=== PATIENT | female | born 1945 | race Caucasian/White ===

== ENCOUNTER → 2023-10-11 12:46 | Outpatient (REF) | payer OTHER, SELFPAY | LOC: RCS 12:46 | PROVIDERS: ATTENDING PHYSICIAN Internal Medicine Cardiovascular Disease; FAMILY PHYSICIAN Nurse Practitioner Adult Health | DX: I25.5 Ischemic cardiomyopathy (principal) | CPT/HCPCS: 93306 ==

== ENCOUNTER 2023-12-18 15:08 | Inpatient (IN) | payer OTHER, SELFPAY ==
[2023-12-18] VITALS (17 sets, daily range): BP systolic 113–156; BP diastolic 79–117; BMI 37.7; BMI 35.0
--- NOTE | 2023-12-18 07:36 | ED.GENMED ---
History of Present Illness
General
Chief Complaint: Breathing Problem
Source: patient
Exam Limitations: none
Time Seen by Provider: 12/18/23 07:13
Nursing documentation reviewed up to this point in time: agreed with
History of Present Illness
History of Present Illness:
77-year-old female with a past medical history of hypertension, CHF, CAD status post stent, AICD who presents to the emergency room for evaluation of shortness of breath and palpitations. Patient reports symptoms have been ongoing for the past week
and she feels generally worsening which prompted ER visit today. She says that she has shortness of breath at rest much worse with exertion. She says that she is going to have progressive orthopnea and is having to sleep sitting up in bed and she
says is having very restless sleep as a result. She says that she has noticed that she is having palpitations and racing heart. She says that she is having some intermittent lightheadedness particularly with positional changes. She has not had
any chest pain. She denies any cough or fevers. She has not noticed any swelling in the legs. She denies any other complaints including GI symptoms, UTI symptoms. She reports that her doctor called her and told her that she was in atrial
fibrillation�patient is unclear whether this is a longstanding history; not documented in notes from 2022 but patient is being maintained on Eliquis. She has been following with Dr. Figueroa through [facility] for cardiology although she also
has seen Dr. Ziegler here through [facility] cardiology.
Past History
Past History
ED Past Medical History: CAD, HTN and Other (Diverticulitis)
ED Past Surgical History: Other (Hysterectomy,)
Social History
Tobacco: Non-smoker
Alcohol: Occasional
Personal:
Employment: Employed
Review of Systems
Review of Systems
All Other Systems: ROS reviewed and negative except as documented in HPI and ROS
Constitutional: Denies fever or chills
Respiratory: Reports trouble breathing; Denies cough
Cardiac: Reports palpitations; Denies chest pain, diaphoresis or syncope
ABD/GI: Denies abdominal pain, nausea or vomiting
: Denies dysuria, frequency or flank pain
Musculoskeletal: Denies edema, neck pain or back pain
Neurological: Reports dizzy; Denies headache, weakness or numbness
Phy Exam
Physical Exam
Physical Exam:
General: Awake, alert, oriented x3; no acute distress
Head: Normocephalic, atraumatic
Eyes: Conjunctiva normal, sclera anicteric
Throat: Airway intact, handling secretions
Neck: Trachea midline, no JVD noted
Lungs: Clear to auscultation bilaterally, no wheezing, rales, rhonchi
Heart: Tachycardia with irregularly irregular rhythm, no murmurs, gallops, or rubs
Abd: Soft, non distended, nontender
Neuro: No gross deficits
Skin: no rash
Extremities: No edema in extremities, equal pulses in all extremities
Scores
Heart Failure Risk
Heart Failure Risk Score: Not Applicable
Heart Score for Chest Pain Patients
STEMI patient?: Not applicable
Withdrawal Assessment of Alcohol
Withdrawal Assessment Completed?: Not applicable
Course
Orders/Labs/Results
Orders:
Orders
12/18/23 06:56
Electrocardiogram (*1) Urgent
Reason for Study: Shortness of Breath
EKG- Treatment ONCE
12/18/23 07:13
CR Chest - 2 Views Urgent
Comment:
Reason For Exam: sob
12/18/23 07:14
Electrocardiogram (*1) Urgent
Reason for Study: Shortness of Breath
EKG- Treatment ONCE
12/18/23 07:35
Complete Blood Count/With Diff Urgent
Comprehensive Metabolic Panel Urgent
Magnesium Urgent
Comment: ADD
NT-proBNP Urgent
TSH Reflex To Free T4 Urgent
Comment: ADD
12/18/23 07:37
Interrogate Pacemaker- Treatment ONCE
Comment: Medtronic
12/18/23 07:39
Diltiazem HCl [Cardizem] 10 mg IV NOW STA
12/18/23 07:49
CARDIOLOGY CONSULT Urgent
Consulting Provider: Gerardo Cohen
Was physician already notified: Yes
12/18/23 07:51
Vital Signs- Treatment ONCE
Frequency: Once
Comment: temperature
12/18/23 08:48
Furosemide [Lasix] 40 mg IV NOW STA
12/18/23 09:37
Add On- LAB Routine
Tests Added?: TSH w/ reflex T4, magnesium
12/18/23 10:30
Apixaban [Eliquis] 5 mg PO BID
12/18/23 11:00
Metoprolol Xl [Toprol Xl] 50 mg PO DAILY
Abnormal Lab Results
12/18/23
07:35
MPV 10.5 H fL
(7.4-10.4)
Absolute Lymphs (auto) 0.9 L 10^3/uL
(1.2-3.4)
Absolute Monos (auto) 0.7 H 10^3/uL
(0.1-0.6)
Neutrophils % 75.8 H %
(42.2-75.2)
Lymphocytes % 11.5 L %
(20.5-51.1)
Carbon Dioxide 20 L mmol/L
(22-30)
BUN 25 H mg/dl
(7-17)
Glucose 107 H mg/dl
(70-99)
Total Protein 6.1 L g/dl
(6.3-8.2)
12/18/23 07:35
12/18/23 07:35
Vital Signs
Initial and Last Documented VS:
Initial Vital Signs
Pulse Resp BP Pulse Ox
125 16 148/94 96
12/18/23 06:52 12/18/23 06:52 12/18/23 06:52 12/18/23 06:52
Last Documented Vital Signs
Temp Pulse Resp BP Pulse Ox
36.8 C 100 21 141/117 94
12/18/23 08:00 12/18/23 10:00 12/18/23 10:00 12/18/23 10:00 12/18/23 10:00
MDM/Problems Addressed
Differential Diagnosis Includes:
Symptomatic atrial fibrillation, CHF, anemia
MDM/Problems Addressed:
77-year-old female presents for evaluation of worsening shortness of breath, orthopnea, palpitations over the past week. Tachycardic on arrival, rest of vitals acceptable including respiratory of 16, pulse ox 96% on room air. Blood pressure high
normal. Physical exam as above. EKG on arrival shows A-fib with RVR�she is on Eliquis unclear exactly how long she has been on it. Will plan to place an IV check labs including CBC and a CMP, proBNP. Check a chest x-ray. Will provide some IV
diltiazem for heart rate control. Will monitor closely on telemetry. Reassess after the above.
Labs reviewed: CBC unremarkable, CMP shows no clinically significant abnormalities. proBNP is elevated to greater than 10,000. Chest x-ray reviewed by me no gross edema, some pulmonary vascular congestion. Heart rate has improved with IV
diltiazem�heart rate now in the 70s to 80s remains in A-fib. Will repeat EKG. Case discussed with cardiology for evaluation with concerns for some mild CHF likely caused by rapid A-fib�patient now rate controlled; no gross edema on exam or x-ray,
equivocal for admission; awaiting cardiology recommendations. Will give a dose of IV Lasix.
Cardiology evaluated�recommended admission, agree with Lasix, tentative plan for cardioversion Wednesday. Case discussed with hospitalist for admission.
Chronic conditions affecting care:
CHF, atrial fibrillation
Acute Exacerbation and/or Progression of Chronic Illness:
Acute exacerbation of rapid atrial fibrillation�treated with IV diltiazem
Acute Exacerbation and/or Progression of Chronic Illness: Arrhythmia
*Radiology
Radiology exam reviewed: preliminary read by ED provider and radiology read reviewed
*Pulse Oximetry
Patient hypoxic: no
*EKG
Interpreted by ED Provider?: Yes
Heart Rate: 114
Rate: tachycardiac
Rhythm: a-fib and PVC's
[place]: left axis deviation
QRS Pattern: wide non-specific
Ischemia: no ischemia
*Critical Care Note
Total Time (30-74mins, 75-104mins- exclusive of procedures): 31
comment:
Critical care statement: A total of 31 minutes of critical care time was provided for this patient. This includes management of unstable vital signs, evaluation of the patient at bedside, frequent reassessment, discussion with
consultants/hospitalist, and review of pertinent medical records. This time was separate from time utilized to perform any aforementioned documented procedures
Data Reviewed
Review of Other/Old Records Reveals: Labs and Records
Source: patient, records and family
Patient Management
Discussion with other providers: Hospitalist (Discussed with hospitalist) and Computer Graphic Artist (Discussed with cardiology)
Escalation/DeEscalation of care consider admission/obs:
Admission indicated
ED Attending Note
-
Portions of this chart may have been created with voice recognition software.� Occasional wrong word or��sound alike� substitutions may have occurred due to the inherent limitations of voice recognition software.
Discharge Plan
Departure
Patient Disposition: Admit
Date of Disposition: 12/18/23
Time of Disposition: 10:42
Admit to doctor: Hank
Presentation/result/management discussed w/ accepting MD/DO: Hospitalist
Discharge Problem:
Atrial fibrillation with RVR, CHF exacerbation
Prescriptions:
No Action
melatonin 5 MG tablet
10 mg PO HS
nitroglycerin 0.4 MG tablet, sublingual
0.4 mg sublingual [id number] PRN (Reason: chest pain) Qty: 25 2RF
acetaminophen 325 MG tablet
650 mg PO DAILYPRN PRN (Reason: MILD PAIN)
furosemide [Lasix] 20 mg tablet
20 mg PO DAILY Qty: 30 0RF
Entresto 49-51 mg Tablet
1 tab PO BID
carvedilol 6.25 mg Tablet
6.25 mg PO BID
escitalopram oxalate 10 mg Tablet
10 mg PO DAILY
Eliquis 5 mg Tablet
5 mg PO BID
amoxicillin-pot clavulanate 875-125 mg tablet
1 tab PO BID Qty: 14 0RF
hydrocodone-acetaminophen 5-300 mg tablet
1 tab PO Q6H PRN (Reason: Pain) Qty: 14 0RF
Referrals:
Suyapa Duval CRNP [Family Provider] -
Interventions
Interventions:
*Risk Screen - Suicide Last Done: 12/18/23 06:52
*General Assessment Last Done: 12/18/23 06:52
*Neglect/Abuse Screening Last Done: 12/18/23 06:52
ED- Fall Risk Assessment Last Done: 12/18/23 07:22
*ED COVID-19 Vaccine History Last Done: 12/18/23 07:22
ED- Cardiac Assessment Last Done: 12/18/23 07:22
ED- Pulmonary Assessment Last Done: 12/18/23 07:22
Discharge Date and Time
Print Language: BOLIVIAN
[2023-12-18 07:46] LABS: % Basophils 0.5 % (0-2); % Eosinophils 3.1 % (0-6); % Immature Granulocytes 0.1 % (0-0.5); % Lymphocytes 11.5 % (20.5-51.1); % Neutrophils 75.8 % (42.2-75.2); Absolute Eosinophils 0.2 10^3/uL (0-0.7); Absolute Lymphocytes 0.9 10^3/uL (1.2-3.4); Absolute Monocytes 0.7 10^3/uL (0.1-0.6); Absolute Neutrophils 5.8 10^3/uL (1.4-6.5); Hematocrit 38.4 % (37.0-47.0); Hemoglobin 12.9 g/dL (12.0-16.0); Mean Corp Hgb Conc. 33.6 g/dL (33.0-37.0); Mean Corpuscular Hgb 30.4 pg (27.0-31.0); Mean Corpuscular Volume 90.6 fL (81.0-99.0); Mean Platelet Volume 10.5 fL (7.4-10.4); Nucleated Red Blood Cells % 0 %; Platelet Count 255 10^3/uL (130-400); Red Blood Cell Count 4.24 10^6/uL (4.20-5.40); Red Cell Dist. Width 13.2 % (11.5-14.5); White Blood Cell Count 7.6 10^3/uL (4.8-10.8)
[2023-12-18] MEDS: CARDIZEM 10 MG IV (07:56)
[2023-12-18 07:57] LABS: ALT (SGPT) 18 U/L (0-35); AST (SGOT) 24 U/L (14-36); Albumin 3.8 g/dl (3.5-5.0); Alkaline Phosphatase 95 U/L (38-126); Blood Urea Nitrogen 25 mg/dl (7-17); Calcium 9.6 mg/dl (8.4-10.2); Carbon Dioxide 20 mmol/L (22-30); Chloride 107 mmol/L (98-107); Estimated Creatinine Clearance 52 ml/min; Glucose 107 mg/dl (70-99); Potassium 4.4 mmol/L (3.5-5.1); Sodium 139 mmol/L (135-145); Total Bilirubin 0.9 mg/dl (0.2-1.3); Total Protein 6.1 g/dl (6.3-8.2); eGFR 58.02
[2023-12-18 08:06] LABS: NT-proBNP 10300 pg/ml
[2023-12-18] MEDS: LASIX 40 MG IV (08:53)
--- NOTE | 2023-12-18 09:15 | CON.CAR ---
Addendum entered and electronically signed by Gerardo Cohen DO 12/18/23 13:58:
I saw and examined the patient.
The Brake Repair Supervisor's note was reviewed and I agree with the note.
Comment:
Plan:
She has been in recurrent, atrial fibrillation for the last week. She remains on Eliquis.
-ICD interrogated in emergency department shows patient has been in atrial fibrillation since December 12, 2023.
-OptiVol heart failure fluid index trending up since being in atrial fibrillation]
She also stopped Lasix several months ago and has not been taking it.
IV Lasix diuresis for heart failure.
Recent echo reviewed; EF remains stable by recent echo October 2023.
Continue Entresto.
Patient reports intolerance to carvedilol with significant night terrors. She is only been taking it in the morning. Will stop carvedilol and start Toprol 50 mg daily
Given recurrent atrial fibrillation, would consider cardioversion on December 19. She has been taking Eliquis.
Discussed with emergency room.
Outpatient follow-up with Dr. Figueroa/Dr. Ziegler
Original Note:
Consultation
Consultation Request
Date/Time Consultation Requested: 12/18/2023
Date/Time Consultation Performed: 12/18/2023
Requesting Provider: Dr. Chepe Mullins
Performing Provider: Grisel Neri PA-C for Dr. Gerardo Cohen
Reason for Consultation: Atrial fibrillation, shortness of breath
Medical History
-
History of Present Illness:
Patient is a 77-year-old female with past medical history significant for coronary artery disease status post OM RAULITO, ischemic cardiomyopathy, chronic heart failure with reduced ejection fraction, NSVT status post BiV ICD, left bundle branch block,
paroxysmal atrial fibrillation on chronic anticoagulation with Eliquis hypertension, hyperlipidemia who presents to emergency department 12/18/2023 with progressively worsening shortness of breath and palpitations. Patient reports symptoms started
approximately 1 week ago and have progressively gotten worse. She also notes orthopnea/PND and difficulty sleeping. Patient noted to be in atrial fibrillation with rapid ventricular response. proBNP elevated 10,300. Chest x-ray possible mild
heart failure. Patient was provided 40 mg IV Lasix and IV diltiazem bolus.
Per patient she ran out of Lasix several months ago and has not been taking it. She also experiences night terrors and has only been taking Coreg in the morning and not in the evening.
PMH:
Chronic HFrEF 30-35%
LBBB
NSVT
s/p BiV ICD 11/18/22 Medtronic
Paroxysmal atrial fibrillation on chronic anticoagulation with Eliquis
HTN
HLD
CAD
s/p RAULITO OM 07/2020
Diverticulitis
TKR
Past Medical History
Past Medical History: Other
Past Surgical History: Cardiac (OM RAULITO July 2020), Gynecological (Hysterectomy) and Orthopedic (Left total knee replacement)
Social History
Tobacco: Non-Smoker
Alcohol: None
Drug: None
Personal:
Living: With Family (grandson)
Family History
Family History: Other (Father had heart failure, mother CAD/ND, lung cancer)
Allergies / Home Medications
Allergy/AdvReac Type Severity Reaction Status Date / Time
No Known Allergies Allergy Verified 12/18/23 06:51
�Medication �Instructions �Recorded �Confirmed �Type
melatonin 5 mg tablet 10 mg PO HS Sleep 07/29/20 03/10/23 History
nitroglycerin 0.4 mg sublingual 0.4 mg sublingual [id number] PRN 07/29/20 03/10/23 Rx
tablet chest pain #25 tabs
acetaminophen 325 mg tablet 650 mg PO DAILYPRN PRN MILD PAIN 08/01/20 03/10/23 History
furosemide 20 mg tablet (Lasix) 20 mg PO DAILY #30 tabs 06/22/22 03/10/23 Rx
carvedilol 6.25 mg tablet 6.25 mg PO BID Heart Failure 11/18/22 03/10/23 History
escitalopram oxalate 10 mg tablet 10 mg PO DAILY Depression 11/18/22 03/10/23 History
sacubitril 49 mg-valsartan 51 mg 1 tab PO BID Heart Failure 11/18/22 03/10/23 History
tablet (Entresto)
amoxicillin 875 mg-potassium 1 tab PO BID #14 tabs 03/10/23 Rx
clavulanate 125 mg tablet
apixaban 5 mg tablet (Eliquis) 5 mg PO BID 03/10/23 03/10/23 History
hydrocodone 5 mg-acetaminophen 300 1 tab PO Q6H PRN Pain #14 tabs 03/10/23 Rx
mg tablet
Review of Systems
-
History Source: Patient
All other systems: Negative unless noted
Physical Exam
Vital Signs
Temp Pulse Resp BP Pulse Ox
98.2 F 86 17 132/82 95
12/18/23 08:00 12/18/23 08:53 12/18/23 08:00 12/18/23 08:53 12/18/23 07:51
GEN: No distress, awake, Ox3, sitting in bed
HEENT: supple, anicteric, mmm
LUNGS: CTA, no wheezes/rales
CV: Reg, S1/S2, 1/6 systolic murmur
ABD: soft, BS+, NT/ND
EXT: Trace edema, no clubbing or cyanosis
NEURO: Gross non-focal
SKIN: No rash, warm, dry, pink
Lab Results
12/18/23 07:35
12/18/23 07:35
Rej-G-Khhjijwjown Pept [id number] pg/ml 12/18/23 07:35
Impression / Plan
-
PCP: BYRON Man
Manager Meat: Dr. Figueroa
Director Index: Dr. Robert Ziegler
Impression:
Presented 12/18/2023 with shortness of breath, palpitations, orthopnea and PND
Acute heart failure with reduced ejection fraction, proBNP 10,300
Atrial fibrillation with rapid ventricular response
Chronic HFrEF 30-35%
LBBB
NSVT
s/p BiV ICD 11/18/22 Medtronic
Paroxysmal atrial fibrillation on chronic anticoagulation with Eliquis
HTN
HLD
CAD
s/p RAULITO OM 07/2020
Diverticulitis
TKR
Cath/PCI 07/29/2020: 90 OM2=>PCI/RAULITO. Also negative FFR of a 60 LAD, a 60 Ramus, and a 60 OM1.
Lexiscan nuclear stress test 07/19/2020: Moderate reversible defect in the mid inferolateral, mid inferior, and apical inferior segments. Inferior hypokinesis. LVEF 40%. LV normal size.�������
Echo 10/11/2023: EF 34%. Moderately reduced LV systolic function. Stage II DD. Mild MR, mild TR. PAP 37 mmHg
Echo 03/20/2021: EF 35 to 40%, stage II DD. Mild left atrial enlargement. Mild MR.
Echo 07/12/2020: LVEF 45-50%. Mild global hypo. Inferior basal akinesis. Moderate LAE. Aortic valve sclerosis.
Plan:
-Presented 12/18/2023 with shortness of breath, palpitations, orthopnea and PND. Elevated proBNP and chest x-ray concerning for acute heart failure
-Acute on chronic heart failure with reduced ejection fraction, proBNP 10,300. Suspect secondary to atrial fibrillation with rapid ventricular response.
-Patient provided 40 mg IV Lasix in emergency department. Continue to monitor and assess response. Patient has not been taking outpatient dosing of Lasix in several months.
-Patient reports intolerance to carvedilol with significant night terrors. She is only been taking it in the morning. Will stop carvedilol and start Toprol 50 mg daily instead
-Continue Entresto. Consider adding Aldactone or SGLT2 inhibitor during admission if BP allows
-Most recent echocardiogram from October 2023 with chronically reduced ejection fraction. No need to repeat this admission.
-Atrial fibrillation with rapid ventricular response. Patient provided IV diltiazem bolus in emergency department with improvement of heart rate
-ICD interrogated in emergency department which shows patient has been in atrial fibrillation since December 12, 2023. OptiVol heart failure fluid index trending up since being in atrial fibrillation]
-Patient reports she has been compliant taking Eliquis without missing or skipping any doses. Continue Eliquis 5 mg twice a day. Hemoglobin stable 12.9
-Will tentatively arrange for cardioversion on 12/20/2023
-Add on TSH
HPI 12/18/2023:
Patient is a 77-year-old female with past medical history significant for coronary artery disease status post OM RAULITO, ischemic cardiomyopathy, chronic heart failure with reduced ejection fraction, NSVT status post BiV ICD, left bundle branch block,
paroxysmal atrial fibrillation on chronic anticoagulation with Eliquis hypertension, hyperlipidemia who presents to emergency department 12/18/2023 with progressively worsening shortness of breath and palpitations. Patient reports symptoms started
approximately 1 week ago and have progressively gotten worse. She also notes orthopnea/PND and difficulty sleeping. Patient noted to be in atrial fibrillation with rapid ventricular response. proBNP elevated 10,300. Chest x-ray possible mild
heart failure. Patient was provided 40 mg IV Lasix and IV diltiazem bolus.
Per patient she ran out of Lasix several months ago and has not been taking it. She also experiences night terrors and has only been taking Coreg in the morning and not in the evening.
Data Reviewed
-
EKG: Report Reviewed by me, Discussed with Physician, Discussed with Patient and Discussed with Family
Radiology: Report Reviewed by me, Discussed with Physician, Discussed with Patient and Discussed with Family
Labs: Labs Reviewed by me, Discussed with Physician, Discussed with Patient and Discussed with Family
Old Records: Reviewed
[2023-12-18 10:57] LABS: TSH Reflex To Free T4 1.22 uIU/ml (0.47-4.68)
[2023-12-18] MEDS: ELIQUIS 5 MG PO ×2 (12:52→21:16)
[2023-12-18] MEDS: TOPROL XL 50 MG PO (12:56)
--- NOTE | 2023-12-18 14:56 | HPS.HSE ---
Family Physician
-
Family Physician: Suyapa Duval
Chief Complaint
-
Shortness of breath
History of Present Illness
77-year-old female with past medical history of coronary artery disease status post stent, ischemic cardiomyopathy, chronic heart failure with reduced EF, VT status post BiV ICD, paroxysmal atrial fibrillation, hyperlipidemia came to the hospital
with progressive shortness of breath and palpitations. Per patient her symptoms started about a week ago and has been getting worse. Denies any chest pain. She does also noted orthopnea. In the ER patient was noted to be in A-fib with RVR. Per
patient she ran out of Lasix few months ago and has not been taking it. Currently she denies any nausea, vomiting, diarrhea, constipation.
Medical History
Past Medical History
Past Medical History: Reports CAD, CHF, HTN and Hypercholesterolemia
Past Surgical History: Reports Cardiac, Gynocological and Orthopedic
Social History
Tobacco: Non-smoker
Alcohol: None
Family History
Family History: Not pertinent
Allergies / Home Medications
Allergies reflects when Allergies were last updated in [employer].
Home Medications with original date entered in [employer]
Allergy/Medication List:
Allergies
Allergy/AdvReac Type Severity Reaction Status Date / Time
No Known Allergies Allergy Verified 12/18/23 06:51
Home Medications
melatonin 5 mg tablet 10 mg PO HS Sleep 07/29/20
sacubitril 49 mg-valsartan 51 mg tablet (Entresto) 1 tab PO BID Heart Failure 11/18/22
apixaban 5 mg tablet (Eliquis) 5 mg PO BID 03/10/23
escitalopram oxalate 20 mg tablet (Lexapro) 20 mg PO DAILY 12/18/23
Review of Systems
-
History Source: Patient
A 12 point ROS was completed and negative except as noted: Yes
Respiratory: Reports Trouble Breathing
Physical Exam
Vital Signs
Vital Signs
Temp Pulse Resp BP Pulse Ox
98.2 F 83 20 131/84 92
12/18/23 08:00 12/18/23 14:30 12/18/23 14:30 12/18/23 14:01 12/18/23 14:30
Physical Exam
General: Well Nourished and No Apparent Distress
HEENT: NormoCephalic, Anicteric and Moist mucous membranes
Respiratory: Clear and Non Labored Respirations; No Wheezes
Cardiac: S1/S2, Irregular Rhythm and Tachycardia
GI: Soft, Non Tender and Non Distended
Rectal: Deferred by Provider
Genito-urinary: No Bueno
Musculoskeletal: No Edema
Neuro: Awake, Alert, Oriented and AO x 3
Psych: Calm and Intact Judgment/Insight
Laboratory Results
-
12/18/23 07:35
12/18/23 07:35
Laboratory Results
Total Bilirubin 0.9 mg/dl (0.2-1.3) 12/18/23 07:35
AST 24 U/L (14-36) 12/18/23 07:35
ALT 18 U/L (0-35) 12/18/23 07:35
Alkaline Phosphatase 95 U/L (38-126) 12/18/23 07:35
Impression/Plan
-
Shortness of breath secondary to acute on chronic CHF with reduced ejection fraction
Chronic CHF with EF 30 to 35%
Start IV Lasix
BNP elevated
Cardiology following
Chest x-ray noted
Continue Entresto
Echo 10/11/2023: EF 34%. Moderately reduced LV systolic function. Stage II DD. Mild MR, mild TR. PAP 37 mmHg
Atrial fibrillation with RVR
History of paroxysmal atrial fibrillation
Continue with Eliquis
Start metoprolol
Possible cardioversion on Wednesday if remains in A-fib
NSVT status post BiV ICD
Monitor
Essential hypertension
Hyperlipidemia
CAD status post stent
Monitor
History of depression
Continue lexapro
DVT prophylaxis
Eliquis
Full code
I spent a total of 76 minutes with the patient or on the floor. More than 50% of this time involved counseling and coordination of care.
[2023-12-18] MEDS: ENTRESTO 49 MG/51 MG 1 TAB PO (20:14)
[2023-12-18] MEDS: MELATONIN 10 MG PO (21:15)
[2023-12-19] VITALS (7 sets, daily range): BP systolic 93–132; BP diastolic 64–93; BMI 35.0
[2023-12-19 03:58] LABS: % Basophils 1.1 % (0-2); % Immature Granulocytes 0.2 % (0-0.5); % Lymphocytes 24.5 % (20.5-51.1); % Monocytes 9.2 % (1.7-9.3); Absolute Basophils 0.1 10^3/uL (0-0.2); Absolute Eosinophils 0.3 10^3/uL (0-0.7); Absolute Lymphocytes 1.1 10^3/uL (1.2-3.4); Absolute Monocytes 0.4 10^3/uL (0.1-0.6); Absolute Neutrophils 2.7 10^3/uL (1.4-6.5); Hematocrit 36.9 % (37.0-47.0); Hemoglobin 12.6 g/dL (12.0-16.0); Mean Corp Hgb Conc. 34.1 g/dL (33.0-37.0); Mean Corpuscular Hgb 30.6 pg (27.0-31.0); Mean Corpuscular Volume 89.6 fL (81.0-99.0); Mean Platelet Volume 10.7 fL (7.4-10.4); Nucleated Red Blood Cells % 0 %; Platelet Count 240 10^3/uL (130-400); Red Blood Cell Count 4.12 10^6/uL (4.20-5.40); Red Cell Dist. Width 13.2 % (11.5-14.5); White Blood Cell Count 4.6 10^3/uL (4.8-10.8)
[2023-12-19 04:17] LABS: Blood Urea Nitrogen 22 mg/dl (7-17); Calcium 9.5 mg/dl (8.4-10.2); Carbon Dioxide 24 mmol/L (22-30); Chloride 105 mmol/L (98-107); Estimated Creatinine Clearance 50 ml/min; Glucose 90 mg/dl (70-99); Sodium 141 mmol/L (135-145); eGFR 58.02
--- NOTE | 2023-12-19 04:41 | PTCARENOTE ---
Pt. AAOx3, VSS, A-fib with V & some AV -pacing rate 80's- low 100's on the monitor. Denies any pain, discomfort, or SOB. Voiding large amounts clear yellow urine without difficulty. Ambulates independently with steady gait. Slept most of the
night.
[2023-12-19] MEDS: TOPROL XL 50 MG PO (07:42)
[2023-12-19] MEDS: LEXAPRO 20 MG PO (07:42)
[2023-12-19] MEDS: ELIQUIS 5 MG PO ×2 (07:42→20:20)
[2023-12-19] MEDS: ENTRESTO 49 MG/51 MG 1 TAB PO ×2 (07:42→20:20)
[2023-12-19] MEDS: LASIX 40 MG IV (07:43)
[2023-12-19] MEDS: FLUSH (NSS) 1 FLUSH IV (07:43)
--- NOTE | 2023-12-19 08:52 | W.PN.CARDCBS ---
Today's Communication / Plan
-
Cardioversion in a.m.
Continue IV diuresis
Impression / Plan
-
.
PCP: BYRON Man
Felt Tipping Machine Tender: Dr. Figueroa
Studio Owner: Dr. Robert Ziegler
Impression:
Presented 12/18/2023 with shortness of breath, palpitations, orthopnea and PND
Acute heart failure with reduced ejection fraction, proBNP 10,300
Recurrent paroysmal Atrial fibrillation with rapid ventricular response on chronic Eliquis
Chronic HFrEF 30-35%
LBBB
NSVT
s/p BiV ICD 11/18/22 [employer]
Paroxysmal atrial fibrillation on chronic anticoagulation with Eliquis
HTN
HLD
CAD
s/p RAULITO OM 07/2020
Diverticulitis
TKR
Cath/PCI 07/29/2020: 90 OM2=>PCI/RAULITO. Also negative FFR of a 60 LAD, a 60 Ramus, and a 60 OM1.
Lexiscan nuclear stress test 07/19/2020: Moderate reversible defect in the mid inferolateral, mid inferior, and apical inferior segments. Inferior hypokinesis. LVEF 40%. LV normal size.�������
Echo 10/11/2023: EF 34%. Moderately reduced LV systolic function. Stage II DD. Mild MR, mild TR. PAP 37 mmHg
Echo 03/20/2021: EF 35 to 40%, stage II DD. Mild left atrial enlargement. Mild MR.
Echo 07/12/2020: LVEF 45-50%. Mild global hypo. Inferior basal akinesis. Moderate LAE. Aortic valve sclerosis.
Plan:
-Presented 12/18/2023 with shortness of breath, palpitations, orthopnea and PND. Elevated proBNP and chest x-ray concerning for acute heart failure
Cont IV diuresis, wt coming down slowly.
Cont Lasix 40 mg IV daily
Recent October 2023 echo reviewed with EF 34% and has been 35-40%
-OptiVol heart failure fluid index trending up since being in atrial fibrillation
Remains in atrial fibrillation.
For cardioversion December 19
Continue Eliquis. She denies missing any doses.
Continue Toprol for rate control.
-ICD interrogated in emergency department shows patient has been in atrial fibrillation since December 12, 2023.
-Normal TSH
Continue Entresto for cardiomyopathy consider Aldactone/SGLT2 inhibitor for CM
She reported night terrors with carvedilol and this was switched to Toprol XL 50 mg daily.
Outpatient cardiac follow-up after cardioversion.
HPI 12/18/2023:
Patient is a 77-year-old female with past medical history significant for coronary artery disease status post OM RAULITO, ischemic cardiomyopathy, chronic heart failure with reduced ejection fraction, NSVT status post BiV ICD, left bundle branch block,
paroxysmal atrial fibrillation on chronic anticoagulation with Eliquis hypertension, hyperlipidemia who presents to emergency department 12/18/2023 with progressively worsening shortness of breath and palpitations. Patient reports symptoms started
approximately 1 week ago and have progressively gotten worse. She also notes orthopnea/PND and difficulty sleeping. Patient noted to be in atrial fibrillation with rapid ventricular response. proBNP elevated 10,300. Chest x-ray possible mild
heart failure. Patient was provided 40 mg IV Lasix and IV diltiazem bolus.
Per patient she ran out of Lasix several months ago and has not been taking it. She also experiences night terrors and has only been taking Coreg in the morning and not in the evening.
Progress Note - Felt Tipping Machine Tender
Subjective
Date of Service: December 19, 2023
Pt seen and examined. No complaints. No chest pain or shortness of breath.
Objective
Labs:
12/19/23 03:37
12/19/23 03:37
Labs
Hgb 12.6 g/dL (12.0-16.0) 12/19/23 03:37
Hct 36.9 % (37.0-47.0) L 12/19/23 03:37
Plt Count 240 10^3/uL (130-400) 12/19/23 03:37
Sodium 141 mmol/L (135-145) 12/19/23 03:37
Potassium 4.0 mmol/L (3.5-5.1) 12/19/23 03:37
BUN 22 mg/dl (7-17) H 12/19/23 03:37
Creatinine 1.0 mg/dL (0.6-1.0) 12/19/23 03:37
Glucose 90 mg/dl (70-99) 12/19/23 03:37
Vital Signs and I&O:
Vital Signs
Temp Pulse Resp BP Pulse Ox
98.3 F 97 20 120/73 98
12/19/23 06:52 12/19/23 07:00 12/19/23 06:52 12/19/23 07:42 12/19/23 06:52
Vital Signs
Temp Pulse Resp BP Pulse Ox
98.3 F 97 20 120/73 98
12/19/23 06:52 12/19/23 07:00 12/19/23 06:52 12/19/23 07:42 12/19/23 06:52
Intake & Output
12/17/23 12/18/23 12/19/23 12/20/23
06:59 06:59 06:59 06:59
Intake Total 240 / 240
Balance 240 / 240
Physical Exam
Physical Exam
General: No acute distress, AAOX3
Neck: Negative JVD
Heart: Irregular irregular, Negative S3 positive S1/S2, Negative S4, No murmur
Lungs: CTA b/l, negative wheezes/rales/rhonchi
Abd: Positive BS, NT/ND, neg rebound/rigidity/guarding
Ext: Negative cyanosis/clubbing/edema
Neuro: nonfocal
--- NOTE | 2023-12-19 09:27 | PTCARENOTE ---
Received patient at change of shift. Patient was resting in bed-- awake, alert, and oriented. BP 120/73, A-Fib V-paced 90s, 98% on room air. Discussed plan of care and patient verbalized understanding. Call gasca left within reach.
--- NOTE | 2023-12-19 10:33 | PTCARENOTE ---
Patient had a 14 run of [employer] @ 1017. Patient sleeping and asymptomatic. Dr. Noel enriquez.
--- NOTE | 2023-12-19 12:26 | W.PN.HOSP.TC ---
Today's Communication/Plan
-
Monitor vital signs
see plan
Continue with IV diuresis
Continue with metoprolol
Cardioversion in a.m.
N.p.o. past midnight
Continue Eliquis
Assessment / Plan
Assessment / Plan
General: Well Nourished and No Apparent Distress
HEENT: NormoCephalic, Anicteric and Moist mucous membranes
Respiratory: Clear and Non Labored Respirations; No Wheezes
Cardiac: S1/S2, Irregular Rhythm
GI: Soft, Non Tender and Non Distended
Genito-urinary: No Bueno
Musculoskeletal: No Edema
Neuro: Awake, Alert, Oriented and AO x 3
Psych: Calm and Intact Judgment/Insight
Shortness of breath secondary to acute on chronic CHF with reduced ejection fraction
Chronic CHF with EF 30 to 35%
Continue with IV Lasix
BNP elevated
Cardiology following
Chest x-ray noted
Continue Entresto
Echo 10/11/2023: EF 34%. Moderately reduced LV systolic function. Stage II DD. Mild MR, mild TR. PAP 37 mmHg
Plan for cardioversion 12/19. N.p.o. past midnight
Atrial fibrillation with RVR
History of paroxysmal atrial fibrillation
Continue with Eliquis
Started metoprolol
Possible cardioversion on Wednesday if remains in A-fib
NSVT status post BiV ICD
Monitor
Essential hypertension
Hyperlipidemia
CAD status post stent
Monitor
History of depression
Continue lexapro
DVT prophylaxis
Eliquis
Full code
Anticipated Discharge: 24 - 48 hours
Subjective/Interval History
-
Date of Service: December 19, 2023
Denies pain
Objective Data
-
Labs:
Laboratory Results
12/19/23
03:37
WBC 4.6 L
Hgb 12.6
Hct 36.9 L
Plt Count 240
Sodium 141
Potassium 4.0
Chloride 105
Carbon Dioxide 24
BUN 22 H
Creatinine 1.0
Glucose 90
Calcium 9.5
Vital Signs:
Vital Signs
Temp Pulse Resp BP Pulse Ox
98.2 F 90 20 93/64 98
12/19/23 11:33 12/19/23 12:00 12/19/23 11:33 12/19/23 11:36 12/19/23 12:09
I&O
12/18/23 12/19/23 12/20/23
06:59 06:59 06:59
Intake Total 240 / 240 240 / 240
Output Total 800 / 800
Balance 240 / 240 -560 / -560
[2023-12-19] MEDS: MELATONIN 10 MG PO (21:27)
--- NOTE | 2023-12-19 22:49 | PTCARENOTE ---
Received pt at handoff. AOx3. Tele- Afib w/ occ. V-pacing. HR 80-100s. Pt aware of NPO status for CV fang. Currently in bed; call elo w/in reach.
[2023-12-20 03:30] VITALS: BP 119/80
[2023-12-20 03:50] LABS: Hemoglobin 13.3 g/dL (12.0-16.0); Mean Corpuscular Hgb 30.6 pg (27.0-31.0); Mean Corpuscular Volume 87.6 fL (81.0-99.0); Mean Platelet Volume 10.2 fL (7.4-10.4); Platelet Count 244 10^3/uL (130-400); Red Blood Cell Count 4.34 10^6/uL (4.20-5.40); Red Cell Dist. Width 13.1 % (11.5-14.5); White Blood Cell Count 4.2 10^3/uL (4.8-10.8)
[2023-12-20 04:15] VITALS: BMI 34.4
[2023-12-20 04:15] LABS: Blood Urea Nitrogen 22 mg/dl (7-17); Calcium 9.4 mg/dl (8.4-10.2); Carbon Dioxide 26 mmol/L (22-30); Chloride 104 mmol/L (98-107); Estimated Creatinine Clearance 54 ml/min; Glucose 89 mg/dl (70-99); Potassium 3.8 mmol/L (3.5-5.1); Sodium 139 mmol/L (135-145); eGFR > 60.00
[2023-12-20] MEDS: ELIQUIS 5 MG PO (07:40)
[2023-12-20] MEDS: ENTRESTO 49 MG/51 MG 1 TAB PO (07:40)
[2023-12-20 07:43] VITALS: BP 129/88
[2023-12-20] MEDS: TOPROL XL 50 MG PO (07:45)
[2023-12-20] MEDS: LEXAPRO 20 MG PO (07:45)
--- NOTE | 2023-12-20 08:16 | W.PN.CARDCBS ---
Addendum entered and electronically signed by Jovanny Patterson MD 12/20/23 10:50:
I saw and examined the patient.
The DEOILING MACHINE OPERATOR or PA's note was reviewed and I agree with the note.
Comment: General: Well developed, well nourished in NAD.
Neck: Supple, no JVD, HJR, carotids +2 B/L, no bruits bilaterally.
Heart: Non displaced PMI, RRR, no murmurs, No S3, S4, no rubs.
Lungs: Scattered rhonchi
Extremities: No clubbing, cyanosis or edema bilaterally.
Neuro: Grossly nonfocal, awake, alert and oriented x3.
Stable cardiology status for discharge. Will change to oral Lasix. Cardioverted to AV paced rhythm without complications. Will replete potassium. Discharged home on Toprol in place of Coreg and Lasix 20 mg daily. Outpatient follow-up with
[facility] [place]. Discussed with patient and primary service
Original Note:
Today's Communication / Plan
-
Cardioversion today
Transition to oral Lasix today
Replete potassium
DC home on Toprol in place of carvedilol and on Lasix 20 mg daily
Will arrange for outpatient cardiac follow-up
Impression / Plan
-
.
PCP: BYRON Man
Automation Specialist: Dr. Figueroa
Nail Professional: Dr. Robert Ziegler
Impression:
Presented 12/18/2023 with shortness of breath, palpitations, orthopnea and PND
Acute heart failure with reduced ejection fraction, proBNP 10,300
Recurrent paroysmal Atrial fibrillation with rapid ventricular response on chronic Eliquis
Chronic HFrEF 30-35%
LBBB
NSVT
s/p BiV ICD 11/18/22 [employer]
Paroxysmal atrial fibrillation on chronic anticoagulation with Eliquis
HTN
HLD
CAD
s/p RAULITO OM 07/2020
Diverticulitis
TKR
Cath/PCI 07/29/2020: 90 OM2=>PCI/RAULITO. Also negative FFR of a 60 LAD, a 60 Ramus, and a 60 OM1.
Lexiscan nuclear stress test 07/19/2020: Moderate reversible defect in the mid inferolateral, mid inferior, and apical inferior segments. Inferior hypokinesis. LVEF 40%. LV normal size.�������
Echo 10/11/2023: EF 34%. Moderately reduced LV systolic function. Stage II DD. Mild MR, mild TR. PAP 37 mmHg
Echo 03/20/2021: EF 35 to 40%, stage II DD. Mild left atrial enlargement. Mild MR.
Echo 07/12/2020: LVEF 45-50%. Mild global hypo. Inferior basal akinesis. Moderate LAE. Aortic valve sclerosis.
Plan:
-Presented 12/18/2023 with shortness of breath, palpitations, orthopnea and PND. Elevated proBNP and chest x-ray concerning for acute heart failure
Symptomatically patient significantly improved. Was able to sleep comfortably flat last night. Patient appears to be euvolemic
Weight down 3 pounds overnight.
Transition to oral Lasix 20 mg daily. Should be discharged home on this dose
Potassium 3.8, will replete
Recent October 2023 echo reviewed with EF 34% and has been 35-40%
-OptiVol heart failure fluid index trending up since being in atrial fibrillation
Remains in atrial fibrillation.
Cardioversion (today) December 19
Continue Eliquis. She denies missing any doses.
Continue Toprol for rate control.
-ICD interrogated in emergency department shows patient has been in atrial fibrillation since December 12, 2023.
-Normal TSH
Continue Entresto for cardiomyopathy consider Aldactone/SGLT2 inhibitor for CM
She reported night terrors with carvedilol and this was switched to Toprol XL 50 mg daily.
Will arrange outpatient cardiac follow-up. Can be discharge after cardioversion.
HPI 12/18/2023:
Patient is a 77-year-old female with past medical history significant for coronary artery disease status post OM RAULITO, ischemic cardiomyopathy, chronic heart failure with reduced ejection fraction, NSVT status post BiV ICD, left bundle branch block,
paroxysmal atrial fibrillation on chronic anticoagulation with Eliquis hypertension, hyperlipidemia who presents to emergency department 12/18/2023 with progressively worsening shortness of breath and palpitations. Patient reports symptoms started
approximately 1 week ago and have progressively gotten worse. She also notes orthopnea/PND and difficulty sleeping. Patient noted to be in atrial fibrillation with rapid ventricular response. proBNP elevated 10,300. Chest x-ray possible mild
heart failure. Patient was provided 40 mg IV Lasix and IV diltiazem bolus.
Per patient she ran out of Lasix several months ago and has not been taking it. She also experiences night terrors and has only been taking Coreg in the morning and not in the evening.
Progress Note - Automation Specialist
Subjective
Date of Service: December 20, 2023
Patient seen and examined. Patient feeling considerably better. Denies shortness of breath, orthopnea or PND. Was able to sleep comfortably last night flat. Seems to be tolerating Toprol as she had night terrors with carvedilol
Objective
Labs:
12/20/23 03:38
12/20/23 03:38
Labs
Hgb 13.3 g/dL (12.0-16.0) 12/20/23 03:38
Hct 38.0 % (37.0-47.0) 12/20/23 03:38
Plt Count 244 10^3/uL (130-400) 12/20/23 03:38
Sodium 139 mmol/L (135-145) 12/20/23 03:38
Potassium 3.8 mmol/L (3.5-5.1) 12/20/23 03:38
BUN 22 mg/dl (7-17) H 12/20/23 03:38
Creatinine 0.9 mg/dL (0.6-1.0) 12/20/23 03:38
Glucose 89 mg/dl (70-99) 12/20/23 03:38
Vital Signs and I&O:
Vital Signs
Temp Pulse Resp BP Pulse Ox
97.9 F 92 18 129/88 95
12/20/23 07:47 12/20/23 07:40 12/20/23 07:47 12/20/23 07:40 12/20/23 07:47
Vital Signs
Temp Pulse Resp BP Pulse Ox
97.9 F 92 18 129/88 95
12/20/23 07:47 12/20/23 07:40 12/20/23 07:47 12/20/23 07:40 12/20/23 07:47
Intake & Output
12/18/23 12/19/23 12/20/23 12/21/23
06:59 06:59 06:59 06:59
Intake Total 240 / 240 240 / 240
Output Total 2150 / 2150 275 / 275
Balance 240 / 240 -1910 / -1910 -275 / -275
Physical Exam
Physical Exam
GEN: No distress, awake, Ox3
HEENT: supple, anicteric, mmm
LUNGS: CTA, no wheezes/rales
CV: irreg irreg, S1/S2, 1/6 syst murmur
ABD: soft, BS+, NT/ND
EXT: No edema, clubbing or cyanosis
NEURO: Gross non-focal
SKIN: No rash, warm, dry, pink
[2023-12-20 08:42] LABS: % Basophils 1.2 % (0-2); % Eosinophils 9.7 % (0-6); % Immature Granulocytes 0.2 % (0-0.5); % Lymphocytes 30.9 % (20.5-51.1); % Monocytes 10.8 % (1.7-9.3); % Neutrophils 47.2 % (42.2-75.2); Absolute Basophils 0.1 10^3/uL (0-0.2); Absolute Eosinophils 0.4 10^3/uL (0-0.7); Absolute Lymphocytes 1.3 10^3/uL (1.2-3.4); Absolute Monocytes 0.5 10^3/uL (0.1-0.6); Nucleated Red Blood Cells % 0 %
--- NOTE | 2023-12-20 09:10 | W.PN.HOSP.TC ---
Today's Communication/Plan
-
for CV
Assessment / Plan
Assessment / Plan
78yo F with PMHx of Afib, CHF, NSVT s/p AICD, CAD s/p PCI, MDD, HLD came with worsening SOB with orthopnea and palpitations, found in Afib with RVR and CHF. She stopped Lasix by herself 3 mo ago since she felt that she was too dry. DIuresed and
polanned for CV on 12/20/23. Counseled on compliance with medical regimen and daily weights.
A/P:
#Afib, paroxysmal with RVR
#Acute on chronic HFrEF
#NSVT s/p AICD
#CAD s/p PCI @2020
Cardio consult:
completed diuresis
pending CV
cont Elqiuis
Lasix 20mg PO at home
Daily weight
#MDD
#HLD
cont home meds, patient without SI
DVT ppx Eliquis
Full code
I have spent at least 36min reviewing chart, test resukts, communication with consultants and direct patient care
Anticipated Discharge: Within 24 hours
Subjective/Interval History
-
Date of Service: December 20, 2023
Objective Data
-
Labs:
Laboratory Results
12/20/23
03:38
WBC 4.2 L
Hgb 13.3
Hct 38.0
Plt Count 244
Sodium 139
Potassium 3.8
Chloride 104
Carbon Dioxide 26
BUN 22 H
Creatinine 0.9
Glucose 89
Calcium 9.4
Vital Signs:
Vital Signs
Temp Pulse Resp BP Pulse Ox
97.9 F 90 18 129/88 95
12/20/23 07:47 12/20/23 08:00 12/20/23 07:47 12/20/23 07:43 12/20/23 07:47
I&O
12/19/23 12/20/23 12/21/23
06:59 06:59 06:59
Intake Total 240 / 240 240 / 240
Output Total 2150 / 2150 275 / 275
Balance 240 / 240 -1910 / -1910 -275 / -275
Review of Systems
-
History Source: Patient
All other systems: Reviewed and negative
Constitutional: Reports No Symptoms
Physical Exam
-
General: No Apparent Distress
HEENT: Normocephalic and Atraumatic
Cardiac: Irregular Rhythm
GI: Soft, Nontender and Nondistended
Genito-urinary: No Costovertebral Tender
Musculoskeletal: No Clubbing, No Cyanosis and No Edema
Skin: Warm
Neuro: Awake, Alert, Oriented and AO x 3
Psych: Calm
[2023-12-20] MEDS: LASIX IV (09:22)
[2023-12-20] MEDS: LASIX 20 MG PO (09:29)
[2023-12-20] MEDS: KCL 40 MEQ PO (09:29)
--- NOTE | 2023-12-20 09:58 | PTCARENOTE ---
Received pt at shift change. Pt is Afib/ v paced on the monitor. NPO since midnight. VSS. Discussed plan of care, pt verbalizes understanding. Gave report and sent pt to cardioversion.
--- NOTE | 2023-12-20 10:48 | ITS.CL.CARDI ---
Rn Assessment - Cardioversion
Cardioversion
Procedure Report:
Cardioversion Report:
Date of Procedure: 12/20/2023
Procedure: Cardioversion
Indication: Symptomatic atrial fibrillation
Performing Physician: Jovanny Patterson MD
Technique: The patient was brought to the holding area. Signed informed consent was obtained. A time out was called and performed. The patient was anesthetized by the anesthesia service. Anticoagulation status was reviewed and appropriate. R2 pads
were placed anteriorly and posteriorly. A 200 J synchronized biphasic shock restored AV paced rhythm without significant bradycardia. There were no complications.
Conclusion: Uncomplicated cardioversion from atrial fibrillation to AV paced rhythm.
Recommendation: Routine post cardioversion care. Continue moth exterminator anticoagulation.
[2023-12-20 11:01] VITALS: BP 110/74
--- NOTE | 2023-12-20 11:15 | PTCARENOTE ---
Received patient post successful cardioversion. AV paced on the monitor. Pt had an 11 beat run of Vtach when getting back into bed. AUTUMN Neri aware. VSS. Call gasca within reach.
--- NOTE | 2023-12-20 11:22 | CM ---
Reviewed chart. Met with Mrs. Carbajal to review discharge plans. She states prior to admission she resides with her grandson in a one story home with eight steps to enter. She states prior to admission she was independent with ambulation and adls.
She states she does not have any DME in the home. She states she has a prescription plan and uses [facility]. Medical work-up in progress. The discharge plan is to return home with her grandson when medically stable.
[2023-12-20 11:30] VITALS: BP 120/73
--- NOTE | 2023-12-20 12:39 | W.DCSUMMARY ---
Discharge Summary
Discharge Data
Date of Admission: 12/18/23
Date of Discharge: 12/20/23
-
Pending Results: No
Hospital Course
78yo F with PMHx of Afib, CHF, NSVT s/p AICD, CAD s/p PCI, MDD, HLD came with worsening SOB with orthopnea and palpitations, found in Afib with RVR and CHF. She stopped Lasix by herself 3 mo ago since she felt that she was too dry. Diuresed and had
successful CV on 12/20/23. Counseled on compliance with medical regimen and daily weights. As per agreement with cardiology - medically stable for d/c
I have spent at least 38min discharging the patient
Patient was managed for:
#Afib, paroxysmal with RVR
#Acute on chronic HFrEF
#NSVT s/p AICD
#CAD s/p PCI @2020
#MDD
#HLD
Discharge Plan
-
Patient Disposition: Home (Routine Discharge)
Discharge Diagnosis/Procedures: Afib with RVR
Diet: Low Cholesterol
Driving Restrictions: As prior to admission
Instructions: *PCP/Other Silviculturist Heart Failure Instructions
Referrals:
Suyapa Duval CRNP [Family Provider] -
Jeanette Figueroa MD [Non-Admitting Privileges] - 12/31/23 11:00 am (You have follow up with Cardiology, Dr. Figueroa's office on December 30 at 11:00 am. If you are unable to make this appointment please call [phone] to reschedule)
Prescriptions:
New
metoprolol succinate 50 mg Tablet Extended Release 24 Hr
50 mg PO DAILY Qty: 30 0RF
furosemide 20 mg Tablet
20 mg PO DAILY Qty: 30 0RF
Continued
melatonin 5 MG tablet
10 mg PO HS
Entresto 49-51 mg Tablet
1 tab PO BID
Eliquis 5 mg Tablet
5 mg PO BID
escitalopram oxalate [Lexapro] 20 mg Tablet
20 mg PO DAILY
Discharge Orders:
Discharge Patient (As Directed); Ordered 12/20/23
Ordered By: Nando Howell
Care Plan Goals
Care Plan Goals:
Problem: Readiness for enhanced knowledge related to diagnosis and treatment plan
Goal: Understand your diagnosis and treatment plan needs, including medications if applicable.
Instructions: Know your diagnosis, underlying causes and treatment plan options, including medications if applicable. Consult with your health care team to learn about your diagnosis and treatment plan, including medications if applicable.
Discharge Date and Time
Print Language: ROMANIAN
[2023-12-20 15:32] VITALS: BP 113/93
--- NOTE | 2023-12-20 16:04 | PTCARENOTE ---
Pt had a 9 and an 11 beat asymptomatic run of Vtach. COTTAGE PARENT Grisel Neri aware and okayed pt for discharge. Discharge instructions, medication directions, and heart failure information gone over with pt, pt verbalizes understanding. IV and tele monitor
removed. Pt discharged home with grandson.
--- NOTE | 2023-12-21 11:25 | W.HF.CON ---
Heart Failure
- LV Function
Left ventricular function study result: LV Ejection fraction </= 35% (ECHO 10/11/23)
Ejection Fraction Percentage: 34
- ARNI
Patient already on ARNI: Yes
- ACEI/ARB
Patient already on ACEI/ARB: No
Heart Failure ACEI/ARB Not Indicated: Patient ordered/on ARNI
- Beta Bruce
Patient already on Evidence Based Beta Bruce: Yes
- Mineralocorticord Receptor Antagonist
Patient already on MRA: No
Heart Failure MRA Contraindication: Hypotension
- SGLT-2 Inhibitor
Patient already on SGLT-2 Inhibitor: No
Heart Failure SGLT-2 Inhibitor Contraindication: Patient Refusal
- Afib Anticoagulation
Patient already on Anticoagulation for Afib: Yes
- NYHA CHF Classification
NYHA CHF Classification Level: Class III - Symptoms w/ min exertion, interferes w/ nml daily activity
- ACC/AHA Stage
ACC/AHA Stage: Stage C: Symptomatic Heart Failure
== END 2023-12-20 16:17 | disposition home or self-care (01) | DRG 291 ==
LOC: IVU 15:08
PROVIDERS: Internal Medicine Cardiovascular Disease; ADMITTING PHYSICIAN Internal Medicine; ATTENDING PHYSICIAN Internal Medicine; CONSULT PHYSICIAN Nuclear Medicine Nuclear Cardiology; EMERGENCY PHYSICIAN Emergency Medicine; FAMILY PHYSICIAN Nurse Practitioner Adult Health
PROC: 5A2204Z Restoration of Cardiac Rhythm, Single (ICD-10-PCS; 2023-12-20)
DX: I11.0 Hypertensive heart disease with heart failure (principal); I50.23 Acute on chronic systolic (congestive) heart failure; I25.10 Atherosclerotic heart disease of native coronary artery without angina pectoris; I25.5 Ischemic cardiomyopathy; I35.8 Other nonrheumatic aortic valve disorders; E78.00 Pure hypercholesterolemia, unspecified; F51.4 Sleep terrors [night terrors]; I48.0 Paroxysmal atrial fibrillation; F32.9 Major depressive disorder, single episode, unspecified; I44.7 Left bundle-branch block, unspecified; Z95.5 Presence of coronary angioplasty implant and graft; Z95.810 Presence of automatic (implantable) cardiac defibrillator; Z79.01 Long term (current) use of anticoagulants; Z82.49 Family history of ischemic heart disease and other diseases of the circulatory system; Z80.1 Family history of malignant neoplasm of trachea, bronchus and lung
CPT/HCPCS: 71046; 80048; 80053; 83735; 83880; 84443; 85025; 92960; 93005; 96374; 96375; 99291

== ENCOUNTER 2023-12-23 19:50 | Emergency (ER) | payer OTHER, SELFPAY ==
[2023-12-23 19:54] VITALS: BP 126/83
[2023-12-23 20:39] VITALS: BP 104/79; BMI 36.2
[2023-12-23 20:42] LABS: ALT (SGPT) 16 U/L (0-35); AST (SGOT) 20 U/L (14-36); Alkaline Phosphatase 77 U/L (38-126); Blood Urea Nitrogen 23 mg/dl (7-17); Calcium 9.6 mg/dl (8.4-10.2); Carbon Dioxide 23 mmol/L (22-30); Chloride 104 mmol/L (98-107); Estimated Creatinine Clearance 46 ml/min; Glucose 109 mg/dl (70-99); Potassium 4.4 mmol/L (3.5-5.1); Sodium 141 mmol/L (135-145); Total Bilirubin 0.7 mg/dl (0.2-1.3); Total Protein 6.5 g/dl (6.3-8.2); eGFR 51.43
[2023-12-23 20:57] LABS: Troponin I < 0.012 ng/ml
[2023-12-23 21:00] VITALS: BP 113/92
--- NOTE | 2023-12-23 21:22 | ED.GENMED ---
History of Present Illness
General
Chief Complaint: Chest Pain
Time Seen by Provider: 12/23/23 20:52
History of Present Illness
History of Present Illness:
Patient presents to the emergency department with chest pain and shortness of breath. Recent admission for CHF and A-fib. She was diuresed and cardioverted and discharged 4 days ago. She notes since then she has had worsening dyspnea on exertion
as well as sharp left-sided chest pain. She is on Eliquis, denies starting furosemide though this was prescribed. chest pain is non radiating. Worse with palptation to L side of chest
Past History
Past History
ED Past Medical History: CAD, HTN and Other (Diverticulitis)
ED Past Surgical History: Other (Hysterectomy,)
Social History
Tobacco: Non-smoker
Alcohol: Occasional
Personal:
Employment: Employed
Phy Exam
Physical Exam
Physical Exam:
GENERAL APPEARANCE: NAD, well developed/ well nourished
EYES lids/conjunctiva normal
EARS/NOSE/THROAT Mucous membranes moist,
HEAD/NECK normocephalic atraumatic, neck is supple.
RESPIRATORY respiratory effort normal, speaks in full sentences, no accessory muscle use. Lungs clear to auscultation without rhonchi, wheezes, rales
CARDIAC Regular rate and rhythm, no edema.
ABDOMINAL Soft, ND/NT.
MUSCLES/EXTREMITIES No abnormal range of motion, no swelling.
SKIN Warm, pink and dry. No rashes
NEUROLOGICAL Speech is clear and appropriate. Normal level of consciousness. 5/5 strength in all extremities.
PSYCH Normal mood and affect. Judgement/competence is appropriate
Scores
Heart Score for Chest Pain Patients
STEMI patient?: Not applicable
Course
Orders/Labs/Results
Orders:
Orders
12/23/23 19:51
Electrocardiogram (*1) Urgent
Reason for Study: Chest Pain
Electrocardiogram (*1) Urgent
Reason for Study: Atrial Fibrillation
EKG- Treatment ONCE
EKG- Treatment ONCE
Pulse Ox/spot Check [RESP] Urgent
Quantity: 1
Special Instructions: ON ROOM AIR
12/23/23 20:15
Comprehensive Metabolic Panel Urgent
Troponin I Urgent
12/23/23 20:59
CR Chest - 2 Views Urgent
Comment:
Reason For Exam: cp
12/23/23 22:40
Complete Blood Count/With Diff Urgent
Troponin I Urgent
Abnormal Lab Results
12/23/23 12/23/23
20:15 22:40
Eosinophils % 6.5 H %
(0-6)
BUN 23 H mg/dl
(7-17)
Creatinine 1.1 H mg/dL
(0.6-1.0)
Glucose 109 H mg/dl
(70-99)
12/23/23 22:40
12/23/23 20:15
Vital Signs
Initial and Last Documented VS:
Initial Vital Signs
Temp Pulse Resp BP Pulse Ox
98.1 F 85 15 126/83 98
12/23/23 19:54 12/23/23 19:54 12/23/23 19:54 12/23/23 19:54 12/23/23 19:54
Last Documented Vital Signs
Temp Pulse Resp BP Pulse Ox
98.1 F 81 20 135/91 93
12/23/23 19:54 12/23/23 23:00 12/23/23 23:00 12/23/23 23:00 12/23/23 23:00
*Critical Care Note
Total Time (30-74mins, 75-104mins- exclusive of procedures): Not Applicable
ED Attending Note
ED Attending Note
ED Attending Note:
patient with dyspnea and mild cp
cp is reproducible, no acute ishcmic changes, trop x2 negative -- doubt cardiac related
doubt PE given patient is anticoagulated
not suggestive of aortic pathology
possibly related to cardioversion and skin/soft tissue irritation -- n signs of infection
dyspnea has been present since patient was discharged she states
cxr is clear
saturating well on room air
confirmed that patient should be taking lasix
no evidence of volume overload at this time
will discharge with close cardiology follow up
-
Portions of this chart may have been created with voice recognition software.� Occasional wrong word or��sound alike� substitutions may have occurred due to the inherent limitations of voice recognition software.
Discharge Plan
Departure
Patient Disposition: Home (Routine Discharge)
Date of Disposition: 12/23/23
Time of Disposition: 23:17
Patient with high blood pressure during this ER visit?: No
Discharge Problem:
Acute dyspnea
Instructions: Shortness of Breath, Adult ED
Prescriptions:
No Action
melatonin 5 MG tablet
10 mg PO HS
Entresto 49-51 mg Tablet
1 tab PO BID
Eliquis 5 mg Tablet
5 mg PO BID
escitalopram oxalate [Lexapro] 20 mg Tablet
20 mg PO DAILY
metoprolol succinate 50 mg Tablet Extended Release 24 Hr
50 mg PO DAILY Qty: 30 0RF
furosemide 20 mg Tablet
20 mg PO DAILY Qty: 30 0RF
Referrals:
Suyapa Duval CRNP [Family Provider] -
Activity Restrictions/Additional Instructions:
please call your chemical engineer in the morning for follow up in the next few days
return to ER with new or worsening symptoms
make sure you are taking furosemide 20mg daily. call the pharmacy to verify this. Call your chemical engineer in the morning if the pharmacy does not have your medication.
Interventions
Interventions:
*Risk Screen - Suicide Last Done: 12/23/23 19:54
*General Assessment Last Done: 12/23/23 19:54
*Neglect/Abuse Screening Last Done: 12/23/23 19:54
*ED COVID-19 Vaccine History Last Done: 12/23/23 19:54
ED- Cardiac Assessment Last Done: 12/23/23 20:39
Discharge Date and Time
Print Language: AMERICAN
[2023-12-23 22:00] VITALS: BP 132/82
[2023-12-23 22:47] LABS: % Basophils 0.6 % (0-2); % Eosinophils 6.5 % (0-6); % Immature Granulocytes 0.3 % (0-0.5); % Lymphocytes 23.6 % (20.5-51.1); % Monocytes 8.3 % (1.7-9.3); % Neutrophils 60.7 % (42.2-75.2); Absolute Eosinophils 0.4 10^3/uL (0-0.7); Absolute Lymphocytes 1.6 10^3/uL (1.2-3.4); Absolute Monocytes 0.6 10^3/uL (0.1-0.6); Hematocrit 37.7 % (37.0-47.0); Hemoglobin 12.9 g/dL (12.0-16.0); Mean Corp Hgb Conc. 34.2 g/dL (33.0-37.0); Mean Corpuscular Hgb 29.5 pg (27.0-31.0); Mean Corpuscular Volume 86.3 fL (81.0-99.0); Mean Platelet Volume 10.3 fL (7.4-10.4); Nucleated Red Blood Cells % 0 %; Platelet Count 289 10^3/uL (130-400); Red Blood Cell Count 4.37 10^6/uL (4.20-5.40); Red Cell Dist. Width 13.5 % (11.5-14.5); White Blood Cell Count 6.6 10^3/uL (4.8-10.8)
[2023-12-23 23:00] VITALS: BP 135/91
[2023-12-23 23:11] LABS: Troponin I < 0.012 ng/ml
== END 2023-12-23 23:33 | disposition home or self-care (01) ==
LOC: EMR 19:50
PROVIDERS: Student in an Organized Health Care Education/Training Program; EMERGENCY PHYSICIAN Emergency Medicine; FAMILY PHYSICIAN Nurse Practitioner Adult Health
DX: R06.09 Other forms of dyspnea (principal); I48.91 Unspecified atrial fibrillation; Z79.01 Long term (current) use of anticoagulants
CPT/HCPCS: 99285; 71046; 80053; 84484; 85025; 93005

== ENCOUNTER 2024-01-03 14:05 | Inpatient (IN) | payer OTHER, SELFPAY ==
[2024-01-03] VITALS (12 sets, daily range): BP systolic 120–162; BP diastolic 88–117; PULSE 99–105; BMI 35.5
--- NOTE | 2024-01-03 10:02 | ED.GENMED ---
History of Present Illness
General
Chief Complaint: Abdominal Pain
Source: patient
Exam Limitations: none
Time Seen by Provider: 01/03/24 09:19
Nursing documentation reviewed up to this point in time: agreed with
History of Present Illness
History of Present Illness:
The patient is a 78-year-old female who reports about 1 month of intermittent lower abdominal pain and diarrhea. Patient reports that over the last week, symptoms have been more intense and constant. Patient states that she is having at least 5
episodes of nonbloody watery bright yellow diarrhea every day and has not had a solid bowel movement in weeks. She denies vomiting. She is occasional nausea. She reports that lately when she gets up to walk short distances, she feels extremely
lightheaded, extremely tired, and very short of breath. Patient denies chest pain and cough. Patient reports she has had abdominal issues and diarrhea in the past and attributed it to stress from work but she reports she is now retired and his
symptoms of only gotten worse.
Past History
Past History
ED Past Medical History: CAD, HTN and Other (Diverticulitis)
ED Past Surgical History: Other (Hysterectomy,)
Social History
Tobacco: Non-smoker
Alcohol: Occasional
Personal:
Living: other
Employment: Retired
Family History
Family History: Other
Review of Systems
Review of Systems
Allergies reviewed?: Yes
All Other Systems: ROS reviewed and negative except as documented in HPI and ROS
Constitutional: Reports fatigue
EENT: Reports no symptoms
Respiratory: Reports trouble breathing
Cardiac: Reports no symptoms
ABD/GI: Reports abdominal pain, nausea, diarrhea and anorexia
: Reports no symptoms
Musculoskeletal: Reports no symptoms
Skin: Reports no symptoms
Neurological: Reports no symptoms
Endocrine: Reports no symptoms
Hematologic/Lymphatic: Reports no symptoms
Psychiatric: Reports no symptoms
Phy Exam
Physical Exam
Physical Exam:
Physical Exam
General: Patient appears nontoxic but pale
Neck: supple. no meningeal signs. normal psoterior pharynx
Heart: s1/s2 regular rate and rhythm,
Lungs: no acute respiratory distress. clear bilaterally
Abdomen: normal bowel sounds. Mild lower abdominal tenderness. No rebound or guarding. No pulsatile mass
Neuro: alert and oriented. no focal neurological deficits
Skin: no rash
Psychiatric: well kept. interactive and cooperative
Extremities: no edema. no calf tenderness. negative homans. good distal pulses
Course
Orders/Labs/Results
Orders:
Orders
01/03/24 09:56
Electrocardiogram (*1) Urgent
Reason for Study: Abdominal Pain
EKG- Treatment ONCE
01/03/24 10:08
Complete Blood Count/With Diff Urgent
Comprehensive Metabolic Panel Urgent
Lipase Urgent
NT-proBNP Urgent
Troponin I Urgent
01/03/24 10:29
CT Abd/pelvis W Iv Cont Urgent
Comment:
Reason For Exam: lower ab pain, diarrhea
01/03/24 10:47
STOOL [C difficile Antigen & Toxins] Urgent
MURPHY Source: Feces/Stool
Specimen Description:
Stool Culture Urgent
MURPHY Source: Feces/Stool
Specimen Description:
01/03/24 11:36
US Abdomen Complete/Upper Urgent
Comment:
Reason For Exam: abdominal pain, elevated bilirubin
Abnormal Lab Results
01/03/24
10:08
MPV 10.9 H fL
(7.4-10.4)
Absolute Lymphs (auto) 0.7 L 10^3/uL
(1.2-3.4)
Lymphocytes % 13.2 L %
(20.5-51.1)
Monocytes % 9.5 H %
(1.7-9.3)
BUN 25 H mg/dl
(7-17)
Creatinine 1.2 H mg/dL
(0.6-1.0)
Total Bilirubin 2.7 H mg/dl
(0.2-1.3)
01/03/24 10:08
01/03/24 10:08
Vital Signs
Initial and Last Documented VS:
Initial Vital Signs
Temp Pulse Resp BP Pulse Ox
98.0 F 94 16 152/100 98
01/03/24 09:11 01/03/24 09:11 01/03/24 09:11 01/03/24 09:11 01/03/24 09:11
Last Documented Vital Signs
Temp Pulse Resp BP Pulse Ox
98.0 F 95 22 132/92 98
01/03/24 09:11 01/03/24 11:00 01/03/24 11:00 01/03/24 11:00 01/03/24 09:11
MDM/Problems Addressed
Differential Diagnosis Includes:
Inflammatory bowel disease, irritable bowel disease, acute colitis, acute anemia, CHF exacerbation
MDM/Problems Addressed:
Patient presents with acute on chronic abdominal pain diarrhea
Chronic conditions affecting care:
CHF
Acute Exacerbation and/or Progression of Chronic Illness:
Patient may have acute exacerbation of CHF
Acute Exacerbation and/or Progression of Chronic Illness: Cardiomyopathy
*Radiology
Radiology exam reviewed: radiology read reviewed
*Pulse Oximetry
Patient hypoxic: no
*EKG
Interpreted by ED Provider?: Yes
Interpretation: abnormal
Comparison EKG: changes noted
Rate: normal
Rhythm: other
Rufus: left axis deviation
Interval: long QT
QRS Pattern: wide non-specific
Ischemia: non-specific ST changes
*Software Project Engineer Interpretation
Rate: normal
Interpretation: abnormal
Rhythm: other
*Critical Care Note
Total Time (30-74mins, 75-104mins- exclusive of procedures): Not Applicable
Data Reviewed
Review of Other/Old Records Reveals: Discharge Summary (Discharge summary reviewed from 12/2023 from patient was admitted for shortness of breath and A-fib)
Source: patient
Patient Management
Social determinants of health affecting care: Living situation and Strong social support
Discussion with other providers: Hospitalist
ED Attending Note
-
Portions of this chart may have been created with voice recognition software.� Occasional wrong word or��sound alike� substitutions may have occurred due to the inherent limitations of voice recognition software.
Discharge Plan
Departure
Patient Disposition: Admit
Date of Disposition: 01/03/24
Time of Disposition: 12:25
Admit to: Med/Surg
Presentation/result/management discussed w/ accepting MD/DO: Hospitalist
Patient with high blood pressure during this ER visit?: Yes
Condition: Fair
Covid-19: Not Applicable
Discharge Problem:
acute on chronic chf, Abdominal pain, lower, Acute diarrhea, Acute respiratory distress, Thickening of wall of gallbladder
Prescriptions:
No Action
melatonin 5 MG tablet
10 mg PO HS
Entresto 49-51 mg Tablet
1 tab PO BID
Eliquis 5 mg Tablet
5 mg PO BID
escitalopram oxalate [Lexapro] 20 mg Tablet
20 mg PO DAILY
metoprolol succinate 50 mg Tablet Extended Release 24 Hr
50 mg PO DAILY Qty: 30 0RF
furosemide 20 mg Tablet
20 mg PO DAILY Qty: 30 0RF
Referrals:
Suyapa Duval CRNP [Family Provider] -
Interventions
Interventions:
*Risk Screen - Suicide Last Done: 01/03/24 09:11
*Neglect/Abuse Screening Last Done: 01/03/24 09:11
ED- Fall Risk Assessment Last Done: 01/03/24 10:33
*ED COVID-19 Vaccine History Last Done: 01/03/24 10:33
KI-Yjfeyt-Wdqeiquwgz Assessment Last Done: 01/03/24 10:33
Discharge Date and Time
Print Language: SLOVAK
[2024-01-03 10:33] LABS: % Basophils 0.7 % (0-2); % Immature Granulocytes 0.4 % (0-0.5); % Lymphocytes 13.2 % (20.5-51.1); % Monocytes 9.5 % (1.7-9.3); % Neutrophils 73.2 % (42.2-75.2); Absolute Eosinophils 0.2 10^3/uL (0-0.7); Absolute Lymphocytes 0.7 10^3/uL (1.2-3.4); Absolute Monocytes 0.5 10^3/uL (0.1-0.6); Absolute Neutrophils 3.9 10^3/uL (1.4-6.5); Hematocrit 39.2 % (37.0-47.0); Hemoglobin 13.2 g/dL (12.0-16.0); Mean Corp Hgb Conc. 33.7 g/dL (33.0-37.0); Mean Corpuscular Hgb 29.7 pg (27.0-31.0); Mean Corpuscular Volume 88.1 fL (81.0-99.0); Mean Platelet Volume 10.9 fL (7.4-10.4); Nucleated Red Blood Cells % 0.4 %; Platelet Count 277 10^3/uL (130-400); Red Blood Cell Count 4.45 10^6/uL (4.20-5.40); Red Cell Dist. Width 14.4 % (11.5-14.5); White Blood Cell Count 5.4 10^3/uL (4.8-10.8)
[2024-01-03 10:34] LABS: ALT (SGPT) 20 U/L (0-35); AST (SGOT) 19 U/L (14-36); Albumin 3.9 g/dl (3.5-5.0); Alkaline Phosphatase 96 U/L (38-126); Blood Urea Nitrogen 25 mg/dl (7-17); Calcium 9.6 mg/dl (8.4-10.2); Carbon Dioxide 22 mmol/L (22-30); Chloride 103 mmol/L (98-107); Glucose 95 mg/dl (70-99); Lipase 47 U/L (23-300); Potassium 4.1 mmol/L (3.5-5.1); Sodium 138 mmol/L (135-145); Total Bilirubin 2.7 mg/dl (0.2-1.3); Total Protein 6.3 g/dl (6.3-8.2); eGFR 46.33
[2024-01-03 10:45] LABS: NT-proBNP 9600 pg/ml; Troponin I < 0.012 ng/ml
--- NOTE | 2024-01-03 13:15 | HPS.HSE ---
Addendum entered and electronically signed by Rafael Murphy MD 01/03/24 17:28:
CXR
The heart is mildly enlarged.
Pulmonary vascularity is slightly increased.
Left-sided cardiac device is seen with intact wires, unchanged.
There is no focal parenchymal consolidation, pneumothorax, pleural effusion or mediastinal shift.
Degenerative changes are seen within the thoracic spine.
HIDA
1. No evidence of acute cholecystitis. Gallbladder fills normally.
2. Delayed emptying of radiotracer into the small bowel, suggestive of partial biliary ductal obstruction or slow transit.
Original Note:
Family Physician
-
Family Physician: Suyapa Duval
Chief Complaint
-
Abdominal Pain, Diarrhea and Shortness of Breath
History of Present Illness
Patient is a 78 y/o female past medical history of A-fib, NSVT, CAD, ICM and CHF who presents with multiple complaints. Patient reports she presented to the emergency department today due to acute worsening of lower abdominal pain. She reports
pain mostly in the pelvic region and sometimes radiating around to the back. She admits to chronic nausea, and notes diarrhea that has been going on for several weeks to months. She reports diarrhea has gotten worse and she reports about 5 episode
of watery yellow diarrhea a day, mostly after eating, but also sometimes waking her up at night. She denies associated fevers, sweats or chills. She is also complaining about increasing shortness of breath. She reports orthopnea and dyspnea on
exertion. She reports since her discharge two weeks ago her weight has been stable, and she has not noted any increased lower extremity edema. She reports some occasional right sided chest discomfort when she lies flat, and notes it improves with
sitting up. She denies any pleuritic or left sided chest pain.
Medical History
Past Medical History
Past Medical History: Reports Other
Additional Past Medical History:
Coronary Artery Disease s/p Stent
Ischemic Cardiomyopathy
Chronic HFrEF
NSVT s/p BiV ICD
Paroxysmal Atrial Fibrillation
Essentail Hypertension
Hyperlipidemia
Irritable Bowel Syndrome
Depression
Past Surgical History: Reports Other
Additional Past Surgical History:
Cardiac Stent
BiV ICD
Knee Replacement
Hysterectomy
Social History
Tobacco: Non-smoker
Family History
Family History: Not pertinent
Allergies / Home Medications
Allergies reflects when Allergies were last updated in [facility].
Home Medications with original date entered in [facility]
Allergy/Medication List:
Allergies
Allergy/AdvReac Type Severity Reaction Status Date / Time
No Known Allergies Allergy Verified 01/03/24 09:13
Home Medications
melatonin 5 mg tablet 10 mg PO HS Sleep 07/29/20
sacubitril 49 mg-valsartan 51 mg tablet (Entresto) 1 tab PO BID Heart Failure 11/18/22
apixaban 5 mg tablet (Eliquis) 5 mg PO BID Blood Clot Prevention/Tx 03/10/23
escitalopram oxalate 20 mg tablet (Lexapro) 20 mg PO DAILY Depression 12/18/23
metoprolol succinate 50 mg tablet,extended release 24 hr 50 mg PO DAILY #30 tabs 12/20/23
amiodarone 200 mg tablet 200 mg PO DAILY 01/03/24
Review of Systems
-
A 12 point ROS was completed and negative except as noted: Yes
Constitutional: Denies Fever or Chills
Respiratory: Reports Trouble Breathing
Cardiac: Reports Chest Pain; Denies Palpitations
Abdomen/GI: Reports Abdominal Pain, Nausea and Diarrhea; Denies Vomiting or Bloody Stools
: Denies Dysuria or Frequency
Physical Exam
Vital Signs
Vital Signs
Temp Pulse Resp BP Pulse Ox
98.0 F 96 20 132/92 98
01/03/24 09:11 01/03/24 12:45 01/03/24 12:45 01/03/24 11:00 01/03/24 09:11
Physical Exam
General: Comfortable and Conversant
HEENT: NormoCephalic, Anicteric, Atraumatic and Other (Mucous membranes appear slightly dry)
Cardiac: S1/S2 and Regular Rhythm; No Murmur
GI: Soft and Other (Minimal tenderness in suprapubic region; No rebound or guarding)
Rectal: Deferred by Provider
Musculoskeletal: No Clubbing, No Cyanosis and No Edema
Skin: Warm and Dry
Neuro: Awake, Alert, Oriented and Nonfocal/grossly intact
Psych: Calm
Laboratory Results
-
01/03/24 10:08
01/03/24 10:08
Laboratory Results
Total Bilirubin 2.7 mg/dl (0.2-1.3) H 01/03/24 10:08
AST 19 U/L (14-36) 01/03/24 10:08
ALT 20 U/L (0-35) 01/03/24 10:08
Alkaline Phosphatase 96 U/L (38-126) 01/03/24 10:08
Troponin I < 0.012 ng/ml 01/03/24 10:08
Lipase 47 U/L (23-300) 01/03/24 10:08
Abd/Pelvis CT Scan:
1. Diffuse gallbladder wall thickening and mild adjacent fat stranding. No radiopaque gallstones are seen, and the gallbladder is not significantly distended. Please correlate with clinical symptoms, and if indicated with abdominal ultrasound.
2. Colonic diverticulosis without evidence of diverticulitis.
3. Small bilateral pleural effusions.
Abdomen Ultrasound:
1. Gallbladder wall thickening and gallbladder wall edema, also seen on concurrent CT. No gallstones are appreciated, and a negative sonographic Ordaz sign was elicited. Gallbladder is not significantly distended.
2. Common bile duct is mildly dilated, measuring 6 mm in thickness.
3. Overall, findings are equivocal for acute cholecystitis. If clinical concern remains high, consider HIDA scan.
Data Reviewed
-
CT Scan: Report Reviewed by me
Ultrasound: Report Reviewed by me
Lab Data: Labs Reviewed by me
Impression/Plan
-
Abdominal Pain, unclear etiology possibly gallbladder related
-Check HIDA Scan
Diarrhea, unclear etiology, ongoing for weeks/months
-Consult GI
-Check stool studies
Subjective Shortness of Breath
-Patient does not appear to be in acute heart failure
-Check CXR
NSVT noted on ED Telemetry
-Consult Cardiology
-Check Magnesium
-Continue amiodarone
-Patient has BiV ICD
Elevated creatinine, suspect volume depleted in setting of diarrhea and poor oral intake
-Hold Entresto
-Give 500cc of NSS overnight and repeat creatinine in AM
Chronic HFrEF
-Patient reports not taking Lasix at home
-Monitor Is&Os and Daily Weights
Paroxysmal Atrial Fibrillation
-Continue amiodarone and metoprolol
-Continue Eliquis
Coronary Artery Disease s/p RAULITO in July 2020
-Patient is not currently on antiplatelets
Depression
-Continue Lexapro
DVT proph: Eliquis
Code Status: Full Code
--- NOTE | 2024-01-03 13:35 | W.PN.UPDATE ---
Addendum entered and electronically signed by Rafael Murphy MD 01/03/24 17:29:
CXR
The heart is mildly enlarged.
Pulmonary vascularity is slightly increased.
Left-sided cardiac device is seen with intact wires, unchanged.
There is no focal parenchymal consolidation, pneumothorax, pleural effusion or mediastinal shift.
Degenerative changes are seen within the thoracic spine.
HIDA
1. No evidence of acute cholecystitis. Gallbladder fills normally.
2. Delayed emptying of radiotracer into the small bowel, suggestive of partial biliary ductal obstruction or slow transit.
Original Note:
Update Note
Progress Note Update
This note serves as an addendum to the H&P by dictaphone operator FLAKO Barbara SORIANO,
HPI
78M Non smoker PMHX AF, CHF, NSVT s/p AICD, CAD s/p PCI, MDD, HLD, recent admission (12/18/23 - 12/20/23) pw
- intermittent lower abdominal pain and diarrhea for weeks to months - more frequent and constant over last week: she report s currently pain free to me
- reports at least 5 episodes of nonbloody watery bright yellow diarrhea daily. No solid bowel movement in weeks.
- denies vomiting plus occasional nausea.
- POS lightheaded
- Associated short of breath.
ROS:
- chest pain and cough.
- abdominal issues and diarrhea in the past and attributed it to stress from work but she reports she is now retired and his symptoms of only gotten worse.
PHX: see above
Reviewed VS: unremarkable
Wt; 89.8 kg today. Was 92.6 kg on 12/23/23
PE
General: Well Nourished and No Apparent Distress
HEENT: Normo Cephalic, Anicteric and dry mucous membranes
Respiratory: Clear and Non Labored Respirations; No Wheezes
Cardiac: S1/S2, Irregular Rhythm and Tachycardia
GI: Soft, Non Tender and Non Distended
Rectal: Deferred by Provider
Genito-urinary: No Bueno
Musculoskeletal: No Edema
Skin: Dry
Neuro: Awake, Alert, Oriented and AO x 3
Psych: Calm and Intact Judgment/Insight
Data
WCC 5.4
K 4.1
Cr 1.2 - 1.1 on 12/23/23
TB 2.7
Nl AST.
Nl ALT
NEG TPNI
pro BNP 9600 - 86942 on 12/18/23 , 6960 on 06/22/22
Pending UA
Pending CXR
Pending HIDA
01/03/24 US Abdomen Complete/Upper
1. Gallbladder wall thickening and gallbladder wall edema, also seen on concurrent CT.
No gallstones are appreciated, and a negative sonographic Ordaz sign was elicited.
Gallbladder is not significantly distended.
2. Common bile duct is mildly dilated, measuring 6 mm in thickness.
3. Overall, findings are equivocal for acute cholecystitis. If clinical concern remains high, consider HIDA scan.
01/03/24 CT Abd/pelvis W Iv Cont
1. Diffuse gallbladder wall thickening and mild adjacent fat stranding.
No radiopaque gallstones are seen, and the gallbladder is not significantly distended.
Please correlate with clinical symptoms, and if indicated with abdominal ultrasound.
2. Colonic diverticulosis without evidence of diverticulitis.
3. Small bilateral pleural effusions.
10/11/23 TTE
LVEF 34% with Stage II diastolic dysfunction
Normal right ventricular size and function. ICD and pacing wires seen in right ventricle.
12/20/23 Cardioversion for Symptomatic AF ==> Uncomplicated from atrial fibrillation to AV paced rhythm.
Last hospitalist admission: Date of Admission: 12/18/23 - Date of Discharge: 12/20/23
DC Dxs:
Prx Afib with RVR
Acute on chronic HFrEF
Mild mitral regurgitation.
Mild tricuspid regurgitation
Estimated pulmonary artery pressure of 37 mmHg
ASSESSMENT & PLAN
Subjective SoB
She loss 2.8 kg wt since 12/20/23
Unclear clinical significance of currently elevated pro BNP: Clinically not in acute HF; HX chronic HFrEF
Clinically hypovolemic due to subacute non bloody dirrhea
Associated mild ALANNA suspect pre renal: Cr 1.2
- Pending admission CXR
- Gentle IVF w NS 40/H for total 500 cc only
- Held Entresto
- Per patient, she is no longer on Frusemide upon DC on 12/20/23 but it was listed as Frusemide Rx was sent
- f/u daily Wt
- f/u daily daily BMP
- DCA card consult
Abdominal pain: benign abdominal
Non bloody watery dirrhea: subacute
CT suggest GBW thickening suspect congestion
- Nl ADT, ALT
- Low clincal suspecion for aclculus gayatri
- Pending HIDA
- GI consult
NSVT
BiV ICD implant
- check Mg, Phos
- daily K, Mg and Phos due to persistent diarrhea
HX AF with RVR
History of paroxysmal atrial fibrillation
- cont. Eliquis
- cont. metoprolol
Essential hypertension:
Hyperlipidemia
CAD status post stent
HX depression: Continue lexapro
DVT prophylaxis: Eliquis
Full code
IP TLM
--- NOTE | 2024-01-03 14:35 | CON.GI ---
Addendum entered and electronically signed by Angela Hernandez MD 01/03/24 18:40:
I saw and examined the patient.
The HIGH LIFT OPERATOR's note was reviewed and I agree with the note.
Comment: This is a 78 year old female with significant cardiac history as described below including A-fib on Eliquis, CHF with EF of 35%, nonsustained VT status post AICD, CAD status post stenting, ischemic cardiomyopathy, diverticulitis who has
been having ongoing symptoms of chronic diarrhea on and off for the past 1 year but worsening over the past 1 month she has about 4-5 episodes and she says that it also wakes her up at night. No fevers or chills no recent antibiotic use or travel
she did have a recent admission to the hospital from 12/17-12/19 for rapid A-fib and CHF and was diuresed and also had cardioversion on 12/19 but had recurrent A-fib. She denies any rectal bleeding or melena no fevers chills or weight loss. She has
not had a colonoscopy or endoscopy in the past. She is also been having right-sided abdominal pain for the past 1 to 2 weeks and on admission imaging studies have showed gallbladder wall thickening she then had a HIDA scan which was negative for
acute cholecystitis but showed delayed transit to the small bowel her LFTs are pretty unremarkable other than a mildly elevated indirect bilirubin
Assessment and plan 1. Chronic intermittent diarrhea worsening over the past 1 month may be related to IBS versus microscopic colitis versus bile salt diarrhea or EPI less likely IBD. Will get stool studies including ruling out infection, fecal
calprotectin and fecal fat, pancreatic elastase. Will also get celiac serologies and TSH. Will give her a trial of Questran. Once medically optimized from cardiac standpoint will schedule her for colonoscopy likely as outpatient. For now
continue low residue diet/low FODMAP diet.
2 she also has right-sided abdominal pain and imaging studies including ultrasound and CT showed possible gallbladder wall thickening with mildly dilated CBD she then had an HIDA scan which was negative for acute cholecystitis and showed delayed
emptying of radiotracer into the small bowel most likely from slow transit doubt CBD obstruction. Her bilirubin is mildly elevated(indirect) which may be related to CHF and passive congestion versus [place] syndrome but her other LFTs are normal
and her lipase is also normal. She does have diverticulosis no diverticulitis noted on CT.
Addendum entered and electronically signed by Kirsty Gomes NP 01/03/24 16:47:
Discussed with Dr. Hernandez. Plan to add Questran. Obtain stool studies as ordered.
Original Note:
Consultation
-
Date/Time Consultation Requested: 01/03/24
Date/Time Consultation Performed: 01/03/24 @ 14:45
Requesting Provider: Violet Chan PA-C
Performing Provider: BYRON Barba; Dr. Angela Hernandez
Reason for Consultation: abdominal pain, diarrhea
Medical History
Chief Complaint / HPI
Chief Complaint: abdominal pain, diarrhea
History of Present Illness:
The patient is a 78-year-old female with a past medical history significant for atrial fibrillation on Eliquis, heart failure with reduced ejection fraction of 35%, nonsustained VT status post AICD placement, CAD with prior stenting, hyperlipidemia,
ischemic cardiomyopathy, chronic diarrhea, who presented to the emergency room with complaints of abdominal pain and diarrhea, which we are being asked to evaluate for. The patient reports that for many years she has suffered with intermittent
abdominal pain and diarrhea. She reports that over the past few months this has gotten progressively worse. She notes that about an hour or so after eating she develops a significant pain in her lower abdomen primarily to the right side. This
pain comes and goes in intensity but has been more severe as of recently, now radiating to the back. She notes that she always has liquid stool, usually bright yellow after eating food that have an oily appearance to. She denies any mucus in the
stool. She has tried to adjust her diet to see if this changed her bowel habits but she has had no luck with this. She lives with her grandson who does cook for her with low-fat food options. She denies any weight loss or loss of appetite, but
her weight can fluctuate at times as she is on diuretics for heart failure. She does watch her weight and swelling closely. She denies any recent antibiotics. She does note that she has had nausea intermittently without vomiting. She denies any
constipation, melena, hematochezia, or hematemesis. She denies any heartburn or reflux symptoms. She denies any fevers or chills. She denies any sick contacts, recent travel, or recent change in medications aside from addition of amiodarone. She
is on Eliquis with no signs of bleeding. She denies NSAID use. She has had workup in the past with her primary care physician, but this did not include much more than stool studies and antibiotics. She has never had a colonoscopy in the past.
She denies any prior EGD. Upon review of prior records, the patient was hospitalized previously this month with shortness of breath, orthopnea, and palpitations found to be in A-fib with RVR and acute exacerbation of CHF. She had reportedly stopped
her Lasix prior to admission likely inducing the exacerbation of her heart failure. She was evaluated by cardiology and did undergo a cardioversion on 12/20/2023. She denies any family history of colon cancer.
Upon evaluation in the emergency room, CT of the abdomen and pelvis with IV contrast showed diffuse gallbladder wall thickening and mild adjacent fat stranding with no gallstone seen within the abdomen along with colonic diverticulosis without
evidence of diverticulitis. An ultrasound of the abdomen was also obtained showing similar findings with gallbladder wall thickening and gallbladder wall edema with a very mildly dilated CBD at 6 mm in thickness, concerning for possible acute
cholecystitis. A HIDA scan was performed which is pending official report. Pertinent lab findings include WBC 5.4, hemoglobin 13.2, platelets 277,000, sodium 138, potassium 4.1, BUN 25, creatinine 1.2, total bilirubin 2.7, direct bilirubin 0.4,
AST 19, ALT 20, alk phos 96, lipase 47, troponin negative x 1, proBNP 9600. Urinalysis is pending. A chest x-ray was ordered and is also pending. Stool studies were ordered and are pending. She is being admitted for further evaluation by GI and
cardiology.
Past Medical History
Past Medical History: Arrhythmias (A-fib on Eliquis), CAD (With prior stent), CHF (Ischemic cardiomyopathy with ejection fraction of 35% with AICD placement), HTN, Hypercholesterolemia, Psychiatric (Anxiety/depression) and Other (IBS)
Past Surgical History: Cardiac (cardiac stent, AICD), Gynecological (hysterectomy) and Orthopedic (knee replacement)
Social History
Tobacco: Non-Smoker
Alcohol: Occasional
Drug: None
Living: With Family
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
Family History
Family History: Reviewed & Not Pertinent
Allergies / Home Medications
Allergy/AdvReac Type Severity Reaction Status Date / Time
No Known Allergies Allergy Verified 01/03/24 09:13
�Medication �Instructions �Recorded
melatonin 5 mg tablet 10 mg PO HS Sleep 07/29/20
sacubitril 49 mg-valsartan 51 mg 1 tab PO BID Heart Failure 11/18/22
tablet (Entresto)
apixaban 5 mg tablet (Eliquis) 5 mg PO BID Blood Clot 03/10/23
Prevention/Tx
escitalopram oxalate 20 mg tablet 20 mg PO DAILY Depression 12/18/23
(Lexapro)
metoprolol succinate 50 mg 50 mg PO DAILY #30 tabs 12/20/23
tablet,extended release 24 hr
amiodarone 200 mg tablet 200 mg PO DAILY 01/03/24
Review of Systems
-
History Source: Patient
Constitutional: Reports No Symptoms
EENT: Reports No Symptoms
Respiratory: Reports Trouble Breathing (Intermittent shortness of breath)
Cardiac: Reports No Symptoms
Abdomen/GI: Reports Abdominal Pain and Nausea
: Reports No Symptoms
Musculoskeletal: Reports No Symptoms
Skin: Reports No Symptoms
Neurological: Reports No Symptoms
Vital Signs
Temp Pulse Resp BP Pulse Ox
98.0 F 118 29 141/104 99
01/03/24 09:11 01/03/24 13:45 01/03/24 13:45 01/03/24 13:00 01/03/24 10:00
Physical Exam
Exam
General: Well Developed, Well Nourished, No Apparent Distress and Comfortable
HEENT: Normocephalic, Anicteric and Atraumatic
Respiratory: Clear (Overall diminished but clear without any obvious wheezing or rhonchi)
Cardiac: S1/S2 and Irregular Rhythm (A-fib in the rates of the 100-110's)
Breast: Deferred by me
GI: Soft, Non Distended, Normal Bowel Sounds, Tender (Right lower quadrant right upper quadrant with deep palpation) and Other (Obese abdomen)
Rectal: Deferred by Provider
Musculoskeletal: No Edema
Skin: Warm and Dry
Neuro: Awake, Alert and Oriented
Psych: Calm
Results
WBC 5.4 10^3/uL (4.8-10.8) 01/03/24 10:08
Hgb 13.2 g/dL (12.0-16.0) 01/03/24 10:08
Hct 39.2 % (37.0-47.0) 01/03/24 10:08
MCV 88.1 fL (81.0-99.0) 01/03/24 10:08
Plt Count 277 10^3/uL (130-400) 01/03/24 10:08
Absolute Neuts (auto) 3.9 10^3/uL (1.4-6.5) 01/03/24 10:08
Sodium 138 mmol/L (135-145) 01/03/24 10:08
Potassium 4.1 mmol/L (3.5-5.1) 01/03/24 10:08
Chloride 103 mmol/L (98-107) 01/03/24 10:08
Carbon Dioxide 22 mmol/L (22-30) 01/03/24 10:08
BUN 25 mg/dl (7-17) H 01/03/24 10:08
Creatinine 1.2 mg/dL (0.6-1.0) H 01/03/24 10:08
Calcium 9.6 mg/dl (8.4-10.2) 01/03/24 10:08
Total Bilirubin 2.7 mg/dl (0.2-1.3) H 01/03/24 10:08
AST 19 U/L (14-36) 01/03/24 10:08
ALT 20 U/L (0-35) 01/03/24 10:08
Alkaline Phosphatase 96 U/L (38-126) 01/03/24 10:08
Lipase 47 U/L (23-300) 01/03/24 10:08
Diagnostic Image Results:
01/03/24 US abdomen: IMPRESSION:
1. Gallbladder wall thickening and gallbladder wall edema, also seen on concurrent CT. No gallstones are appreciated, and a negative sonographic Ordaz sign was elicited. Gallbladder is not significantly distended.
2. Common bile duct is mildly dilated, measuring 6 mm in thickness.
3. Overall, findings are equivocal for acute cholecystitis. If clinical concern remains high, consider HIDA scan.
01/03/24 CT scan A/P: IMPRESSION:
1. Diffuse gallbladder wall thickening and mild adjacent fat stranding. No radiopaque gallstones are seen, and the gallbladder is not significantly distended. Please correlate with clinical symptoms, and if indicated with abdominal ultrasound.
2. Colonic diverticulosis without evidence of diverticulitis.
3. Small bilateral pleural effusions.
Prior GI Procedures:
EGD: None
Colonoscopy: None
Assessment / Plan
-
The patient is a 78-year-old female with a past medical history significant for atrial fibrillation on Eliquis, heart failure with reduced ejection fraction of 35%, nonsustained VT status post AICD placement, CAD with prior stenting, hyperlipidemia,
ischemic cardiomyopathy, chronic diarrhea, who presented to the emergency room with complaints of abdominal pain and diarrhea, with findings concerning for possible acute cholecystitis with gallbladder wall thickening and gallbladder wall edema on
CT and ultrasound, with HIDA scan pending. LFTs essentially normal with an elevated total bilirubin but normal direct bilirubin. She also has been having diarrhea as well for many years with intermittent abdominal pain, which has been worsening as
of recently with oily, yellow liquid stools after meals and right lower/right upper quadrant pain radiating to the back. She has never had a formal GI workup for this. No prior colonoscopy in the past. Also found to be in recurrent A-fib with
slightly uncontrolled rates in the 100-110's, on amiodarone and metoprolol. She does have complaints of shortness of breath especially on exertion.
Problem list:
-Right lower quadrant/right upper quadrant abdominal pain, CT/US with gallbladder wall thickening and edema
-Acute on chronic diarrhea
-Hyperbilirubinemia, primarily indirect
-Shortness of breath
-Recurrent A-fib
-Acute on chronic CHF, proBNP 9600
-NSVT
-ALANNA
Other pertinent medical history:
-A-fib on Eliquis with recent cardioversion 12/20/2023
-CHF with reduced ejection fraction of 35%
-Nonsustained VT status post AICD placement
-CAD with stenting
-Hyperlipidemia
-Depression
Recommendations:
-Etiology of symptoms possibly biliary in nature, with right lower/right upper quadrant pain. Diarrhea appears to be chronic, but somewhat worsened recently with no prior formal GI workup.
-Awaiting HIDA scan results at this time. Consider general surgery evaluation
-Will send stool studies to rule out infectious etiology, will also send fecal fats, pancreatic elastase, and fecal calprotectin to rule out other underlying causes for her diarrhea
-Will send celiac panel and check TSH
-She will eventually need a colonoscopy, although she would be deemed as very high risk given her low ejection fraction, uncontrolled A-fib, and nonsustained VT episodes. This would likely be done outpatient (on the hospital side) once she is
stable from a cardiac perspective given that her diarrhea is a chronic problem.
-Would advise low-fat/low lactose diet once she is cleared for a diet
-Avoid artificial sweeteners, caffeine, alcohol that can contribute to worsening diarrhea
-Cardiology is following for possible CHF exacerbation and recurrent A-fib
-Further management pending above
-
-
Thank you for consultation and allowing me to participate in the patient's care. Please call the personal injury attorney GI physician during the after hours with any questions or concerns.
[2024-01-03 14:45] LABS: Magnesium 2.2 mg/dl (1.6-2.3); Phosphorus 3.9 mg/dl (2.5-4.5)
[2024-01-03 15:03] LABS: Direct Bilirubin 0.4 mg/dl (0.0-0.4)
--- NOTE | 2024-01-03 15:33 | CON.CAR ---
Addendum entered and electronically signed by Gerardo Cohen DO 01/03/24 20:13:
I saw and examined the patient.
The Guide Excursion's note was reviewed and I agree with the note.
Comment:
Plan:
HF in setting of recurrent AFib.
Recently started on amiodarone as outpt by outpt laundry agent following recent cardioversion.
Increase Amiodarone to 200 mg TID and consider repeat cardioversion inpt vs outpt.
Cont Eliquis
Device check, 100% AFib burden since Dec 21.
Last echo October 2023 and now with recurrent HF.
Check echo to reeval EF
Cont IV lasix diuresis
Entresto held with RI
HPI: Patient came to [facility] today with SOB, orthopnea and diarrhea and is being admitted with a work-up for possible gallbladder disease and cardiology has been consulted for recurrence of Afib and possible acute HF. Patient was just admitted to
12/18/23 until 12/20/23 with rapid Afib and CHF. Patient was diuresed with Lasix IV and was cardioverted to SR on the day of discharge. Patient then saw her primary laundry agent at [facility] and was started on amiodarone 200 mg daily. Patient reports
increased diarrhea that is chronic, but is now so bad that she says life is unbearable. Patient denies palpitations, but felt like she was back in Afib shortly after CV last admission. Device check by me in the ER shows recurrence of Afib 12/22/23.
Optivol also trending up although patient feels she has lost weight. Patient also feels increased METZGER and orthopnea.
Original Note:
Consultation
Consultation Request
Date/Time Consultation Requested: 01/03/24
Date/Time Consultation Performed: 01/03/24
Requesting Provider: Dr. Murphy
Performing Provider: Dr. Cohen
Reason for Consultation: SOB, orthopnea, abnormal telemetry
Medical History
-
History of Present Illness:
Patient came to [facility] today with SOB, orthopnea and diarrhea and is being admitted with a work-up for possible gallbladder disease and cardiology has been consulted for recurrence of Afib and possible acute HF. Patient was just admitted to 12/18/23
until 12/20/23 with rapid Afib and CHF. Patient was diuresed with Lasix IV and was cardioverted to SR on the day of discharge. Patient then saw her primary laundry agent at [facility] and was started on amiodarone 200 mg daily. Patient reports increased
diarrhea that is chronic, but is now so bad that she says life is unbearable. Patient denies palpitations, but felt like she was back in Afib shortly after CV last admission. Device check by me in the ER shows recurrence of Afib 12/22/23. Optivol
also trending up although patient feels she has lost weight. Patient also feels increased METZGER and orthopnea.
PMH:
CM EF 34% by echo 10/11/23
Paroxysmal Afib
s/p CV 12/20/23
Recurrent Afib since 12/22/23
Chronic Eliquis
LBBB
s/p Medtronic BiV ICD 11/18/22
HTN
HLD
CAD
s/p RAULITO OM 07/2020
h/o Diverticulitis
TKR
Past Medical History
Past Medical History: Other
Past Surgical History: Cardiac (OM RAULITO July 2020), Gynecological (Hysterectomy) and Orthopedic (Left total knee replacement)
Social History
Tobacco: Non-Smoker
Alcohol: None
Drug: None
Personal:
Living: With Family (grandson)
Family History
Family History: Other (Father had heart failure, mother CAD/CO, lung cancer)
Allergies / Home Medications
Allergy/AdvReac Type Severity Reaction Status Date / Time
No Known Allergies Allergy Verified 01/03/24 09:13
�Medication �Instructions �Recorded �Confirmed �Type
melatonin 5 mg tablet 10 mg PO HS Sleep 07/29/20 01/03/24 History
sacubitril 49 mg-valsartan 51 mg 1 tab PO BID Heart Failure 11/18/22 01/03/24 History
tablet (Entresto)
apixaban 5 mg tablet (Eliquis) 5 mg PO BID Blood Clot 03/10/23 01/03/24 History
Prevention/Tx
escitalopram oxalate 20 mg tablet 20 mg PO DAILY Depression 12/18/23 01/03/24 History
(Lexapro)
metoprolol succinate 50 mg 50 mg PO DAILY #30 tabs 12/20/23 01/03/24 Rx
tablet,extended release 24 hr
amiodarone 200 mg tablet 200 mg PO DAILY 01/03/24 01/03/24 History
Review of Systems
-
History Source: Patient
All other systems: Negative unless noted
Physical Exam
Vital Signs
Temp Pulse Resp BP Pulse Ox
98.0 F 100 22 141/104 99
01/03/24 09:11 01/03/24 15:00 01/03/24 15:00 01/03/24 13:00 01/03/24 10:00
GEN: NAD. AAOx3
HEENT: EOMI, MMM
LUNGS: CTA B/L, no wheezes or rales
CV: Irreg irreg, S1/S2, 1/6 syst murmur
ABD: soft, BS+, NT, ND
EXT: No edema, lesions, clubbing or cyanosis B/L
NEURO: Gross non-focal
SKIN: No rash, warm, dry, pink
Lab Results
01/03/24 10:08
01/03/24 10:08
Troponin I < 0.012 ng/ml 01/03/24 10:08
Gdy-[id number] Pept 9600 pg/ml 01/03/24 10:08
Impression / Plan
-
PCP: BYRON Man
Automatic Glove Former: Dr. Figueroa
Truss Driver Helper: Dr. Robert Ziegler
Impression:
Abdominal pain
Diarrhea, acute on chronic
Acute HFrEF
CM EF 34% by echo 10/11/23
Paroxysmal Afib
s/p CV 12/20/23
Recurrent Afib since 12/22/23
Chronic Eliquis
LBBB
s/p Medtronic BiV ICD 11/18/22
HTN
HLD
CAD
s/p RAULITO OM 07/2020
h/o Diverticulitis
TKR
Lexiscan nuclear stress test 07/19/2020: Moderate reversible defect in the mid inferolateral, mid inferior, and apical inferior segments. Inferior hypokinesis. LVEF 40%. LV normal size.�������
Echo 07/12/2020: LVEF 45-50%. Mild global hypo. Inferior basal akinesis. Moderate LAE. Aortic valve sclerosis.
Echo 03/20/2021: EF 35 to 40%, stage II DD. Mild left atrial enlargement. Mild MR.
Echo 10/11/2023: EF 34%. Moderately reduced LV systolic function. Stage II DD. Mild MR, mild TR. PAP 37 mmHg
Plan:
-Patient came to [facility] today with SOB, orthopnea and diarrhea and is being admitted with a work-up for possible gallbladder disease and cardiology has been consulted for recurrence of Afib and possible acute HF. Patient was just admitted to
12/18/23 until 12/20/23 with rapid Afib and CHF. Patient was diuresed with Lasix IV and was cardioverted to SR on the day of discharge. Patient then saw her primary laundry agent at [facility] and was started on amiodarone 200 mg daily. Patient reports
increased diarrhea that is chronic, but is now so bad that she says life is unbearable. Patient denies palpitations, but felt like she was back in Afib shortly after CV last admission. Device check by me in the ER shows recurrence of Afib 12/22/23.
Optivol also trending up although patient feels she has lost weight. Patient also feels increased METZGER and orthopnea.
-Suspect acute HF with increased pulmonary vascularity on CXR, pro-BNP of 9600 and increased Optivol on device check.
-Cre up to 1.2. Would not give additional IVFs. Would give Lasix 40 mg IV daily. Follow labs
-Suspect acute HF in the setting of Lasix noncompliance and recurrent Afib
-Afib recurred within a couple of days of d/c. Patient is now on amiodarone 200 mg daily, presumably started by her primary laundry agent after recent d/c. Will call Dr. Figueroa's office for records and consider increasing amiodarone to 200 mg TID
loading while inpatient.
-Patient reports compliance with Eliquis 5 mg BID (age 78, Cre 1.2, wt 89.8 kg)
-EF was 34% by echo 10/11/23, consider repeat echo given this is her 2nd CHF admission since that echo.
-Outpatient dose of Toprol XL 50 mg daily should be continued
-Outpatient dose of Entresto is on hold due to ALANNA, but should be restarted following improvement in Cre
-Device check by me and ECg reviewed by me with Afib burden at 100% since 12/22/23
[2024-01-03] MEDS: NSS 500 IV (15:40)
[2024-01-03 16:01] LABS: Urine Albumin Trace (Neg - Trace); Urine Bilirubin 1+ (Negative); Urine Character Clear (Clear); Urine Color Yellow; Urine Glucose Negative (Negative); Urine Ketone 1+ (Negative); Urine Leukocyte Negative (Negative); Urine Nitrite Negative (Negative); Urine Occult Blood Negative (Negative); Urine Specific Gravity 1.015 (<1.030); Urine Urobilinogen 1+ (Neg - 1+)
--- NOTE | 2024-01-03 16:07 | W.CARD.DEVCH ---
Cardiac Device Check
-
Device: Implanted Cardioverter-Defibrillator
Subcontract Manager: [employer]
The patient's device was interrogated with assistance of the device advertising representative followed by a complete physician review. The device had normal function. No abnormalities seen.
[employer] FIELD ADVISOR-D checked by me, Afib burden increased since 12/22/23. CV was 12/20/23. Optivol trending up.
[2024-01-03] MEDS: QUESTRAN 4 GRAM PO (17:39)
[2024-01-03 18:07] LABS: TSH 3.36 uIU/ml (0.47-4.68)
[2024-01-03 19:34] LABS: IgA 92 mg/dl (70-400)
[2024-01-03] MEDS: ELIQUIS 5 MG PO (20:49)
[2024-01-03] MEDS: PACERONE 200 MG PO (20:49)
[2024-01-03] MEDS: MELATONIN 10 MG PO (22:15)
[2024-01-04] VITALS (8 sets, daily range): BP systolic 115–146; BP diastolic 56–97; PULSE 89–125; BMI 35.6
[2024-01-04] MEDS: COMPAZINE 5 MG IV (05:18)
[2024-01-04 06:42] LABS: Hematocrit 35.1 % (37.0-47.0); Hemoglobin 11.7 g/dL (12.0-16.0); Mean Corp Hgb Conc. 33.3 g/dL (33.0-37.0); Mean Corpuscular Hgb 29.5 pg (27.0-31.0); Mean Corpuscular Volume 88.4 fL (81.0-99.0); Mean Platelet Volume 10.6 fL (7.4-10.4); Platelet Count 232 10^3/uL (130-400); Red Blood Cell Count 3.97 10^6/uL (4.20-5.40); Red Cell Dist. Width 14.6 % (11.5-14.5); White Blood Cell Count 4.7 10^3/uL (4.8-10.8)
[2024-01-04 07:00] LABS: ALT (SGPT) 18 U/L (0-35); AST (SGOT) 18 U/L (14-36); Albumin 3.4 g/dl (3.5-5.0); Alkaline Phosphatase 82 U/L (38-126); Blood Urea Nitrogen 19 mg/dl (7-17); Calcium 8.9 mg/dl (8.4-10.2); Carbon Dioxide 20 mmol/L (22-30); Chloride 105 mmol/L (98-107); Estimated Creatinine Clearance 45 ml/min; Glucose 86 mg/dl (70-99); Magnesium 2.1 mg/dl (1.6-2.3); Potassium 3.9 mmol/L (3.5-5.1); Sodium 138 mmol/L (135-145); Total Bilirubin 2.6 mg/dl (0.2-1.3); Total Protein 5.8 g/dl (6.3-8.2); eGFR 51.43
[2024-01-04 07:48] LABS: Hepatitis C Antibody Negative (Negative)
--- NOTE | 2024-01-04 09:06 | W.PN.GI.CBS2 ---
Today's Communication / Plan
-
Low residue diet
Trial of Questran PRN for diarrhea
Assessment / Plan
-
The patient is a 78-year-old female with a past medical history significant for atrial fibrillation on Eliquis, heart failure with reduced ejection fraction of 35%, nonsustained VT status post AICD placement, CAD with prior stenting, hyperlipidemia,
ischemic cardiomyopathy, chronic diarrhea, who presented to the emergency room with complaints of abdominal pain and diarrhea, with findings concerning for possible acute cholecystitis with gallbladder wall thickening and gallbladder wall edema on
CT and ultrasound, with HIDA scan pending. LFTs essentially normal with an elevated total bilirubin but normal direct bilirubin. She also has been having diarrhea as well for many years with intermittent abdominal pain, which has been worsening as
of recently with oily, yellow liquid stools after meals and right lower/right upper quadrant pain radiating to the back. She has never had a formal GI workup for this. No prior colonoscopy in the past. Also found to be in recurrent A-fib with
slightly uncontrolled rates in the 100-110's, on amiodarone and metoprolol. She does have complaints of shortness of breath especially on exertion.
Problem list:
-Right lower quadrant/right upper quadrant abdominal pain, CT/US with gallbladder wall thickening and edema
-Acute on chronic diarrhea
-Hyperbilirubinemia, primarily indirect
-Shortness of breath
-Recurrent A-fib
-Acute on chronic CHF, proBNP 9600
-NSVT
-ALANNA
Other pertinent medical history:
-A-fib on Eliquis with recent cardioversion 12/20/2023
-CHF with reduced ejection fraction of 35%
-Nonsustained VT status post AICD placement
-CAD with stenting
-Hyperlipidemia
-Depression
Recommendations:
1. Chronic intermittent diarrhea worsening over the past 1 month may be related to IBS versus microscopic colitis versus bile salt diarrhea or EPI less likely IBD. Will get stool studies including ruling out infection, fecal calprotectin and fecal
fat, pancreatic elastase(unable to get she hasn't had a BM since admission). Will also get celiac serologies- P and TSH- 3.36 (nl). Will give her a trial of Questran. Once medically optimized from cardiac standpoint will schedule her for
colonoscopy likely as outpatient. For now continue low residue diet/low FODMAP diet.
2 she also has right-sided abdominal pain and imaging studies including ultrasound and CT showed possible gallbladder wall thickening with mildly dilated CBD she then had an HIDA scan which was negative for acute cholecystitis and showed delayed
emptying of radiotracer into the small bowel most likely from slow transit doubt CBD obstruction. Her bilirubin is mildly elevated(indirect) which may be related to CHF and passive congestion versus Arthur syndrome but her other LFTs are normal
and her lipase is also normal. She does have diverticulosis no diverticulitis noted on CT. unclear if her pain could be radicular or referred pain from back, no obvious vesicles noted so doubt shingles. Pain is improved today so if she tolerates
diet okay to DC home from GI perspective once cleared by cardiology.
Will sign off and will be available as needed follow-up with us as outpatient for further workup of her chronic symptoms
Subjective
Subjective
Date of Service: January 04, 2024
Right-sided abdominal pain is improved. She really has not had any symptoms of diarrhea overnight so unable to collect stool sample
Objective
Data Reviewed
Laboratory Data:
Laboratory Results
01/04/24 05:55
01/04/24 05:55
Laboratory Results
Phosphorus 3.9 mg/dl (2.5-4.5) 01/03/24 10:08
Magnesium 2.1 mg/dl (1.6-2.3) 01/04/24 05:55
Total Bilirubin 2.6 mg/dl (0.2-1.3) H 01/04/24 05:55
AST 18 U/L (14-36) 01/04/24 05:55
ALT 18 U/L (0-35) 01/04/24 05:55
Alkaline Phosphatase 82 U/L (38-126) 01/04/24 05:55
Lipase 47 U/L (23-300) 01/03/24 10:08
Vital Signs and I&O:
Vital Signs
Temp Pulse Resp BP Pulse Ox
98.3 F 97 19 140/92 98
01/04/24 07:50 01/04/24 07:50 01/04/24 07:50 01/04/24 07:50 01/04/24 07:50
I&O
01/03/24 01/04/24 01/05/24
06:59 06:59 06:59
Intake Total 240 / 240
Balance 240 / 240
Physical Exam
Physical Exam
Cardiology: Irregular Rate/Rhythm
Pulmonary: Clear
GI: Soft, Non Distended, Non Tender and Normal Bowel Sounds
--- NOTE | 2024-01-04 09:55 | W.PN.HOSP.TC ---
Today's Communication/Plan
-
diuresis
stool studies
Questran
Trial of diet
Assessment / Plan
Assessment / Plan
78-year-old female with abdominal pain, shortness of breath, diarrhea
01/03/2024-gallbladder wall thickening and gallbladder wall edema. No gallstones. CBD mildly dilated, 6 mm.
01/03/2024-CT abdomen pelvis-diffuse gallbladder wall thickening and mild adjacent fat stranding. No gallstones. Gallbladder not significantly distended. Colonic diverticulosis without diverticulitis. Small bilateral pleural effusions
01/03/20242932-[id number]-cf acute cholecystitis. Gallbladder fills normally. Delayed emptying of radiotracer to the small bowel suggestive of partial biliary ductal obstruction or slow transit.
CVS: S1-S2 normal
Chest: few rales
Abdomen: Soft, NT / Bowel sounds present
Extremities: No edema, normal pulses
ELECTRIC SIGN ASSEMBLER: Non focal exam
# Abdominal pain- Better. Unclear causes. Doesn't look like gall bladder.
# Diarrhea-check stool studies
This has been going on for months
GI IBS versus microscopic colitis versus bile salt diarrhea
Check stool studies fecal calprotectin, fecal fat and pancreatic elastase, celiac serologies
Questran started
Colonoscopy as outpatient she has never had a colonoscopy- Once cardiac issues stable
Patient has not been able to give a stool specimen yet
# Elevated creatinine
Likely secondary to diarrhea and prerenal reasons
Hold Entresto
Got 500 mL of normal saline follow creatinine
# Acute on chronic HFrEF
With ejection fraction 34% per echo 10/11/2023
Patient has a BiV ICD placed 11/18/2022
proBNP 9600
Patient reports not taking Lasix at home per recent recommendation from her dry pan operator
Daily weights and intake output charting
Optivol was elevated on ICD interrogation yesterday
Continue Lasix per cardiology
This might be related to rate A-fib and s also
# Paroxysmal atrial fibrillation-continue amiodarone, metoprolol and Eliquis
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
Device check shows recurrent A-fib since 12/22/23 -100%
Amiodarone increased to 200 mg 3 times daily
Patient may need cardioversion again
# Coronary artery disease with drug-eluting stent to obtuse marginal in July 2020-not on antiplatelets
# Depression-continue Lexapro
# Chronic left bundle branch block
# Diverticulosis
# DVT prophylaxis-Eliquis
# Full code
D/W Cardiology
Spoke to daughter and updated the plan
Time spent over 50 min
Anticipated Discharge: 24 - 48 hours
Subjective/Interval History
-
Date of Service: January 04, 2024
Objective Data
-
Labs:
Laboratory Results
01/04/24
05:55
WBC 4.7 L
Hgb 11.7 L
Hct 35.1 L
Plt Count 232
Sodium 138
Potassium 3.9
Chloride 105
Carbon Dioxide 20 L
BUN 19 H
Creatinine 1.1 H
Glucose 86
Calcium 8.9
Total Bilirubin 2.6 H
AST 18
ALT 18
Alkaline Phosphatase 82
Vital Signs:
Vital Signs
Temp Pulse Resp BP Pulse Ox
98.3 F 97 19 140/92 98
01/04/24 07:50 01/04/24 07:50 01/04/24 07:50 01/04/24 07:50 01/04/24 07:50
I&O
01/03/24 01/04/24 01/05/24
06:59 06:59 06:59
Intake Total 240 / 240
Balance 240 / 240
[2024-01-04] MEDS: TOPROL XL 50 MG PO (09:59)
[2024-01-04] MEDS: LEXAPRO 20 MG PO (09:59)
[2024-01-04] MEDS: ELIQUIS 5 MG PO ×2 (09:59→19:52)
[2024-01-04] MEDS: PACERONE 200 MG PO ×3 (10:00→19:52)
[2024-01-04] MEDS: LASIX 40 MG IV (10:00)
--- NOTE | 2024-01-04 10:02 | CM ---
case managers reviewed patient's chart and met with patient and patient states that she lives with her grandson in a one story home with 5 steps to enter, patient is independent with adl's and ambulation, no dme, patient no longer drives.
Pharmacy: [facility]
PCP: Suyapa Duval
Plan; Home when stable no needs, AD information provided to patient, including advanced directive forms , patient to review with physician and complete.
--- NOTE | 2024-01-04 12:24 | W.PN.CARDCBS ---
Addendum entered and electronically signed by Gerardo Cohen DO 01/04/24 15:11:
I saw and examined the patient.
The Seaman's note was reviewed and I agree with the note.
Comment:
Plan:
HF in setting of recurrent AFib. Recently started on amiodarone as outpt by outpt assurance manager insurance following recent cardioversion.
Cont amiodarone load with 200 mg TID and consider repeat cardioversion inpt vs outpt.
Cont Eliquis
Device check, 100% AFib burden since Dec 21.
Last echo October 2023 and now with recurrent HF.
Echo pending to reeval EF
Cont IV lasix diuresis. Cr improving
Entresto held with RI; resume once cr improved.
HPI: Patient came to [facility] today with SOB, orthopnea and diarrhea and is being admitted with a work-up for possible gallbladder disease and cardiology has been consulted for recurrence of Afib and possible acute HF. Patient was just admitted to
12/18/23 until 12/20/23 with rapid Afib and CHF. Patient was diuresed with Lasix IV and was cardioverted to SR on the day of discharge. Patient then saw her primary assurance manager insurance at [facility] and was started on amiodarone 200 mg daily. Patient reports
increased diarrhea that is chronic, but is now so bad that she says life is unbearable. Patient denies palpitations, but felt like she was back in Afib shortly after CV last admission. Device check by me in the ER shows recurrence of Afib 12/22/23.
Optivol also trending up although patient feels she has lost weight. Patient also feels increased METZGER and orthopnea.
Original Note:
Today's Communication / Plan
-
Check ECG and follow QTc during amiodarone loading
Impression / Plan
-
PCP: BYRON Man
Installer Apprentice: Dr. Figueroa
Home Hospice Rn: Dr. Robert Ziegler
Impression:
Abdominal pain
Diarrhea, acute on chronic
Acute HFrEF
CM EF 34% by echo 10/11/23
Paroxysmal Afib
s/p CV 12/20/23
Recurrent Afib since 12/22/23
Chronic Eliquis
LBBB
s/p Med[employer]onic BiV ICD 11/18/22
HTN
HLD
CAD
s/p RAULITO OM 07/2020
h/o Diverticulitis
TKR
Lexiscan nuclear stress test 07/19/2020: Moderate reversible defect in the mid inferolateral, mid inferior, and apical inferior segments. Inferior hypokinesis. LVEF 40%. LV normal size.�������
Echo 07/12/2020: LVEF 45-50%. Mild global hypo. Inferior basal akinesis. Moderate LAE. Aortic valve sclerosis.
Echo 03/20/2021: EF 35 to 40%, stage II DD. Mild left atrial enlargement. Mild MR.
Echo 10/11/2023: EF 34%. Moderately reduced LV systolic function. Stage II DD. Mild MR, mild TR. PAP 37 mmHg
Plan:
-Dry weight at last d/c on 12/20/23 was 194 lbs. Weight 01/04/24 is 201 lbs. Optivol was trending up on device check 01/03/24.
-Cre 1.2 on 01/03/24 and a bit better at 1.1 on 01/04/24. Lasix 40 mg IV x1 given 01/04/24. Follow labs 01/05/24
-Suspect acute HF in the setting of Lasix noncompliance and recurrent Afib
-Afib recurred within a couple of days of last CV 12/20/23. Patient was started on amiodarone 200 mg daily by her primary assurance manager insurance. Amiodarone increased to 200 mg TID on 01/03/24.
-Check ECG 01/04/24 and follow QTc
-Patient reports compliance with Eliquis 5 mg BID (age 78, Cre 1.2, wt 89.8 kg)
-EF was 34% by echo 10/11/23, repeat echo given this is her 2nd CHF admission since that echo.
-Outpatient dose of Toprol XL 50 mg daily should be continued
-Outpatient dose of Entresto is on hold due to ALANNA, but should be restarted following improvement in Cre
HPI: Patient came to [facility] today with SOB, orthopnea and diarrhea and is being admitted with a work-up for possible gallbladder disease and cardiology has been consulted for recurrence of Afib and possible acute HF. Patient was just admitted to
12/18/23 until 12/20/23 with rapid Afib and CHF. Patient was diuresed with Lasix IV and was cardioverted to SR on the day of discharge. Patient then saw her primary assurance manager insurance at [facility] and was started on amiodarone 200 mg daily. Patient reports
increased diarrhea that is chronic, but is now so bad that she says life is unbearable. Patient denies palpitations, but felt like she was back in Afib shortly after CV last admission. Device check by me in the ER shows recurrence of Afib 12/22/23.
Optivol also trending up although patient feels she has lost weight. Patient also feels increased METZGER and orthopnea.
Progress Note - Installer Apprentice
Subjective
Date of Service: January 04, 2024
Diarrhea is better
Objective
Labs:
01/04/24 05:55
01/04/24 05:55
Labs
Hgb 11.7 g/dL (12.0-16.0) L 01/04/24 05:55
Hct 35.1 % (37.0-47.0) L 01/04/24 05:55
Plt Count 232 10^3/uL (130-400) 01/04/24 05:55
Sodium 138 mmol/L (135-145) 01/04/24 05:55
Potassium 3.9 mmol/L (3.5-5.1) 01/04/24 05:55
BUN 19 mg/dl (7-17) H 01/04/24 05:55
Creatinine 1.1 mg/dL (0.6-1.0) H 01/04/24 05:55
Glucose 86 mg/dl (70-99) 01/04/24 05:55
Troponins
01/03/24
10:08
Troponin I < 0.012
Vital Signs and I&O:
Vital Signs
Temp Pulse Resp BP Pulse Ox
97.5 F 96 18 145/97 94
01/04/24 11:18 01/04/24 11:18 01/04/24 11:18 01/04/24 11:18 01/04/24 11:18
Vital Signs
Temp Pulse Resp BP Pulse Ox
97.5 F 96 18 145/97 94
01/04/24 11:18 01/04/24 11:18 01/04/24 11:18 01/04/24 11:18 01/04/24 11:18
Intake & Output
01/02/24 01/03/24 01/04/24 01/05/24
06:59 06:59 06:59 06:59
Intake Total 240 / 240
Balance 240 / 240
Physical Exam
Physical Exam
GEN: AAOx3
HEENT: MMM
LUNGS: No audible wheeze
CV: Afib on tele
ABD: ND
EXT: No edema B/L
NEURO: Gross non-focal
SKIN: No rash
[2024-01-04] MEDS: QUESTRAN 4 GRAM PO (17:33)
--- NOTE | 2024-01-04 19:46 | PTCARENOTE ---
Pt w/sustained Vtach via telemetry. Upon entry to room, pt sallow, breathless, and diaphoretic. DATA BASE DESIGN ANALYST covering house contacted, electronic orders received for labs and EKG. O2 applied. VSS. Will give scheduled PO amiodarone now. DATA BASE DESIGN ANALYST covering
house at bedside.
[2024-01-04 19:52] LABS: Hematocrit 35.8 % (37.0-47.0); Hemoglobin 12.2 g/dL (12.0-16.0); Mean Corp Hgb Conc. 34.1 g/dL (33.0-37.0); Mean Corpuscular Hgb 29.8 pg (27.0-31.0); Mean Corpuscular Volume 87.5 fL (81.0-99.0); Mean Platelet Volume 10.3 fL (7.4-10.4); Platelet Count 261 10^3/uL (130-400); Red Blood Cell Count 4.09 10^6/uL (4.20-5.40); Red Cell Dist. Width 14.7 % (11.5-14.5); White Blood Cell Count 5.3 10^3/uL (4.8-10.8)
[2024-01-04 20:03] LABS: Blood Urea Nitrogen 18 mg/dl (7-17); Carbon Dioxide 17 mmol/L (22-30); Chloride 105 mmol/L (98-107); Estimated Creatinine Clearance 41 ml/min; Glucose 126 mg/dl (70-99); Potassium 3.8 mmol/L (3.5-5.1); Sodium 140 mmol/L (135-145); eGFR 46.33
[2024-01-04 21:41] LABS: Glucose - Point of Care 117 mg/dl (70-99)
[2024-01-04 22:25] LABS: Troponin I 0.012 ng/ml
[2024-01-04] MEDS: MELATONIN 10 MG PO (23:17)
[2024-01-05] VITALS (8 sets, daily range): BP systolic 115–140; BP diastolic 75–99; PULSE 81–91; BMI 35.1
--- NOTE | 2024-01-05 01:43 | W.PN.UPDATE ---
Update Note
Progress Note Update
RN notified SUPERINTENDENT MAINTENANCE, patient c/o feeling breathlessness, and diaphoretic and had busts of V-tach. Patient seen and evaluated, 120/82, HR 95, Oxygen 96% RA, 22, stated she had just gone to the toilet as she was having diarrhea and came back to bed and
felt out of breath worse than before. Lungs with mild rales, had received IV Lasix 40mg. Labs and EKG ordered,Advised RN to give the evening Amiodarone dose, Placed on 1L NC for comfort, stated feeling better than before. Stable VS at present.
Denies any chest pain
Labs wnl. EKG showed V paced rhythm. Patient denies any discomfort at present.
[2024-01-05] MEDS: ELIQUIS 5 MG PO ×2 (09:17→21:17)
[2024-01-05 09:18] LABS: Blood Urea Nitrogen 20 mg/dl (7-17); Calcium 9.3 mg/dl (8.4-10.2); Carbon Dioxide 21 mmol/L (22-30); Chloride 103 mmol/L (98-107); Estimated Creatinine Clearance 38 ml/min; Glucose 102 mg/dl (70-99); Potassium 3.9 mmol/L (3.5-5.1); Sodium 138 mmol/L (135-145); eGFR 42.09
[2024-01-05] MEDS: LASIX 40 MG IV (09:18)
[2024-01-05] MEDS: PACERONE 200 MG PO ×3 (09:18→21:17)
[2024-01-05] MEDS: LEXAPRO 20 MG PO (09:18)
[2024-01-05] MEDS: TOPROL XL 50 MG PO (09:19)
[2024-01-05] MEDS: QUESTRAN 4 GRAM PO (09:19)
[2024-01-05 10:47] LABS: tTG IgA Antibody 3.8 EU/ml (0-19); tTG IgG Antibody 6.9 EU/ml (0-19)
--- NOTE | 2024-01-05 11:18 | CM ---
Chart reviewed and patient may benefit from visiting nurses, options reviewed and patient has selected [facility], [facility] liaison contacted.
Plan; Patient to return to home when stable, with [facility].
--- NOTE | 2024-01-05 11:43 | W.PN.HOSP.TC ---
Today's Communication/Plan
-
Continue with IV Lasix, trend BMP. May be able to transition to oral diuretic tomorrow
Increase cholestyramine and monitor bowel status
Assessment / Plan
Assessment / Plan
#Diarrhea
#Abdominal Pain
-Chronic, states it has been going on for months; differentials include microscopic colitis versus IBS versus bile salt diarrhea
-Was started on cholestyramine empirically which has helped some, 3 BM per day now compared to 6/day previously
-She states that initially her diarrhea was very watery, has since began to develop some form
-States she has never had a colonoscopy, is past due for colorectal cancer screening
-Stool studies negative for C. difficile or parasites, stool cultures negative, stool leukocytes negative
-GI following
Plan
-Increase cholestyramine to twice daily dosing
-Plan for outpatient colonoscopy, possible stool osmolar gap
-Monitor stool output frequency/consistency
#Acute on chronic HFrEF
-Likely related to ischemic cardiomyopathy, has history of CAD s/p stents
-TTE on October 11, 2023 showed LVEF 34%; Patient has a BiV ICD placed 11/18/2022
-GDMT includes beta-benjy and Entresto; unclear what is limiting GDMT though may be renal function
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
-Upon arrival was hypervolemic, elevated proBNP; started on IV Lasix regimen
-Renal function has been stable on current diuretic dose
-Cardiology following
Plan
-Continue IV Lasix for now, trend BMP and I's and O's
-Continue to hold Entresto for now
-Continue with metoprolol
#Elevated creatinine
-Mild ALANNA versus stable CKD; if acute likely secondary to diarrhea and prerenal etiologies
-Creatinine baseline 0.7, has been stable near 1.1 since arrival here
-Entresto was held on admission, status post 500 mL saline
-Will continue to monitor BMP off of Entresto as above
#Persistent atrial fibrillation
-S/p recent cardioversion on 12/19, started on amiodarone subsequently
-Current home regimen includes metoprolol, amiodarone, Eliquis
-Recent AICD check shows A-fib burden 100% since 12/21
-Amiodarone was increased to 200 mg 3 times daily
-May need repeat cardioversion versus planning for ablation
#Coronary artery disease S/P drug-eluting stent to obtuse marginal
-Performed in July 2020; suspect that this is associated with her chronic LBBB
-Home regimen includes beta-benjy; not currently on statin antiplatelet agents
-Currently on Eliquis for A-fib, suspect previous bleeding
-No signs of active coronary ischemia at this time
#Chronic LBBB
-Suspect this is secondary to previous IA
# Depression
-continue Lexapro
#NSVT
#Cardiac ectopy
-Had a run of NSVT overnight, frequent PVCs otherwise
-Will monitor electrolytes, replete Mg for goal >2, K >4
-Continue to monitor on telemetry here
DVT prophylaxis: Eliquis
Diet: Low residue
CODE STATUS: Full code
Anticipated Discharge: Within 24 hours
Subjective/Interval History
-
Date of Service: January 05, 2024
Seen and examined at bedside. Overnight had an episode of shortness of breath and diaphoresis following having a bowel movement. NSVT and frequent PVCs on telemetry overnight.
As of this morning she feels better, states she did not have to strain to have her bowel movement. States she is still having diarrhea though it is now more formed and less frequent
She denies chest pain, shortness of breath, fevers or chills, nausea or vomiting, urinary issues, abnormal bleeding or bruising, paresthesias or weakness.
Objective Data
-
Labs:
Laboratory Results
01/05/24
07:56
Sodium 138
Potassium 3.9
Chloride 103
Carbon Dioxide 21 L
BUN 20 H
Creatinine 1.3 H
Glucose 102 H
Calcium 9.3
Vital Signs:
Vital Signs
Temp Pulse Resp BP Pulse Ox
97.7 F 90 20 140/99 93
01/05/24 07:00 01/05/24 09:18 01/05/24 07:00 01/05/24 09:18 01/05/24 07:00
I&O
01/04/24 01/05/24 01/06/24
06:59 06:59 06:59
Intake Total 240 / 240 840 / 840
Balance 240 / 240 840 / 840
Review of Systems
-
History Source: Patient
All other systems: Reviewed and negative
Physical Exam
-
General: No Apparent Distress, Comfortable and Obese
HEENT: Normocephalic, Atraumatic, Moist Mucous Membranes and Anicteric
Respiratory: Clear to Auscultation and Non Labored Respirations; Negative Wheezes, Rales or Rhonchi
Cardiac: S1/S2 and Irregular Rhythm; Negative Murmur, Rub, JVD or Gallop
GI: Soft, Nontender, Nondistended and Normal Bowel Sounds
Musculoskeletal: No Clubbing, No Cyanosis and No Edema
Skin: Warm, Dry and Normal Turgor; Negative Rash
Neuro: AO x 3, Nonfocal/Grossly Intact and Central Nerve's Intact
Data Reviewed
-
Labs: Labs Reviewed by me and Discussed with Patient
--- NOTE | 2024-01-05 11:54 | VNURNOTE ---
Home Health Liaison met with patient at bedside to discuss [facility] nurse/therapy, visits, schedule and homebound status. Patient is agreeable and understands that visits at home will be 2-3 x per week to assess and teach medical management. [facility]
brochure provided with contact information. Patient is aware that [facility] will contact them for start of care in 1-2 days after discharge from . patient confirms she has a scale at home. HF packet at bedside. [facility] referral completed in [facility].
[2024-01-05] MEDS: COMPAZINE 5 MG IV (14:12)
--- NOTE | 2024-01-05 16:32 | W.PN.CARDCBS ---
Addendum entered and electronically signed by Leticia Contreras DO 01/05/24 22:09:
I saw and examined the patient.
The Ems Instructor's note was reviewed and I agree with the note.
Comment: Seen and examined. Still with frequent non bloody diarrhea, 5-6 x daily and abd pain. No n/v or fevers.
General: No acute distress, lying supine on RA. AAOX3.
Heart: irregularly irregular, S1/S2, no murmur
Lungs: CTA after IV lasix. decreased at bases.
Abd: distended, NT. +BS
Ext: Negative cyanosis/clubbing/edema
Plan
Acute on chronic HFrEF
-Increased SOB this am s/p Lasix 40 mg IV x1 given early 01/05/24.
-Weight is down 3 lbs overnight. Cre has trended up to 1.3. Will change from Lasix IV to PO in AM
-Dry weight at last d/c on 12/20/23 was 194 lbs. Weight 01/05/24 is 198 lbs.
-Repeat echocardiogram with Dilated, Severely reduced left ventricular systolic function. LV ejection fraction is 20% by Angulo's method. Low normal right ventricular systolic function. Moderate to severe mitral regurgitation. Severe tricuspid
regurgitation. Estimated pulmonary artery pressure of 65-70 mmHg. Assuming a right atrial pressure of 15 mmHg. Compared to prior study dated 10/11/2023: Left ventricular systolic function has declined, previously moderately reduced with an LVEF of
34%. Mitral and tricuspid regurgitation has worsened, previously mild.
-Medtronic BiV ICD placed 11/18/2022
-Optimize GDMT: Toprol XL50mg daily. OP Entresto held due to SKINNY but would resume when able. Add SGLT2 inh- consult to CM for cost.
PAF in AF with v-pacing
-Afib recurred within a couple of days of last CV 12/20/23.
-Patient was started on amiodarone 200 mg daily by her primary molding sander. Amiodarone increased to 200 mg TID on 01/03/24.
-QTc 551 ms paced rhythm ECG 01/05/24
-Patient reports compliance with Eliquis 5 mg BID (age 78, Cre 1.2, wt 89.8 kg)
-Consider repeat CV attempt of amiodarone Wednesday01/07/24
-Arrange follow up with Dr. Ziegler to discuss options/ablation
SKINNY, Cr 1.3
-Monitor with Lasix
-Entresto currently held
CAD s/p RAULITO OM 07/2020- no active symptoms.
-CTNI < 0.012 several times
-? why not on statin
-Defer management to Dr. Figueroa
Ongoing Diarrhea/ Abdominal Pain
-GI consulted
-Stool culture and c. diff negative
Original Note:
Today's Communication / Plan
-
Change to Lasix 40 mg PO in AM
Impression / Plan
-
PCP: BYRON Man
Supervisor [employer] Vehicle: Dr. Figueroa
Bankruptcy Judge: Dr. Robert Ziegler
Impression:
Abdominal pain
Diarrhea, acute on chronic
Acute HFrEF
CM EF 34% by echo 10/11/23
Paroxysmal Afib
s/p CV 12/20/23
Recurrent Afib since 12/22/23
Chronic Eliquis
LBBB
s/p Medtronic BiV ICD 11/18/22
HTN
HLD
CAD
s/p RAULITO OM 07/2020
h/o Diverticulitis
TKR
Lexiscan nuclear stress test 07/19/2020: Moderate reversible defect in the mid inferolateral, mid inferior, and apical inferior segments. Inferior hypokinesis. LVEF 40%. LV normal size.�������
Echo 07/12/2020: LVEF 45-50%. Mild global hypo. Inferior basal akinesis. Moderate LAE. Aortic valve sclerosis.
Echo 03/20/2021: EF 35 to 40%, stage II DD. Mild left atrial enlargement. Mild MR.
Echo 10/11/2023: EF 34%. Moderately reduced LV systolic function. Stage II DD. Mild MR, mild TR. PAP 37 mmHg
Plan:
-Overnight events noted. Patient with SOB while having diarrhea. Rales heard and additional dose of Lasix 40 mg IV x1 given early 01/05/24. Tele reviewed by me paced rhythm seen.
-Weight is down 3 lbs overnight. Cre has trended up to 1.3. Will change from Lasix IV to PO in AM
-Dry weight at last d/c on 12/20/23 was 194 lbs. Weight 01/05/24 is 198 lbs.
-Patient says she was told to stop Lasix by her primary molding sander. She then had recurrence of Afib. Suspect patient should be taking Lasix at least 20 mg MWF at time of discharge to avoid volume overload which might help with rhythm control
efforts.
-Afib recurred within a couple of days of last CV 12/20/23. Patient was started on amiodarone 200 mg daily by her primary molding sander. Amiodarone increased to 200 mg TID on 01/03/24.
-QTc 551 ms paced rhythm ECG 01/05/24 reviewed by me
-Patient reports compliance with Eliquis 5 mg BID (age 78, Cre 1.2, wt 89.8 kg)
-EF was 34% by echo 10/11/23, repeat echo given this is her 2nd CHF admission since that echo.
-Outpatient dose of Toprol XL 50 mg daily should be continued
-Outpatient dose of Entresto is on hold due to ALANNA, but should be restarted following improvement in Cre
HPI: Patient came to [facility] today with SOB, orthopnea and diarrhea and is being admitted with a work-up for possible gallbladder disease and cardiology has been consulted for recurrence of Afib and possible acute HF. Patient was just admitted to
12/18/23 until 12/20/23 with rapid Afib and CHF. Patient was diuresed with Lasix IV and was cardioverted to SR on the day of discharge. Patient then saw her primary molding sander at [facility] and was started on amiodarone 200 mg daily. Patient reports
increased diarrhea that is chronic, but is now so bad that she says life is unbearable. Patient denies palpitations, but felt like she was back in Afib shortly after CV last admission. Device check by me in the ER shows recurrence of Afib 12/22/23.
Optivol also trending up although patient feels she has lost weight. Patient also feels increased METZGER and orthopnea.
Progress Note - Supervisor [employer]
Subjective
Date of Service: January 05, 2024
Feeling better now compared to this morning
Objective
Labs:
01/04/24 19:43
01/05/24 07:56
Labs
Hgb 12.2 g/dL (12.0-16.0) 01/04/24 19:43
Hct 35.8 % (37.0-47.0) L 01/04/24 19:43
Plt Count 261 10^3/uL (130-400) 01/04/24 19:43
Sodium 138 mmol/L (135-145) 01/05/24 07:56
Potassium 3.9 mmol/L (3.5-5.1) 01/05/24 07:56
BUN 20 mg/dl (7-17) H 01/05/24 07:56
Creatinine 1.3 mg/dL (0.6-1.0) H 01/05/24 07:56
Glucose 102 mg/dl (70-99) H 01/05/24 07:56
Troponins
01/03/24 01/04/24
10:08 19:44
Troponin I < 0.012 0.012
Vital Signs and I&O:
Vital Signs
Temp Pulse Resp BP Pulse Ox
97.7 F 73 16 120/75 92
01/05/24 15:31 01/05/24 15:31 01/05/24 15:31 01/05/24 15:31 01/05/24 15:31
Vital Signs
Temp Pulse Resp BP Pulse Ox
97.7 F 73 16 120/75 92
01/05/24 15:31 01/05/24 15:31 01/05/24 15:31 01/05/24 15:31 01/05/24 15:31
Intake & Output
01/03/24 01/04/24 01/05/24 01/06/24
06:59 06:59 06:59 06:59
Intake Total 240 / 240 840 / 840
Balance 240 / 240 840 / 840
Physical Exam
Physical Exam
GEN: AAOx3
HEENT: MMM
LUNGS: No audible wheeze
CV: Paced on tele
ABD: ND
EXT: No edema B/L
NEURO: Gross non-focal
SKIN: No rash
[2024-01-05] MEDS: MELATONIN 10 MG PO (21:17)
[2024-01-05] MEDS: QUESTRAN PO (21:22)
[2024-01-06 04:18] VITALS: BP 122/83
[2024-01-06 06:00] VITALS: BMI 35.1
[2024-01-06 07:30] VITALS: BP 148/91
[2024-01-06] MEDS: TOPROL XL 50 MG PO (09:11)
[2024-01-06] MEDS: ELIQUIS 5 MG PO (09:12)
[2024-01-06] MEDS: LASIX 40 MG PO (09:12)
[2024-01-06] MEDS: LEXAPRO 20 MG PO (09:12)
[2024-01-06] MEDS: PACERONE 200 MG PO (09:12)
[2024-01-06] MEDS: QUESTRAN 4 GRAM PO (09:14)
--- NOTE | 2024-01-06 09:25 | CM ---
Chart reviewed and plan is to home when stable, patient has agreed to VN. manager of drilling reached out to patient's prescription plan [facility] [phone] [place] [id number], and cost of Jardiance 10mg QD has a copay of $11, and Farxiga 10mg QD has a
copay of $11. Physician made aware.
Plan; [facility]
[2024-01-06 09:50] VITALS: BP 134/94; PULSE 93; O2SAT 97
[2024-01-06 09:59] LABS: % Basophils 0.5 % (0-2); % Eosinophils 2.6 % (0-6); % Immature Granulocytes 0.5 % (0-0.5); % Monocytes 11.3 % (1.7-9.3); % Neutrophils 72.1 % (42.2-75.2); Absolute Eosinophils 0.2 10^3/uL (0-0.7); Absolute Lymphocytes 0.8 10^3/uL (1.2-3.4); Absolute Monocytes 0.7 10^3/uL (0.1-0.6); Absolute Neutrophils 4.5 10^3/uL (1.4-6.5); Hematocrit 37.3 % (37.0-47.0); Hemoglobin 12.6 g/dL (12.0-16.0); Mean Corp Hgb Conc. 33.8 g/dL (33.0-37.0); Mean Corpuscular Volume 88.8 fL (81.0-99.0); Mean Platelet Volume 10.3 fL (7.4-10.4); Nucleated Red Blood Cells % 0.3 %; Platelet Count 251 10^3/uL (130-400); Red Cell Dist. Width 15.5 % (11.5-14.5); White Blood Cell Count 6.2 10^3/uL (4.8-10.8)
--- NOTE | 2024-01-06 10:06 | W.PN.HOSP.TC ---
Addendum entered and electronically signed by Jovanny Clark DO 01/06/24 13:35:
CDI clarification: ALANNA present, secondary to IV diuretics and treatment with ARNI. Entresto currently held, was transition to oral diuretics. Anticipate that renal function will improve, patient seems euvolemic as of now. Will provide BMP for 5
days after discharge. Should continue to hold Entresto until seen by cardiology
Original Note:
Today's Communication/Plan
-
Follow-up a.m. BMP
Continue with cholestyramine twice daily
Hold Entresto at discharge
Follow-up with cardiology and GI as outpatient
Assessment / Plan
Assessment / Plan
#Diarrhea
#Abdominal Pain
-Chronic, states it has been going on for months; differentials include microscopic colitis versus IBS versus bile salt diarrhea
-Was started on cholestyramine empirically which has helped some, 3 BM per day now compared to 6/day previously
-She states that initially her diarrhea was very watery, has since began to develop some form
-States she has never had a colonoscopy, is past due for colorectal cancer screening
-Stool studies negative for C. difficile or parasites, stool cultures negative, stool leukocytes negative
-GI following; states symptoms have improved following cholestyramine
Plan
-Plan to continue cholestyramine twice daily at discharge
-Plan for outpatient colonoscopy, possible stool osmolar gap
-Follow-up stool elastase, fecal calprotectin, stool fat as outpatient
-Monitor stool output frequency/consistency
#Acute on chronic HFrEF
-Likely related to ischemic cardiomyopathy, has history of CAD s/p stents
-TTE on October 11, 2023 showed LVEF 34%; Patient has a BiV ICD placed 11/18/2022
-GDMT includes beta-benjy and Entresto; unclear what is limiting GDMT though may be renal function
-States that she was not on a standing dose of loop diuretic at home for her personal companion
-Upon arrival was hypervolemic, elevated proBNP; started on IV Lasix regimen
-Renal function has been stable on current diuretic dose
-Cardiology following, has transition to oral diuretics, and appears euvolemic
Plan
-Continue oral Lasix regimen at discharge
-Hold Entresto until office visit with cardiology due to elevated creatinine here
-Continue with metoprolol as previously dosed
#Elevated creatinine
-Mild ALANNA versus stable CKD; if acute likely secondary to diarrhea and prerenal etiologies
-Creatinine baseline 0.7, has been stable near 1.1 since arrival here
-Entresto was held on admission, status post 500 mL saline
-Will follow-up on morning BMP, if stable discharge off Entresto and outpatient follow-up with cardiology
#Persistent atrial fibrillation
-S/p recent cardioversion on 12/19, started on amiodarone subsequently
-Current home regimen includes metoprolol, amiodarone, Eliquis
-Recent AICD check shows A-fib burden 100% since 12/21
-Amiodarone was increased to 200 mg 3 times daily
-May need repeat cardioversion versus planning for ablation
#Coronary artery disease S/P drug-eluting stent to obtuse marginal
-Performed in July 2020; suspect that this is associated with her chronic LBBB
-Home regimen includes beta-benjy; not currently on statin antiplatelet agents
-Currently on Eliquis for A-fib, suspect previous bleeding
-No signs of active coronary ischemia at this time
#Chronic LBBB
-Suspect this is secondary to previous FL
# Depression
-continue Lexapro
#NSVT
#Cardiac ectopy
-Had a run of NSVT overnight, frequent PVCs otherwise
-Will monitor electrolytes, replete Mg for goal >2, K >4
-Continue to monitor on telemetry here
DVT prophylaxis: Eliquis
Diet: Low residue
CODE STATUS: Full code
Anticipated Discharge: Today
Subjective/Interval History
-
Date of Service: January 06, 2024
Seen and examined at the bedside. No acute events overnight. AFVSS this morning.
She states her diarrhea is improving, states it is even further reduced following increased frequency of cholestyramine. Says she feels generally well and is ready to go home
She denies chest pain, shortness of breath, fevers or chills, nausea or vomiting, abdomen pain, abnormal bleeding or bruising, urinary issues, paresthesias or weakness
Objective Data
-
Labs:
Laboratory Results
01/06/24
09:37
WBC 6.2
Hgb 12.6
Hct 37.3
Plt Count 251
Sodium Pending
Potassium Pending
Chloride Pending
Carbon Dioxide Pending
BUN Pending
Creatinine Pending
Glucose Pending
Calcium Pending
Vital Signs:
Vital Signs
Temp Pulse Resp BP Pulse Ox
97.4 F 97 18 148/91 95
01/06/24 07:30 01/06/24 09:11 01/06/24 07:30 01/06/24 09:11 01/06/24 07:30
I&O
01/05/24 01/06/24 01/07/24
06:59 06:59 06:59
Intake Total 840 / 840 1080 / 1080
Balance 840 / 840 1080 / 1080
Review of Systems
-
History Source: Patient
All other systems: Reviewed and negative
Physical Exam
-
General: No Apparent Distress, Comfortable and Obese
HEENT: Normocephalic, Atraumatic and Moist Mucous Membranes
Respiratory: Clear to Auscultation and Non Labored Respirations; Negative Wheezes, Rales or Rhonchi
Cardiac: S1/S2 and Irregular Rhythm; Negative Murmur, Rub, JVD, Gallop or Tachycardic
GI: Soft, Nontender, Nondistended and Normal Bowel Sounds
Musculoskeletal: No Clubbing, No Cyanosis, No Edema and Normal Gait & Station
Neuro: AO x 3, Nonfocal/Grossly Intact and Central Nerve's Intact
Psych: Calm
Data Reviewed
-
Labs: Labs Reviewed by me and Discussed with Patient
[2024-01-06 11:10] LABS: Blood Urea Nitrogen 22 mg/dl (7-17); Calcium 9.2 mg/dl (8.4-10.2); Carbon Dioxide 21 mmol/L (22-30); Chloride 101 mmol/L (98-107); Estimated Creatinine Clearance 35 ml/min; Glucose 101 mg/dl (70-99); Sodium 137 mmol/L (135-145); eGFR 38.51
--- NOTE | 2024-01-06 11:51 | W.DCSUMMARY ---
Discharge Summary
Discharge Data
Date of Admission: 01/03/24
Date of Discharge: 01/06/24
-
Pending Results: Yes
Additional Pending Results:
Stool elastase level, stool calprotectin level, stool fat levels
Hospital Course
78-year-old female with HFrEF 2/2 ischemic cardiomyopathy (EF 35%), s/p AICD, paroxysmal AF (on Eliquis), HTN, HLD that presented with chronic diarrhea that worsened previously to admission. Stool cultures unremarkable, celiac panel negative.
Differentials for diarrhea included bile acid diarrhea versus IBS versus microscopic colitis. NSAIDs discontinued, was started on cholestyramine with improvement.. Stool test pending, fecal calprotectin, fecal elastase, fecal fat content.
She also had decompensation in her heart failure, was not previously on standing loop diuretic. Had borderline soft blood pressure, Entresto was held and she was transition to IV diuretics. Became euvolemic and transition to oral Lasix 40 mg
daily. Entresto to be held until she sees punchboard inserter.
She had elevation in creatinine while here due to previous NSAID use, IV diuretic use, residual ARNI. Patient felt well on day of discharge and appeared euvolemic, anticipate renal function will improve on oral Lasix without Entresto. Provided BMP
for 5 days after discharge in order to reassess renal function
Discharge Plan
-
Patient Disposition: Home (Routine Discharge)
Discharge Diagnosis/Procedures: Chronic diarrhea
Acute kidney injury
Decompensated HFrEF
Condition: Good
Diet: Low Residue
Activity: As tolerated
Driving Restrictions: No driving for 24 hours
Bathing Restrictions: None
Blood Work: BMP in 5 days to recheck kidney function
Others Tests: Colonoscopy with gastroenterology
Activity Restrictions/Additional Instructions:
After discharge from the hospital schedule follow-up appointment with your family doctor and budget controller referral. You should call the budget controller office to schedule an appointment.
Several pending studies can be reviewed by the gastroenterology referral (stool calprotectin, stool elastase, stool fat content) to help narrow the cause of your diarrhea.
Have labs taken 5 days after discharge, have the results sent to your family doctor
Instructions: Diarrhea in teens and adults
Referrals:
Suyapa Duval CRNP [Family Provider] -
Angela Hernandez MD [Active] - in less than 1 week
Additional Discharge Medication Instructions: Stop taking Entresto until you see your punchboard inserter
Start furosemide (Lasix) 40 mg daily
Start cholestyramine powder 1 packet twice daily [if you develop constipation stop taking cholestyramine]
Prescriptions:
New
furosemide 40 mg Tablet
40 mg PO DAILY 30 Days Qty: 30 0RF
cholestyramine (with sugar) 4 gram Powder In Packet
1 ea PO BID 30 Days Qty: 60 0RF
Continued
melatonin 5 MG tablet
10 mg PO HS
Eliquis 5 mg Tablet
5 mg PO BID
escitalopram oxalate [Lexapro] 20 mg Tablet
20 mg PO DAILY
metoprolol succinate 50 mg Tablet Extended Release 24 Hr
50 mg PO DAILY Qty: 30 0RF
amiodarone 200 mg Tablet
200 mg PO DAILY
Held
Entresto 49-51 mg Tablet
1 tab PO BID
Hold Instructions: Until you see your punchboard inserter
Discharge Orders:
Discharge Patient (As Directed); Ordered 01/06/24
Ordered By: Jovanny Clark
Discharge Date and Time
Print Language: CITIZEN OF [place]
[2024-01-06 12:00] VITALS: BP 140/74
--- NOTE | 2024-01-06 13:10 | PN.CDI ---
CDI
- -
CDI:
Physician Documentation Request
Admit Date: 01/03/24 14:05
Dear Doctor Eduardo,
Patient admitted for diarrhea.
DC Summary: 'She had elevation in creatinine while here due to previous NSAID use, IV diuretic use, residual ARNI...Discharge Diagnosis/Procedures: Chronic diarrhea, Acute kidney injury'
The purpose of this query is not to question medical judgement, but to ensure the accuracy of the conditions reported for your patient.
There is either a lack of clinical support for this condition in the current medical record, or there is a lack of recognized standard criteria to support the condition.
Laboratory Tests
01/04/24 01/05/24 01/06/24
05:55 07:56 09:37
Creatinine 1.1 H 1.3 H 1.4 H
Criteria for ALANNA*
1 Increase in serum creatinine by > or = to 0.3 mg/dL (> or = to 26.5 micromol/L) within 48 hours, OR
2 Increase in serum creatinine to > or = to 1.5 times baseline, which is known or presumed to have occurred within 7 days, OR
3 Urine volume < 0.5 nL/kg/hour for six hours
The request is for one of the following:
- Additional documentation to support the condition. Indicate if this is in lieu of what may be considered standard criteria, and/or support why the standard criteria may not be present for this patient.
- A more appropriate diagnosis, reflecting the patient's condition
- Acute kidney injury remains a known or suspected condition for this patient and is further supported by (include additional documentation in the medical record)
- Acute kidney injury has been ruled out and a more appropriate diagnosis for this patient's condition is .
- Other (please specify)
- Unable to determine
Use of terms such as suspected, likely, concern for, or probable (associated with a specific diagnosis that is being evaluated, monitored, or treated as if it exists) are acceptable and can be coded in the inpatient setting, when documented at the
time of discharge.
Thank you,
Katina Martinez RN, BSN
CDI Specialist
Available via [place] text
Please use your independent medical judgment in providing your response.
[2024-01-06] MEDS: FLUAD (65 yr+) 2024-2025 FORMULA 0.5 ML IM (14:20)
[2024-01-06 22:57] LABS: Endomysial IgA Antibody Titer <1:10 (<1:10)
== END 2024-01-06 14:55 | disposition home health service (06) | DRG 291 ==
LOC: 4 WEST ACU 14:05
PROVIDERS: Nurse Practitioner Family; Nurse Practitioner Gerontology; Physician Assistant Medical; ADMITTING PHYSICIAN Internal Medicine; ATTENDING PHYSICIAN Internal Medicine; CONSULT PHYSICIAN Internal Medicine Gastroenterology; CONSULT PHYSICIAN Nuclear Medicine Nuclear Cardiology; EMERGENCY PHYSICIAN Emergency Medicine; FAMILY PHYSICIAN Nurse Practitioner Adult Health
DX: I11.0 Hypertensive heart disease with heart failure (principal); I50.23 Acute on chronic systolic (congestive) heart failure; N17.9 Acute kidney failure, unspecified; I47.20 Ventricular tachycardia, unspecified; E78.00 Pure hypercholesterolemia, unspecified; I48.0 Paroxysmal atrial fibrillation; I25.5 Ischemic cardiomyopathy; I25.10 Atherosclerotic heart disease of native coronary artery without angina pectoris; K58.0 Irritable bowel syndrome with diarrhea; I44.7 Left bundle-branch block, unspecified; Z95.810 Presence of automatic (implantable) cardiac defibrillator; Z79.899 Other long term (current) drug therapy; Z79.01 Long term (current) use of anticoagulants; Z95.5 Presence of coronary angioplasty implant and graft
CPT/HCPCS: 93308; 71046; 74177; 76700; 78226; 80048; 80053; 81003; 82248; 82653; 82705; 82784; 82962; 83516; 83690; 83735; 83880; 83993; 84100; 84443; 84484; 85025; 85027; 86140; 86231; 86803; 87045; 87046; 87324; 87328; 87329; 87427; 87449; 89055; 93005; 93321; 93325; 97116; 97162; 97166; 97530; 97535; 99285; A9537; Q9967

== ENCOUNTER 2024-01-08 13:46 | Emergency (ER) | payer OTHER, SELFPAY ==
[2024-01-08 13:55] VITALS: BP 141/93
[2024-01-08 14:16] LABS: % Basophils 0.5 % (0-2); % Eosinophils 2.4 % (0-6); % Immature Granulocytes 0.3 % (0-0.5); % Lymphocytes 15.7 % (20.5-51.1); % Monocytes 8.6 % (1.7-9.3); % Neutrophils 72.5 % (42.2-75.2); Absolute Eosinophils 0.2 10^3/uL (0-0.7); Absolute Monocytes 0.5 10^3/uL (0.1-0.6); Absolute Neutrophils 4.5 10^3/uL (1.4-6.5); Hematocrit 37.6 % (37.0-47.0); Hemoglobin 12.6 g/dL (12.0-16.0); Mean Corp Hgb Conc. 33.5 g/dL (33.0-37.0); Mean Corpuscular Hgb 29.4 pg (27.0-31.0); Mean Corpuscular Volume 87.6 fL (81.0-99.0); Nucleated Red Blood Cells % 0 %; Platelet Count 262 10^3/uL (130-400); Red Blood Cell Count 4.29 10^6/uL (4.20-5.40); Red Cell Dist. Width 15.5 % (11.5-14.5); White Blood Cell Count 6.2 10^3/uL (4.8-10.8)
[2024-01-08 14:31] LABS: ALT (SGPT) 31 U/L (0-35); AST (SGOT) 32 U/L (14-36); Alkaline Phosphatase 86 U/L (38-126); Blood Urea Nitrogen 25 mg/dl (7-17); Calcium 9.3 mg/dl (8.4-10.2); Carbon Dioxide 21 mmol/L (22-30); Chloride 102 mmol/L (98-107); Glucose 120 mg/dl (70-99); Lipase 63 U/L (23-300); Potassium 3.8 mmol/L (3.5-5.1); Sodium 136 mmol/L (135-145); Total Bilirubin 2.1 mg/dl (0.2-1.3); Total Protein 6.2 g/dl (6.3-8.2); eGFR 38.51
== END 2024-01-08 14:27 ==
LOC: EMR 13:46
PROVIDERS: EMERGENCY PHYSICIAN Emergency Medicine
DX: R11.2 Nausea with vomiting, unspecified (principal); R19.7 Diarrhea, unspecified; Z53.21 Procedure and treatment not carried out due to patient leaving prior to being seen by health care provider
CPT/HCPCS: 80053; 83690; 85025

== ENCOUNTER 2024-01-10 13:29 | Inpatient (IN) | payer OTHER, SELFPAY ==
[2024-01-10] VITALS (8 sets, daily range): BP systolic 128–151; BP diastolic 82–118; BMI 35.6; BMI 35.4
--- NOTE | 2024-01-10 10:29 | ED.GENMED ---
History of Present Illness
General
Chief Complaint: Chest Pain
Source: patient
Exam Limitations: none
Time Seen by Provider: 01/10/24 09:59
Nursing documentation reviewed up to this point in time: agreed with
History of Present Illness
History of Present Illness:
78 y/o F
afib on eliquis, AICD/pacer, chf on lasix EF 25% reduced from previous 25%
has had multiple hospitalizations over the past month for afib/rvr, dehydration, vomiting/diarrhea, fatigue
depsite multiple imaging studies and stool studies, GI has not figured out what is causing chronic diarrhea. pt says that she is so weak and cannot get around at home. she tries to eat/drink and barely has appetite and then has significant epidsoes
of diarrhea. she has exertional sob and chest discomfort with any activity like going to the bathroom
she has been taking lasix for a fwe weeks
does not had pain in her chets at rest
no abdominal pains, fever, bloody diarrhea, black stool
she does not feel like she can care for herself at home with how weak she is
Past History
Past History
ED Past Medical History: CAD, CHF, HTN and Other (Diverticulitis)
ED Past Surgical History: Other (Hysterectomy,)
Social History
Tobacco: Non-smoker
Alcohol: Occasional
Personal:
Living: other
Employment: Retired
Family History
Family History: Other
Review of Systems
Review of Systems
Allergies reviewed?: Yes
All Other Systems: Not applicable
Phy Exam
Physical Exam
Physical Exam:
GENERAL: Alert ,weak; wiped out
EYE: pupils equal and reactive
NECK: Supple
ENT: o/p clr, VERY DRY MM
CARDIAC: IRREGULAR
LUNGS: Clear breath sounds bilaterally, no acute respiratory distress, no wheezes/rales/rhonchi
ABDOMEN: Soft, without focal tenderness, no r/g, no cvat, normal bowel sounds
HEME NEG BROWNSTOOL
NEUROLOGICAL: Alert and oriented, no focal neuro deficits
SKIN: Warm and dry, skin intact.
MUSCULOSKELETAL: No edema, well perfused. neg breanna's sign
PSYCH: Normal and appropriate interaction.
Scores
Heart Score for Chest Pain Patients
STEMI patient?: No
History: Moderately Suspicious
ECG: Nonspecific Repolarization
Age: >/= 65 years
Risk Factors: >/= 3 Risk Factors or History of CAD
Troponin: </= Normal Limit
Heart Score for Chest Pain Patients: 6
Heart Score Risk: 20.3% MACE over next 6 weeks
Course
Orders/Labs/Results
Orders:
Orders
01/10/24 09:45
Electrocardiogram (*1) Urgent
Reason for Study: Chest Pain
EKG- Treatment ONCE
01/10/24 10:20
CMP [Comprehensive Metabolic Panel] Urgent
Complete Blood Count/With Diff Urgent
Lipase Urgent
Magnesium Urgent
Comment: ADD ON
Pro-BNP [NT-proBNP] Urgent
Troponin I Urgent
01/10/24 10:25
0.9% Sodium Chloride 250 ml [Nss] 250 ml IV BOLUS
01/10/24 10:28
Add On- LAB Urgent
Tests Added?: magnesium
01/10/24 11:03
CR Chest - 2 Views Urgent
Comment:
Reason For Exam: METZGER, chest pain
Abnormal Lab Results
01/10/24
10:20
RDW 15.8 H %
(11.5-14.5)
MPV 10.7 H fL
(7.4-10.4)
Absolute Lymphs (auto) 0.9 L 10^3/uL
(1.2-3.4)
Lymphocytes % 16.4 L %
(20.5-51.1)
Monocytes % 10.8 H %
(1.7-9.3)
Carbon Dioxide 17 L mmol/L
(22-30)
BUN 35 H mg/dl
(7-17)
Creatinine 1.3 H mg/dL
(0.6-1.0)
Total Bilirubin 2.5 H mg/dl
(0.2-1.3)
AST 45 H U/L
(14-36)
ALT 43 H U/L
(0-35)
Total Protein 6.2 L g/dl
(6.3-8.2)
Albumin 2.6 L g/dl
(3.5-5.0)
01/10/24 10:20
01/10/24 10:20
Vital Signs
Initial and Last Documented VS:
Initial Vital Signs
Temp Pulse Resp BP Pulse Ox
98.0 F 98 16 151/92 98
01/10/24 09:54 01/10/24 09:54 01/10/24 09:54 01/10/24 09:54 01/10/24 09:54
Last Documented Vital Signs
Temp Pulse Resp BP Pulse Ox
98.0 F 95 13 137/82 98
01/10/24 09:54 01/10/24 11:00 01/10/24 11:00 01/10/24 11:00 01/10/24 11:00
MDM/Problems Addressed
Differential Diagnosis Includes:
DEHYDRATION, ELECTROLYTE DISTURBANCE, CHF, COLITIS, GI BLEED, ANGINA
MDM/Problems Addressed:
78 Y/O F
from home
mutiple admissions the past month - has hadongogin chronic diarrhea/lack of appetite for a year
hasn't reallyhad a diangosis
not infectoius
stool studies neg
also had new onset afib with RVR and worsening CHF
most recent admission pt had GI consult suggesting need for colonoscopy with unclear cause for her diarrhea
family reports she is not eating, very dehydrated, having mroe diarrhea and is very fatigue d and sob an dhaving chest pain with exertion
here she is in afib, rate controlled
her lungs are diminished but she doesn't appear to be in failure
she is very dry
no abdomial tenderness
labs reviewed, chroinc bun elevatio worse than baseline
Ag 17
[place]b
[place] [address] but cxr improved
pt is very symtpoatmci with exertion; will require gentle hydration to observe fluid status, GI consult
unable to go home
*Critical Care Note
Total Time (30-74mins, 75-104mins- exclusive of procedures): Not Applicable
ED Attending Note
-
Portions of this chart may have been created with voice recognition software.� Occasional wrong word or��sound alike� substitutions may have occurred due to the inherent limitations of voice recognition software.
Discharge Plan
Departure
Patient Disposition: Admit
Date of Disposition: 01/10/24
Time of Disposition: 11:50
Admit to: Telemetry
Presentation/result/management discussed w/ accepting MD/DO: Hospitalist
Condition: Fair
Covid-19: Not Applicable
Discharge Problem:
Diarrhea, Metabolic acidosis, METZGER (dyspnea on exertion), Dehydration
Prescriptions:
No Action
melatonin 5 MG tablet
10 mg PO HS
Eliquis 5 mg Tablet
5 mg PO BID
escitalopram oxalate [Lexapro] 20 mg Tablet
20 mg PO DAILY
metoprolol succinate 50 mg Tablet Extended Release 24 Hr
50 mg PO DAILY Qty: 30 0RF
amiodarone 200 mg Tablet
200 mg PO DAILY
furosemide 40 mg Tablet
40 mg PO DAILY 30 Days Qty: 30 0RF
cholestyramine (with sugar) 4 gram Powder In Packet
1 ea PO BID 30 Days Qty: 60 0RF
Dramamine 25 mg Tablet,Chewable
25 mg PO DAILYPRN PRN (Reason: nausea)
bismuth subsalicylate [Pepto-Bismol] 262 mg/15 mL Suspension
524 mg PO DAILYPRN PRN (Reason: gerd)
Referrals:
Suyapa Duval CRNP [Family Provider] -
Interventions
Interventions:
*Risk Screen - Suicide Last Done: 01/10/24 09:54
*General Assessment Last Done: 01/10/24 10:07
*Neglect/Abuse Screening Last Done: 01/10/24 09:54
ED- Fall Risk Assessment Last Done: 01/10/24 10:26
*ED COVID-19 Vaccine History Last Done: 01/10/24 10:00
ED- Cardiac Assessment Last Done: 01/10/24 10:19
Discharge Date and Time
Print Language: BR[place]LAND[place]
[2024-01-10 10:30] LABS: % Basophils 0.8 % (0-2); % Eosinophils 2.3 % (0-6); % Immature Granulocytes 0.4 % (0-0.5); % Lymphocytes 16.4 % (20.5-51.1); % Monocytes 10.8 % (1.7-9.3); % Neutrophils 69.3 % (42.2-75.2); Absolute Eosinophils 0.1 10^3/uL (0-0.7); Absolute Lymphocytes 0.9 10^3/uL (1.2-3.4); Absolute Monocytes 0.6 10^3/uL (0.1-0.6); Absolute Neutrophils 3.7 10^3/uL (1.4-6.5); Hematocrit 37.8 % (37.0-47.0); Hemoglobin 12.6 g/dL (12.0-16.0); Mean Corp Hgb Conc. 33.3 g/dL (33.0-37.0); Mean Corpuscular Hgb 29.4 pg (27.0-31.0); Mean Corpuscular Volume 88.3 fL (81.0-99.0); Mean Platelet Volume 10.7 fL (7.4-10.4); Nucleated Red Blood Cells % 0.4 %; Platelet Count 259 10^3/uL (130-400); Red Blood Cell Count 4.28 10^6/uL (4.20-5.40); Red Cell Dist. Width 15.8 % (11.5-14.5); White Blood Cell Count 5.3 10^3/uL (4.8-10.8)
[2024-01-10] MEDS: NSS 250 IV (10:31)
[2024-01-10 10:41] LABS: ALT (SGPT) 43 U/L (0-35); AST (SGOT) 45 U/L (14-36); Albumin 2.6 g/dl (3.5-5.0); Alkaline Phosphatase 110 U/L (38-126); Blood Urea Nitrogen 35 mg/dl (7-17); Calcium 9.1 mg/dl (8.4-10.2); Carbon Dioxide 17 mmol/L (22-30); Chloride 104 mmol/L (98-107); Estimated Creatinine Clearance 38 ml/min; Glucose 90 mg/dl (70-99); Lipase 57 U/L (23-300); Magnesium 2.2 mg/dl (1.6-2.3); Sodium 138 mmol/L (135-145); Total Bilirubin 2.5 mg/dl (0.2-1.3); Total Protein 6.2 g/dl (6.3-8.2); eGFR 42.09
[2024-01-10 10:59] LABS: NT-proBNP 12100 pg/ml; Troponin I < 0.012 ng/ml
--- NOTE | 2024-01-10 12:39 | HPS.HSE ---
Family Physician
-
Family Physician: Suyapa Duval
Chief Complaint
-
Acute on chronic ongoing diarrhea
History of Present Illness
78-year-old female from home where she lives with her nephew who states when she was discharged on 01/06/2024 she had normal stools that day. She reports the next day her stool started to become soft then went right into diarrhea again. She reports
this started off slow with several episodes a day then became progressive to the point of 1 loose stool every single hour today with some flecks of stool. She denies blood, mucus or abdominal pain. She reports she did not take her cholestyramine
today but was taking it on discharge with last dose yesterday evening 01/09/2024. She also reports when being home she has had on and off palpitations with a chest pressure at that same time that comes and goes. She does report some chest pressure
earlier today nonradiating with no diaphoresis. She did have episode of NSVT while inpatient on her recent admission. She denies headache, sore throat, dizziness, blurred vision, shortness of breath, cough, abdominal pain, nausea, vomiting,
urinary symptoms, fever, chills. She is scheduled for outpatient colonoscopy on 02/03/[address] Almonte
She had a recent admission 01/03/2024 - 01/06/2024 secondary to chronic diarrhea worsening previously to prior admission. She had unremarkable stools and celiac panel negative. Her differentials were bile duct acid diarrhea versus IBS versus
microscopic colitis with pending fecal calprotectin, fecal elastase and fecal fat content. She was started on cholestyramine with improvement and to follow-up with GI for outpatient colonoscopy. She was also treated for heart failure with diuretic
Lasix 40 mg daily with Entresto to be held until she followed up with cardiology. She was to avoid NSAIDs as they increased her creatinine. She has past medical history of chronic diarrhea unclear etiology at this point, chronic heart failure
reduced EF 34%, ischemic cardiomyopathy, CAD status post drug-eluting stents, chronic BBB thought to be secondary to previous OR, CKD stage IIIb, persistent A-fib, episode of NSVT January 2020 for inpatient, depression
Medical History
Past Medical History
Past Medical History: Reports Other
Additional Past Medical History:
Coronary Artery Disease s/p Stent
Ischemic Cardiomyopathy
Chronic HFrEF
NSVT s/p BiV ICD
Paroxysmal Atrial Fibrillation
Essentail Hypertension
Hyperlipidemia
Irritable Bowel Syndrome
Depression
Past Surgical History: Reports Other
Additional Past Surgical History:
Cardiac Stent
BiV ICD
Knee Replacement
Hysterectomy
Social History
Tobacco: Non-smoker
Alcohol: None
Personal: Single
Living: With Family (Nephew)
Employment: Retired
Family History
Family History: Not pertinent
Allergies / Home Medications
Allergies reflects when Allergies were last updated in [facility].
Home Medications with original date entered in [facility]
Allergy/Medication List:
Allergies
Allergy/AdvReac Type Severity Reaction Status Date / Time
No Known Allergies Allergy Verified 01/10/24 09:56
Home Medications
melatonin 5 mg tablet 10 mg PO HS Sleep 07/29/20
apixaban 5 mg tablet (Eliquis) 5 mg PO BID Blood Clot Prevention/Tx 03/10/23
escitalopram oxalate 20 mg tablet (Lexapro) 20 mg PO DAILY Depression 12/18/23
metoprolol succinate 50 mg tablet,extended release 24 hr 50 mg PO DAILY #30 tabs 12/20/23
amiodarone 200 mg tablet 200 mg PO DAILY AFIB 01/03/24
cholestyramine (with sugar) 4 gram powder for susp in a packet 1 ea PO BID Gastrointestinal issue 1 month #60 ea 01/06/24
furosemide 40 mg tablet 40 mg PO DAILY Heart Failure 1 month #30 tabs 01/06/24
bismuth subsalicylate 262 mg/15 mL oral suspension (Pepto-Bismol) 524 mg PO DAILYPRN PRN gerd 01/10/24
dimenhydrinate 25 mg chewable tablet (Dramamine) 25 mg PO DAILYPRN PRN nausea 01/10/24
Review of Systems
-
History Source: Patient
A 12 point ROS was completed and negative except as noted: Yes
Constitutional: Reports Weight Gain (2.8 lbs past 4 days); Denies Fever
EENT: Denies Sore Throat or Mouth Swelling
Respiratory: Denies Cough or Trouble Breathing
Cardiac: Reports Chest Pain (Chest pressure with palpitations) and Palpitations; Denies Diaphoresis or Syncope
Abdomen/GI: Reports Diarrhea (Blood today watery brown denies mucus); Denies Abdominal Pain, Nausea, Vomiting, Constipated, Bloody Stools or Black Stools
: Denies Dysuria, Frequency, Flank Pain, Incontinence, Difficulty Voiding, Urgency or Dark Urine
Musculoskeletal: Denies Joint Pain or Edema
Skin: Denies Itching or Rash
Neurological: Denies Dizzy, Headache or Weakness
Endocrine: Reports No Symptoms
Hematologic/Lymphatic: Reports No Symptoms
Psych: Reports Calm
Physical Exam
Vital Signs
Vital Signs
Temp Pulse Resp BP Pulse Ox
98.0 F 95 13 137/82 98
01/10/24 09:54 01/10/24 11:00 01/10/24 11:00 01/10/24 11:00 01/10/24 11:00
Physical Exam
General: No Apparent Distress, Conversant and Obese; No Pain, Fever or Slurred Speech
HEENT: NormoCephalic, Anicteric, Moist mucous membranes, PERRLA, [place] Conjunctivae, No Ptosis and Neck Nontender
Respiratory: Clear; No Wheezes, Rales or Rhonchi
Cardiac: S1/S2 and Other (Ventricular paced with PVCs); No Murmur, Rub, Gallop or Peripheral Edema
Breast: Deferred by me
GI: Soft, Non Tender, Non Distended, Normal Bowel Sounds and No Hepatosplenomegaly
Rectal: Deferred by Provider
Genito-urinary: Deferred by me
Musculoskeletal: No Clubbing, No Cyanosis and No Edema
Skin: Warm and Dry; No Rash or Jaundice
Neuro: AO x 3, No Motor Deficits and No Sensory Deficits; No Slurred Speech, Facial Droop or Tremors
Psych: Calm
Laboratory Results
-
01/10/24 10:20
01/10/24 10:20
Laboratory Results
Total Bilirubin 2.5 mg/dl (0.2-1.3) H 01/10/24 10:20
AST 45 U/L (14-36) H 01/10/24 10:20
ALT 43 U/L (0-35) H 01/10/24 10:20
Alkaline Phosphatase 110 U/L (38-126) 01/10/24 10:20
Troponin I < 0.012 ng/ml 01/10/24 10:20
Lipase 57 U/L (23-300) 01/10/24 10:20
Data Reviewed
-
Lab Data: Labs Reviewed by me
Impression/Plan
-
impression/plan:
Admit to telemetry
#Acute on chronic diarrhea thought to be related to Ibs vs microscopic colitis versus bile acid diarrhea
Symptoms times several months now for the past 15 days starting 01/03/2024
She had negative stool studies with negative stool culture , NEG celiac panel,fecal calprotectin ,fecal fat, pancreatic elastase 01/03/2024 admission
-She is scheduled for outpatient colonoscopy on 02/03/[address] Almonte
-Consult GI
-Continue cholestyramine powder 1 packet twice daily this reportedly helped on her recent admission last dose was 01/09/2024 evening
-Low residue diet
Chest x-ray: No acute cardiopulmonary abnormality
#Reported palpitations/chest pressure during that time concern for possible NSVT vs PVC's as patient had on recent admit
#NSVT while inpatient December - January 2024
#Cardiac ectopy/-Had a run of NSVT overnight, frequent PVCs
-Monitor on telemetry
- consult DCA card
-follow BMP
-Current mag 2.2, potassium 4
- amiodarone 200mg daily to Amiodarone 200 mg 3 times daily as per cardiology note on 01/03/2024 but was not started per Dr Patterson keep amiodarone 200 mg daily
-Interrogate patient's ICD device
# Follow CMP acute transaminitis
AST 45, ALT 43
-Follow CMP
# Hx Ischemic cardiomyopathy/ Chronic HFrEF
#ICD 11/18/2022
BNP 12,100
I/O, daily weights weight on 01 05 was a 9.9 kg, weight today 91.2KG total wt gain 2.8 LBS in past 4 days
-Continue metoprolol
-Continue furosemide 40 mg daily
-Hold Entresto while on above diuretic
-TTE on October 11, 2023 showed LVEF 34%; Patient has a BiV ICD placed 11/18/2022
#CAD status post stents drug-eluting
Chronic LBBB-Thought to be secondary to previous OR
-Continue beta-benjy, hold Entresto
#ALANNA on CKD likely secondary to diarrheal losses
-Creat 1.3 on 01/08/2024 improved from 1.4(prior baseline in 2023 0.9-1)
-Follow BMP
#Persistent atrial fibrillation
-S/p recent cardioversion on 12/19, started on amiodarone subsequently
-Current home regimen includes metoprolol, amiodarone, Eliquis
-Recent AICD check shows A-fib burden 100% since 12/21
-Amiodarone was increased to 200 mg 3 times daily last admission 01/02 - 01/06/2024
--May need repeat cardioversion versus planning for ablation in future
EKG: Ventricular paced rhythm 100 bpm PVCs, QTc 588 MS unreliable to current rhythm
# Depression
-continue Lexapro
DVT prophylaxis
[employer] Eliquis 5 mg twice daily
DNR per pt
--- NOTE | 2024-01-10 13:46 | W.PN.UPDATE ---
Update Note
Progress Note Update
This is an addendum to the H&P written by Abi Beltrán on 01/10/2024. Patient seen and examined independently with NURSERY WORKER.
78-year-old female past medical history of ischemic cardiomyopathy with EF of 35% with ICD, paroxysmal atrial fibrillation on Eliquis, hypertension, hyperlipidemia presenting with persistent watery diarrhea that is previously been worked up with
negative stool cultures, celiac panel. Patient was recently admitted and had CT abdomen on 01/02 which suggested gallbladder pathology however HIDA scan was unremarkable. Stool fats were unremarkable. Stool calprotectin was unremarkable.
Pancreatic elastase was normal. Etiology is possibly bile acid diarrhea versus IBS versus microscopic colitis. Only mild improvement with cholestyramine.
During admission she was also treated for CHF exacerbation. She also had ALANNA secondary to NSAID use/diuretic use.
Patient is also been complaining of palpitations associated chest pressure and shortness of breath. Telemetry monitoring shows significant PVCs likely the source of symptoms. Patient was recommended to increase amiodarone to 200 mg 3 times daily
by cardiology on discharge however she has been only taking once a day.
Will increase amiodarone back to 3 times daily. Hold Lasix
Cardiology consulted. GI consulted.
--- NOTE | 2024-01-10 16:27 | CON.GI ---
Consultation
-
Date/Time Consultation Requested: 01/10/2024, 1:50 pm
Date/Time Consultation Performed: 01/10/2024, 4:30 pm
Requesting Provider: Abi Beltrán APN
Performing Provider: Dr. Roy
Reason for Consultation: diarrhea
Medical History
Chief Complaint / HPI
Chief Complaint: Diarrhea
History of Present Illness:
78 yo F pmh ischemic CM with HF EF 20%, CAD s/p stent, LBBB s/p BiV ICD, paroxysmal A fib on Eliquis presenting with acute on chronic diarrhea. She was seen in the hospital 01/[address] Tovar at that time she had states she had chronic diarrhea on
and off for a year but worse the last month with 4-5 BM/day +nocturnal BM. Prior to this admission she was hospitalized 12/17-12/19 for rapid A fib and CHF with diuresis and cardioversion on 12/19 but then had recurrent A fib. During this admission
cardiology has seen her for CHF exacerbation. Also had ALANNA (notes say from NSAID pt denies NSAID last few years; possibly due to diuertics). Never had EGD/colon.
During last hospitalization - it was thought diarrhea may be related to IBS versus microscopic colitis versus bile salt diarrhea or EPI less likely IBD. At that time they recommended stool studies including ruling out infection, fecal calprotectin
and fecal fat, pancreatic elastase as well as celiac serologies and TSH. Celiac, TSH, pancreatic elastase, fecal fat, calpro, stool culture, CDI, giardia/crypto, stool WBC all negative. She was given a trial of Questran.
She also having right sided abd pain x1-2 weeks with imaging studies including ultrasound and CT showed possible gallbladder wall thickening with mildly dilated CBD she then had an HIDA scan which was negative for acute cholecystitis and showed
delayed emptying of radiotracer into the small bowel most likely from slow transit doubt CBD obstruction. Her bilirubin is mildly elevated (indirect) which may be related to CHF and passive congestion versus Gilbert's syndrome - mild increase
today in AST/ALT. She does have diverticulosis no diverticulitis noted on CT. Unclear if her pain could be radicular or referred pain from back - pain had improved prior to discharge.
On discussion with patient she has had diarrhea for over a year as above with worsening in the last 2 months or so. She states she had up to 16 bowel movements a day which led her to come back to the ER 50% red night. However, on discharge she was
having formed stools 3-4 times a day. She has some fecal incontinency and urgency, no blood. She was given Questran twice a day during her hospitalization but then was only given once a day upon discharge. She was taking Imodium prior to her last
hospitalization but not since then. It did help but sometimes cause constipation. Her abdominal pain had also resolved upon discharge has now returned. Pain is epigastric, better with bowel movement, not related to food. Does have nausea
associated with the epigastric pain. No vomiting. No dysphagia.
On ROS she also has SOB, chest pressure, dizziness.
Past Medical History
Past Medical History: Arrhythmias (a fib), CAD (stent), CHF (CM), HTN, Hypercholesterolemia, Psychiatric (anxiety, depression) and Other (LBBB with AICD)
Past Surgical History: Cardiac (stent), Gynecological (hysterectomy) and Orthopedic (TKR)
Social History
Tobacco: Non-Smoker
Alcohol: None
Drug: None
Family History
Family History: Reviewed & Not Pertinent
Allergies / Home Medications
Allergy/AdvReac Type Severity Reaction Status Date / Time
No Known Allergies Allergy Verified 01/10/24 09:56
�Medication �Instructions �Recorded
melatonin 5 mg tablet 10 mg PO HS Sleep 07/29/20
apixaban 5 mg tablet (Eliquis) 5 mg PO BID Blood Clot 03/10/23
Prevention/Tx
escitalopram oxalate 20 mg tablet 20 mg PO DAILY Depression 12/18/23
(Lexapro)
metoprolol succinate 50 mg 50 mg PO DAILY #30 tabs 12/20/23
tablet,extended release 24 hr
amiodarone 200 mg tablet 200 mg PO DAILY AFIB 01/03/24
cholestyramine (with sugar) 4 gram 1 ea PO BID Gastrointestinal issue 01/06/24
powder for susp in a packet 1 month #60 ea
furosemide 40 mg tablet 40 mg PO DAILY Heart Failure 1 01/06/24
month #30 tabs
bismuth subsalicylate 262 mg/15 mL 524 mg PO DAILYPRN PRN gerd 01/10/24
oral suspension (Pepto-Bismol)
dimenhydrinate 25 mg chewable 25 mg PO DAILYPRN PRN nausea 01/10/24
tablet (Dramamine)
Review of Systems
-
All other systems: A 12 pt ROS was Negative except as stated above in HPI
Vital Signs
Temp Pulse Resp BP Pulse Ox
98.0 F 97 20 131/118 96
01/10/24 09:54 01/10/24 16:15 01/10/24 16:15 01/10/24 14:00 01/10/24 16:15
Physical Exam
Exam
General: Well Developed
HEENT: Normocephalic
Respiratory: Clear
Cardiac: S1/S2
GI: Non Tender and Non Distended
Musculoskeletal: No Clubbing
Skin: Warm
Neuro: AO x 3
Psych: Calm
Results
WBC 5.3 10^3/uL (4.8-10.8) 01/10/24 10:20
Hgb 12.6 g/dL (12.0-16.0) 01/10/24 10:20
Hct 37.8 % (37.0-47.0) 01/10/24 10:20
MCV 88.3 fL (81.0-99.0) 01/10/24 10:20
Plt Count 259 10^3/uL (130-400) 01/10/24 10:20
Absolute Neuts (auto) 3.7 10^3/uL (1.4-6.5) 01/10/24 10:20
Sodium 138 mmol/L (135-145) 01/10/24 10:20
Potassium 4.0 mmol/L (3.5-5.1) 01/10/24 10:20
Chloride 104 mmol/L (98-107) 01/10/24 10:20
Carbon Dioxide 17 mmol/L (22-30) L 01/10/24 10:20
BUN 35 mg/dl (7-17) H 01/10/24 10:20
Creatinine 1.3 mg/dL (0.6-1.0) H 01/10/24 10:20
Calcium 9.1 mg/dl (8.4-10.2) 01/10/24 10:20
Total Bilirubin 2.5 mg/dl (0.2-1.3) H 01/10/24 10:20
AST 45 U/L (14-36) H 01/10/24 10:20
ALT 43 U/L (0-35) H 01/10/24 10:20
Alkaline Phosphatase 110 U/L (38-126) 01/10/24 10:20
Lipase 57 U/L (23-300) 01/10/24 10:20
Diagnostic Image Results:
Prior GI Procedures:
EGD:
Colonoscopy:
Assessment / Plan
-
This is a 78-year-old female with extensive cardiac history as outlined above presenting with acute on chronic diarrhea. Her stool studies and blood work have been unremarkable. Most likely suspect this is either irritable bowel syndrome
especially with the pain versus microscopic colitis. Epigastric pain could also be an atypical sign of biliary disease as she did have ultrasound and HIDA with questionable changes. She has mild LFT abnormalities today as well.
Patient would like to pursue colonoscopy. She was recommend to have this done outpatient but due to the severity of diarrhea she would prefer to have it done inpatient if possible. We discussed the risks of colonoscopy including bleeding,
infection, missed lesion, incomplete procedure, perforation and cardiopulmonary complications from anesthesia. We discussed the importance of bowel prep. We discussed higher risk of colonoscopy both with her age and medical comorbidities especially
her cardiac issues. With the epigastric pain and nausea, we will also pursue upper endoscopy at time of colonoscopy if it is decided she is optimized at this point.
I discussed with the hospitalist and we will get the casing crew pusher input to ensure she is optimized given her extensive cardiac history and especially recent issues. The colonoscopy is not urgent as she has been having diarrhea for a year. In case
she is optimized, we held her Eliquis tonight and we will put her on clear liquid diet for possible procedures on Wed. If necessary, we can also do the colonoscopy and endoscopy on Eliquis and we will be limited in terms of polyp removal however
the main goal for the colonoscopy is to determine the etiology of the diarrhea.
If she is not optimized for colonoscopy at this time, she likely would benefit from increasing her dose of her Questran as she was doing much improved on Questran twice a day. Questran can be increased to even more than twice a day she can have up
to 24 mg/day. She does have some issues tolerating the powder and we can also do colestipol instead. We can also give her Imodium as needed. For now will hold in case we pursue endoscopic procedures.
We will continue to monitor her mild LFT abnormalities and I added on direct bili (in past was indirect as above most likely passive congestion vs Gilbert's).
-
-
Thank you for consultation and allowing me to participate in the patient's care. Please call the deboning team leader GI physician during the after hours with any questions or concerns.
[2024-01-10 17:17] LABS: Direct Bilirubin 0.5 mg/dl (0.0-0.4)
[2024-01-10] MEDS: MELATONIN 10 MG PO (22:56)
[2024-01-11] VITALS (8 sets, daily range): BP systolic 112–144; BP diastolic 61–97; PULSE 107–120; O2SAT 100; BMI 34.7
[2024-01-11] MEDS: COMPAZINE 5 MG IV (06:04)
--- NOTE | 2024-01-11 07:59 | PTCARENOTE ---
~0553 heart monitor alarmed VTach. Pt denied SOB, difficulty breathing, dizziness, lightheadedness, chest pain, and palpations. Notified director external communications TACTICAL INTELLIGENCE OFFICER. No new orders at this time. AM RN updated. Plan of care ongoing.
--- NOTE | 2024-01-11 08:33 | W.PN.HOSP.TC ---
Today's Communication/Plan
-
Colonoscopy tomorrow
Assessment / Plan
Assessment / Plan
Physical Exam
General: No Apparent Distress, Conversant and Obese; No Pain, Fever or Slurred Speech
HEENT: NormoCephalic, Anicteric, Moist mucous membranes, PERRLA, [place] Conjunctivae, No Ptosis and Neck Nontender
Respiratory: Clear; No Wheezes, Rales or Rhonchi
Cardiac: S1/S2 and Other (Ventricular paced with PVCs); No Murmur, Rub, Gallop or Peripheral Edema
Breast: Deferred by me
GI: Soft, Non Tender, Non Distended, Normal Bowel Sounds and No Hepatosplenomegaly
Rectal: Deferred by Provider
Genito-urinary: Deferred by me
Musculoskeletal: No Clubbing, No Cyanosis and No Edema
Skin: Warm and Dry; No Rash or Jaundice
Neuro: AO x 3, No Motor Deficits and No Sensory Deficits; No Slurred Speech, Facial Droop or Tremors
Psych: Calm

Assessment/Plan
78-year-old female with past medical history of ischemic cardiomyopathy with EF of 35% with ICD, paroxysmal atrial fibrillation on Eliquis, hypertension, hyperlipidemia presented with persistent watery diarrhea that is previously been worked up with
negative stool cultures, celiac panel. Patient was recently admitted and had CT abdomen on 01/02 which suggested gallbladder pathology however HIDA scan was unremarkable. Stool fats were unremarkable. Stool calprotectin was unremarkable.
Pancreatic elastase was normal. Etiology is possibly bile acid diarrhea versus IBS versus microscopic colitis. Only mild improvement with cholestyramine.
During admission she was also treated for CHF exacerbation. She also had ALANNA secondary to NSAID use/diuretic use.
Patient is also been complaining of palpitations associated chest pressure and shortness of breath. Telemetry monitoring shows significant PVCs likely the source of symptoms. Patient was recommended to increase amiodarone to 200 mg 3 times daily
by cardiology on discharge however she has been only taking once a day.
78-year-old female back again for persistent diarrhea unclear etiology. Also with ongoing palpitations seems to be secondary to PVCs. Amiodarone was recommended to be increased to 3 times daily by cardiology but appears she was only discharged on
daily? Increase back to 3 times daily. GI consulted. Cardiology to be consulted after pacemaker interrogation.
#Acute on chronic diarrhea thought to be related to Ibs vs microscopic colitis versus bile acid diarrhea
-Colonoscopy tomorrow, hold Eliquis for colonoscopy
-Consulted GI, appreciate evaluation and recommendations
-Continue cholestyramine powder 1 packet twice daily this reportedly helped on her recent admission last dose was 01/09/2024 evening
-Low residue diet
#Intermittent Chest Pain
-Given patient's cardiac history, consulted cardiology, appreciate their evaluation and recommendations
#Reported palpitations/chest pressure during that time concern for possible NSVT vs PVC's as patient had on recent admit
#NSVT while inpatient December - January 2024
#Cardiac ectopy/-Had a run of NSVT overnight, frequent PVCs
-Monitor on telemetry
-Consulted cardiology, appreciate evaluation and recommendations
-Follow BMP
-Current mag 2.2, potassium 4
-Per cardiology, increase amiodarone again to 200 mg TID and upon discharge recommend amiodarone 200 mg BID for 1 month then once daily thereafter.
-Interrogate patient's ICD device
#Follow CMP acute transaminitis
-AST 45, ALT 43
-Follow CMP
#History of Ischemic cardiomyopathy/ Chronic HFrEF
#ICD 11/18/2022
-BNP 12,100
-Continue Toprol XL 50 mg daily
-Continue furosemide 40 mg daily
-Hold Entresto while on above diuretic - was placed on hold last admission due to ALANNA with the plan to restart as an outpatient if Cr improved
-TTE on October 11, 2023 showed LVEF 34%; Patient has a BiV ICD placed 11/18/2022
#CAD status post stents drug-eluting
Chronic LBBB-Thought to be secondary to previous [place]
-Continue beta-benjy, hold Entresto
#ALANNA on CKD likely secondary to diarrheal losses
-Creat 1.3 on 01/08/2024 improved from 1.4(prior baseline in 2023 0.9-1)
-Follow BMP
#Persistent atrial fibrillation
-S/p recent cardioversion on 12/19, started on amiodarone subsequently
-Current home regimen includes metoprolol, amiodarone, Eliquis
-Recent AICD check shows A-fib burden 100% since 12/21
-Continue Amiodarone
# Depression
-continue Lexapro
DVT prophylaxis
MANAGER PULMONARY Eliquis 5 mg twice daily
DNR
Anticipated Discharge: 24 - 48 hours
Subjective/Interval History
-
Date of Service: January 11, 2024
Patient was seen and examined. She reported nausea earlier in the morning, and later in the day reported on and off chest pain.
Objective Data
-
Labs:
Laboratory Results
01/11/24
08:30
WBC Pending
Hgb Pending
Hct Pending
Plt Count Pending
Sodium Pending
Potassium Pending
Chloride Pending
Carbon Dioxide Pending
BUN Pending
Creatinine Pending
Glucose Pending
Calcium Pending
Total Bilirubin Pending
AST Pending
ALT Pending
Alkaline Phosphatase Pending
Vital Signs:
Vital Signs
Temp Pulse Resp BP Pulse Ox
97.7 F 100 18 144/97 96
01/11/24 07:00 01/11/24 07:00 01/11/24 07:00 01/11/24 07:00 01/11/24 07:00
I&O
01/10/24 01/11/24 01/12/24
06:59 06:59 06:59
Intake Total 240 / 240
Balance 240 / 240
[2024-01-11] MEDS: TOPROL XL 50 MG PO (08:41)
[2024-01-11] MEDS: LEXAPRO 20 MG PO (08:41)
[2024-01-11] MEDS: PACERONE 200 MG PO (08:41)
[2024-01-11 09:08] LABS: % Basophils 0.6 % (0-2); % Eosinophils 2.8 % (0-6); % Immature Granulocytes 0.2 % (0-0.5); % Lymphocytes 15.6 % (20.5-51.1); % Monocytes 9.3 % (1.7-9.3); % Neutrophils 71.5 % (42.2-75.2); Absolute Eosinophils 0.2 10^3/uL (0-0.7); Absolute Lymphocytes 0.8 10^3/uL (1.2-3.4); Absolute Monocytes 0.5 10^3/uL (0.1-0.6); Absolute Neutrophils 3.8 10^3/uL (1.4-6.5); Hematocrit 37.5 % (37.0-47.0); Hemoglobin 12.6 g/dL (12.0-16.0); Mean Corp Hgb Conc. 33.6 g/dL (33.0-37.0); Mean Corpuscular Hgb 30.6 pg (27.0-31.0); Mean Platelet Volume 10.8 fL (7.4-10.4); Nucleated Red Blood Cells % 0 %; Platelet Count 229 10^3/uL (130-400); Red Blood Cell Count 4.12 10^6/uL (4.20-5.40); Red Cell Dist. Width 15.5 % (11.5-14.5); White Blood Cell Count 5.3 10^3/uL (4.8-10.8)
[2024-01-11 10:20] LABS: ALT (SGPT) 44 U/L (0-35); AST (SGOT) 35 U/L (14-36); Albumin 3.8 g/dl (3.5-5.0); Alkaline Phosphatase 104 U/L (38-126); Blood Urea Nitrogen 32 mg/dl (7-17); Calcium 8.9 mg/dl (8.4-10.2); Carbon Dioxide 19 mmol/L (22-30); Chloride 103 mmol/L (98-107); Estimated Creatinine Clearance 35 ml/min; Glucose 81 mg/dl (70-99); Sodium 138 mmol/L (135-145); Total Bilirubin 2.9 mg/dl (0.2-1.3); Total Protein 6.1 g/dl (6.3-8.2); eGFR 38.51
--- NOTE | 2024-01-11 12:41 | CM ---
CM reviewed chart, met with patient, initial assessment completed. Patient resides with her grandson in a single story home, five steps to enter. Patient has a rolling walker at home, does not typically use. Patient is current with [facility], denies SNF.
Patient PCP Suyapa Duval, pharmacy [facility], confirms prescription coverage. Patient denies insecurities at home. CM will continue to follow for all discharge planning needs.
Plan; return home with [facility] when stable.
--- NOTE | 2024-01-11 13:14 | VNURNOTE ---
Chart reviewed. Patient is current with [facility] nursing. Will continue to follow hospital course and DC plans.
[2024-01-11 13:58] LABS: Troponin I 0.017 ng/ml
--- NOTE | 2024-01-11 15:20 | CON.CAR ---
Addendum entered and electronically signed by Junior Saba MD 01/11/24 17:54:
I saw and examined the patient.
The Instrument/Control Technician's note was reviewed and I agree with the note.
Comment:
GEN: No distress, awake, Ox3
HEENT: supple, anicteric, mmm
LUNGS: CTA, no wheezes/rales
CV: Irreg, S1/S2, 1/6 syst LSB, no gallop
ABD: soft, BS+, NT/ND
EXT: No edema
NEURO: Gross non-focal
SKIN: No rash
Plan:
78-year-old female with past medical history of paroxysmal atrial fibrillation status post cardioversion mid December 2023 presents with diarrhea, recurrent chest/epigastric pains, and mild shortness of breath. She had a cardioversion December
2023 and was discharged and went back into atrial fibrillation. She was then started on amiodarone. Her Lasix was then stopped. She then had more symptoms of diarrhea, heart failure, and A-fib. She returns with continued diarrhea.
Recommend rate control strategy for A-fib for now. Okay to proceed with endoscopy and colonoscopy.
Would continue outpatient dose of Lasix 40 mg p.o. daily.
Continue amiodarone load 400 mg p.o. 3 times daily. Continue Toprol.
Okay to hold Eliquis for GI procedures. Creatinine stable at 1.4 per
Original Note:
Consultation
Consultation Request
Date/Time Consultation Requested: 01/11/24
Date/Time Consultation Performed: 01/11/24
Requesting Provider: Dr. Quinonez
Performing Provider: Dr. Saba
Reason for Consultation: Chest pain, persistent Afib, recent admission for acute HF
Medical History
-
History of Present Illness:
Patient came to [facility] yesterday with ongoing diarrhea and was admitted for colonoscopy, cardiology is now consulted for recurrent chest pain, recent CV and recent admission for acute HF. Patient was admitted to [facility] 12/18/23 until 12/20/23 with acute HF
and recurrence of known paroxysmal Afib. Patient had a CV 12/20/23 and was then d/c'd to home the following day. Patient then went to [facility] on 12/23/23 with chest pain and following serially undetectable Troponins she was d/c'd to home. Patient then
saw her primary lawn care professional, Dr. Figueroa, and her Lasix was stopped and she was started on amiodarone presumably for a recurrence of Afib. Patient then came to again for admission 01/03/24 until 01/06/24 for diarrhea, Afib and CHF. During that
admission amiodarone was increased to 200 mg TID, but patient was d/c'd to home on amiodarone 200 mg daily by the hospitalist. Patient now returning with ongoing diarrhea. Patient reports chest pain on a daily basis without provocative or palliative
factors that lasts for about 10 minutes. Patient does not recall if this is similar to pain she had prior to PCI in 2020.
PMH:
ChronicHFrEF
CM EF 34% by echo 10/11/23
Paroxysmal Afib
s/p CV 12/20/23
Recurrent Afib since 12/22/23
Chronic Eliquis
LBBB
s/p Medtronic BiV ICD 11/18/22
HTN
HLD
CAD
s/p RAULITO OM 07/2020
h/o Diverticulitis
TKR
Past Medical History
Past Medical History: Other (in HPI)
Past Surgical History: Cardiac (OM RAULITO July 2020), Gynecological (Hysterectomy) and Orthopedic (Left total knee replacement)
Social History
Tobacco: Non-Smoker
Alcohol: None
Drug: None
Personal:
Living: With Family (grandson)
Family History
Family History: Other (Father had heart failure, mother CAD/MN, lung cancer)
Allergies / Home Medications
Allergy/AdvReac Type Severity Reaction Status Date / Time
No Known Allergies Allergy Verified 01/10/24 09:56
�Medication �Instructions �Recorded �Confirmed �Type
melatonin 5 mg tablet 10 mg PO HS Sleep 07/29/20 01/10/24 History
apixaban 5 mg tablet (Eliquis) 5 mg PO BID Blood Clot 03/10/23 01/10/24 History
Prevention/Tx
escitalopram oxalate 20 mg tablet 20 mg PO DAILY Depression 12/18/23 01/10/24 History
(Lexapro)
metoprolol succinate 50 mg 50 mg PO DAILY #30 tabs 12/20/23 01/10/24 Rx
tablet,extended release 24 hr
amiodarone 200 mg tablet 200 mg PO DAILY AFIB 01/03/24 01/10/24 History
cholestyramine (with sugar) 4 gram 1 ea PO BID Gastrointestinal issue 01/06/24 01/10/24 Rx
powder for susp in a packet 1 month #60 ea
furosemide 40 mg tablet 40 mg PO DAILY Heart Failure 1 01/06/24 01/10/24 Rx
month #30 tabs
bismuth subsalicylate 262 mg/15 mL 524 mg PO DAILYPRN PRN gerd 01/10/24 01/10/24 History
oral suspension (Pepto-Bismol)
dimenhydrinate 25 mg chewable 25 mg PO DAILYPRN PRN nausea 01/10/24 01/10/24 History
tablet (Dramamine)
Tylenol 650 mg PO Q8 PRN PAIN 01/11/24 01/11/24 History
Review of Systems
-
History Source: Patient
All other systems: Negative unless noted
Physical Exam
Vital Signs
Temp Pulse Resp BP Pulse Ox
97.4 F 93 18 137/76 96
01/11/24 11:00 01/11/24 11:00 01/11/24 11:00 01/11/24 11:00 01/11/24 11:00
GEN: AAOx3
HEENT: MMM
LUNGS: No audible wheeze
CV: Paced on tele
ABD: ND
EXT: No edema B/L
NEURO: Gross non-focal
SKIN: No rash
Lab Results
01/11/24 08:30
01/11/24 08:30
Troponin I 0.017 ng/ml 01/11/24 13:19
Opg-I-Odswgweqnwu Pept 80225 pg/ml 01/10/24 10:20
Impression / Plan
-
PCP: BYRON Man
Build And Release Manager: Dr. Figueroa
Court Registry Officer: Dr. Robert Ziegler
Impression:
Abdominal pain
Diarrhea, acute on chronic
Acute HFrEF
CM EF 34% by echo 10/11/23
Paroxysmal Afib
s/p CV 12/20/23
Recurrent Afib since 12/22/23
Chronic Eliquis
LBBB
s/p Medtronic BiV ICD 11/18/22
HTN
HLD
CAD
s/p RAULITO OM 07/2020
h/o Diverticulitis
TKR
Lexiscan nuclear stress test 07/19/2020: Moderate reversible defect in the mid inferolateral, mid inferior, and apical inferior segments. Inferior hypokinesis. LVEF 40%. LV normal size.�������
Echo 07/12/2020: LVEF 45-50%. Mild global hypo. Inferior basal akinesis. Moderate LAE. Aortic valve sclerosis.
Echo 03/20/2021: EF 35 to 40%, stage II DD. Mild left atrial enlargement. Mild MR.
Echo 10/11/2023: EF 34%. Moderately reduced LV systolic function. Stage II DD. Mild MR, mild TR. PAP 37 mmHg
Plan:
-Patient came to [facility] yesterday with ongoing diarrhea and was admitted for colonoscopy, cardiology is now consulted for recurrent chest pain, recent CV and recent admission for acute HF. Patient was admitted to [facility] 12/18/23 until 12/20/23 with acute
HF and recurrence of known paroxysmal Afib. Patient had a CV 12/20/23 and was then d/c'd to home the following day. Patient then went to [facility] on 12/23/23 with chest pain and following serially undetectable Troponins she was d/c'd to home. Patient then
saw her primary lawn care professional, Dr. Figueroa, and her Lasix was stopped and she was started on amiodarone presumably for a recurrence of Afib. Patient then came to again for admission 01/03/24 until 01/06/24 for diarrhea, Afib and CHF. During that
admission amiodarone was increased to 200 mg TID, but patient was d/c'd to home on amiodarone 200 mg daily by the hospitalist. Patient now returning with ongoing diarrhea. Patient reports chest pain on a daily basis without provocative or palliative
factors that lasts for about 10 minutes. Patient does not recall if this is similar to pain she had prior to PCI in 2020.
-Patient's Medtronic CABLE LACER-D interrogated in the ER and she remains in persistent Afib.
-Patient with diarrhea symptoms predating initiation of amiodarone by her primary lawn care professional, Dr. Figueroa.
-Will increase amiodarone again to 200 mg TID and upon d/c recommend amiodarone 200 mg BID for 1 month then once daily thereafter.
-QTc 569 paced rhythm on ECG reviewed by me
-Last CV was 12/20/23 and patient recurred with Afib 12/22/23. Recommend repeat CV once patient is anticoagulated without interruption for 1 month.
-Eliquis 5 mg BID (age 78, Cre 1.4, wt 88.6 kg) has been on hold since admission. No need to bridge, CV was 3 weeks ago. Would restart when able.
-OptiVol continues to trend up despite IV diuresis last admission. Patient weight is down to 195 lbs on 01/11/24 and was 198 lbs on day of d/c 01/06/24. Cre has been 1.1 to 1.3 since ER visit on 12/23/23. pro-BNP trending up. Does not examine in acute
HF.
-Outpatient dose of Lasix 40 mg PO daily is on hold, will restart.
-Patient with h/o CM EF 34% by echo in 10/11/23.
-Outpatient dose of Toprol XL 50 mg daily continued
-Outpatient dose of Entresto 49/51 mg was placed on hold last admission due to ALANNA with the plan to restart as an outpatient if Cre improved
-Chest pain is atypical and Troponin serially undetectable to normal range. No specific intervention at this time.
--- NOTE | 2024-01-11 16:25 | W.PN.GI.CBS2 ---
Today's Communication / Plan
-
egd/colo tmwr
Assessment / Plan
-
This is a 78-year-old female with extensive cardiac history as outlined above presenting with acute on chronic diarrhea. Her stool studies and blood work have been unremarkable. Most likely suspect this is either irritable bowel syndrome
especially with the pain versus microscopic colitis. Epigastric pain could also be an atypical sign of biliary disease as she did have ultrasound and HIDA with questionable changes. She has mild LFT abnormalities today as well.
Patient would like to pursue colonoscopy. She was recommend to have this done outpatient but due to the severity of diarrhea she would prefer to have it done inpatient if possible. We again today discussed the risks of colonoscopy including
bleeding, infection, missed lesion, incomplete procedure, perforation and cardiopulmonary complications from anesthesia. We discussed the importance of bowel prep. We discussed higher risk of colonoscopy both with her age and medical comorbidities
especially her cardiac issues. With the epigastric pain and nausea, we will also pursue upper endoscopy at time of colonoscopy if it is decided she is optimized at this point. I d/w plastic dolls mold filler today Dr. Robledo patient is optimized for
procedure tomorrow and ok to hold Eliquis. Prep ordered for tomorrow.
If egd/colon neg may benefit from TCA can help with both nausea and diarrhea. Will need GI follow up with GI.
We will continue to monitor her mild LFT abnormalities - bilirubin all indirect (Gilbert's vs passive congestion).
Subjective
Subjective
Date of Service: January 11, 2024
ongoing diarrhea
Objective
Data Reviewed
Laboratory Data:
Laboratory Results
01/11/24 08:30
01/11/24 08:30
Laboratory Results
Magnesium Cancelled 01/10/24 10:25
Total Bilirubin 2.9 mg/dl (0.2-1.3) H 01/11/24 08:30
AST 35 U/L (14-36) 01/11/24 08:30
ALT 44 U/L (0-35) H 01/11/24 08:30
Alkaline Phosphatase 104 U/L (38-126) 01/11/24 08:30
Lipase 57 U/L (23-300) 01/10/24 10:20
Vital Signs and I&O:
Vital Signs
Temp Pulse Resp BP Pulse Ox
98.0 F 95 18 130/89 96
01/11/24 15:00 01/11/24 15:00 01/11/24 15:00 01/11/24 15:00 01/11/24 15:00
I&O
01/10/24 01/11/24 01/12/24
06:59 06:59 06:59
Intake Total 240 / 240
Balance 240 / 240
Physical Exam
Physical Exam
GI: Non Distended and Non Tender
[2024-01-11] MEDS: NULYTELY SOLUTION 4 LITERS PO (17:23)
[2024-01-11] MEDS: HEPARIN 5000 UNITS SC (20:33)
[2024-01-11 20:55] LABS: Troponin I 0.019 ng/ml
[2024-01-11] MEDS: PACERONE 400 MG PO (23:32)
[2024-01-11] MEDS: MELATONIN 10 MG PO (23:33)
[2024-01-12] VITALS (10 sets, daily range): BP systolic 14–134; BP diastolic 71–98; BMI 34.9
[2024-01-12 03:37] LABS: Troponin I 0.012 ng/ml
--- NOTE | 2024-01-12 07:54 | PTCARENOTE ---
Addendum entered by Cordelia Mcwilliams RN 01/12/24 08:01:
AM RN updated. Plan of care ongoing.
Original Note:
~03:00 Pt reported nausea. Pt reported 'I can't drink any more of the prep. I will throw it right up.' Pt reports the nausea 'is not new. I have been nauseous in the morning for the past 2 weeks then it passes in the afternoon.' Notified on-call GI
physician. Per on-call GI physician, pt can have ice chips and hold off on the prep d/t nausea. Plan of care ongoing.
[2024-01-12 07:57] LABS: % Basophils 0.8 % (0-2); % Eosinophils 3.1 % (0-6); % Immature Granulocytes 0.2 % (0-0.5); % Lymphocytes 17.3 % (20.5-51.1); % Monocytes 11.9 % (1.7-9.3); % Neutrophils 66.7 % (42.2-75.2); Absolute Eosinophils 0.2 10^3/uL (0-0.7); Absolute Lymphocytes 0.9 10^3/uL (1.2-3.4); Absolute Monocytes 0.6 10^3/uL (0.1-0.6); Absolute Neutrophils 3.5 10^3/uL (1.4-6.5); Hematocrit 37.3 % (37.0-47.0); Hemoglobin 12.4 g/dL (12.0-16.0); Mean Corp Hgb Conc. 33.2 g/dL (33.0-37.0); Mean Corpuscular Hgb 29.2 pg (27.0-31.0); Mean Platelet Volume 10.4 fL (7.4-10.4); Nucleated Red Blood Cells % 0 %; Platelet Count 249 10^3/uL (130-400); Red Blood Cell Count 4.24 10^6/uL (4.20-5.40); Red Cell Dist. Width 15.6 % (11.5-14.5); White Blood Cell Count 5.2 10^3/uL (4.8-10.8)
--- NOTE | 2024-01-12 07:58 | PTCARENOTE ---
~05:45 Pt reported experiencing 'chest pressure around 4am. I just laid here in bed until the feeling went away.' VS: BP 143/96, O2 96 RA, HR 98, Resp rate 20, and Temp 97.6. Notified PACK ROOM OPERATOR So Leopoldo Florentino (Linda). No new orders at this time. AM RN
updated. Plan of care ongoing.
[2024-01-12 08:39] LABS: Troponin I 0.017 ng/ml
[2024-01-12] MEDS: HEPARIN 5000 UNITS SC (08:41)
[2024-01-12] MEDS: TOPROL XL 50 MG PO (08:42)
[2024-01-12] MEDS: PACERONE 400 MG PO ×3 (08:42→23:00)
[2024-01-12] MEDS: LEXAPRO 20 MG PO (08:42)
[2024-01-12] MEDS: LASIX 40 MG PO (08:42)
[2024-01-12 09:47] LABS: ALT (SGPT) 43 U/L (0-35); AST (SGOT) 36 U/L (14-36); Albumin 3.9 g/dl (3.5-5.0); Alkaline Phosphatase 94 U/L (38-126); Blood Urea Nitrogen 27 mg/dl (7-17); Calcium 9.2 mg/dl (8.4-10.2); Carbon Dioxide 20 mmol/L (22-30); Chloride 100 mmol/L (98-107); Estimated Creatinine Clearance 38 ml/min; Glucose 83 mg/dl (70-99); Magnesium 2.1 mg/dl (1.6-2.3); Potassium 4.1 mmol/L (3.5-5.1); Sodium 137 mmol/L (135-145); Total Bilirubin 2.9 mg/dl (0.2-1.3); Total Protein 6.1 g/dl (6.3-8.2); eGFR 42.09
--- NOTE | 2024-01-12 09:51 | PN.CDI ---
CDI
- -
CDI:
Physician Documentation Request
Admit Date: 01/10/24 13:29
Dear Doctor Devi,
Clinical Indicators:
Patient admitted with acute on chronic diarrhea.
01/10 PN, 'ALANNA on CKD likely secondary to diarrheal losses'
Serum bicarbonate trend:
01/10/24 01/11/24
10:20 08:30
Carbon Dioxide 17 L 19 L
Based on the above, could you clarify in the progress notes, the appropriate diagnosis, if significant, that supports the above abnormalities and additional evaluation, monitoring and/or treatment rendered:
Metabolic acidosis
Abnormal lab value, clinically insignificant
Other, please specify
Use of terms such as suspected, likely, concern for, or probable (associated with a specific diagnosis that is being evaluated, monitored, or treated as if it exists) are acceptable and can be coded in the inpatient setting, when documented at the
time of discharge.
Thank you,
Arabella Yen RN BSN
CDI Specialist
available via tiger text
Please use your independent medical judgment in providing your response.
--- NOTE | 2024-01-12 13:39 | W.PN.CARDCBS ---
Addendum entered and electronically signed by BYRON Harley 01/14/24 07:21:
Impression:
Abdominal pain
Diarrhea, acute on chronic
suspected chronic HFrEF
CM EF 34% by echo 10/11/23
Paroxysmal Afib
s/p CV 12/20/23
Recurrent Afib since 12/22/23 Chronic Eliquis
LBBB
s/p Med[employer] BiV ICD 11/18/22
HTN
HLD
CAD
s/p RAULITO OM 07/2020h/o Diverticulitis
TKR
Addendum entered and electronically signed by Junior Saba MD 01/12/24 16:43:
I saw and examined the patient.
The Supervisor Uranium Processing's note was reviewed and I agree with the note.
Comment:
GEN: No distress, awake, Ox3
HEENT: supple, anicteric, mmm
LUNGS: CTA, no wheezes/rales
CV: irreg, S1/S2, 1/6 syst LSB, no gallop
ABD: soft, BS+, NT/ND
EXT: No edema
NEURO: Gross non-focal
SKIN: No rash
Plan:
EGD and colon results reviewed. Overall unremarkable outside of some diverticulosis.
Would continue with amiodarone load. Decrease to 200 mg p.o. twice daily upon discharge.
Will continue Lasix 40 mg p.o. daily. Continue Toprol. Weight overall stable.
Okay for discharge from cardiology standpoint
Original Note:
Today's Communication / Plan
-
-resume Eliquis tonight
-cont Amio load, decrease to 200 mg bid at time of discharge
-cont oral Lasix
-f/u with primary roofing layer, Dr Figueroa, on discharge
Impression / Plan
-
PCP: BYRON Man
Beverage Steward: Dr. Figeuroa
Chalker Soles: Dr. Robert Ziegler
Impression:
Abdominal pain
Diarrhea, acute on chronic
Acute HFrEF
CM EF 34% by echo 10/11/23
Paroxysmal Afib
s/p CV 12/20/23
Recurrent Afib since 12/22/23
Chronic Eliquis
LBBB
s/p Medtronic BiV ICD 11/18/22
HTN
HLD
CAD
s/p RAULITO OM 07/2020
h/o Diverticulitis
TKR
Lexiscan nuclear stress test 07/19/2020: Moderate reversible defect in the mid inferolateral, mid inferior, and apical inferior segments. Inferior hypokinesis. LVEF 40%. LV normal size.�������
Echo 07/12/2020: LVEF 45-50%. Mild global hypo. Inferior basal akinesis. Moderate LAE. Aortic valve sclerosis.
Echo 03/20/2021: EF 35 to 40%, stage II DD. Mild left atrial enlargement. Mild MR.
Echo 10/11/2023: EF 34%. Moderately reduced LV systolic function. Stage II DD. Mild MR, mild TR. PAP 37 mmHg
Plan:
-Patient came to [facility] yesterday with ongoing diarrhea and was admitted for colonoscopy, cardiology consulted for recurrent chest pain, recent CV and recent admission for acute HF. Patient was admitted to [facility] 12/18/23 until 12/20/23 with acute HF and
recurrence of known paroxysmal Afib. Patient had a CV 12/20/23 and was then d/c'd to home the following day. Patient then went to [facility] on 12/23/23 with chest pain and following serially undetectable Troponins she was d/c'd to home. Patient then saw
her primary roofing layer, Dr. Figueroa, and her Lasix was stopped and she was started on amiodarone presumably for a recurrence of Afib. Patient then came to again for admission 01/03/24 until 01/06/24 for diarrhea, Afib and CHF. During that admission
amiodarone was increased to 200 mg TID, but patient was d/c'd to home on amiodarone 200 mg daily by the hospitalist. Patient presented 01/10/24 with ongoing diarrhea. Patient reports chest pain on a daily basis without provocative or palliative
factors that lasts for about 10 minutes. Patient does not recall if this is similar to pain she had prior to PCI in 2020.
-Patient's [employer] HUMAN RESOURCES DEPARTMENT SUPERVISOR-D interrogated in the ER and she remains in persistent Afib.
-Patient with diarrhea symptoms predating initiation of amiodarone by her primary roofing layer, Dr. Figueroa.
-Amiodarone load started 01/11/24 at 400 mg TID and upon d/c recommend amiodarone 200 mg BID for 1 month then once daily thereafter.
-EGD/colonoscopy today 01/12/24: - erythematous stomach mucosa, few papules biopsied, colon is normal, diverticulosis in the sigmoid colon and descending colon, with internal hemorrhoids. Per GI - OK to resume Eliquis tonight
-Last CV was 12/20/23 and patient recurred with Afib 12/22/23. Recommend repeat CV once patient is anticoagulated without interruption for 1 month.
-Eliquis 5 mg BID (age 78, Cre 1.4, wt 88.6 kg) -was been on hold since admission in anticipation of colonoscopy. No need to bridge, CV was 3 weeks ago. per GI okay to restart tonight.
-OptiVol continues to trend up despite IV diuresis last admission. Patient weight is 196 lbs on 01/12/24 and was 198 lbs on day of d/c 01/06/24. Cre has been 1.1 to 1.3 since ER visit on 12/23/23. Creat 1.3 01/12/24. pro-BNP 82289 on 01/10/24 -
trending up compared to previous recent admissions. Does not examine in acute HF.
-continue outpatient dose of Lasix 40 mg PO daily
-Patient with h/o CM EF 34% by echo in 10/11/23.
-Outpatient dose of Toprol XL 50 mg daily continued
-Outpatient dose of Entresto 49/51 mg was placed on hold last admission due to ALANNA with the plan to restart as an outpatient if Cre improved
-Chest pain is atypical and Troponin serially undetectable to normal range (was 0.017 01/12/24). No CP today. No specific intervention at this time.
Progress Note - Beverage Steward
Subjective
Date of Service: January 12, 2024
-colonoscopy/EGD today without significant findings- GI ok'd resuming Eliquis tonight.
-remains in afib, HRs controlled.
-continues Amiodarone load
-wt trending down
-feels good, no CP, SOB, palps, lightheadedness
Objective
Labs:
01/12/24 07:32
01/12/24 07:32
Labs
Hgb 12.4 g/dL (12.0-16.0) 01/12/24 07:32
Hct 37.3 % (37.0-47.0) 01/12/24 07:32
Plt Count 249 10^3/uL (130-400) 01/12/24 07:32
Sodium 137 mmol/L (135-145) 01/12/24 07:32
Potassium 4.1 mmol/L (3.5-5.1) 01/12/24 07:32
BUN 27 mg/dl (7-17) H 01/12/24 07:32
Creatinine 1.3 mg/dL (0.6-1.0) H 01/12/24 07:32
Glucose 83 mg/dl (70-99) 01/12/24 07:32
Troponins
01/10/24 01/11/24 01/11/24
10:20 13:19 19:57
Troponin I < 0.012 0.017 0.019
01/12/24 01/12/24 01/12/24
01:00 02:22 07:00
Troponin I Cancelled 0.012 D Cancelled
01/12/24
07:32
Troponin I 0.017 D
Vital Signs and I&O:
Vital Signs
Temp Pulse Resp BP Pulse Ox
97.0 F 73 14 121/93 98
01/12/24 13:10 01/12/24 13:25 01/12/24 13:25 01/12/24 13:25 01/12/24 13:25
Vital Signs
Temp Pulse Resp BP Pulse Ox
97.0 F 73 14 121/93 98
01/12/24 13:10 01/12/24 13:25 01/12/24 13:25 01/12/24 13:25 01/12/24 13:25
Intake & Output
01/10/24 01/11/24 01/12/24 01/13/24
06:59 06:59 06:59 06:59
Intake Total 240 / 240
Balance 240 / 240
Physical Exam
Physical Exam
GEN: No distress, awake, Ox3
HEENT: supple, anicteric, mmm
LUNGS: CTA, no wheezes/rales
CV: irreg, irreg, S1/S2, 1/6 syst LSB
ABD: soft, BS+, NT/ND
EXT: No edema
NEURO: Gross non-focal
SKIN: No rash
--- NOTE | 2024-01-12 15:15 | CM ---
CM reviewed chart, received consult for discharge planning. Patient seen bedside, reports she is feeling much better today. Per PT notes, recommending home PT, patient is current with [facility]. CM will continue to follow for all discharge planning needs.
Plan; home with [facility] when stable.
[2024-01-12] MEDS: QUESTRAN 4 GRAM PO (18:25)
--- NOTE | 2024-01-12 19:13 | W.PN.HOSP.TC ---
Today's Communication/Plan
-
RESUME ELIQUIS TONIGHT
Colonoscopy and EGD done today, GI recommended monitoring patient for the next 1 day
Assessment / Plan
Assessment / Plan
Physical Exam
General: Not in acute distress
HEENT: Normocephalic
Respiratory: CTAB
Cardiac: S1/S2 and Other (Ventricular paced with PVCs)
GI: Soft, Non Tender, Non Distended, Normal Bowel Sounds
Musculoskeletal: No Cyanosis and No Edema
Skin: Warm and Dry
Neuro: AAO x 3, Nonfocal/grossly intact
Psych: Calm

Assessment/Plan
78-year-old female with past medical history of ischemic cardiomyopathy with EF of 35% with ICD, paroxysmal atrial fibrillation on Eliquis, hypertension, hyperlipidemia presented with persistent watery diarrhea that is previously been worked up with
negative stool cultures, celiac panel. Patient was recently admitted and had CT abdomen on 01/02 which suggested gallbladder pathology however HIDA scan was unremarkable. Stool fats were unremarkable. Stool calprotectin was unremarkable.
Pancreatic elastase was normal. Etiology is possibly bile acid diarrhea versus IBS versus microscopic colitis. Only mild improvement with cholestyramine.
During admission she was also treated for CHF exacerbation. She also had ALANNA secondary to NSAID use/diuretic use.
Patient is also been complaining of palpitations associated chest pressure and shortness of breath. Telemetry monitoring shows significant PVCs likely the source of symptoms. Patient was recommended to increase amiodarone to 200 mg 3 times daily
by cardiology on discharge however she has been only taking once a day.
78-year-old female back again for persistent diarrhea unclear etiology. Also with ongoing palpitations seems to be secondary to PVCs. Amiodarone was recommended to be increased to 3 times daily by cardiology but appears she was only discharged on
daily? Increase back to 3 times daily. GI consulted. Cardiology to be consulted after pacemaker interrogation.
#Acute on chronic diarrhea thought to be related to Ibs vs microscopic colitis versus bile acid diarrhea
#Erythematous mucosa in the stomach on upper endoscopy
#A few mucosal papules (nodules) found in the stomach on upper endoscopy
#Nodular ileal mucosa on colonoscopy
#Diverticulosis in the sigmoid colon and in the descending colon on colonoscopy
#Internal hemorrhoids on colonoscopy
-Colonoscopy and EGD today, resumed Eliquis post-colonoscopy
-Consulted GI, appreciate evaluation and recommendations
-Continue cholestyramine powder 1 packet twice daily this reportedly helped on her recent admission last dose was 01/09/2024 evening
- Low fiber diet
-Start questran tid for diarrhea
- Await pathology results
-If diarrhea and nausea improved by tomorrow okay for discharge from GI standpoint
#Intermittent Chest Pain
-Given patient's cardiac history, consulted cardiology, appreciate their evaluation and recommendations
#Prolonged QTc
#Anion Gap Metabolic Acidosis
-Could be from CKD
-Consulted nephrology, appreciate eval and recommendations
#Reported palpitations/chest pressure during that time concern for possible NSVT vs PVC's as patient had on recent admit
#NSVT while inpatient December - January 2024
#Cardiac ectopy/-Had a run of NSVT overnight, frequent PVCs
-Monitor on telemetry
-Consulted cardiology, appreciate evaluation and recommendations
-Follow BMP
-Current mag 2.2, potassium 4
-Per cardiology, increase amiodarone again to 400 mg TID and upon discharge recommend amiodarone 200 mg BID for 1 month then once daily thereafter.
-Interrogate patient's ICD device
#Follow CMP acute transaminitis
-AST 45, ALT 43
-Follow CMP
#History of Ischemic cardiomyopathy/ Chronic HFrEF
#ICD 11/18/2022
-BNP 12,100
-Continue Toprol XL 50 mg daily
-Continue furosemide 40 mg daily
-Hold Entresto while on above diuretic - was placed on hold last admission due to ALANNA with the plan to restart as an outpatient if Cr improved
-TTE on October 11, 2023 showed LVEF 34%; Patient has a BiV ICD placed 11/18/2022
#CAD status post stents drug-eluting
Chronic LBBB-Thought to be secondary to previous NV
-Continue beta-benjy, hold Entresto
#ALANNA on CKD likely secondary to diarrheal losses
-Creat 1.3 on 01/08/2024 improved from 1.4(prior baseline in 2023 0.9-1)
-Follow BMP
#Persistent atrial fibrillation
-S/p recent cardioversion on 12/19, started on amiodarone subsequently
-Current home regimen includes metoprolol, amiodarone, Eliquis
-Recent AICD check shows A-fib burden 100% since 12/21
-Continue Amiodarone
-RESUME ELIQUIS
# Depression
-continue Lexapro
DVT prophylaxis
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
DNR
Anticipated Discharge: Within 24 hours
Subjective/Interval History
-
Date of Service: January 12, 2024
Patient was seen and examined. She denied any new symptoms or complaints.
Objective Data
-
Labs:
Laboratory Results
01/12/24
07:32
WBC 5.2
Hgb 12.4
Hct 37.3
Plt Count 249
Sodium 137
Potassium 4.1
Chloride 100
Carbon Dioxide 20 L
BUN 27 H
Creatinine 1.3 H
Glucose 83
Calcium 9.2
Total Bilirubin 2.9 H
AST 36
ALT 43 H
Alkaline Phosphatase 94
Vital Signs:
Vital Signs
Temp Pulse Resp BP Pulse Ox
97.4 F 87 17 129/85 98
01/12/24 15:15 01/12/24 17:15 01/12/24 15:15 01/12/24 17:15 01/12/24 15:15
I&O
01/11/24 01/12/24 01/13/24
06:59 06:59 06:59
Intake Total 240 / 240 480 / 480
Balance 240 / 240 480 / 480
--- NOTE | 2024-01-12 22:40 | W.PN.UPDATE ---
Update Note
Progress Note Update
Patient complained of chest discomfort/sternum area like describes as pressure that improving when she is sitting up in bed, non radiating, denied SOB. No wheezing or crackle noted during chest exam.
Patient eat before sleeping. Mostly like GERD symptoms.
One time Protonix was given and discomfort relieved.
[2024-01-12] MEDS: ELIQUIS 5 MG PO (22:59)
[2024-01-12] MEDS: MELATONIN 10 MG PO (23:01)
[2024-01-12] MEDS: NSS (PRESERVATIVE FREE) 10 ML IV (23:02)
[2024-01-12] MEDS: PROTONIX IV 40 MG IV (23:02)
[2024-01-13] MEDS: QUESTRAN 4 GRAM PO ×2 (00:26→09:35)
[2024-01-13 03:38] VITALS: BP 108/79
--- NOTE | 2024-01-13 05:55 | PTCARENOTE ---
~22:20 Pt rang call gasca reporting 'pressure with light pain across the chest this [showing with hands horizontal]. It started about 10 mins ago. It's a little bit better now then when it first started. Sitting up seemed to help it but it didn't go
away completely.' VS:BP 131/77, Temp axiliary 96.4 [pt reports hx of low temp], RR 18 O2 97 on RA, and HR 86. Notified BYRON Li. CLINICAL TRIAL HEAD assessed pt at bedside. New orders placed.
pt reports the 'pressure' has resolved. BYRON Li aware. Plan of care ongoing.
[2024-01-13 06:00] VITALS: BMI 34.9
[2024-01-13 07:35] VITALS: BP 138/98
[2024-01-13 08:03] LABS: % Basophils 0.3 % (0-2); % Eosinophils 0.8 % (0-6); % Immature Granulocytes 0.3 % (0-0.5); % Lymphocytes 13.9 % (20.5-51.1); % Monocytes 10.6 % (1.7-9.3); % Neutrophils 74.1 % (42.2-75.2); Absolute Eosinophils 0.1 10^3/uL (0-0.7); Absolute Lymphocytes 0.9 10^3/uL (1.2-3.4); Absolute Monocytes 0.7 10^3/uL (0.1-0.6); Absolute Neutrophils 4.7 10^3/uL (1.4-6.5); Hematocrit 39.4 % (37.0-47.0); Mean Corpuscular Hgb 30.5 pg (27.0-31.0); Mean Corpuscular Volume 92.5 fL (81.0-99.0); Mean Platelet Volume 10.7 fL (7.4-10.4); Nucleated Red Blood Cells % 0 %; Platelet Count 283 10^3/uL (130-400); Red Blood Cell Count 4.26 10^6/uL (4.20-5.40); Red Cell Dist. Width 15.9 % (11.5-14.5); White Blood Cell Count 6.3 10^3/uL (4.8-10.8)
[2024-01-13 08:21] LABS: ALT (SGPT) 42 U/L (0-35); AST (SGOT) 36 U/L (14-36); Alkaline Phosphatase 105 U/L (38-126); Blood Urea Nitrogen 33 mg/dl (7-17); Calcium 9.1 mg/dl (8.4-10.2); Carbon Dioxide 21 mmol/L (22-30); Chloride 99 mmol/L (98-107); Estimated Creatinine Clearance 35 ml/min; Glucose 117 mg/dl (70-99); Magnesium 2.2 mg/dl (1.6-2.3); Potassium 3.7 mmol/L (3.5-5.1); Sodium 134 mmol/L (135-145); Total Bilirubin 2.7 mg/dl (0.2-1.3); Total Protein 6.3 g/dl (6.3-8.2); eGFR 38.51
[2024-01-13] MEDS: ELIQUIS 5 MG PO (08:22)
[2024-01-13] MEDS: PROTONIX 40 MG PO (08:22)
[2024-01-13] MEDS: LEXAPRO 20 MG PO (08:22)
[2024-01-13] MEDS: PACERONE 400 MG PO ×2 (08:22→16:04)
[2024-01-13] MEDS: LASIX 40 MG PO (08:22)
[2024-01-13] MEDS: TOPROL XL 50 MG PO (08:22)
--- NOTE | 2024-01-13 09:30 | W.PN.HOSP.TC ---
Addendum entered and electronically signed by Mook Quinonez MD 01/13/24 17:20:
CKD 3b only
Original Note:
Today's Communication/Plan
-
Discharge today
Assessment / Plan
Assessment / Plan
Physical Exam
General: Not in acute distress
HEENT: Normocephalic
Respiratory: CTAB
Cardiac: S1/S2 and Other (Ventricular paced with PVCs)
GI: Soft, Non Tender, Non Distended, Normal Bowel Sounds
Musculoskeletal: No Cyanosis and No Edema
Skin: Warm and Dry
Neuro: AAO x 3, Nonfocal/grossly intact
Psych: Calm

Assessment/Plan
78-year-old female with past medical history of ischemic cardiomyopathy with EF of 35% with ICD, paroxysmal atrial fibrillation on Eliquis, hypertension, hyperlipidemia presented with persistent watery diarrhea that is previously been worked up with
negative stool cultures, celiac panel. Patient was recently admitted and had CT abdomen on 01/02 which suggested gallbladder pathology however HIDA scan was unremarkable. Stool fats were unremarkable. Stool calprotectin was unremarkable.
Pancreatic elastase was normal. Etiology is possibly bile acid diarrhea versus IBS versus microscopic colitis. Only mild improvement with cholestyramine.
During admission she was also treated for CHF exacerbation. She also had ALANNA secondary to NSAID use/diuretic use.
Patient is also been complaining of palpitations associated chest pressure and shortness of breath. Telemetry monitoring shows significant PVCs likely the source of symptoms. Patient was recommended to increase amiodarone to 200 mg 3 times daily
by cardiology on discharge however she has been only taking once a day.
78-year-old female back again for persistent diarrhea unclear etiology. Also with ongoing palpitations seems to be secondary to PVCs. Amiodarone was recommended to be increased to 3 times daily by cardiology but appears she was only discharged on
daily? Increase back to 3 times daily. GI consulted. Cardiology to be consulted after pacemaker interrogation.
#Acute on chronic diarrhea thought to be related to IBS versus microscopic colitis versus
#Nausea
#Erythematous mucosa in the stomach on upper endoscopy
#A few mucosal papules (nodules) found in the stomach on upper endoscopy
#Nodular ileal mucosa on colonoscopy
#Diverticulosis in the sigmoid colon and in the descending colon on colonoscopy
#Internal hemorrhoids on colonoscopy
-Colonoscopy and EGD today, resumed Eliquis post-colonoscopy
-Consulted GI, appreciate evaluation and recommendations
-STOP cholestyramine powder 1 packet twice daily and continue colestipol 1g bid this reportedly helped on her recent admission last dose was 01/09/2024 evening
-Low fiber diet
-Asking for colestipol 1g bid instead of questran on discharge
-Await pathology results
-If diarrhea and nausea improved by tomorrow okay for discharge from GI standpoint
-Continue Protonix 40 daily
#Intermittent Chest Pain
-Given patient's cardiac history, consulted cardiology, appreciate their evaluation and recommendations
#Prolonged QTc
#Anion Gap Metabolic Acidosis
-Could be from CKD
-Asked on-call air brush decorator: no need for bicarb at this time, patient just needs outpatient follow-up labs
#Reported palpitations/chest pressure during that time concern for possible NSVT vs PVC's as patient had on recent admit
#NSVT while inpatient December - January 2024
#Cardiac ectopy/-Had a run of NSVT overnight, frequent PVCs
-Monitor on telemetry
-Consulted cardiology, appreciate evaluation and recommendations
-Follow BMP
-Current mag 2.2, potassium 3.7
-Per cardiology, increase amiodarone again to 400 mg TID and upon discharge recommend amiodarone 200 mg BID for 1 month then once daily thereafter -- BUT GI recommending Amiodarone to 200 mg daily on discharge (due to patient's nausea), Dr. Saba
confirmed that it is okay to continue 200 mg daily Amiodarone at the time of discharge
-Interrogate patient's ICD device
#Follow CMP acute transaminitis
-AST 45, ALT 43
-Follow CMP
#History of Ischemic cardiomyopathy/ Chronic HFrEF
#ICD 11/18/2022
-BNP 12,100
-Continue Toprol XL 50 mg daily
-Continue furosemide 40 mg daily
-Hold Entresto while on above diuretic - was placed on hold last admission due to ALANNA with the plan to restart as an outpatient if Cr improved
-TTE on October 11, 2023 showed LVEF 34%; Patient has a BiV ICD placed 11/18/2022
#CAD status post stents drug-eluting
Chronic LBBB-Thought to be secondary to previous ID
-Continue beta-benjy, hold Entresto
#ALANNA on CKD likely secondary to diarrheal losses
-Creat 1.3 on 01/08/2024 improved from 1.4(prior baseline in 2023 0.9-1)
-Follow BMP
#Persistent atrial fibrillation
-S/p recent cardioversion on 12/19, started on amiodarone subsequently
-Current home regimen includes metoprolol, amiodarone, Eliquis
-Recent AICD check shows A-fib burden 100% since 12/21
-Continue Amiodarone
-RESUME ELIQUIS
# Depression
-continue Lexapro
DVT prophylaxis
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
DNR
More than 30 minutes spent in discharge including
Final examination of the patient
Summarizing hospital stay
Instructions for continuing care to all relevant caregivers
Preparation of discharge records, prescriptions, and referral forms
Total time spent (in minutes): 40
Anticipated Discharge: Today
Subjective/Interval History
-
Date of Service: January 13, 2024
Patient was seen and examined. She denied any complaints and stated she wants to go home today.
Objective Data
-
Labs:
Laboratory Results
01/13/24
07:07
WBC 6.3
Hgb 13.0
Hct 39.4
Plt Count 283
Sodium 134 L
Potassium 3.7
Chloride 99
Carbon Dioxide 21 L
BUN 33 H
Creatinine 1.4 H
Glucose 117 H
Calcium 9.1
Total Bilirubin 2.7 H
AST 36
ALT 42 H
Alkaline Phosphatase 105
Vital Signs:
Vital Signs
Temp Pulse Resp BP Pulse Ox
98.4 F 102 19 138/98 98
01/13/24 07:35 01/13/24 08:22 01/13/24 07:35 01/13/24 08:22 01/13/24 07:35
I&O
01/12/24 01/13/24 01/14/24
06:59 06:59 06:59
Intake Total 1200 / 1200
Balance 1200 / 1200
--- NOTE | 2024-01-13 10:59 | W.PN.GI.CBS2 ---
Addendum entered and electronically signed by BYRON Collins 01/13/24 12:24:
I did review with cardiology plan for decresaed amiodarone in discharge as she reports worsening nausea last 2 days. Also recommendation for Colestipol as below. Reviewed recs with Dr. Quinonez for discharge.
Original Note:
Today's Communication / Plan
-
colestipol 1 g bid, protonix 40 daily, discharge, gi signing off
Assessment / Plan
-
This is a 78-year-old female with extensive cardiac history presenting with acute on chronic diarrhea and nausea.
Underwent EGD/colon overall unremarkable.
She is doing well with questran tid but pt prefers pill will switch to colestipol 1 g bid. Diarrhea could be from microscopic colitis (path pending) vs IBS.
Nausea improved as well. Perhaps due to PPI. Antiemetics limited due to QTc. Continue protonix 40 daily as well on discharge. Could be dyspepsia vs med induced (amiodarone). If pt has persistent nausea would consider head CT.
Mild ALT elevation can monitor outpatient.
GI outpatient follow up. Pt being discharged today.
D/w Dr. Quinonez. GI will sign off pls call with ?s.
Subjective
Subjective
Date of Service: January 13, 2024
feels improved
no further diarrhea or nausea
Objective
Data Reviewed
Laboratory Data:
Laboratory Results
01/13/24 07:07
01/13/24 07:07
Laboratory Results
Magnesium 2.2 mg/dl (1.6-2.3) 01/13/24 07:07
Total Bilirubin 2.7 mg/dl (0.2-1.3) H 01/13/24 07:07
AST 36 U/L (14-36) 01/13/24 07:07
ALT 42 U/L (0-35) H 01/13/24 07:07
Alkaline Phosphatase 105 U/L (38-126) 01/13/24 07:07
Lipase 57 U/L (23-300) 01/10/24 10:20
Vital Signs and I&O:
Vital Signs
Temp Pulse Resp BP Pulse Ox
98.4 F 102 19 138/98 98
01/13/24 07:35 01/13/24 08:22 01/13/24 07:35 01/13/24 08:22 01/13/24 08:15
I&O
01/12/24 01/13/24 01/14/24
06:59 06:59 06:59
Intake Total 1200 / 1200
Balance 1200 / 1200
Physical Exam
Physical Exam
GI: Non Distended and Non Tender
[2024-01-13 11:05] VITALS: BP 112/79
--- NOTE | 2024-01-13 12:35 | CM ---
CM reviewed chart, met with patient bedside. Patient reports she is hopeful for discharge today. Patient denies any needs from CM at this time. Patient reports her grandson or sister will provide transportation home. IMM verbally reviewed with
patient, provided copy, placed in chart. CM will continue to follow for all discharge planning needs.
Plan; home with [facility].
--- NOTE | 2024-01-13 12:53 | PN.CDI ---
CDI
- -
CDI:
Physician Documentation Request
Admit Date: 01/10/24 13:29
Dear Doctor Devi,
Clinical Indicators:
Patient admitted with acute on chronic diarrhea.
01/11 PN, 'ALANNA on CKD'
Cr/GFR trend:
01/10/24 01/11/24 01/12/24
10:20 08:30 07:32
Creatinine 1.3 H 1.4 H 1.3 H
eGFR 42.09 38.51 42.09
01/13/24
07:07
Creatinine 1.4 H
eGFR 38.51
Please clarify which of the following accurately represents the patient's renal status:
CKD 3b only
ALANNA on CKD 3b
Other, please specify
Criteria for ALANNA*
1 Increase in serum creatinine by > or = to 0.3 mg/dL (> or = to 26.5 micromol/L) within 48 hours, OR
2 Increase in serum creatinine to > or = to 1.5 times baseline, which is known or presumed to have occurred within 7 days, OR
3 Urine volume < 0.5 nL/kg/hour for six hours
Stages of Chronic Kidney Disease*
Level Description GFR
G1 Normal or High >90
G2 Mildly decreased 60-89
G3a Mildly to moderately decreased 45-59
G3b Moderately to severely decreased 30-44
G4 Severely decreased 15-29
G5 Kidney failure <15
Use of terms such as suspected, likely, concern for, or probable (associated with a specific diagnosis that is being evaluated, monitored, or treated as if it exists) are acceptable and can be coded in the inpatient setting, when documented at the
time of discharge.
Thank you,
Arabella Yen RN BSN
CDI Specialist
available via tiger text
Please use your independent medical judgment in providing your response.
*Source: Kidney Disease: Improving Global Outcomes (KDIGO) 2012
--- NOTE | 2024-01-13 13:03 | PN.CDI ---
CDI
- -
CDI:
Physician Documentation Request
Admit Date: 01/10/24 13:29
Dear Cardiology,
Clinical Indicators:
Patient admitted with acute on chronic diarrhea.
01/11 Cardiology PN, -'Impression: Acute HFrEF'
-' pro-BNP 48669 on 01/10/24 - trending up compared to previous recent admissions. Does not
examine in acute HF.'
Due to conflicting documentation , please clarify which of the following accurately represents the acuity of the HFrEF:
Chronic HFrEF
Acute HFrEF
Other, please specify
Use of terms such as suspected, likely, concern for, or probable (associated with a specific diagnosis that is being evaluated, monitored, or treated as if it exists) are acceptable and can be coded in the inpatient setting, when documented at the
time of discharge.
Thank you,
Arabella Yen RN BSN
CDI Specialist
available via tiger text
Please use your independent medical judgment in providing your response.
[2024-01-13 15:49] VITALS: BP 117/81
[2024-01-13] MEDS: QUESTRAN PO (16:05)
--- NOTE | 2024-01-13 17:27 | W.DCSUMMARY ---
Discharge Summary
Discharge Data
Date of Admission: 01/10/24
Date of Discharge: 01/13/24
Total time spent discharging patient (in min): 40
-
Pending Results: Yes
Additional Pending Results:
Follow-up on biopsy results
Hospital Course
78-year-old female with past medical history of ischemic cardiomyopathy with ejection fraction of 35% with ICD, paroxysmal atrial fibrillation on Eliquis, hypertension, hyperlipidemia presented with persistent watery diarrhea. Patient also reported
palpitations associated chest pressure and shortness of breath. Telemetry monitoring showed significant premature ventricular contraction as likely the source of patient's symptoms. Patient was previously recommended to increase amiodarone to 200 mg
3 times daily by cardiology on discharge however she had been only taking once a day.
Gastroenterology and cardiology were consulted. Patient was noted to have recent stool studies and blood work that were unremarkable and it was most likely suspected that this was either irritable bowel syndrome especially with the pain versus
microscopic colitis. Patient was noted to have transaminitis. Patient's Eliquis was held for colonoscopy. Cardiology cleared patient for upper endoscopy and colonoscopy. Patient had an upper endoscopy on January 12, 2024 which showed, as per
instrument person's report, '.....Erythematous mucosa in the stomach. Biopsied.....A few mucosal papules (nodules) found in the stomach. Biopsied.' Patient also had a colonoscopy on January 12, 2024 which showed, as per instrument person's report,
'Nodular ileal mucosa. Biopsied. The entire examined colon is normal. Biopsied. Diverticulosis in the sigmoid colon and in the descending colon. Internal hemorrhoids.'
Patient was started on Questran for diarrhea but this was later switched to Colestipol. Patient's Eliquis was resumed.
Patient was placed on Amiodarone load. Given patient's nausea, case was discussed among gastroenterology and cardiology and cardiology mentioned that it was okay to continue Amiodarone on [id number] daily dosing on discharge.
Discharge Plan
-
Patient Disposition: Home with Home Care
Discharge Diagnosis/Procedures: #Acute on chronic diarrhea thought to be related to IBS versus microscopic colitis versus
#Nausea
#Erythematous mucosa in the stomach on upper endoscopy
#A few mucosal papules (nodules) found in the stomach on upper endoscopy
#Nodular ileal mucosa on colonoscopy
#Diverticulosis in the sigmoid colon and in the descending colon on colonoscopy
#Internal hemorrhoids on colonoscopy
#Intermittent Chest Pain
#Prolonged QTc
#Anion Gap Metabolic Acidosis
#Reported palpitations/chest pressure during that time concern for possible NSVT vs PVC's as patient had on recent admit
#NSVT while inpatient December - January 2024
#Cardiac ectopy/-Had a run of NSVT overnight, frequent PVCs
#Acute transaminitis
#History of Ischemic cardiomyopathy/ Chronic HFrEF
#ICD 11/18/2022
#CAD status post stents drug-eluting
#Increased creatinine on CKD likely secondary to diarrheal losses
#Persistent atrial fibrillation
#Depression
Condition: Fair
Diet: Low Fat, Low Cholesterol, Low Sodium, Low Residue and Restrict fluids to 64 oz
Activity: As tolerated
Blood Work: Recheck CBC, CMP, and magnesium with your outpatient PCP in 1 to 3 days
Other Services: VN
Specialty Instructions: Weigh Daily- Call MD for wt gain/loss 3 lbs overnight/5 lbs in 1 week
Activity Restrictions/Additional Instructions:
Follow-up with production machine operator within 1 week
Follow-up with instrument person closely outpatient
Referrals:
Suyapa Duval CRNP [Family Provider] - in less than 1 week
Additional Discharge Medication Instructions: Colestipol and Pantoprazole are new medications.
Cholestyramine stopped.
Prescriptions:
New
pantoprazole 40 mg Tablet,Delayed Release (Dr/Ec)
40 mg PO DAILY Qty: 30 0RF
colestipol 1 gram tablet
1 g PO BID Qty: 60 0RF
Continued
melatonin 5 MG tablet
10 mg PO HS
Eliquis 5 mg Tablet
5 mg PO BID
escitalopram oxalate [Lexapro] 20 mg Tablet
20 mg PO DAILY
metoprolol succinate 50 mg Tablet Extended Release 24 Hr
50 mg PO DAILY Qty: 30 0RF
amiodarone 200 mg Tablet
200 mg PO DAILY
furosemide 40 mg Tablet
40 mg PO DAILY 30 Days Qty: 30 0RF
Dramamine 25 mg Tablet,Chewable
25 mg PO DAILYPRN PRN (Reason: nausea)
bismuth subsalicylate [Pepto-Bismol] 262 mg/15 mL Suspension
524 mg PO DAILYPRN PRN (Reason: gerd)
Tylenol 650 mg tablet
650 mg PO Q8 PRN (Reason: PAIN)
Discontinued
cholestyramine (with sugar) 4 gram Powder In Packet
1 ea PO BID 30 Days Qty: 60 0RF
Discharge Orders:
Discharge Patient (As Directed); Ordered 01/13/24
Ordered By: Mook Quinonez
Discharge Date and Time
Discharge Date/Time: 01/13/24 19:00
Print Language: CHILEAN
--- NOTE | 2024-01-21 13:49 | W.HF.CON ---
Heart Failure
- LV Function
Left ventricular function study result: LV Ejection fraction </= 35%
Ejection Fraction Percentage: 34
- ARNI
Patient already on ARNI: No
Heart Failure ARNI Contraindication: Hypotension, Worsening Renal Function
- ACEI/ARB
Patient already on ACEI/ARB: No
Heart Failure ACEI/ARB Contraindication: Hypotension, Worsening Renal Function
- Beta Bruce
Patient already on Evidence Based Beta Bruce: Yes
- Mineralocorticord Receptor Antagonist
Patient already on MRA: No
Heart Failure MRA Contraindication: Hypotension
- SGLT-2 Inhibitor
Patient already on SGLT-2 Inhibitor: No
Heart Failure SGLT-2 Inhibitor Contraindication: Patient Refusal
- Afib Anticoagulation
Patient already on Anticoagulation for Afib: Yes
- NYHA CHF Classification
NYHA CHF Classification Level: Class III - Symptoms w/ min exertion, interferes w/ nml daily activity
- ACC/AHA Stage
ACC/AHA Stage: Stage C: Symptomatic Heart Failure
== END 2024-01-13 19:00 | disposition home health service (06) | DRG 392 ==
LOC: 4 WEST ACU 13:29
PROVIDERS: Clinical Nurse Specialist Family Health; Physician Assistant; ADMITTING PHYSICIAN Hospitalist; ATTENDING PHYSICIAN Hospitalist; CONSULT PHYSICIAN Internal Medicine Cardiovascular Disease; EMERGENCY PHYSICIAN Emergency Medicine; FAMILY PHYSICIAN Nurse Practitioner Adult Health; OTHER PHYSICIAN Internal Medicine Gastroenterology
PROC: 0DBB8ZX Excision of Ileum, Via Natural or Artificial Opening Endoscopic, Diagnostic (ICD-10-PCS; 2024-01-12)
PROC: 4B02XTZ Measurement of Cardiac Defibrillator, External Approach (ICD-10-PCS; 2024-01-12)
PROC: 0DBG8ZX Excision of Left Large Intestine, Via Natural or Artificial Opening Endoscopic, Diagnostic (ICD-10-PCS; 2024-01-12)
PROC: 0DBF8ZX Excision of Right Large Intestine, Via Natural or Artificial Opening Endoscopic, Diagnostic (ICD-10-PCS; 2024-01-12)
PROC: 0DB68ZX Excision of Stomach, Via Natural or Artificial Opening Endoscopic, Diagnostic (ICD-10-PCS; 2024-01-12)
DX: K58.9 Irritable bowel syndrome, unspecified (principal); I13.0 Hypertensive heart and chronic kidney disease with heart failure and stage 1 through stage 4 chronic kidney disease, or unspecified chronic kidney disease; E87.20 Acidosis, unspecified; I48.19 Other persistent atrial fibrillation; I47.20 Ventricular tachycardia, unspecified; I50.22 Chronic systolic (congestive) heart failure; N18.32 Chronic kidney disease, stage 3b; I25.10 Atherosclerotic heart disease of native coronary artery without angina pectoris; E86.0 Dehydration; I25.5 Ischemic cardiomyopathy; E78.00 Pure hypercholesterolemia, unspecified; K31.89 Other diseases of stomach and duodenum; K64.0 First degree hemorrhoids; I35.8 Other nonrheumatic aortic valve disorders; R07.89 Other chest pain; K57.30 Diverticulosis of large intestine without perforation or abscess without bleeding; K63.89 Other specified diseases of intestine; F41.9 Anxiety disorder, unspecified; I44.7 Left bundle-branch block, unspecified; F32.A Depression, unspecified; Z66 Do not resuscitate; Z96.652 Presence of left artificial knee joint; Z95.5 Presence of coronary angioplasty implant and graft; Z95.810 Presence of automatic (implantable) cardiac defibrillator; Z79.01 Long term (current) use of anticoagulants; Z82.49 Family history of ischemic heart disease and other diseases of the circulatory system; Z80.1 Family history of malignant neoplasm of trachea, bronchus and lung; Z90.710 Acquired absence of both cervix and uterus; Z87.19 Personal history of other diseases of the digestive system; I25.2 Old myocardial infarction
CPT/HCPCS: 88305; 71046; 80053; 82248; 83690; 83735; 83880; 84484; 85025; 88342; 93005; 97161; 97166; 99285

== ENCOUNTER 2024-01-27 08:42 | Inpatient (IN) | payer OTHER, SELFPAY ==
[2024-01-22 22:08] VITALS: BMI 34.6
[2024-01-22 22:10] VITALS: BP 101/78
[2024-01-22 23:00] VITALS: BP 93/74
[2024-01-22 23:09] LABS: % Basophils 0.3 % (0-2); % Eosinophils 1.5 % (0-6); % Immature Granulocytes 0.6 % (0-0.5); % Monocytes 10.7 % (1.7-9.3); % Neutrophils 75.9 % (42.2-75.2); Absolute Eosinophils 0.1 10^3/uL (0-0.7); Absolute Lymphocytes 0.8 10^3/uL (1.2-3.4); Absolute Monocytes 0.8 10^3/uL (0.1-0.6); Absolute Neutrophils 5.4 10^3/uL (1.4-6.5); Hemoglobin 12.7 g/dL (12.0-16.0); Mean Corp Hgb Conc. 33.4 g/dL (33.0-37.0); Mean Corpuscular Hgb 28.7 pg (27.0-31.0); Mean Corpuscular Volume 85.8 fL (81.0-99.0); Mean Platelet Volume 10.3 fL (7.4-10.4); Nucleated Red Blood Cells % 1.3 %; Platelet Count 319 10^3/uL (130-400); Red Blood Cell Count 4.43 10^6/uL (4.20-5.40); Red Cell Dist. Width 15.9 % (11.5-14.5); White Blood Cell Count 7.1 10^3/uL (4.8-10.8)
[2024-01-22 23:23] LABS: ALT (SGPT) 39 U/L (0-35); AST (SGOT) 30 U/L (14-36); Albumin 3.9 g/dl (3.5-5.0); Alkaline Phosphatase 125 U/L (38-126); Blood Urea Nitrogen 67 mg/dl (7-17); Calcium 9.2 mg/dl (8.4-10.2); Carbon Dioxide 20 mmol/L (22-30); Chloride 103 mmol/L (98-107); Glucose 125 mg/dl (70-99); Sodium 136 mmol/L (135-145); Total Bilirubin 2.2 mg/dl (0.2-1.3); Total Protein 6.2 g/dl (6.3-8.2)
[2024-01-22 23:32] LABS: NT-proBNP 15000 pg/ml
--- NOTE | 2024-01-22 23:54 | ED.GENMED ---
History of Present Illness
General
Chief Complaint: Cardiac Symptoms
Source: patient
Exam Limitations: none
Time Seen by Provider: 01/22/24 23:45
History of Present Illness
History of Present Illness:
See MDM
Past History
Past History
ED Past Medical History: CAD, CHF, HTN and Other (Diverticulitis)
ED Past Surgical History: Other (Hysterectomy,)
Social History
Tobacco: Non-smoker
Alcohol: Occasional
Personal:
Living: other
Employment: Retired
Family History
Family History: Other
Phy Exam
Physical Exam
Physical Exam:
See MDM
Course
Orders/Labs/Results
Orders:
Orders
01/22/24 22:13
Electrocardiogram (*1) Urgent
Reason for Study: Shortness of Breath
Chest [CR Chest - 2 Views ] Urgent
Comment:
Reason For Exam: SOB; CHF HISTORY
01/22/24 22:14
EKG- Treatment ONCE
01/22/24 23:04
Complete Blood Count/With Diff Urgent
Comprehensive Metabolic Panel Urgent
NT-proBNP Urgent
Troponin I Urgent
Comment: ADD ON
01/22/24 23:45
Add On- LAB Urgent
Tests Added?: troponin
01/22/24 23:54
Furosemide [Lasix] 40 mg IV NOW STA
Abnormal Lab Results
01/22/24
23:04
RDW 15.9 H %
(11.5-14.5)
Absolute Lymphs (auto) 0.8 L 10^3/uL
(1.2-3.4)
Absolute Monos (auto) 0.8 H 10^3/uL
(0.1-0.6)
Immature Gran % 0.6 H %
(0-0.5)
Neutrophils % 75.9 H %
(42.2-75.2)
Lymphocytes % 11.0 L %
(20.5-51.1)
Monocytes % 10.7 H %
(1.7-9.3)
Carbon Dioxide 20 L mmol/L
(22-30)
BUN 67 H mg/dl
(7-17)
Creatinine 1.7 H mg/dL
(0.6-1.0)
Glucose 125 H mg/dl
(70-99)
Total Bilirubin 2.2 H mg/dl
(0.2-1.3)
ALT 39 H U/L
(0-35)
Total Protein 6.2 L g/dl
(6.3-8.2)
01/22/24 23:04
01/22/24 23:04
Vital Signs
Initial and Last Documented VS:
Initial Vital Signs
Temp Pulse Resp BP Pulse Ox
97.7 F 94 26 101/78 98
01/22/24 22:10 01/22/24 22:10 01/22/24 22:10 01/22/24 22:10 01/22/24 22:10
Last Documented Vital Signs
Temp Pulse Resp BP Pulse Ox
97.7 F 88 15 103/90 97
01/22/24 22:10 01/23/24 00:00 01/23/24 00:00 01/23/24 00:00 01/23/24 00:00
MDM/Problems Addressed
Differential Diagnosis Includes:
HPI and MDM Narrative:
78-year-old female presenting with worsening shortness of breath with exertion and worsening bilateral leg swelling. She does have a history of ischemic cardiomyopathy. She was recently admitted for similar symptoms. She had an echocardiogram
showing significant worsening of her LV function and mitral regurgitation
Patient states she is becoming more short of breath with exertion.
Blood work and chest x-ray done prior to my evaluation. Patient has a worsening BNP. Chest x-ray shows cardiomegaly but no obvious pulmonary edema. Will give dose of IV Lasix. Patient was recently cardioverted. However, her Eliquis was held for
recent colonoscopy. Given the disruption in the Eliquis dosing, she is not a great bedside cardioversion candidate
Physical exam
General: Uncomfortable and fatigued
HEENT: protecting airway
Neck: appears supple
CV: No evidence of cyanosis. Regular rate, irregular rhythm
Resp: No accessory muscle use. Lungs clear
Abd: Non-distended
Extremities: No +2 pitting edema bilateral lower extremities
Neuro: alert
Psych: Normal affect
Skin: Intact
Problems Addressed including Acute and Chronic Conditions affecting care:
1. CHF exacerbation
Acuity: acute
Prognosis: unstable
Details: Will give dose of IV Lasix. Patient has worsening BNP and creatinine
2. A-fib
Acuity: acute
Prognosis: stable
Details: Likely in setting of worsening heart failure. Will continue Eliquis. Given the recent Eliquis hold for colonoscopy, she is not a great bedside cardioversion candidate
Differential Diagnosis (but not limited to): CHF exacerbation, viral syndrome, pneumonia, symptomatic A-fib
Testing considered: D-dimer but she is on Eliquis
Drug therapy (if applicable): OTC meds, please see d/c instruction regarding Rx drugs
Amount and/or Complexity of Data Reviewed
Clinical info obtained from: Patient
External data reviewed: Recent admission for congestive heart failure with worsening echo
Labs I independently reviewed (but not limited to): Elevated BNP
Radiology: X-ray independently reviewed: Chest x-ray shows cardiomegaly
Pulse Ox: not hypoxic
EKG independently reviewed: A-fib, left axis, no STEMI
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
Critical Care: N/A
Risk of Complication:
Social Determinants of health: Good social support
Discussed with other providers: hospitalist
Escalation of Care includes Admit/Obs: Given worsening dyspnea on exertion with worsening creatinine and BNP, will admit
Occasional wrong word or 'sound a like' substitutions may have occurred due to the inherent limitations of voice recognition software. Read the chart carefully and recognize, using context, where substitutions have occurred.
*Critical Care Note
Total Time (30-74mins, 75-104mins- exclusive of procedures): Not Applicable
ED Attending Note
-
Portions of this chart may have been created with voice recognition software.� Occasional wrong word or��sound alike� substitutions may have occurred due to the inherent limitations of voice recognition software.
Discharge Plan
Departure
Patient Disposition: Admit
Date of Disposition: 01/23/24
Time of Disposition: 00:32
Admit to: Telemetry
Presentation/result/management discussed w/ accepting MD/DO: Hospitalist
Discharge Problem:
CKD (chronic kidney disease), METZGER (dyspnea on exertion), Chronic systolic (congestive) heart failure
Prescriptions:
No Action
melatonin 5 MG tablet
10 mg PO HS
Eliquis 5 mg Tablet
5 mg PO BID
escitalopram oxalate [Lexapro] 20 mg Tablet
20 mg PO DAILY
metoprolol succinate 50 mg Tablet Extended Release 24 Hr
50 mg PO DAILY Qty: 30 0RF
amiodarone 200 mg Tablet
200 mg PO DAILY
furosemide 40 mg Tablet
40 mg PO DAILY 30 Days Qty: 30 0RF
Dramamine 25 mg Tablet,Chewable
25 mg PO DAILYPRN PRN (Reason: nausea)
bismuth subsalicylate [Pepto-Bismol] 262 mg/15 mL Suspension
524 mg PO DAILYPRN PRN (Reason: gerd)
Tylenol 650 mg tablet
650 mg PO Q8 PRN (Reason: PAIN)
pantoprazole 40 mg Tablet,Delayed Release (Dr/Ec)
40 mg PO DAILY Qty: 30 0RF
colestipol 1 gram tablet
1 g PO BID Qty: 60 0RF
Referrals:
Suyapa Duval CRNP [Family Provider] -
Interventions
Interventions:
*Risk Screen - Suicide Last Done: 01/22/24 22:10
*General Assessment Last Done: 01/22/24 23:09
*Neglect/Abuse Screening Last Done: 01/22/24 22:10
ED- Fall Risk Assessment Last Done: 01/22/24 23:06
*ED COVID-19 Vaccine History Last Done: 01/22/24 23:09
ED- Cardiac Assessment Last Done: 01/22/24 23:06
ED- Pulmonary Assessment Last Done: 01/22/24 23:06
Discharge Date and Time
Print Language: NORTHER[place] IRISH
[2024-01-22] MEDS: LASIX 40 MG IV (23:57)
[2024-01-23] VITALS (19 sets, daily range): BP systolic 99–128; BP diastolic 38–97; PULSE 82–95; O2SAT 98; BMI 34.2
[2024-01-23 00:08] LABS: Troponin I 0.015 ng/ml
--- NOTE | 2024-01-23 01:04 | HPS.HSE ---
Family Physician
-
Family Physician: Suyapa Duval
Chief Complaint
-
SOB, Edema
History of Present Illness
Patient is a 78y F with PMH significant for CHF and A-Fib who presents to ED complaining of SOB and LE edema. Patient was recently admitted 01/09 - 01/12 for acute on chronic diarrhea. She has been hospitalized multiple times in the past 2
months for issues relating primarily to A-Fib / CHF and chronic diarrhea. Patient states that she has continued to feel poorly since her return home on 01/12. She does appreciate improvement in her stools.
However, she also notes that she cannot take a 'deep, full breath'. She feels short of breath with any activity.
She has also appreciated increase in LE swelling - despite the fact that her weight at home has decreased since her recent discharge (198 to 191 lbs in the past week).
Patient has been taking all of her medications as prescribed. She reports no changes to her regimen since her recent discharge.
She has no chest pain. No cough, fevers / chills, etc.
Patient seems frustrated that she is 'not getting better'.
Her symptoms seem to be worse over the past 2 days.
Medical History
Past Medical History
Past Medical History: Reports Other
Additional Past Medical History:
Coronary Artery Disease s/p Stent
Ischemic Cardiomyopathy
Chronic HFrEF
NSVT s/p BiV ICD
Paroxysmal Atrial Fibrillation
[place]ail Hypertension
Hyperlipidemia
Irritable Bowel Syndrome
Depression
Past Surgical History: Reports Other
Additional Past Surgical History:
Cardiac Stent
BiV ICD
Knee Replacement
Hysterectomy
Social History
Tobacco: Non-smoker
Family History
Family History: Not pertinent
Allergies / Home Medications
Allergies reflects when Allergies were last updated in [employer] [facility].
Home Medications with original date entered in [facility] [facility]
Allergy/Medication List:
Allergies
Allergy/AdvReac Type Severity Reaction Status Date / Time
No Known Allergies Allergy Verified 01/22/24 22:12
Home Medications
melatonin 5 mg tablet 10 mg PO HS Sleep 07/29/20
apixaban 5 mg tablet (Eliquis) 5 mg PO BID Blood Clot Prevention/Tx 03/10/23
escitalopram oxalate 20 mg tablet (Lexapro) 20 mg PO DAILY Depression 12/18/23
metoprolol succinate 50 mg tablet,extended release 24 hr 50 mg PO DAILY #30 tabs 12/20/23
amiodarone 200 mg tablet 200 mg PO DAILY AFIB 01/03/24
furosemide 40 mg tablet 40 mg PO DAILY Heart Failure 1 month #30 tabs 01/06/24
bismuth subsalicylate 262 mg/15 mL oral suspension (Pepto-Bismol) 524 mg PO DAILYPRN PRN gerd 01/10/24
dimenhydrinate 25 mg chewable tablet (Dramamine) 25 mg PO DAILYPRN PRN nausea 01/10/24
Tylenol 650 mg PO Q8 PRN PAIN 01/11/24
colestipol 1 gram tablet 1 g PO BID #60 tabs 01/13/24
pantoprazole 40 mg tablet,delayed release 40 mg PO DAILY #30 tabs 01/13/24
Review of Systems
-
History Source: Patient
A 12 point ROS was completed and negative except as noted: Yes
Constitutional: Reports Weight Loss and Fatigue; Denies Fever or Chills
EENT: Denies Sore Throat
Respiratory: Reports Trouble Breathing; Denies Cough
Cardiac: Denies Chest Pain or Palpitations
Abdomen/GI: Denies Abdominal Pain, Nausea, Vomiting or Diarrhea
: Denies Dysuria, Frequency or Flank Pain
Musculoskeletal: Reports Edema
Neurological: Denies Dizzy or Headache
Psych: Denies Depression or Anxiety
Physical Exam
Vital Signs
Vital Signs
Temp Pulse Resp BP Pulse Ox
97.7 F 84 16 103/90 96
01/22/24 22:10 01/23/24 00:45 01/23/24 00:45 01/23/24 00:00 01/23/24 00:45
Physical Exam
General: Other (78y F in no acute distress.)
HEENT: Moist mucous membranes, PERRLA and Other (No JVD / HJR.)
Respiratory: Clear; No Wheezes, Rales or Rhonchi
Cardiac: S1/S2, Irregular Rhythm and Murmur (III/ ISMAEL)
GI: Soft, Non Tender, Non Distended and Normal Bowel Sounds
Musculoskeletal: No Clubbing, No Cyanosis and Other (2+ pitting edema b/l LEs to the knees.)
Neuro: AO x 3
Laboratory Results
-
01/22/24 23:04
01/22/24 23:04
Laboratory Results
Total Bilirubin 2.2 mg/dl (0.2-1.3) H 01/22/24 23:04
AST 30 U/L (14-36) 01/22/24 23:04
ALT 39 U/L (0-35) H 01/22/24 23:04
Alkaline Phosphatase 125 U/L (38-126) 01/22/24 23:04
Troponin I 0.015 ng/ml 01/22/24 23:04
Impression/Plan
-
A/P: Patient is a 78y F with PMH significant for A-Fib, CHF and IBS who presents to ED complaining of SOB and edema.
Chronic HFrEF
- Observe overnight for further evaluation and treatment.
- BNP is elevated and patient reports worsening edema, but not hypoxemic or in distress. No pulm edema on exam or CXR.
- Weight is decreased from last admission by patient report and our scales.
- IV Lasix given in the D and will continue daily for now.
- Follow I/Os, daily weights, renal function, etc.
- Recent Echo with LVEF = 20% and global hypokinesis. Severe TR.
- Cardiology evaluation for any additional recommendations.
Paroxysmal Atrial Fibrillation
- Patient in recurrent atrial fibrillation - ? if this is contributing to her symptomatology.
- Had Cardioversion done on 12/19.
- On amiodarone - dose adjusted due to complaints of diarrhea - now only once daily.
- Monitor on telemetry.
- Continue Eliquis for stroke risk reduction.
- Continue current amio / metoprolol dosing for now.
- Cardiology evaluation as noted above for additional recommendations.
ALANNA on CKD III
- SCr = 1.7 compared to recent baseline of 1.4 and previous baseline (12/2023) of 1.0.
- Likely prerenal due to diuresis / decreased cardiac output / etc.
- Follow for changes with continued diuresis.
ASCVD
- Stable. No complaints of chest pain.
- Continue current CV med regimen.
IBS with Diarrhea
- Stable / improved from prior.
- Continue current med regimen including colestipol.
- Follow for changes in bowel habits.
Anxiety / Depression
- Stable. Continue Lexapro.
DVT Prophylaxis: On Eliquis
Code Status: DNR
--- NOTE | 2024-01-23 03:47 | PTCARENOTE ---
Received patient from the ED. Afib with V pacing on the monitor, HR in the 80s. Oriented pt to room and discussed plan of care, pt verbalizes understanding. No complaints from pt at this time, call gasca within reach.
[2024-01-23 05:54] LABS: Hematocrit 37.4 % (37.0-47.0); Hemoglobin 12.2 g/dL (12.0-16.0); Mean Corp Hgb Conc. 32.6 g/dL (33.0-37.0); Mean Platelet Volume 10.5 fL (7.4-10.4); Platelet Count 314 10^3/uL (130-400); Red Blood Cell Count 4.35 10^6/uL (4.20-5.40); Red Cell Dist. Width 15.9 % (11.5-14.5); White Blood Cell Count 6.1 10^3/uL (4.8-10.8)
[2024-01-23 06:20] LABS: Blood Urea Nitrogen 64 mg/dl (7-17); Calcium 9.1 mg/dl (8.4-10.2); Carbon Dioxide 22 mmol/L (22-30); Chloride 102 mmol/L (98-107); Estimated Creatinine Clearance 26 ml/min; Glucose 99 mg/dl (70-99); Potassium 3.8 mmol/L (3.5-5.1); Sodium 140 mmol/L (135-145); eGFR 26.69
[2024-01-23] MEDS: PROTONIX 40 MG PO (08:10)
[2024-01-23] MEDS: TOPROL XL 50 MG PO (08:10)
[2024-01-23] MEDS: PACERONE 200 MG PO ×3 (08:10→21:26)
[2024-01-23] MEDS: ELIQUIS 5 MG PO ×2 (08:11→19:21)
[2024-01-23] MEDS: LEXAPRO 20 MG PO (08:11)
[2024-01-23] MEDS: LASIX 40 MG IV (09:34)
--- NOTE | 2024-01-23 11:08 | W.CON.NEPH ---
Consultation
-
Date/Time Consultation Requested: 01/23/2024 11:00 AM
Date/Time Consultation Performed: 01/23/2024 11:15 AM
Requesting Provider: Dr. Teague
Performing Provider: Dr. Merlos
Reason for Consultation: Acute kidney injury
Medical History
-
Chief Complaint: Acute kidney injury
History of Present Illness:
The patient is a 78-year-old female with a past medical history of atrial fibrillation maintained on amiodarone and metoprolol and chronically anticoagulated with Eliquis. She has a history of congestive heart failure and is maintained on 40 mg
daily of Lasix. She is maintained on proton pump inhibitor in the setting of her GERD. She presented to the hospital with increasing shortness of breath and lower extremity edema. The patient had been recently admitted here to the hospital from
01 09-01 12 for acute on chronic diarrhea. She has had multiple hospitalizations related to her A-fib congestive heart failure and chronic diarrhea. Although her weights have decreased since her discharge from she notes increasing edema.
Her creatinine at discharge on 01/13/2024 was 1.4 and it was up to 1.9 today and nephrology was consulted ALANNA. Of note her baseline creatinine was 0.9 on 12/20/2023
Past Medical History
Coronary Artery Disease s/p Stent
Ischemic Cardiomyopathy
Chronic HFrEF
NSVT s/p BiV ICD
Paroxysmal Atrial Fibrillation
Essentail Hypertension
Hyperlipidemia
Irritable Bowel Syndrome
Depression
Social History
Tobacco: Non-Smoker
Alcohol: None
Drug: None
Family History
No chronic kidney disease
Allergies / Home Medications
Allergy/AdvReac Type Severity Reaction Status Date / Time
No Known Allergies Allergy Verified 01/22/24 22:12
�Medication �Instructions �Recorded �Confirmed �Type
melatonin 5 mg tablet 10 mg PO HS Sleep 07/29/20 01/23/24 History
apixaban 5 mg tablet (Eliquis) 5 mg PO BID Blood Clot 03/10/23 01/23/24 History
Prevention/Tx
escitalopram oxalate 20 mg tablet 20 mg PO DAILY Depression 12/18/23 01/23/24 History
(Lexapro)
metoprolol succinate 50 mg 50 mg PO DAILY #30 tabs 12/20/23 01/23/24 Rx
tablet,extended release 24 hr
amiodarone 200 mg tablet 200 mg PO DAILY AFIB 01/03/24 01/23/24 History
furosemide 40 mg tablet 40 mg PO DAILY Heart Failure 1 01/06/24 01/23/24 Rx
month #30 tabs
bismuth subsalicylate 262 mg/15 mL 524 mg PO DAILYPRN PRN gerd 01/10/24 01/23/24 History
oral suspension (Pepto-Bismol)
dimenhydrinate 25 mg chewable 25 mg PO DAILYPRN PRN nausea 01/10/24 01/23/24 History
tablet (Dramamine)
Tylenol 650 mg PO Q8 PRN PAIN 01/11/24 01/23/24 History
colestipol 1 gram tablet 1 g PO BID #60 tabs 01/13/24 01/23/24 Rx
pantoprazole 40 mg tablet,delayed 40 mg PO DAILY #30 tabs 01/13/24 01/23/24 Rx
release
Review of Systems
-
All other systems: Negative unless noted
Respiratory: Trouble Breathing
Abdomen/GI: Nausea and Anorexia
Musculoskeletal: Edema
Physical Exam
Vital Signs
Vital Signs
Temp Pulse Resp BP Pulse Ox
97.5 F 81 20 128/85 96
01/23/24 06:59 01/23/24 08:10 01/23/24 06:59 01/23/24 08:10 01/23/24 08:45
Lab Results
01/23/24 05:04
01/23/24 05:04
WBC 6.1 10^3/uL (4.8-10.8) 01/23/24 05:04
RBC 4.35 10^6/uL (4.20-5.40) 01/23/24 05:04
Hgb 12.2 g/dL (12.0-16.0) 01/23/24 05:04
Hct 37.4 % (37.0-47.0) 01/23/24 05:04
Plt Count 314 10^3/uL (130-400) 01/23/24 05:04
Sodium 140 mmol/L (135-145) 01/23/24 05:04
Potassium 3.8 mmol/L (3.5-5.1) 01/23/24 05:04
Chloride 102 mmol/L (98-107) 01/23/24 05:04
Carbon Dioxide 22 mmol/L (22-30) 01/23/24 05:04
BUN 64 mg/dl (7-17) H 01/23/24 05:04
Creatinine 1.9 mg/dL (0.6-1.0) H 01/23/24 05:04
eGFR 26.69 01/23/24 05:04
Glucose 99 mg/dl (70-99) 01/23/24 05:04
Calcium 9.1 mg/dl (8.4-10.2) 01/23/24 05:04
Bib-Z-Pslpmtvrwvt Pept 22893 pg/ml 01/22/24 23:04
Albumin 3.9 g/dl (3.5-5.0) 01/22/24 23:04
Physical Exam
General: AOx3, Nontoxic , NAD
HEENT: PERRL, EOMI, Anicteric, Conjunctivae Clear, Ear/Nose Intact, Hearing Normal, Oropharynx Clear/Moist, Dentition Intact, Facial Symmetry, Neck Supple, Neck: Trachea Midline, No JVD and No Thyromegaly, no Bruits
Respiratory: Clear to auscultation bilaterally with normal lung exersion
Cardiac: S1/S2 irregular irregular (pacer/icd)
Breast: Deferred by me
Abdomen: Soft, Nontender, Nondistended, Normal Bowel Sounds and No Hepatosplenomegaly
Rectal: Deferred by Provider
Genito-urinary: No Costovertebral Tenderness
Extremities: No Clubbing, No Cyanosis and +2 pitting edema
Skin: No Rash or open lesions
Neuro: Nonfocal/Grossly Intact, CN II-XII (Intact) and Strength (Musculoskeletal exam 5 out of 5 both upper and lower extremities)
Hematologic/Lymphatic: No Cervical Lymphadenopathy, No Submandibular Lymphadenopathy and No Supraclavicular Lymphadenopathy
Psych: Mood/afflect pleasant, Insight/judgement good and Appropriate
Vascular: plus 2 pedal and radial pulses
Data Reviewed
-
Radiology: Report Reviewed by me (Chest x-ray personally reviewed: Left anterior chest wall ICD pacer device no overt congestive heart)
Labs: Labs Reviewed by me (BMP CBC UA)
Old Records: Reviewed (Creatinine level 0.9 per review of EMR record from 12/20/2023)
Assessment/Plan
-
Impression:
ALANNA
History of congestive heart failure withEF of 35% /edema on presentation
Paroxysmal atrial fibrillation
Coronary artery disease with history of stent
IBS with diarrhea
Anxiety depression
History of ventricular tachycardia with ICD
Plan:
-Check urinalysis in regards to significant edema and escalating creatinine
-Accurate I's and O's
-IV diuretics in place (40mg IV daily) for presumed congestive heart failure decompensation (pro BNP 38731)(of note weights are down since last admission), lungs clear
-Weights could be down as patient is not eating due to nausea
-Obtain kidney and bladder ultrasound in a.m.
-Patient was slightly hypotensive on admission which may have precipitated a prerenal state (this may be advancing cardio renal syndrome)
--- NOTE | 2024-01-23 11:46 | CON.CAR ---
Consultation
Consultation Request
Date/Time Consultation Requested: 01/23/2024 0329
Date/Time Consultation Performed: 01/23/2024 0945
Requesting Provider: Jordin Edwards DO
Performing Provider: Mandeep Hamilton DO
Reason for Consultation: AF, HF
Medical History
-
Chief Complaint: SOB, edema
History of Present Illness:
Patient is a pleasant 78-year-old female with past medical history significant for chronic heart failure with reduced ejection fraction with an EF 34% by echo October 2023, paroxysmal symptomatic atrial fibrillation status post cardioversion December
2023 on chronic anticoagulation and amiodarone therapy, left bundle branch block status post Medtronic BiV ICD 11/2022, hypertension, hyperlipidemia, CAD status post PCI with RAULITO to OM 07/2020, IBS, diverticulitis, TKR who presents due to worsening
shortness of breath and edema. Patient recently admitted the beginning of January due to acute on chronic diarrhea. Patient has had multiple hospitalizations due to diarrhea, A-fib, heart failure over the past few months. Patient reports
worsening lower extremity swelling inability to place she was on feet, shortness of breath, PND, orthopnea. Patient denies chest pain, lightheadedness, dizziness, near-syncope, syncope, chest pain, or weakness. She also notes intermittent
palpitations. EKG appears to be underlying AF with intermittent RV and BiV pacing with occasional PVCs and fusion complexes. BNP 15,000. Troponin negative. Of note, since admission, renal function has worsened to creatinine 1.6-1.9. Weights
have increased. Patient reports adherence to all medications. No other complaints at this time.
Past Medical History
Past Medical History: Other (See HPI)
Past Surgical History: Other (See HPI)
Social History
Tobacco: Non-Smoker
Alcohol: None
Drug: None
Family History
Family History: Reviewed & Not Pertinent
Allergies / Home Medications
Allergy/AdvReac Type Severity Reaction Status Date / Time
No Known Allergies Allergy Verified 01/22/24 22:12
�Medication �Instructions �Recorded �Confirmed �Type
melatonin 5 mg tablet 10 mg PO HS Sleep 07/29/20 01/23/24 History
apixaban 5 mg tablet (Eliquis) 5 mg PO BID Blood Clot 03/10/23 01/23/24 History
Prevention/Tx
escitalopram oxalate 20 mg tablet 20 mg PO DAILY Depression 12/18/23 01/23/24 History
(Lexapro)
metoprolol succinate 50 mg 50 mg PO DAILY #30 tabs 12/20/23 01/23/24 Rx
tablet,extended release 24 hr
amiodarone 200 mg tablet 200 mg PO DAILY AFIB 01/03/24 01/23/24 History
furosemide 40 mg tablet 40 mg PO DAILY Heart Failure 1 01/06/24 01/23/24 Rx
month #30 tabs
bismuth subsalicylate 262 mg/15 mL 524 mg PO DAILYPRN PRN gerd 01/10/24 01/23/24 History
oral suspension (Pepto-Bismol)
dimenhydrinate 25 mg chewable 25 mg PO DAILYPRN PRN nausea 01/10/24 01/23/24 History
tablet (Dramamine)
Tylenol 650 mg PO Q8 PRN PAIN 01/11/24 01/23/24 History
colestipol 1 gram tablet 1 g PO BID #60 tabs 01/13/24 01/23/24 Rx
pantoprazole 40 mg tablet,delayed 40 mg PO DAILY #30 tabs 01/13/24 01/23/24 Rx
release
Review of Systems
-
History Source: Patient
All other systems: Negative unless noted
Constitutional: Weight Gain and Fatigue
EENT: No Symptoms
Respiratory: Trouble Breathing
Cardiac: Other (Lower extremity swelling)
Abdomen/GI: Abdominal Pain, Diarrhea and Anorexia
: No Symptoms
Musculoskeletal: Edema
Skin: No Symptoms
Neurological: No Symptoms
Endocrine: No Symptoms
Hematologic/Lymphatic: No Symptoms
Physical Exam
Vital Signs
Temp Pulse Resp BP Pulse Ox
97.7 F 81 20 128/85 98
01/23/24 11:35 01/23/24 08:10 01/23/24 11:35 01/23/24 08:10 01/23/24 11:35
Lab Results
01/23/24 05:04
01/23/24 05:04
Troponin I 0.015 ng/ml 01/22/24 23:04
Spv-Q-Kxbftcdayog Pept 35234 pg/ml 01/22/24 23:04
Physical Exam
General: Well Developed, Well Nourished and No Apparent Distress
HEENT: Normocephalic, Anicteric and Moist Mucous Membranes
Respiratory: Crackles (bibasilar) and Non Labored Respirations
Cardiac: Irregular Rhythm and Peripheral Edema (2+ BL LE)
Breast: Deferred by me
GI: Soft, Non Tender and Non Distended
Rectal: Deferred by Provider
Musculoskeletal: No Clubbing and No Cyanosis
Skin: Warm and Dry
Neuro: Awake, Alert, Oriented and No Motor Deficits
Impression / Plan
-
PCP: BYRON Man
Returned Goods Sorter: Dr. Figueroa
Sole Painter: Dr. Robert Ziegler
.
Impression:
Acute on chronic heart failure with reduced ejection fraction
� BNP greater than 15,000
� Overload on exam
Cardiomyopathy LVEF 34% by echo 10/2023
�GDMT with beta-benjy, Entresto on hold due to ALANNA
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
Symptomatic paroxysmal atrial fibrillation
� [id number]: 6 (hypertension, age, heart failure, vascular disease, gender). On Eliquis 5 mg twice daily for stroke risk reduction
� On amiodarone 200 mg twice daily, metoprolol 50 mg daily
Diarrhea, chronic
Left bundle branch block
Hypertension
Hyperlipidemia, CAD status post RAULITO to OM04/2020
IBS
History of diverticulitis
TKR
Lexiscan nuclear stress test 07/19/2020: Moderate reversible defect in the mid inferolateral, mid inferior, and apical inferior segments. Inferior hypokinesis. LVEF 40%. LV normal size.�������
Echo 07/12/2020: LVEF 45-50%. Mild global hypo. Inferior basal akinesis. Moderate LAE. Aortic valve sclerosis.
Echo 03/20/2021: EF 35 to 40%, stage II DD. Mild left atrial enlargement. Mild MR.
Echo 10/11/2023: EF 34%. Moderately reduced LV systolic function. Stage II DD. Mild MR, mild TR. PAP 37 mmHg
Recommendations:
� Patient presenting with acute on chronic heart failure with reduced ejection fraction in the setting of poorly controlled AF, likely low BiV pacing burden. Evidence of volume overload increased weight on exam. BNP greater than 15,000
� IV diuresis, appreciate input by nephrology given patient's rising creatinine possible cardiorenal syndrome currently. Awaiting renal ultrasound and further input
� Increase amiodarone from 200 mg twice daily to 200 mg 3 times daily; following reduction in weight and improvement in breathing, recommend RIAZ/DCCV. Patient off anticoagulation last admission due to colonoscopy/endoscopy and therefore may require
RIAZ prior to cardioversion
Data Reviewed
-
EKG: Tracing Personally Visualized and interpreted
Radiology: Report Reviewed by me
Medical Tests (Nuc Med, Echo etc): Image Personally Visualized and interpreted
Labs: Labs Reviewed by me
Old Records: Reviewed
[2024-01-23 12:02] LABS: Urine Albumin Negative (Neg - Trace); Urine Bilirubin Negative (Negative); Urine Character Clear (Clear); Urine Color Yellow; Urine Glucose Negative (Negative); Urine Ketone Negative (Negative); Urine Leukocyte Trace (Negative); Urine Nitrite Negative (Negative); Urine Occult Blood Negative (Negative); Urine Specific Gravity 1.015 (<1.030); Urine Urobilinogen Negative (Neg - 1+)
[2024-01-23 12:28] LABS: Urine Bacteria Few (Negative); Urine Red Blood Cell None Seen /HPF (0-2)
--- NOTE | 2024-01-23 23:49 | PTCARENOTE ---
Received pt at change of shift. Afib on the monitor with some V pacing. VSS. Discussed fall risk with pt, pt verbalizes understanding. No complaints from pt at this time, call gasca within reach.
[2024-01-24] VITALS (7 sets, daily range): BP systolic 99–114; BP diastolic 72–99; BMI 33.9; BMI 34.0
[2024-01-24 04:53] LABS: Blood Urea Nitrogen 68 mg/dl (7-17); Calcium 9.4 mg/dl (8.4-10.2); Carbon Dioxide 24 mmol/L (22-30); Chloride 102 mmol/L (98-107); Estimated Creatinine Clearance 25 ml/min; Glucose 99 mg/dl (70-99); Potassium 3.9 mmol/L (3.5-5.1); Sodium 139 mmol/L (135-145); eGFR 26.69
[2024-01-24] MEDS: PACERONE 200 MG PO ×3 (07:43→21:35)
[2024-01-24] MEDS: ELIQUIS 5 MG PO ×2 (07:43→20:32)
[2024-01-24] MEDS: TOPROL XL 50 MG PO (07:43)
[2024-01-24] MEDS: PROTONIX 40 MG PO (07:43)
[2024-01-24] MEDS: LASIX 40 MG IV (07:44)
[2024-01-24] MEDS: LEXAPRO 20 MG PO (07:44)
--- NOTE | 2024-01-24 08:58 | VNURNOTE ---
Chart reviewed. Patient is current with [facility] 234 BEDS AT THE [facility] nursing. Will continue to follow hospital course and DC plans.
--- NOTE | 2024-01-24 11:10 | W.PN.NEPH.PH ---
Today's Communication / Plan
-
cont lasix, pending renal US
Assessment/Plan
-
Impression:
ALANNA
History of congestive heart failure withEF of 35% /edema on presentation
Paroxysmal atrial fibrillation
Coronary artery disease with history of stent
IBS with diarrhea
Anxiety depression
History of ventricular tachycardia with ICD
Plan:
ALANNA-suspect cardiorenal, UA relatively bland
pending renal US, non oliguric, follow bladder scan
would continue lasix still
-Weights could be down as patient is not eating due to nausea
BP soft on BB
follow labs
d/w pt
-
-
Date of Service: January 24, 2024
CC / HPI / ROS
-
Chief Complaint:
ALANNA
History of Present Illness:
cr no change cr 1.9
wt decreasing, BP stable
no fever
Review of Systems:
no cp or sob at rest
edema improving
Labs
-
Labs:
WBC 6.1 10^3/uL (4.8-10.8) 01/23/24 05:04
RBC 4.35 10^6/uL (4.20-5.40) 01/23/24 05:04
Hgb 12.2 g/dL (12.0-16.0) 01/23/24 05:04
Hct 37.4 % (37.0-47.0) 01/23/24 05:04
Plt Count 314 10^3/uL (130-400) 01/23/24 05:04
Sodium 139 mmol/L (135-145) 01/24/24 03:42
Potassium 3.9 mmol/L (3.5-5.1) 01/24/24 03:42
Chloride 102 mmol/L (98-107) 01/24/24 03:42
Carbon Dioxide 24 mmol/L (22-30) 01/24/24 03:42
BUN 68 mg/dl (7-17) H 01/24/24 03:42
Creatinine 1.9 mg/dL (0.6-1.0) H 01/24/24 03:42
eGFR 26.69 01/24/24 03:42
Glucose 99 mg/dl (70-99) 01/24/24 03:42
Calcium 9.4 mg/dl (8.4-10.2) 01/24/24 03:42
Kbf-H-Wbuafpbzstw Pept 55732 pg/ml 01/22/24 23:04
Albumin 3.9 g/dl (3.5-5.0) 01/22/24 23:04
Physical Exam
-
Vital Signs:
Vital Signs
Temp Pulse Resp BP Pulse Ox
97.8 F 88 14 111/91 96
01/24/24 08:09 01/24/24 10:00 01/24/24 08:09 01/24/24 07:37 01/24/24 08:09
Cardiovascular:: Regular rate and rhythm
Respiratory:: Bilateral: Rales
Lung Excursion:: Normal
Abdomen:: Nontender and Soft
Extremity Edema:: +2: Bilateral:
Bueno Catheter: No
--- NOTE | 2024-01-24 12:07 | W.PN.CARDCBS ---
Addendum entered and electronically signed by Gerardo Cohen DO 01/24/24 21:04:
I saw and examined the patient.
The Preschool Aide's note was reviewed and I agree with the note.
Comment:
Plan:
Cr tending up with IV lasix. Will hold further and monitor cr and wts.
With recurrent aFib, amiodarone load initiated. She was discharged on amiodarone 200 mg daily but her diarrhea predated her amiodarone.
Consider RIAZ/cv prior to d/c and if she has recurrent aFib with amiodarone load, could consider eventual PVI. Will have her follow upwith her EP, Dr Ziegler,
Ongoing dyspnea could be due to recurrent Afib. Patient had CV 12/20/23 and has been back in Afib persistently since 12/22/23.
Will tentatively plan on a RIAZ/CV 01/26/24
Addendum entered and electronically signed by Shanelle Amos PA-C 01/24/24 16:03:
Of note, patient was d/c'd to home on amiodarone 200 mg daily last admission due to concerns about diarrhea from GI even though diarrhea predates initiation of amiodarone. Appreciate help of hospitalist attending sorting this out.
Original Note:
Today's Communication / Plan
-
Hold Lasix starting tomorrow morning
Follow Cre
Tentative RIAZ/CV Wednesday
Impression / Plan
-
PCP: BYRON Man
Public Opinion Survey Taker: Dr. Figueroa
Helicopter Crew Chief: Dr. Robert Ziegler
.
Impression:
Admitted with acute on chronic HFrEF
CM EF 34% by echo 10/11/23, down to 20% by repeat echo 01/04/24
Recurrent and persistent Afib
Chronic Eliquis
LBBB
s/p Medtronic BiV ICD 11/18/22
HTN
HLD
CAD
s/p RAULITO OM 07/2020
h/o Diverticulitis
Lexiscan nuclear stress test 07/19/2020: Moderate reversible defect in the mid inferolateral, mid inferior, and apical inferior segments. Inferior hypokinesis. LVEF 40%. LV normal size.�������
Echo 07/12/2020: LVEF 45-50%. Mild global hypo. Inferior basal akinesis. Moderate LAE. Aortic valve sclerosis.
Echo 03/20/2021: EF 35 to 40%, stage II DD. Mild left atrial enlargement. Mild MR.
Echo 10/11/2023: EF 34%. Moderately reduced LV systolic function. Stage II DD. Mild MR, mild TR. PAP 37 mmHg
Echo 01/04/2024: EF 20%, global hypokinesis with regional variability, normal RV size with low normal RV systolic function, moderate to severe MR, severe TR with PAP 65-70 mmHg
Recommendations:
-Weight is down 4 lbs with Lasix 40 mg IV daily since admission. Patient was taking Lasix 40 mg PO daily prior to admission. Patient is now below previous dry weight and Cre has trended up to 1.9. Will [address] Lasix IV on hold
-EF down to 20% by echo from last admission and had previously been 34%.
-Outpatient dose of Toprol XL 50 mg daily continued
-Outpatient dose of Entresto 49/51 mg was placed on hold during 01/03/24 until 01/06/24 admission due to ALANNA and has not been restarted.
-Ongoing SOB could be due to persistent Afib. Patient had CV 12/20/23 and has been back in Afib persistently since 12/22/23. Amiodarone started by Dr. Figueroa in the office in December and then increased to 200 mg BID last admission at , but ofr some
reason patient was d/c'd to home on amiodarone 200 mg daily last admission and therefor has not received much of a load. Amiodarone increased to 200 mg TID this admission.
-Of note, diarrhea symptoms predating initiation of amiodarone by her primary continuing education dean, Dr. Figueroa.
-Will tentatively plan on a RIAZ/CV 01/26/24
-Fatoumataquis was interrupted for GI work-up last admission. Cont Guilherme Vanegas 5 mg BID (age 78, Cre 1.9, wt 86.7 kg)
Progress Note - Public Opinion Survey Taker
Subjective
Date of Service: January 24, 2024
SOB walking to bathroom
Objective
Labs:
01/23/24 05:04
01/24/24 03:42
Labs
Hgb 12.2 g/dL (12.0-16.0) 01/23/24 05:04
Hct 37.4 % (37.0-47.0) 01/23/24 05:04
Plt Count 314 10^3/uL (130-400) 01/23/24 05:04
Sodium 139 mmol/L (135-145) 01/24/24 03:42
Potassium 3.9 mmol/L (3.5-5.1) 01/24/24 03:42
BUN 68 mg/dl (7-17) H 01/24/24 03:42
Creatinine 1.9 mg/dL (0.6-1.0) H 01/24/24 03:42
Glucose 99 mg/dl (70-99) 01/24/24 03:42
Troponins
01/22/24
23:04
Troponin I 0.015
Vital Signs and I&O:
Vital Signs
Temp Pulse Resp BP Pulse Ox
97.4 F 88 18 111/91 97
01/24/24 11:44 01/24/24 10:00 01/24/24 11:44 01/24/24 07:37 01/24/24 11:44
Vital Signs
Temp Pulse Resp BP Pulse Ox
97.4 F 88 18 111/91 97
01/24/24 11:44 01/24/24 10:00 01/24/24 11:44 01/24/24 07:37 01/24/24 11:44
Intake & Output
01/22/24 01/23/24 01/24/24 01/25/24
06:59 06:59 06:59 06:59
Intake Total 150 / 150 480 / 480
Output Total 200 / 200 1600 / 1600 300 / 300
Balance -50 / -50 -1120 / -1120 -300 / -300
Physical Exam
Physical Exam
GEN: AAOx3
HEENT: MMM
LUNGS: No audible wheeze
CV: Paced on tele
ABD: ND
EXT: No edema B/L
NEURO: Gross non-focal
SKIN: No rash
--- NOTE | 2024-01-24 13:59 | CM ---
Chart reviewed. Patient is independent of ADLS, lives with her grandson in a 1st floor apartment, 5-6 ROSY, ambulates with a RW. Patient is current with VN. Plan is for the patient to return home with [facility]. CM to follow
[2024-01-24 14:16] LABS: Protein/creatinine Ratio 0.2; Urine Protein 11 mg/dl
--- NOTE | 2024-01-24 15:10 | W.PN.HOSP.TC ---
Today's Communication/Plan
-
Assessment / Plan
Assessment / Plan
Physical Exam
NAD, resting comfortably in bed
Scleral anicteric
Moist mucous membranes
JVD +
CTA bilateral
Normal S1-S2 no murmurs
Soft nontender nondistended bowel sounds active
Bilateral lower extremity edema 2+, worse on the left than the right
Moves extremities spontaneously
AAOx3
Assessment and Plan
Acute on chronic HFrEF exacerbation, EF 20%, NYHA classification 3-4 further complicated by with PAP 65-70 this likely demonstrates who group 2
-IV diuretics
-Follow renal function
-Keep K greater than 4
-Keep magnesium greater than 2
-Monitor daily weights
-Monitor urinary output/I's and O's
-Continue GDMT with BB and Entresto
-Cardiology following
Atrial fibrillation
-Eliquis 5 mg twice daily per cards
-Amiodarone increased frequency
-Once volume status improved cards plans for RIAZ/DCCV
ALANNA likely secondary to CRS
-Bladder scan
-nonoligouric
-Avoid nephrotoxins and hypotension
-Renal diet
-Nephrology following
-Does not meet INSPECTOR TYPE needs at this time
Even though on eliquis will check dvt study
Anticipated Discharge: > 48 hours
Subjective/Interval History
-
Date of Service: January 24, 2024
Seen and examined. No new complaints. No acute overnight events.
Objective Data
-
Labs:
Laboratory Results
01/24/24
03:42
Sodium 139
Potassium 3.9
Chloride 102
Carbon Dioxide 24
BUN 68 H
Creatinine 1.9 H
Glucose 99
Calcium 9.4
Vital Signs:
Vital Signs
Temp Pulse Resp BP Pulse Ox
97.4 F 88 18 111/91 97
01/24/24 11:44 01/24/24 10:00 01/24/24 11:44 01/24/24 07:37 01/24/24 11:44
I&O
01/23/24 01/24/24 01/25/24
06:59 06:59 06:59
Intake Total 150 / 150 480 / 480
Output Total 200 / 200 1600 / 1600 300 / 300
Balance -50 / -50 -1120 / -1120 -300 / -300
--- NOTE | 2024-01-24 21:42 | PTCARENOTE ---
Received pt at change of shift. V paved on the monitor with PVCs, HR in the 80s. VSS. No complaints from pt at this time, Call gasca within reach.
--- NOTE | 2024-01-24 22:24 | PTCARENOTE ---
Patient AV paced on the monitor, HR in the 80s. Report given to [facility]. Patient transferred to [facility] in a wheelchair with a staff escort. Pt left with belongings from room and paper chart.
--- NOTE | 2024-01-24 22:55 | PTCARENOTE ---
Rec'd pt from IVU. walked from wheelchair to bed. oriented to room. Denies pain. telemetry pack # 7 placed on pt.
[2024-01-25 03:30] VITALS: BP 111/78
[2024-01-25 06:00] VITALS: BMI 33.8
[2024-01-25 07:15] VITALS: BP 127/90
[2024-01-25] MEDS: ELIQUIS 5 MG PO ×2 (09:18→20:46)
[2024-01-25] MEDS: PROTONIX 40 MG PO (09:19)
[2024-01-25] MEDS: PACERONE 200 MG PO ×3 (09:19→22:06)
[2024-01-25] MEDS: LEXAPRO 20 MG PO (09:19)
[2024-01-25] MEDS: TOPROL XL 50 MG PO (09:19)
[2024-01-25] MEDS: LASIX IV (09:21)
--- NOTE | 2024-01-25 11:00 | W.PN.CARDCBS ---
Addendum entered and electronically signed by Jovanny Patterson MD 01/25/24 11:38:
I saw and examined the patient.
The COMPLEX CARE NURSE or PA's note was reviewed and I agree with the note.
Comment: General: Well developed, well nourished in NAD.
Neck: Supple, no JVD, HJR, carotids +2 B/L, no bruits bilaterally.
Heart: Non displaced PMI, irregular, no murmurs, No S3, S4, no rubs.
Lungs: Scattered rhonchi
Extremities: No clubbing, cyanosis or edema bilaterally.
Neuro: Grossly nonfocal, awake, alert and oriented x3.
Remains in A-fib. Continue amiodarone loading. Plan on RIAZ/cardioversion on 01/25. Diuretics on hold with renal insufficiency
Original Note:
Today's Communication / Plan
-
Continue amiodarone load with 200 mg 3 times daily this admission
Continue Eliquis
RIAZ/cardioversion 01/26/2024
N.p.o. after midnight
Diuresis on hold due to ALANNA; await nephrology input if diuresis can be resumed
Impression / Plan
-
PCP: BYRON Man
Quarter Lining Smoother: Dr. Figueroa
Medical Anthropologist: Dr. Robert Ziegler
.
Impression:
Admitted with acute on chronic HFrEF
CM EF 34% by echo 10/11/23, down to 20% by repeat echo 01/04/24
Recurrent and persistent Afib
Chronic Eliquis
LBBB
s/p Medtronic BiV ICD 11/18/22
HTN
HLD
CAD
s/p RAULITO OM 07/2020
h/o Diverticulitis
Lexiscan nuclear stress test 07/19/2020: Moderate reversible defect in the mid inferolateral, mid inferior, and apical inferior segments. Inferior hypokinesis. LVEF 40%. LV normal size.�������
Echo 07/12/2020: LVEF 45-50%. Mild global hypo. Inferior basal akinesis. Moderate LAE. Aortic valve sclerosis.
Echo 03/20/2021: EF 35 to 40%, stage II DD. Mild left atrial enlargement. Mild MR.
Echo 10/11/2023: EF 34%. Moderately reduced LV systolic function. Stage II DD. Mild MR, mild TR. PAP 37 mmHg
Echo 01/04/2024: EF 20%, global hypokinesis with regional variability, normal RV size with low normal RV systolic function, moderate to severe MR, severe TR with PAP 65-70 mmHg
Recommendations:
-Presented 01/22/2024 with worsening shortness of breath, edema, orthopnea and PND patient noted to be in acute heart failure with proBNP 15,000 and ALANNA on CKD
-Weight is down 5 lbs this admission with Lasix 40 mg IV daily since admission. Placed Lasix on hold 01/25/2024 due to ongoing ALANNA. Nephrology following with unremarkable renal ultrasound. If nephrology feels safe to continue diuresis then resume
per the recommendation
-Patient was taking Lasix 40 mg PO daily prior to admission. Patient is now below previous dry weight and Cre has trended up to 1.9.
-EF down to 20% by echo from last admission and had previously been 34%.
-Continue GDMT for CM/HF with Toprol XL 50 mg daily.
-ALANNA on CKD has limited resumption of BRITTANY/ARB/ARNI which was placed on hold during 01/03/24 until 01/06/24 admission.
-Could consider adding SGLT2 inhibitor if nephrology feels would be safe from a renal standpoint
-Ongoing dyspnea could be due to recurrent Afib. Patient had CV 12/20/23 and has been back in Afib persistently since 12/22/23. Amiodarone started by Dr. Figueroa in the office in December and then increased to 200 mg BID last admission at , but for
some reason patient was d/c'd home on amiodarone 200 mg daily and therefor has not received much of a load. Amiodarone increased to 200 mg TID this admission.
-Of note, diarrhea symptoms predating initiation of amiodarone by her primary home demonstration agent, Dr. Figueroa.
-Eliquis was interrupted for GI work-up last admission. Cont Eliqumignon Eliquis 5 mg BID (age 78, Cre 1.9, wt 86.7 kg)
-Will tentatively plan on a RIAZ/CV 01/26/24
Progress Note - Quarter Lining Smoother
Subjective
Date of Service: January 25, 2024
Patient seen and examined. Patient sitting in bed. Feels less short of breath but still not back to baseline. Still with some lower extremity edema.
Objective
Labs:
01/23/24 05:04
01/24/24 03:42
Labs
Hgb 12.2 g/dL (12.0-16.0) 01/23/24 05:04
Hct 37.4 % (37.0-47.0) 01/23/24 05:04
Plt Count 314 10^3/uL (130-400) 01/23/24 05:04
Sodium 139 mmol/L (135-145) 01/24/24 03:42
Potassium 3.9 mmol/L (3.5-5.1) 01/24/24 03:42
BUN 68 mg/dl (7-17) H 01/24/24 03:42
Creatinine 1.9 mg/dL (0.6-1.0) H 01/24/24 03:42
Glucose 99 mg/dl (70-99) 01/24/24 03:42
Troponins
01/22/24
23:04
Troponin I 0.015
Vital Signs and I&O:
Vital Signs
Temp Pulse Resp BP Pulse Ox
97.4 F 80 16 127/90 97
01/25/24 07:15 01/25/24 07:15 01/25/24 07:15 01/25/24 07:15 01/25/24 07:15
Vital Signs
Temp Pulse Resp BP Pulse Ox
97.4 F 80 16 127/90 97
01/25/24 07:15 01/25/24 07:15 01/25/24 07:15 01/25/24 07:15 01/25/24 07:15
Intake & Output
01/23/24 01/24/24 01/25/24 01/26/24
06:59 06:59 06:59 06:59
Intake Total 150 / 150 480 / 480 480 / 480
Output Total 200 / 200 1600 / 1600 500 / 500
Balance -50 / -50 -1120 / -1120 -20 / -20
Physical Exam
Physical Exam
GEN: No distress, awake, Ox3, lying comfortably in bed
HEENT: supple, anicteric, mmm
LUNGS: Faint crackles at left base otherwise CTA, no wheezes/rales; on room air
CV: Irregularly irregular, S1/S2, 1/6 syst LSB murmur, no rub or gallop
ABD: soft, BS+, NT/ND
EXT: Trace bilateral lower extremity edema, no clubbing or cyanosis
NEURO: Gross non-focal
SKIN: No rash, warm, dry, pink
[2024-01-25 11:30] VITALS: BP 113/74
[2024-01-25 11:40] VITALS: BP 113/74
--- NOTE | 2024-01-25 13:42 | W.PN.HOSP.TC ---
Today's Communication/Plan
-
NPO ON for RIAZ/DCCV
Assessment / Plan
Assessment / Plan
Physical Exam
NAD, resting comfortably in bed
Scleral anicteric
Moist mucous membranes
JVD +
CTA bilateral
Normal S1-S2 no murmurs
Soft nontender nondistended bowel sounds active
Bilateral lower extremity edema 2+, worse on the left than the right
Moves extremities spontaneously
AAOx3
Assessment and Plan
Acute on chronic HFrEF exacerbation, EF 20%, NYHA classification 3-4 further complicated by with PAP 65-70 this likely demonstrates who group 2
-IV diuretics placed on hold by Nephrology, but I do think that we could continues as I suspect this is more CRS and would expect improvement in renal function, per cards if safe to ocntinue by neph then they would not mind resuming
-Follow renal function
-Keep K greater than 4
-Keep magnesium greater than 2
-Monitor daily weights,5lbs loss, states still legs are swollen
-Monitor urinary output/I's and O's
-Continue GDMT with BB and Entresto
-Cardiology following
Atrial fibrillation
-Eliquis 5 mg twice daily per cards
-Amiodarone increased frequency
-Once volume status improved cards plans for RIAZ/DCCV
--NPO ON for RIAZ/DCCV
ALANNA likely secondary to CRS
-Bladder scan
-nonoligouric
-Avoid nephrotoxins and hypotension
-Renal diet
-Nephrology following
-Does not meet FRAME OPERATOR needs at this time
Even though on eliquis will check dvt study
Anticipated Discharge: 24 - 48 hours
Subjective/Interval History
-
Date of Service: January 25, 2024
seen and examined. no new complaints. no acute overniggght events
Objective Data
-
Vital Signs:
Vital Signs
Temp Pulse Resp BP Pulse Ox
97.4 F 87 18 113/74 96
01/25/24 11:40 01/25/24 11:40 01/25/24 11:40 01/25/24 11:40 01/25/24 11:30
I&O
01/24/24 01/25/24 01/26/24
06:59 06:59 06:59
Intake Total 480 / 480 480 / 480
Output Total 1600 / 1600 500 / 500
Balance -1120 / -1120 -20 / -20
[2024-01-25] MEDS: TIGAN 200 MG IM ×2 (14:09→20:46)
[2024-01-25 15:19] VITALS: BP 124/81
--- NOTE | 2024-01-25 17:37 | W.PN.NEPH.PH ---
Today's Communication / Plan
-
resumed lasix
Assessment/Plan
-
Impression:
ALANNA
Acute on chr congestive heart failure withEF of 35%
Paroxysmal atrial fibrillation
Coronary artery disease with history of stent
IBS with diarrhea
Anxiety depression
History of ventricular tachycardia with ICD
Plan:
ALANNA-suspect cardiorenal, UA relatively bland
non acute renal US, PVR 36cc
would continue lasix -resumed and follow wts
BP stable on BB
for RIAZ and DCCV tomorrow
follow labs
d/w pt and nursing
monitor diarrhea
-
-
Date of Service: January 25, 2024
CC / HPI / ROS
-
Chief Complaint:
ALANNA
History of Present Illness:
cr no change cr 1.9 on 01/23, no labs today
wt stable, BP stable
no fever
Review of Systems:
no cp or sob at rest
edema improving
c/o nausea, diarrhea, po intake less today
Labs
-
Labs:
WBC 6.1 10^3/uL (4.8-10.8) 01/23/24 05:04
RBC 4.35 10^6/uL (4.20-5.40) 01/23/24 05:04
Hgb 12.2 g/dL (12.0-16.0) 01/23/24 05:04
Hct 37.4 % (37.0-47.0) 01/23/24 05:04
Plt Count 314 10^3/uL (130-400) 01/23/24 05:04
Sodium 139 mmol/L (135-145) 01/24/24 03:42
Potassium 3.9 mmol/L (3.5-5.1) 01/24/24 03:42
Chloride 102 mmol/L (98-107) 01/24/24 03:42
Carbon Dioxide 24 mmol/L (22-30) 01/24/24 03:42
BUN 68 mg/dl (7-17) H 01/24/24 03:42
Creatinine 1.9 mg/dL (0.6-1.0) H 01/24/24 03:42
eGFR 26.69 01/24/24 03:42
Glucose 99 mg/dl (70-99) 01/24/24 03:42
Calcium 9.4 mg/dl (8.4-10.2) 01/24/24 03:42
Lwo-X-Jpmokocnjqf Pept 74019 pg/ml 01/22/24 23:04
Albumin 3.9 g/dl (3.5-5.0) 01/22/24 23:04
Physical Exam
-
Vital Signs:
Vital Signs
Temp Pulse Resp BP Pulse Ox
97.7 F 88 16 124/81 98
01/25/24 15:19 01/25/24 15:19 01/25/24 15:19 01/25/24 15:19 01/25/24 15:19
Cardiovascular:: Regular rate and rhythm
Respiratory:: Bilateral: CTA
Lung Excursion:: Normal
Abdomen:: Nontender and Soft
Extremity Edema:: +1: Bilateral:
Bueno Catheter: No
[2024-01-25 19:23] VITALS: BP 123/91
[2024-01-26] VITALS (8 sets, daily range): BP systolic 115–161; BP diastolic 69–93; PULSE 61; O2SAT 96; BMI 34.0
[2024-01-26 08:05] LABS: Hematocrit 37.8 % (37.0-47.0); Hemoglobin 12.4 g/dL (12.0-16.0); Mean Corp Hgb Conc. 32.8 g/dL (33.0-37.0); Mean Corpuscular Hgb 28.1 pg (27.0-31.0); Mean Corpuscular Volume 85.7 fL (81.0-99.0); Mean Platelet Volume 10.4 fL (7.4-10.4); Platelet Count 282 10^3/uL (130-400); Red Blood Cell Count 4.41 10^6/uL (4.20-5.40); Red Cell Dist. Width 16.1 % (11.5-14.5); White Blood Cell Count 6.5 10^3/uL (4.8-10.8)
[2024-01-26 08:43] LABS: Blood Urea Nitrogen 67 mg/dl (7-17); Calcium 9.3 mg/dl (8.4-10.2); Carbon Dioxide 23 mmol/L (22-30); Chloride 100 mmol/L (98-107); Estimated Creatinine Clearance 26 ml/min; Glucose 99 mg/dl (70-99); Potassium 3.7 mmol/L (3.5-5.1); Sodium 138 mmol/L (135-145); eGFR 26.69
[2024-01-26] MEDS: ELIQUIS 5 MG PO ×2 (08:46→19:47)
[2024-01-26] MEDS: PACERONE 200 MG PO ×3 (08:46→21:01)
[2024-01-26] MEDS: LEXAPRO 20 MG PO (08:47)
[2024-01-26] MEDS: PROTONIX 40 MG PO (08:47)
[2024-01-26] MEDS: TOPROL XL 50 MG PO (08:47)
[2024-01-26] MEDS: TIGAN 200 MG IM (10:04)
--- NOTE | 2024-01-26 10:22 | W.PN.CARDCBS ---
Today's Communication / Plan
-
Wt is down this admit but has been largely flat. Diuretics resumed by nephrology, possible cardiorenal syndrome.
Unremarkable renal u/s
Monitor cr and daily wt. She is below her prior dry wt
If cr does not improve with RIAZ/cv and diuresis, may need to consider right heart cath to better assess volume status.
RIAZ/cv planned Jan 26 2024 as AFib may be contributing to recurrent HF and reduced EF from baseline. EF has gone down from 34% to 20%.
Eliquis was interrupted for GI work-up last admission, hence need for RIAZ with cv.
Recheck echo as outpt once maintaining sinus.
Cont amiodarone load.
If she fails to maintain sinus rhythm, may need to consider PVI as outpt for recurrent afib
Discussed nutrition, nausea and diarrhea with primary service, GI to eval
-Diarrhea symptoms predated initiation of amiodarone by her primary informatics pharmacist, Dr. Figueroa.
Impression / Plan
-
.
PCP: BYRON Man
Cloth Finishing Range Operator Chief: Dr. Figueroa
Technical Asst: Dr. Robert Ziegler
Impression:
Admitted with acute on chronic HFrEF
CM EF 34% by echo 10/11/23, down to 20% by repeat echo 01/04/24
Recurrent and persistent Afib on Eliquis
Acute on chronic renal failure, possible cardiorenal syndrome
LBBB
s/p Medtronic BiV ICD 11/18/22
HTN
Hyperlipidemia
CAD
s/p RAULITO OM 07/2020
Diarrhea, nausea
Hx Diverticulitis
Lexiscan nuclear stress test 07/19/2020: Moderate reversible defect in the mid inferolateral, mid inferior, and apical inferior segments. Inferior hypokinesis. LVEF 40%. LV normal size.�������
Echo 07/12/2020: LVEF 45-50%. Mild global hypo. Inferior basal akinesis. Moderate LAE. Aortic valve sclerosis.
Echo 03/20/2021: EF 35 to 40%, stage II DD. Mild left atrial enlargement. Mild MR.
Echo 10/11/2023: EF 34%. Moderately reduced LV systolic function. Stage II DD. Mild MR, mild TR. PAP 37 mmHg
Echo 01/04/2024: EF 20%, global hypokinesis with regional variability, normal RV size with low normal RV systolic function, moderate to severe MR, severe TR with PAP 65-70 mmHg
Plan:
-Presented 01/22/2024 with worsening shortness of breath, edema, orthopnea and PND patient noted to be in acute heart failure with proBNP 15,000 and ALANNA on CKD
Wt is down this admit but has been largely flat. Diuretics resumed by nephrology, possible cardiorenal syndrome.
Unremarkable renal u/s
Monitor cr and daily wt. She is below her prior dry wt
If cr does not improve with RIAZ/cv and diuresis, may need to consider right heart cath to better assess volume status.
RIAZ/cv planned Jan 26 2024 as AFib may be contributing to recurrent HF and reduced EF from baseline. EF has gone down from 34% to 20%.
Eliquis was interrupted for GI work-up last admission, hence need for RIAZ with cv.
Recheck echo as outpt once maintaining sinus.
Cont amiodarone load.
If she fails to maintain sinus rhythm, may need to consider PVI as outpt for recurrent afib
Discussed nutrition, nausea and diarrhea with primary service, GI to eval
-Diarrhea symptoms predated initiation of amiodarone by her primary informatics pharmacist, Dr. Figueroa.
Progress Note - Cloth Finishing Range Operator Chief
Subjective
Date of Service: January 26, 2024
Pt seen and examined. Breathing better. No chest pain or shortness of breath.
Objective
Labs:
01/26/24 07:37
01/26/24 07:37
Labs
Hgb 12.4 g/dL (12.0-16.0) 01/26/24 07:37
Hct 37.8 % (37.0-47.0) 01/26/24 07:37
Plt Count 282 10^3/uL (130-400) 01/26/24 07:37
Sodium 138 mmol/L (135-145) 01/26/24 07:37
Potassium 3.7 mmol/L (3.5-5.1) 01/26/24 07:37
BUN 67 mg/dl (7-17) H 01/26/24 07:37
Creatinine 1.9 mg/dL (0.6-1.0) H 01/26/24 07:37
Glucose 99 mg/dl (70-99) 01/26/24 07:37
Vital Signs and I&O:
Vital Signs
Temp Pulse Resp BP Pulse Ox
97.8 F 68 18 126/86 94
01/26/24 07:58 01/26/24 08:46 01/26/24 07:58 01/26/24 08:46 01/26/24 07:58
Vital Signs
Temp Pulse Resp BP Pulse Ox
97.8 F 68 18 126/86 94
01/26/24 07:58 01/26/24 08:46 01/26/24 07:58 01/26/24 08:46 01/26/24 07:58
Intake & Output
01/24/24 01/25/24 01/26/24 01/27/24
06:59 06:59 06:59 06:59
Intake Total 480 / 480 480 / 480 0 / 0
Output Total 1600 / 1600 500 / 500
Balance -1120 / -1120 -20 / -20 0 / 0
Physical Exam
Physical Exam
General: No acute distress, AAOX3
Neck: Negative JVD
Heart: Irregularly irregular, Negative S3 positive S1/S2, Negative S4, No murmur
Lungs: CTA b/l, negative wheezes/rales/rhonchi
Abd: Positive BS, NT/ND, neg rebound/rigidity/guarding
Ext: Negative cyanosis/clubbing/edema
Neuro: nonfocal
--- NOTE | 2024-01-26 10:49 | CON.GI ---
Addendum entered and electronically signed by Jethro Almonte MD 01/26/24 17:27:
I saw and evaluated the patient. I reviewed the resident�s note and agree with findings and plan as documented in the resident�s note.
78yo female admitted with SOB and management of afib, underwent cardioversion today. She has had nausea, coinciding with amiodarone rx and increasing of dose. Cannot use zofran due to QT prolongation. She had recent GI eval for diarrhea and had
EGD/colonoscopy, bx negative. US and CT showed some GB wall thickening but GB visualized on HIDA and sx are not post prandial. Often nausea occurs on empty stomach. She feels better today after cardioversion
REC:
Monitor sx and see if they improve following cardioversion
If nausea persists, we can increase protonix to BID
Amiodarone is likely cause for her nausea
I would not repeat GB imaging at this time
WIll follow
Original Note:
Consultation
-
Date/Time Consultation Requested: 01/26/24 09.51 am
Date/Time Consultation Performed: 01/26/24 10.49 am
Requesting Provider: Ho Vallecillo MD
Performing Provider: Karen Vasquez MD
Reason for Consultation: Recurrent Nausea
Medical History
Past Medical History
Past Medical History: Other (Chronic diarrhea, Coronary Artery Disease s/p Stent Ischemic Cardiomyopathy Chronic HFrEF NSVT s/p BiV ICD Paroxysmal Atrial Fibrillation Essentail Hypertension Hyperlipidemia Irritable Bowel Syndrome Depression)
Past Surgical History: Other (Cardiac Stent BiV ICD Knee Replacement Hysterectomy)
Social History
Tobacco: Non-Smoker
Alcohol: None
Drug: None
Living: With Family
Family History
Family History: Reviewed & Not Pertinent
Allergies / Home Medications
Allergy/AdvReac Type Severity Reaction Status Date / Time
No Known Allergies Allergy Verified 01/22/24 22:12
�Medication �Instructions �Recorded
melatonin 5 mg tablet 10 mg PO HS Sleep 07/29/20
apixaban 5 mg tablet (Eliquis) 5 mg PO BID Blood Clot 03/10/23
Prevention/Tx
escitalopram oxalate 20 mg tablet 20 mg PO DAILY Depression 12/18/23
(Lexapro)
metoprolol succinate 50 mg 50 mg PO DAILY #30 tabs 12/20/23
tablet,extended release 24 hr
amiodarone 200 mg tablet 200 mg PO DAILY AFIB 01/03/24
furosemide 40 mg tablet 40 mg PO DAILY Heart Failure 1 01/06/24
month #30 tabs
bismuth subsalicylate 262 mg/15 mL 524 mg PO DAILYPRN PRN gerd 01/10/24
oral suspension (Pepto-Bismol)
dimenhydrinate 25 mg chewable 25 mg PO DAILYPRN PRN nausea 01/10/24
tablet (Dramamine)
Tylenol 650 mg PO Q8 PRN PAIN 01/11/24
colestipol 1 gram tablet 1 g PO BID #60 tabs 01/13/24
pantoprazole 40 mg tablet,delayed 40 mg PO DAILY #30 tabs 01/13/24
release
Review of Systems
-
Constitutional: Reports Other ( Reports Weight Loss and Fatigue, decreased appetite, Denies Fever or Chills)
EENT: Reports No Symptoms
Respiratory: Reports Other (SOB )
Cardiac: Reports No Symptoms
Abdomen/GI: Reports Nausea and Diarrhea (Chronic not exacerbated )
: Reports No Symptoms
Musculoskeletal: Reports No Symptoms and Edema
Neurological: Reports No Symptoms
Vital Signs
Temp Pulse Resp BP Pulse Ox
97.8 F 68 18 126/86 94
01/26/24 07:58 01/26/24 08:46 01/26/24 07:58 01/26/24 08:46 01/26/24 08:30
Physical Exam
Exam
Respiratory: Clear
Cardiac: S1/S2, Irregular Rhythm and Murmur
GI: Soft, Non Tender, Non Distended and Normal Bowel Sounds
Musculoskeletal: Edema (2+ pitting edema b/l LEs to the knees)
Skin: Warm
Neuro: Awake, Alert, Oriented and AO x 3
Results
WBC 6.5 10^3/uL (4.8-10.8) 01/26/24 07:37
Hgb 12.4 g/dL (12.0-16.0) 01/26/24 07:37
Hct 37.8 % (37.0-47.0) 01/26/24 07:37
MCV 85.7 fL (81.0-99.0) 01/26/24 07:37
Plt Count 282 10^3/uL (130-400) 01/26/24 07:37
Absolute Neuts (auto) 5.4 10^3/uL (1.4-6.5) 01/22/24 23:04
Sodium 138 mmol/L (135-145) 01/26/24 07:37
Potassium 3.7 mmol/L (3.5-5.1) 01/26/24 07:37
Chloride 100 mmol/L (98-107) 01/26/24 07:37
Carbon Dioxide 23 mmol/L (22-30) 01/26/24 07:37
BUN 67 mg/dl (7-17) H 01/26/24 07:37
Creatinine 1.9 mg/dL (0.6-1.0) H 01/26/24 07:37
Calcium 9.3 mg/dl (8.4-10.2) 01/26/24 07:37
Total Bilirubin 2.2 mg/dl (0.2-1.3) H 01/22/24 23:04
AST 30 U/L (14-36) 01/22/24 23:04
ALT 39 U/L (0-35) H 01/22/24 23:04
Alkaline Phosphatase 125 U/L (38-126) 01/22/24 23:04
Diagnostic Image Results:
Abd US 01/03/24:
IMPRESSION:
1. Gallbladder wall thickening and gallbladder wall edema, also seen on concurrent CT. No gallstones are appreciated, and a negative sonographic Ordaz sign was elicited. Gallbladder is not significantly distended.
2. Common bile duct is mildly dilated, measuring 6 mm in thickness.
3. Overall, findings are equivocal for acute cholecystitis. If clinical concern remains high, consider HIDA scan.
Abd CT 01/03/24
IMPRESSION:
1. Diffuse gallbladder wall thickening and mild adjacent fat stranding. No radiopaque gallstones are seen, and the gallbladder is not significantly distended. Please correlate with clinical symptoms, and if indicated with abdominal ultrasound.
2. Colonic diverticulosis without evidence of diverticulitis.
3. Small bilateral pleural effusions.
Hepatobiliary scan 01/03/24
IMPRESSION:
1. No evidence of acute cholecystitis. Gallbladder fills normally.
2. Delayed emptying of radiotracer into the small bowel, suggestive of partial biliary ductal obstruction or slow transit.
Prior GI Procedures:
EGD: 01/12/24
Findings:
The examined esophagus was normal.
Diffuse moderately erythematous mucosa without bleeding was found in the
entire examined stomach. Biopsies were taken with a cold forceps for
histology. In the body had appearance of portal hypertensive gastropathy.
A few small mucosal papules (nodules) were found in the gastric antrum
and body. Biopsies were taken with a cold forceps for histology.
The examined duodenum was normal.
Impression: - Normal esophagus.
- Erythematous mucosa in the stomach. Biopsied.
- A few mucosal papules (nodules) found in the
stomach. Biopsied.
- Normal examined duodenum.
Recommendation: - Resume regular diet.
- Continue present medications.
- Await pathology results.
- Proceed to colonoscopy.
Colonoscopy: 01/12/24
Findings:
A localized area of mucosa in the terminal ileum was nodular. Biopsies
were taken with a cold forceps for histology.
The colon (entire examined portion) appeared normal. Biopsies for
histology were taken with a cold forceps from the right colon and left
colon for evaluation of microscopic colitis.
Multiple large-mouthed, medium-mouthed and small-mouthed diverticula
were found in the sigmoid colon and descending colon.
Internal hemorrhoids were found during retroflexion. The hemorrhoids
were medium-sized and Grade I (internal hemorrhoids that do not
prolapse).
Impression: - Preparation of the colon was fair.
- Nodular ileal mucosa. Biopsied.
- The entire examined colon is normal. Biopsied.
- Diverticulosis in the sigmoid colon and in the
descending colon.
- Internal hemorrhoids.
Recommendation: - Low fiber diet.
- Continue present medications. OK to resume Eliquis
tonight. Will start questran tid for diarrhea. I sent
msg to pharmacist to discuss options for nausea with
prolonged QTc.
- Await pathology results.
- No repeat colonoscopy due to current age (66 years
or older).
- I d/w sister Whitney. If diarrhea and nausea improved
by tomorrow ok for discharge from GI POV.
Assessment / Plan
-
Impression: The patient is a 78 year old female presented to ER on 01/22/24 complaining from SOB and bilateral LE edema. She has PMH of CHF and A-fib for which she had a cardioversion this morning. The patient has multiple admission to the "[facility] since last 2 months for issues relating primarily to A-Fib / CHF and chronic diarrhea. She was consulted to GI team for complaining of chronic nausea.Patient reports she has chronic diarrhea and she is at her baseline and it was not
exacerbated.he reports her nausea started with amiodarone and her nausea is increasing with the increased level of the medication of her amiodarone. Patient reports one episode of vomiting last Wednesday and denies any blood with it. She denies
abdominal pain or stool color change. She was recently obtained EGD and colonoscopy which were significantly remarkable to explain her chronic nausea and diarrhea.
Assessment/Plan
#Nausea presumably medication induced vs dyspepsia
-Underwent EGD on 01.12.24 which was unremarkable.
-Biopsy Stomach on 01/11: Minimal nonspecific chronic inflammation (no atypia)- Negative for H. pylori. Gastric biopsy: No malignancy
-Patient reports nausea related with her medication amiodarone
-Antiemetics limited due to QTc
-Per literature review, amiodarone can cause nausea with 10% of the patients
-Would appreciated for cardiology recommendation
-Patient reported feeling less nauseous after cardioversion
-Increasing PPI 40 mg BID can be considered if patient feels more nauseous again
-If patient mentions more nausea in the mornings a head CT can be considered.
#Chronic Diarrhea
-Reports some improvement with her diarrhea with colestipol BID
-No exacerbation with Diarrhea
- Colonoscopy done on 01/11:Unremarkable
- Ileum biopsy on 01/11:- unremarkable small bowel mucosa. Random colon biopsies:unremarkable colonic mucosa
-Stool studies on 01/03/24: (Fat, calprotectin, Pancreatic Elastase) Results unremarkable
-Celiac Comprehensive panel : Unremarkable
We will follow up the patient
-
-
Thank you for consultation and allowing me to participate in the patient's care. Please call the director of teacher education GI physician during the after hours with any questions or concerns.
[2024-01-26] MEDS: LASIX 40 MG IV (12:27)
--- NOTE | 2024-01-26 13:06 | W.PN.HOSP.TC ---
Today's Communication/Plan
-
Assessment / Plan
Assessment / Plan
Physical Exam
NAD, resting comfortably in bed
Scleral anicteric
Moist mucous membranes
JVD +
CTA bilateral
Normal S1-S2 no murmurs
Soft nontender nondistended bowel sounds active
Bilateral lower extremity edema 2+, worse on the left than the right
Moves extremities spontaneously
AAOx3
Assessment and Plan
Acute on chronic HFrEF exacerbation, EF 20%, NYHA classification 3-4 further complicated by with PAP 65-70 this likely demonstrates who group 2
-IV diuretics
-Follow renal function
-Keep K greater than 4
-Keep magnesium greater than 2
-Monitor daily weights,5lbs loss, states still legs are swollen
-Monitor urinary output/I's and O's
-Continue GDMT with BB and Entresto
-Cardiology following
Atrial fibrillation
-Eliquis 5 mg twice daily per cards
-Amiodarone increased frequency
-Once volume status improved cards plans for RIAZ/DCCV
--NPO ON for RIAZ/DCCV
Hopefully RIAZ/DCCV can covert her to sinus to improve cardiac output, which should further help to alleviate CRS and improve UOP.
If still no improvemtn in renal function or UOP then may need to do a RHC.
I am concerned that she may go into cardiogenic shock and we need to continue to monitor closely
Also, if RIAZ/DCCV fails or sinus short lived may need ablation.
-Outpatient EP follow up
Prlonged QTc
-On amio, discussed this with Cards for which they will repeat EKG post RIAZ/DCCV and will re-assess QTc
-Avoid QTc sparing agents
-Keep K>4
-Keep Mg>2
ALANNA likely secondary to CRS
-Non-oligouric
-Avoid nephrotoxins and hypotension
-Renal diet
-Nephrology following
-Does not meet LEAD SQL DEVELOPER needs at this time
Will have PT./OT eval
Nausea
-On going issue, causing decreased PO intake.
-On tigan due to prolonged QTc
-GI consulted
Anticipated Discharge: 24 - 48 hours
Subjective/Interval History
-
Date of Service: January 26, 2024
Seen and examined. No new complaints. No acute overnight events.
Complaining about nausea without vomiting asking for something to eat even though she is n.p.o. for RIAZ/DCCV
Family at bedside all questions answered including taking meds with food to prevent nausea. Discussed antimetics, only able to use tigan as she has a prolonged qtc.
Objective Data
-
Labs:
Laboratory Results
01/26/24
07:37
WBC 6.5
Hgb 12.4
Hct 37.8
Plt Count 282
Sodium 138
Potassium 3.7
Chloride 100
Carbon Dioxide 23
BUN 67 H
Creatinine 1.9 H
Glucose 99
Calcium 9.3
Vital Signs:
Vital Signs
Temp Pulse Resp BP Pulse Ox
97.7 F 62 16 126/81 98
01/26/24 12:12 01/26/24 12:12 01/26/24 12:12 01/26/24 12:27 01/26/24 12:12
I&O
01/25/24 01/26/24 01/27/24
06:59 06:59 06:59
Intake Total 480 / 480 0 / 0
Output Total 500 / 500
Balance -20 / -20 0 / 0
--- NOTE | 2024-01-26 14:39 | W.PN.NEPH.PH ---
Today's Communication / Plan
-
Maintain 40 mg IV Lasix
Follow-up BMP
Assessment/Plan
-
Impression:
ALANNA
Acute on chr congestive heart failure withEF of 35%
Paroxysmal atrial fibrillation
Coronary artery disease with history of stent
IBS with diarrhea
Anxiety depression
History of ventricular tachycardia with ICD
Plan:
ALANNA-suspect cardiorenal, UA relatively bland
Creatinine unchanged at 1.9
non acute renal US, PVR 36cc
Weights up urine output not recorded
Remains on Lasix 40 mg IV daily
BP stable on BB
for RIAZ and DCCV performed today
Hopefully with patient now in sinus rhythm cardiac output may be augmented
Patient may require right heart cath to assess volume status
Patient appears to be predominantly right-sided heart failure
follow labs
d/w pt and nursing
monitor diarrhea
-
-
Date of Service: January 26, 2024
CC / HPI / ROS
-
Chief Complaint:
ALANNA
History of Present Illness:
cr no change cr 1.9
wt stable, BP stable
no fever
RIAZ and cardioversion performed on 01/26/2024
Review of Systems:
no cp or sob at rest
edema improving
c/o nausea, diarrhea, po intake less today
Labs
-
Labs:
WBC 6.5 10^3/uL (4.8-10.8) 01/26/24 07:37
RBC 4.41 10^6/uL (4.20-5.40) 01/26/24 07:37
Hgb 12.4 g/dL (12.0-16.0) 01/26/24 07:37
Hct 37.8 % (37.0-47.0) 01/26/24 07:37
Plt Count 282 10^3/uL (130-400) 01/26/24 07:37
Sodium 138 mmol/L (135-145) 01/26/24 07:37
Potassium 3.7 mmol/L (3.5-5.1) 01/26/24 07:37
Chloride 100 mmol/L (98-107) 01/26/24 07:37
Carbon Dioxide 23 mmol/L (22-30) 01/26/24 07:37
BUN 67 mg/dl (7-17) H 01/26/24 07:37
Creatinine 1.9 mg/dL (0.6-1.0) H 01/26/24 07:37
eGFR 26.69 01/26/24 07:37
Glucose 99 mg/dl (70-99) 01/26/24 07:37
Calcium 9.3 mg/dl (8.4-10.2) 01/26/24 07:37
Mge-Z-Idnlsskiieb Pept 60606 pg/ml 01/22/24 23:04
Albumin 3.9 g/dl (3.5-5.0) 01/22/24 23:04
Physical Exam
-
Vital Signs:
Vital Signs
Temp Pulse Resp BP Pulse Ox
97.7 F 62 16 126/81 98
01/26/24 12:12 01/26/24 12:12 01/26/24 12:12 01/26/24 12:27 01/26/24 12:12
Cardiovascular:: Regular rate and rhythm
Respiratory:: Bilateral: CTA
Lung Excursion:: Normal
Abdomen:: Nontender and Soft
Bowel Sounds:: Normal
Bueno Catheter: No
--- NOTE | 2024-01-26 15:49 | CM ---
CM met with Belinda. She is independent amb with RW, independent with ADLS.
She lives with her grandson in a 1st floor apartment with 5-6 entry steps. Patient is current with VN. Plan is for the patient to return home with VN.
CM will continue to follow for discharge needs.
PCP: Suyapa Duval
Pharmacy: [facility] in [place]
[2024-01-27] VITALS (7 sets, daily range): BP systolic 101–136; BP diastolic 64–89; PULSE 60; O2SAT 95; BMI 33.9
[2024-01-27 07:30] LABS: Hematocrit 37.8 % (37.0-47.0); Hemoglobin 12.3 g/dL (12.0-16.0); Mean Corp Hgb Conc. 32.5 g/dL (33.0-37.0); Mean Corpuscular Volume 86.1 fL (81.0-99.0); Mean Platelet Volume 10.3 fL (7.4-10.4); Platelet Count 289 10^3/uL (130-400); Red Blood Cell Count 4.39 10^6/uL (4.20-5.40); Red Cell Dist. Width 16.4 % (11.5-14.5); White Blood Cell Count 7.7 10^3/uL (4.8-10.8)
[2024-01-27 07:58] LABS: Blood Urea Nitrogen 65 mg/dl (7-17); Calcium 9.1 mg/dl (8.4-10.2); Carbon Dioxide 24 mmol/L (22-30); Chloride 99 mmol/L (98-107); Estimated Creatinine Clearance 24 ml/min; Glucose 104 mg/dl (70-99); Potassium 3.7 mmol/L (3.5-5.1); Sodium 139 mmol/L (135-145)
--- NOTE | 2024-01-27 09:11 | W.PN.CARDCBS ---
Addendum entered and electronically signed by Gerardo Coehn DO 01/27/24 12:13:
I saw and examined the patient.
The Financial Specialist's note was reviewed and I agree with the note.
Comment:
Plan:
Cont IV diuresis lasix 40 mg IV daily.
Nephrology following. Cr 2 on Jan 27 2024.
Volume status is difficult to determine. Her weight is down. She has also had prior diarrhea.
With creatinine slightly rising, discussed right heart cath tomorrow to better assess volume status. Both the patient and daughter agree.
Continue to follow creatinine closely
She continues with nausea and will reduce Amiodarone to 200 mg daily.
remains in sinus post cardioversion January 25. Continue anticoagulation.
If she fails to maintain sinus rhythm, may need to consider PVI as an outpatient for recurrent atrial fibrillation. She has seen Dr. Ziegler for EP.
GI evaluating chronic diarrhea and nausea.
She follows with Dr. Figueroa.
Discussed with patient and family at bedside as well as nursing. Family was appreciative.
Original Note:
Today's Communication / Plan
-
Patient and daughter agreeable to RHC in AM, added to schedule
Cont Lasix 40 mg IV daily
Follow Cre
Reduce amiodarone to 200 mg daily due to nausea
Impression / Plan
-
PCP: BYRON Man
Insemination Worker: Dr. Figueroa
Puller Machine: Dr. Robert Ziegler
Impression:
Admitted with acute on chronic HFrEF
CM EF 34% by echo 10/11/23, down to 20% by repeat echo 01/04/24
Recurrent and persistent Afib on Eliquis
s/p successful RIAZ/CV 01/26/24
Acute on chronic renal failure, possible cardiorenal syndrome
LBBB
s/p [employer] BiV ICD 11/18/22
HTN
Hyperlipidemia
CAD
s/p RAULITO OM 07/2020
Diarrhea predating amiodarone, nausea new since starting amiodarone
Hx Diverticulitis
Lexiscan nuclear stress test 07/19/2020: Moderate reversible defect in the mid inferolateral, mid inferior, and apical inferior segments. Inferior hypokinesis. LVEF 40%. LV normal size.�������
Echo 07/12/2020: LVEF 45-50%. Mild global hypo. Inferior basal akinesis. Moderate LAE. Aortic valve sclerosis.
Echo 03/20/2021: EF 35 to 40%, stage II DD. Mild left atrial enlargement. Mild MR.
Echo 10/11/2023: EF 34%. Moderately reduced LV systolic function. Stage II DD. Mild MR, mild TR. PAP 37 mmHg
Echo 01/04/2024: EF 20%, global hypokinesis with regional variability, normal RV size with low normal RV systolic function, moderate to severe MR, severe TR with PAP 65-70 mmHg
Plan:
-Patient weighed 195 lbs on admission, then down to 190 lbs on 01/25/24 and Cre trended up to 1.9 that day. Lasix 40 mg IV daily continued and weight is 191 lbs with Cre 2.0 on 01/27/24. Patient was taking Lasix 40 mg PO daily prior to admission.
-EF was 34% by echo 10/11/23 and down to 20% on 01/04/24. Weight is flat at 191 lbs on 01/27/24 and is overall down from discharge dry weight of 197 lbs on 01/13/24. Cre up to 2.0 on 01/27/24. Talked with patient and daughter about RHC, reviewed
procedure and possible outcomes. Patient and daughter are agreeable to proceed with RHC on 01/28/24, patient added to schedule.
-Outpatient dose of Toprol XL 50 mg daily continued
-Outpatient dose of Entresto 49/51 mg was placed on hold during 01/03/24 until 01/06/24 admission due to ALANNA and has not been restarted.
-Patient had CV 12/20/23 and then been back in Afib persistently starting 12/22/23. Amiodarone started by Dr. Figueroa in the office in December and then increased to 200 mg BID during 01/10/24 until 01/13/24 admission at . Amiodarone dose was then
decreased to 200 mg daily upon d/c 01/13/24 due to GI symptoms, but longstanding diarrhea predates initiation of amiodarone so amiodarone increased to 200 mg TID this admission. Patient received a 2.4 gram load this admission. Talked with patient
and daughter on 01/27/24 and diarrhea predates amiodarone, but nausea is new and they think nausea is related to amiodarone. Will reduce amiodarone to 200 mg daily starting 01/27/24.
-Patient s/p RIAZ/CV 01/26/24 and remains in SR on ECG reviewed by me 01/27/24.
-Cont Eliquis 5 mg BID (age 78, Cre 1.9, wt 86.7 kg)
Progress Note - Insemination Worker
Subjective
Date of Service: January 27, 2024
Feels nauseous
Objective
Labs:
01/27/24 06:54
01/27/24 06:54
Labs
Hgb 12.3 g/dL (12.0-16.0) 01/27/24 06:54
Hct 37.8 % (37.0-47.0) 01/27/24 06:54
Plt Count 289 10^3/uL (130-400) 01/27/24 06:54
Sodium 139 mmol/L (135-145) 01/27/24 06:54
Potassium 3.7 mmol/L (3.5-5.1) 01/27/24 06:54
BUN 65 mg/dl (7-17) H 01/27/24 06:54
Creatinine 2.0 mg/dL (0.6-1.0) H 01/27/24 06:54
Glucose 104 mg/dl (70-99) H 01/27/24 06:54
Vital Signs and I&O:
Vital Signs
Temp Pulse Resp BP Pulse Ox
97.2 F 62 22 125/77 99
01/27/24 06:54 01/27/24 06:54 01/27/24 06:54 01/27/24 06:54 01/27/24 06:54
Vital Signs
Temp Pulse Resp BP Pulse Ox
97.2 F 62 22 125/77 99
01/27/24 06:54 01/27/24 06:54 01/27/24 06:54 01/27/24 06:54 01/27/24 06:54
Intake & Output
01/25/24 01/26/24 01/27/24 01/28/24
06:59 06:59 06:59 06:59
Intake Total 480 / 480 0 / 0 480 / 480
Output Total 500 / 500
Balance -20 / -20 0 / 0 480 / 480
Physical Exam
Physical Exam
GEN: AAOx3
HEENT: MMM
LUNGS: No audible wheeze
CV: Paced on tele
ABD: ND
EXT: No edema B/L
NEURO: Gross non-focal
SKIN: No rash
[2024-01-27] MEDS: PACERONE 200 MG PO (09:24)
[2024-01-27] MEDS: ELIQUIS 5 MG PO ×2 (09:24→20:42)
[2024-01-27] MEDS: LEXAPRO 20 MG PO (09:24)
[2024-01-27] MEDS: PROTONIX 40 MG PO (09:25)
[2024-01-27] MEDS: TOPROL XL 50 MG PO (09:25)
[2024-01-27] MEDS: LASIX 40 MG IV (09:49)
--- NOTE | 2024-01-27 10:36 | W.PN.GI.CBS2 ---
Addendum entered and electronically signed by Jethro Almonte MD 01/27/24 12:32:
I saw and evaluated the patient. I reviewed the resident�s note and agree with findings and plan as documented in the resident�s note.
Pt has some more nausea today. Able to eat breakfast. No vomiting
ABD soft NT
REC:
try increasing protonix to BID, but suspect nausea is mostly due to amiodarone, which has been decreased to daily
Diet as tolerated
Original Note:
Today's Communication / Plan
-
-Increase PPI 40 mg BID PO
Assessment / Plan
-
Impression: The patient is a 78 year old female presented to ER on 01/22/24 complaining from SOB and bilateral LE edema. She has a PMH of CHF and A-fib for which she had a cardioversion yesterday morning. The patient has multiple admission to the "[facility] since last 2 months for issues relating primarily to A-Fib / CHF and chronic diarrhea. She was consulted to GI team for complaining of chronic nausea.Patient reports she has chronic diarrhea and she is at her baseline and it was not
exacerbated.he reports her nausea started with amiodarone and her nausea is increasing with the increased level of the medication of her amiodarone. Patient reports one episode of vomiting last Wednesday and denies any blood with it. She denies
abdominal pain or stool color change. She was recently obtained EGD and colonoscopy which were not significantly remarkable to explain her chronic nausea and diarrhea. She had experienced less nausea yesterday afternoon following cardioversion.
This morning she reported feeling nauseous still, but not severe like she had at the hospital admission.
Assessment
#Nausea presumably medication induced vs dyspepsia
-Underwent EGD on 01.12.24 which was unremarkable.
-Biopsy Stomach on 01/11: Minimal nonspecific chronic inflammation (no atypia)- Negative for H. pylori. Gastric biopsy: No malignancy
-US and CT showed some GB wall thickening but GB visualized on HIDA and sx are not post prandial. Often nausea occurs on empty stomach
-Patient reports nausea related with her medication amiodarone
-Antiemetics limited due to QTc-QTC on 01/27/24 QTc Int : 410 ms versus 01/26/24 QTc Int : 574 ms
-Per literature review, amiodarone can cause nausea with 10% of the patients
-Would appreciated for cardiology recommendation
-Patient reported feeling less nauseous after cardioversion
-If patient mentions more nausea in the mornings a head CT can be considered.
#Chronic Diarrhea
-Reports some improvement with her diarrhea with colestipol BID
-No exacerbation with Diarrhea
-Colonoscopy done on 01/11:Unremarkable
-Ileum biopsy on 01/11:- unremarkable small bowel mucosa. Random colon biopsies:unremarkable colonic mucosa
-Stool studies on 01/03/24: (Fat, calprotectin, Pancreatic Elastase) Results unremarkable
-Celiac Comprehensive panel : Unremarkable
We will follow up the patient
#Plan
-Recommended to Increase PPI 40 mg BID
Subjective
Subjective
Date of Service: January 27, 2024
Patient was seen in her bed sitting. Reported she still has nausea but not severe. She reported she could not sleep well yesterday night and feels tired.
Objective
Data Reviewed
Laboratory Data:
Laboratory Results
01/27/24 06:54
01/27/24 06:54
Laboratory Results
Total Bilirubin 2.2 mg/dl (0.2-1.3) H 01/22/24 23:04
AST 30 U/L (14-36) 01/22/24 23:04
ALT 39 U/L (0-35) H 01/22/24 23:04
Alkaline Phosphatase 125 U/L (38-126) 01/22/24 23:04
Vital Signs and I&O:
Vital Signs
Temp Pulse Resp BP Pulse Ox
97.2 F 62 22 125/77 99
01/27/24 06:54 01/27/24 06:54 01/27/24 06:54 01/27/24 06:54 01/27/24 06:54
I&O
01/26/24 01/27/24 01/28/24
06:59 06:59 06:59
Intake Total 0 / 0 480 / 480
Balance 0 / 0 480 / 480
Physical Exam
Physical Exam
HEENT: Anicteric and Moist mucous membranes
Cardiology: S1, S2 and Murmur
Pulmonary: Clear
GI: Soft, Non Distended and Non Tender
Extremities: Edema
Neuro: Non Focal
--- NOTE | 2024-01-27 13:41 | W.PN.HOSP.TC ---
Today's Communication/Plan
-
Plan for right heart cath
Reduce dose amiodarone
Continue IV diuretics
Assessment / Plan
Assessment / Plan
Physical Exam
NAD, resting comfortably in bed
Scleral anicteric
Moist mucous membranes
JVD +
CTA bilateral
Normal S1-S2 no murmurs
Soft nontender nondistended bowel sounds active
Bilateral lower extremity edema 2+, worse on the left than the right
Moves extremities spontaneously
AAOx3
Assessment and Plan
Acute on chronic HFrEF exacerbation, EF 20%, NYHA classification 3-4 further complicated by with PAP 65-70 this likely demonstrates who group 2
-IV diuretics
-Follow renal function
-Keep K greater than 4
-Keep magnesium greater than 2
-Monitor daily weights,5lbs loss, states still legs are swollen
-Monitor urinary output/I's and O's
-Continue GDMT with BB and Entresto
-Cardiology following
Atrial fibrillation
-Eliquis 5 mg twice daily per cards
-Amiodarone increased frequency
-- S/p RIAZ/DCCV 01/26/2024. Back in sinus rhythm.
Hopefully RIAZ/DCCV can covert her to sinus to improve cardiac output, which should further help to alleviate CRS and improve UOP.
If still no improvemtn in renal function or UOP then may need to do a RHC.
I am concerned that she may go into cardiogenic shock and we need to continue to monitor closely
Also, if RIAZ/DCCV fails or sinus short lived may need ablation.
-Outpatient EP follow up
Prlonged QTc
-On amio, discussed this with Cards for which they will repeat EKG post RIAZ/DCCV and will re-assess QTc
-Avoid QTc sparing agents
-Keep K>4
-Keep Mg>2
ALANNA likely secondary to CRS
-Non-oligouric
-Avoid nephrotoxins and hypotension
-Renal diet
-Nephrology following
-Does not meet PURCHASING DIRECTOR needs at this time
Will have PT./OT eval
Nausea
-On going issue, causing decreased PO intake.
-Can start Zofran as QTc on repeat EKG in the 400
-GI consulted
Anticipated Discharge: > 48 hours
Subjective/Interval History
-
Date of Service: January 27, 2024
Seen and examined. No new. No acute overnight events.
Continues to complain of nausea.
Per cardiology will decrease amiodarone to daily
Telemetry reviewed remains in a sinus rhythm AV paced rhythm between 60-62
Objective Data
-
Labs:
Laboratory Results
01/27/24
06:54
WBC 7.7
Hgb 12.3
Hct 37.8
Plt Count 289
Sodium 139
Potassium 3.7
Chloride 99
Carbon Dioxide 24
BUN 65 H
Creatinine 2.0 H
Glucose 104 H
Calcium 9.1
Vital Signs:
Vital Signs
Temp Pulse Resp BP Pulse Ox
97.8 F 60 22 136/89 99
01/27/24 11:50 01/27/24 11:50 01/27/24 11:50 01/27/24 11:50 01/27/24 11:50
I&O
01/26/24 01/27/24 01/28/24
06:59 06:59 06:59
Intake Total 0 / 0 480 / 480
Balance 0 / 0 480 / 480
--- NOTE | 2024-01-27 14:50 | W.PN.NEPH.PH ---
Today's Communication / Plan
-
follow bmp
may require RHC to help determine true volume status
Maintain IV Lasix for now
Assessment/Plan
-
Impression:
ALANNA
Acute on chr congestive heart failure withEF of 20% , severe TR
Paroxysmal atrial fibrillation
Coronary artery disease with history of stent
IBS with diarrhea
Anxiety depression
History of ventricular tachycardia with ICD
Plan:
ALANNA-suspect cardiorenal, UA relatively bland
Creatinine unchanged at 2
nml renal US, PVR 36cc
Weights stable urine output not recorded
Remains on Lasix 40 mg IV daily, may need right heart cath to help determine true volume status
BP stable on BB
for RIAZ and DCCV performed today
Hopefully with patient now in sinus rhythm cardiac output may be augmented
Patient may require right heart cath to assess volume status tomorrow
Patient appears to be predominantly right-sided heart failure
follow labs
d/w pt and nursing
monitor diarrhea
-
-
Date of Service: January 27, 2024
CC / HPI / ROS
-
Chief Complaint:
ALANNA
History of Present Illness:
cr no change cr 2
wt stable, BP stable
no fever
RIAZ and cardioversion performed on 01/26/2024
Review of Systems:
no cp or sob at rest but noted with exertion
edema improving
c/o nausea,
Labs
-
Labs:
WBC 7.7 10^3/uL (4.8-10.8) 01/27/24 06:54
RBC 4.39 10^6/uL (4.20-5.40) 01/27/24 06:54
Hgb 12.3 g/dL (12.0-16.0) 01/27/24 06:54
Hct 37.8 % (37.0-47.0) 01/27/24 06:54
Plt Count 289 10^3/uL (130-400) 01/27/24 06:54
Sodium 139 mmol/L (135-145) 01/27/24 06:54
Potassium 3.7 mmol/L (3.5-5.1) 01/27/24 06:54
Chloride 99 mmol/L (98-107) 01/27/24 06:54
Carbon Dioxide 24 mmol/L (22-30) 01/27/24 06:54
BUN 65 mg/dl (7-17) H 01/27/24 06:54
Creatinine 2.0 mg/dL (0.6-1.0) H 01/27/24 06:54
eGFR 25.10 01/27/24 06:54
Glucose 104 mg/dl (70-99) H 01/27/24 06:54
Calcium 9.1 mg/dl (8.4-10.2) 01/27/24 06:54
Esq-U-[place] Pept 49694 pg/ml 01/22/24 23:04
Albumin 3.9 g/dl (3.5-5.0) 01/22/24 23:04
Physical Exam
-
Vital Signs:
Vital Signs
Temp Pulse Resp BP Pulse Ox
97.8 F 60 22 136/89 99
01/27/24 11:50 01/27/24 11:50 01/27/24 11:50 01/27/24 11:50 01/27/24 11:50
Cardiovascular:: Regular rate and rhythm
Respiratory:: Bilateral: Coarse
Lung Excursion:: Normal
Abdomen:: Nontender and Soft
Bowel Sounds:: Normal
Extremity Edema:: +1: Bilateral:
[2024-01-28] VITALS (20 sets, daily range): BP systolic 106–153; BP diastolic 62–91; PULSE 60–62; BMI 33.6
[2024-01-28 07:42] LABS: Hemoglobin 11.8 g/dL (12.0-16.0); Mean Corp Hgb Conc. 32.8 g/dL (33.0-37.0); Mean Corpuscular Hgb 29.1 pg (27.0-31.0); Mean Corpuscular Volume 88.9 fL (81.0-99.0); Mean Platelet Volume 10.5 fL (7.4-10.4); Platelet Count 239 10^3/uL (130-400); Red Blood Cell Count 4.05 10^6/uL (4.20-5.40); Red Cell Dist. Width 16.2 % (11.5-14.5); White Blood Cell Count 6.5 10^3/uL (4.8-10.8)
[2024-01-28 07:55] LABS: Blood Urea Nitrogen 69 mg/dl (7-17); Calcium 9.2 mg/dl (8.4-10.2); Carbon Dioxide 29 mmol/L (22-30); Chloride 100 mmol/L (98-107); Estimated Creatinine Clearance 23 ml/min; Glucose 88 mg/dl (70-99); Potassium 3.5 mmol/L (3.5-5.1); Sodium 142 mmol/L (135-145); eGFR 23.67
[2024-01-28] MEDS: ELIQUIS 5 MG PO ×2 (08:51→20:41)
[2024-01-28] MEDS: TOPROL XL 50 MG PO (08:51)
[2024-01-28] MEDS: PACERONE 200 MG PO (08:51)
[2024-01-28] MEDS: LEXAPRO 20 MG PO (08:51)
[2024-01-28] MEDS: PROTONIX 40 MG PO (08:51)
[2024-01-28] MEDS: LASIX 40 MG IV ×2 (08:56→20:41)
--- NOTE | 2024-01-28 09:57 | W.PN.GI.CBS2 ---
Addendum entered and electronically signed by Kat Powers MD 01/28/24 19:53:
I saw and examined the patient.
The resident's note was reviewed and I agree with the note.
Comment: Patient currently reports that the nausea is completely resolved. No abdominal pain, nausea or vomiting. No heartburn or trouble swallowing. Currently is hungry and is on regular diet.
She is status post right heart catheterization which showed severely reduced LV function with ejection fraction of 20% and moderate to severe mitral regurgitation. She also had a RIAZ cardioversion. Currently on Eliquis.
Amiodarone dose reduced as well.
GI workup including upper endoscopy, HIDA scan without significant findings.
Continue PPI daily. Given no further nausea, we will sign off, please call back if needed.
Original Note:
Today's Communication / Plan
-
-Continue PPI 40 mg once daily
Assessment / Plan
-
Impression: The patient is a 78 year old female presented to ER on 01/22/24 complaining from SOB and bilateral LE edema. She has a PMH of CHF and A-fib for which she had a cardioversion yesterday morning. The [facility] issues relating primarily to A-Fib / CHF and chronic diarrhea. She was consulted to GI team for complaining of chronic nausea.Patient reports she has chronic diarrhea and she is at her baseline and it was not
exacerbated.he reports her nausea started with amiodarone and her nausea is increasing with the increased level of the medication of her amiodarone. Patient reports one episode of vomiting last Wednesday and denies any blood with it. She denies
abdominal pain or stool color change. She was recently obtained EGD and colonoscopy which were not significantly remarkable to explain her chronic nausea and diarrhea. This morning she underwent cardiac cancerization due elevated Cr levels and
clinical volume overload and planning to begin milrinone.
Assessment
#Nausea presumably medication induced vs dyspepsia
-Underwent EGD on 01.12.24 which was unremarkable.
-Biopsy Stomach on 01/11: Minimal nonspecific chronic inflammation (no atypia)- Negative for H. pylori. Gastric biopsy: No malignancy
-US and CT showed some GB wall thickening but GB visualized on HIDA and sx are not post prandial. Often nausea occurs on empty stomach
-Patient reports nausea related with her medication amiodarone and her dose decreased to once daily.
-Per literature review, amiodarone can cause nausea with 10% of the patients
-Antiemetics limited due to QTc-QTC on 01/27/24 QTc Int : 410 ms versus 01/26/24 QTc Int : 574 ms
-Appreciated for cardiology involvement for her HF
-Patient reports no nausea since yesterday and reports feels better after cardioversion.
-If patient mentions more nausea in the mornings a head CT can be considered.
#Chronic Diarrhea
-Reports some improvement with her diarrhea and had a soft bowel movement this morning.
-No exacerbation with Diarrhea
-Colonoscopy done on 01/11:Unremarkable
-Ileum biopsy on 01/11:- unremarkable small bowel mucosa. Random colon biopsies:unremarkable colonic mucosa
-Stool studies on 01/03/24: (Fat, calprotectin, Pancreatic Elastase) Results unremarkable
-Celiac Comprehensive panel : Unremarkable
#Plan
-Patient reports improvement for nausea
-PPI 40 mg once can be continued
Subjective
Subjective
Date of Service: January 28, 2024
Patient was seen in her bed while eating her lunch. Reported she does not have nausea since yesterday and started to eat better. She also reported she had a soft stool this morning and she did not have diarrhea.
Objective
Data Reviewed
Laboratory Data:
Laboratory Results
01/28/24 07:16
01/28/24 07:16
Laboratory Results
Total Bilirubin 2.2 mg/dl (0.2-1.3) H 01/22/24 23:04
AST 30 U/L (14-36) 01/22/24 23:04
ALT 39 U/L (0-35) H 01/22/24 23:04
Alkaline Phosphatase 125 U/L (38-126) 01/22/24 23:04
Vital Signs and I&O:
Vital Signs
Temp Pulse Resp BP Pulse Ox
97.5 F 64 18 147/82 97
01/28/24 07:55 01/28/24 08:51 01/28/24 07:55 01/28/24 08:51 01/28/24 07:55
I&O
01/27/24 01/28/24 01/29/24
06:59 06:59 06:59
Intake Total 480 / 480 600 / 600
Output Total 750 / 750
Balance 480 / 480 -150 / -150
Physical Exam
Physical Exam
HEENT: Anicteric and Moist mucous membranes
Cardiology: S1, S2 and Murmur
Pulmonary: Clear
GI: Soft, Non Distended and Non Tender
Extremities: Edema
Neuro: Non Focal
--- NOTE | 2024-01-28 10:28 | ITS.CL.CATH ---
[facility] - Catheterization
Cardiac Catheterization
Procedure Report:
RIGHT HEART CATHETERIZATION
Date of Procedure: January 28, 2024
Referring: Dr. Leticia Contreras
INDICATION: Rising creatinine and clinically volume overloaded
Hemodynamics (mmHg):
RA (m) : 22
RV (s/d,m) : 73/15, 24
PA (s/d, m) : 68/48, 53
PCWP (m) : 38
Blood Pressure: 140/83, 105
Cardiac Output : 2.1 L/min and Cardiac Index : 1.1 L/min/m-2
Systemic vascular resistance: 39.5 Wood units or 3162 [id number](-5)
Pulmonary vascular resistance: 7.1 Wood units or 571 [id number](-5)
RADIATION SUMMARY: Fluoro Time (min): 1.6, Dose (mGy): 7.1, DAP (Gy.cm2) : 0.8
CONCLUSION:
1. Elevated right and left ventricular filling pressures with severely reduced cardiac output and cardiac index
Copy to:Dr. Robert Ziegler
--- NOTE | 2024-01-28 11:39 | W.PN.UPDATE ---
Update Note
Progress Note Update
Reviewed last catheterization, recent echocardiogram, right heart catheterization
PLAN:
-Low cardiac output and index
Will move to IVU and begin milrinone
Needs further diuresis with PCWP of 35 and CO/IC: 2.1/1.1
Eventual ACR/ARB/ARNI
EF severely reduced by echo with SVR of 3162 [id number]
-She has significant CADz and is not currently on a statin: Will start statin. She experienced muscle aches on statin in the past but needs lipid lowering
-Check fasting lipids
-I would not do catheterization now with no symptoms and negative troponin. The thought was that LVEF may have fallen secondary to her afib. However, IF LVEF does not recover then would consider coronary angiography given recent significant fall
and HF
--- NOTE | 2024-01-28 12:21 | W.PN.NEPH.PH ---
Today's Communication / Plan
-
lasix 40mg IV BID
labs later
milrinone per cards
Assessment/Plan
-
Impression:
ALANNA
Acute on chr congestive heart failure withEF of 20% , severe TR
Paroxysmal atrial fibrillation
Coronary artery disease with history of stent
IBS with diarrhea
Anxiety depression
History of ventricular tachycardia with ICD
Plan:
ALANNA-suspect cardiorenal, UA relatively bland
Creatinine unchanged at 2.1
nml renal US, PVR 36cc
Weights stable and non oliguric
noted RHC finidings PCWP of 38 and CI of 1.1. milrinone to start per cards
will increase lasix to 40mg IV BID
will wait to add ARB till cr is stabilized
BP stable on BB
follow labs
d/w pt and cards
-
-
Date of Service: January 28, 2024
CC / HPI / ROS
-
Chief Complaint:
ALANNA
History of Present Illness:
cr no change cr 2.1
wt slightly ebtter, BP stable
no fever
RIAZ and cardioversion performed on 01/26/2024
Review of Systems:
no cp or sob at rest
edema improving
no diarrhea
Labs
-
Labs:
WBC 6.5 10^3/uL (4.8-10.8) 01/28/24 07:16
RBC 4.05 10^6/uL (4.20-5.40) L 01/28/24 07:16
Hgb 11.8 g/dL (12.0-16.0) L 01/28/24 07:16
Hct 36.0 % (37.0-47.0) L 01/28/24 07:16
Plt Count 239 10^3/uL (130-400) 01/28/24 07:16
Sodium 142 mmol/L (135-145) 01/28/24 07:16
Potassium 3.5 mmol/L (3.5-5.1) 01/28/24 07:16
Chloride 100 mmol/L (98-107) 01/28/24 07:16
Carbon Dioxide 29 mmol/L (22-30) 01/28/24 07:16
BUN 69 mg/dl (7-17) H 01/28/24 07:16
Creatinine 2.1 mg/dL (0.6-1.0) H 01/28/24 07:16
eGFR 23.67 01/28/24 07:16
Glucose 88 mg/dl (70-99) 01/28/24 07:16
Calcium 9.2 mg/dl (8.4-10.2) 01/28/24 07:16
Mvo-Y-Dawgqmciepz Pept 93163 pg/ml 01/22/24 23:04
Albumin 3.9 g/dl (3.5-5.0) 01/22/24 23:04
Physical Exam
-
Vital Signs:
Vital Signs
Temp Pulse Resp BP Pulse Ox
98 F 61 18 135/84 98
01/28/24 11:30 01/28/24 11:30 01/28/24 11:30 01/28/24 11:30 01/28/24 11:30
Cardiovascular:: Regular rate and rhythm
Respiratory:: Bilateral: CTA (decreased)
Lung Excursion:: Normal
Abdomen:: Nontender and Soft
Extremity Edema:: None: Bilateral:
Bueno Catheter: No
[2024-01-28] MEDS: PRIMACOR 20 MG 100 IV (13:42)
--- NOTE | 2024-01-28 14:50 | W.PN.HOSP.TC ---
Today's Communication/Plan
-
Assessment / Plan
Assessment / Plan
Imaging
RIAZ
CONCLUSIONS
Severely reduced left ventricular systolic function. Left ventricular ejection
fraction is 20%.
Moderate/severe central mitral regurgitation.
Enlarged right ventricular size. Reduced right ventricular systolic function.
Severe tricuspid regurgitation.
No thrombus detected in the left atrial appendage
Procedures
RIAZ/DCCV
A single shock of 200 joules was delivered,
which resulted in conversion to an atrial-paced rhythm. She will
continue Eliquis for anticoagulation.
RHC
CONCLUSION:
1. Elevated right and left ventricular filling pressures with severely reduced cardiac output and cardiac index
Physical Exam
NAD, resting comfortably in bed
Scleral anicteric
Moist mucous membranes
JVD +
CTA bilateral
Normal S1-S2 no murmurs
Soft nontender nondistended bowel sounds active
Bilateral lower extremity edema 2+, worse on the left than the right
Moves extremities spontaneously
AAOx3
Assessment and Plan
Acute on chronic HFrEF exacerbation, EF 20%, NYHA classification 3-4 further complicated by with PAP 65-70 this likely demonstrates who group 2
-IV diuretics
-Follow renal function
-Keep K greater than 4
-Keep magnesium greater than 2
-Monitor daily weights,5lbs loss, states still legs are swollen
-Monitor urinary output/I's and O's
-Continue GDMT with BB and Entresto
-Cardiology following
-S/p RHC, still volume overloaded, cards rec IVU upgrade with addition of Milrinone.
Atrial fibrillation
-Eliquis 5 mg twice daily per cards
-Amiodarone increased frequency
-- S/p RIAZ/DCCV 01/26/2024. Back in sinus rhythm.
Hopefully RIAZ/DCCV can covert her to sinus to improve cardiac output, which should further help to alleviate CRS and improve UOP.
If still no improvemtn in renal function or UOP then may need to do a RHC.
I am concerned that she may go into cardiogenic shock and we need to continue to monitor closely
Also, if RIAZ/DCCV fails or sinus short lived may need ablation.
-Outpatient EP follow up
Prlonged QTc, resolved after DCCV
-On amio, discussed this with Cards for which they will repeat EKG post RIAZ/DCCV and will re-assess QTc
-Avoid QTc sparing agents
-Keep K>4
-Keep Mg>2
Monitor on tele
ALANNA likely secondary to CRS
-Non-oligouric
-Avoid nephrotoxins and hypotension
-Renal diet
-Nephrology following
-Does not meet MACHINE BENDER needs at this time
Will have PT./OT eval
Nausea
-On going issue, causing decreased PO intake.
-Can start Zofran as QTc on repeat EKG in the 400's
-GI consulted
Anticipated Discharge: > 48 hours
Subjective/Interval History
-
Date of Service: January 28, 2024
seen and examined. no new complaints. no acute ovenright events
Objective Data
-
Labs:
Laboratory Results
01/28/24
07:16
WBC 6.5
Hgb 11.8 L
Hct 36.0 L
Plt Count 239
Sodium 142
Potassium 3.5
Chloride 100
Carbon Dioxide 29
BUN 69 H
Creatinine 2.1 H
Glucose 88
Calcium 9.2
Vital Signs:
Vital Signs
Temp Pulse Resp BP Pulse Ox
98.2 F 61 18 126/76 96
01/28/24 14:10 01/28/24 14:10 01/28/24 14:10 01/28/24 14:10 01/28/24 14:10
I&O
01/27/24 01/28/24 01/29/24
06:59 06:59 06:59
Intake Total 480 / 480 600 / 600
Output Total 750 / 750 750 / 750
Balance 480 / 480 -150 / -150 -750 / -750
--- NOTE | 2024-01-28 16:45 | CM ---
CM continues to follow for discharge needs. Patient is current with [facility].
Plan is for the patient to return home with [facility].
[2024-01-28] MEDS: LIPITOR 40 MG PO (17:36)
--- NOTE | 2024-01-28 18:37 | PTCARENOTE ---
Received patient this am AAOx3. Pt NPO this am for right heart cath. Pt sent to [facility] this am. Received patient back from [facility] [employer] [facility]. AAOx3. Please post angiography flow sheet for documentation. Pt started on Milirone Drip this afternoon.
Report call to IVU nurse an patient transferred to IVU at 1800.
--- NOTE | 2024-01-28 19:33 | PTCARENOTE ---
received pt from 4th floor, pt oriented to unit. kavin gtt per documentation. pt offers no complaints at this time. pt educated on plan of care and pt verbalized understanding. call gasca within reach.
--- NOTE | 2024-01-28 22:00 | PTCARENOTE ---
pt received with milrinone drip infusing at 5.2 ml. iv lasix given as ordered. pt states she is feeling much better tonight. no sob or chest pain. o2 sat=96% on room air. voiding on bedside commode without difficulty.
[2024-01-29] VITALS (11 sets, daily range): BP systolic 95–120; BP diastolic 51–71; PULSE 61–63; BMI 32.5
[2024-01-29] MEDS: PRIMACOR 20 MG 100 IV ×2 (04:34→22:48)
[2024-01-29 04:54] LABS: Hematocrit 36.7 % (37.0-47.0); Mean Corp Hgb Conc. 32.7 g/dL (33.0-37.0); Mean Corpuscular Hgb 28.8 pg (27.0-31.0); Mean Platelet Volume 10.2 fL (7.4-10.4); Platelet Count 236 10^3/uL (130-400); Red Blood Cell Count 4.17 10^6/uL (4.20-5.40); Red Cell Dist. Width 15.7 % (11.5-14.5); White Blood Cell Count 5.9 10^3/uL (4.8-10.8)
[2024-01-29 05:17] LABS: Blood Urea Nitrogen 55 mg/dl (7-17); Calcium 8.9 mg/dl (8.4-10.2); Carbon Dioxide 34 mmol/L (22-30); Chloride 100 mmol/L (98-107); Estimated Creatinine Clearance 28 ml/min; Glucose 82 mg/dl (70-99); HDL Cholesterol 28 mg/dl; LDL Cholesterol, Calculated 59 mg/dl; Potassium 2.9 mmol/L (3.5-5.1); Sodium 143 mmol/L (135-145); Total Cholesterol 108 mg/dl (50-199); Triglyceride 105 mg/dl (10-149); Very Low Density Lipoprotein 21 mg/dl (0-30)
[2024-01-29] MEDS: KCL 40 MEQ PO (06:28)
[2024-01-29] MEDS: KCL 270 MEQ IV (06:32)
--- NOTE | 2024-01-29 06:44 | PTCARENOTE ---
pt received on milrinone drip at 5.2 ml. iv lasix given as ordered. pr states she feels much better tonight. no sob or chest pain. + 1 edema of lower extremities when dependent. legs elevated. pt av paced on Monitor with pvc's
--- NOTE | 2024-01-29 06:52 | PTCARENOTE ---
am k=2.9. house provider orquidea made aware. 40 meq kcl given po and kcl rider hung.
[2024-01-29] MEDS: LASIX 40 MG IV ×2 (08:14→17:43)
[2024-01-29] MEDS: ELIQUIS 5 MG PO ×2 (08:14→19:27)
[2024-01-29] MEDS: LEXAPRO 20 MG PO (08:14)
[2024-01-29] MEDS: PACERONE 200 MG PO (08:15)
[2024-01-29] MEDS: TOPROL XL 50 MG PO (08:15)
[2024-01-29] MEDS: PROTONIX 40 MG PO (08:15)
--- NOTE | 2024-01-29 09:54 | W.PN.CARDCBS ---
Addendum entered and electronically signed by Kamari Torre MD 01/29/24 10:28:
She denies chest pain palpitations dizziness. She tells me her shortness of breath has improved.
She is in no distress
Regular rate and rhythm normal S1 and S2, no S3 no S4 there is a grade 2/6 apical holosystolic murmur and no rub PMI is laterally and inferiorly displaced
Lungs clear bilaterally without wheezes or rhonchi
Abdomen soft nontender nondistended with normoactive bowel sounds
Extremities show trace pretibial edema bilaterally
With milrinone infusion as well as IV Lasix, she is clinically improving. Weight is down and fluid balance is negative. Additionally, creatinine improving with creatinine down to 1.7 from 2.1.
Continue Lasix 40 mg IV twice daily and continue current milrinone infusion rate
She is markedly hypokalemic with a potassium of 2 9 this morning. She is getting intravenous as well as oral replacement. Goal potassium should be between 4 and 5 and goal magnesium between 2 and 3
Continue metoprolol succinate Entresto was stopped due to ALANNA earlier this month and given ALANNA not current candidate for aldactone/SGLT2 inhibitor.
Can eventually consider Hydralazine + Nitrates over next 24-48 hrs if continues to clinically improve and BP tolerates
We will plan for eventual ischemic evaluation with coronary angiography when clinically stable and after 30 days of uninterrupted oral anticoagulation.
RIAZ/CV 01/26/24.
Maintain amiodarone 200mg daily (remains av paced via Medtronic BiV ICD)
Original Note:
Today's Communication / Plan
-
continue milrinone, lasix
follow Cr
repleting K
av paced
will need eventual cath and repeat echo
Impression / Plan
-
PCP: BYRON Man
Tool Programmer: Dr. Figueroa
Admissions Nurse: Dr. Robert Ziegler
Impression:
Admitted with acute on chronic HFrEF
CM EF 34% by echo 10/11/23, down to 20% by repeat echo 01/04/24
Recurrent and persistent Afib on Eliquis
s/p successful RIAZ/CV 01/26/24
Acute on chronic renal failure, possible cardiorenal syndrome
LBBB
s/p Medtronic BiV ICD 11/18/22
HTN
Hyperlipidemia
CAD
s/p RAULITO OM 07/2020
Diarrhea predating amiodarone, nausea new since starting amiodarone
Hx Diverticulitis
Lexiscan nuclear stress test 07/19/2020: Moderate reversible defect in the mid inferolateral, mid inferior, and apical inferior segments. Inferior hypokinesis. LVEF 40%. LV normal size.�������
Echo 07/12/2020: LVEF 45-50%. Mild global hypo. Inferior basal akinesis. Moderate LAE. Aortic valve sclerosis.
Echo 03/20/2021: EF 35 to 40%, stage II DD. Mild left atrial enlargement. Mild MR.
Echo 10/11/2023: EF 34%. Moderately reduced LV systolic function. Stage II DD. Mild MR, mild TR. PAP 37 mmHg
Echo 01/04/2024: EF 20%, global hypokinesis with regional variability, normal RV size with low normal RV systolic function, moderate to severe MR, severe TR with PAP 65-70 mmHg
Plan:
-she presented with SOB and acute CHF. she was diuresed this admission with rising Cr. underwent RHC yesterday with low CI/CO and PCWP of 38.
-continue diuresis with IV lasix 40mg BID. she was taking po lasix 40mg daily prior to admission
-was started on milrinone @ ordered rate of 0.2.
-responding well. Cr down trending, 1.7 on 01/28. reports good urine output.
-K being repleted
-CHF education
-she was cardioverted for afib 12/19, however recurred 12/21 and has been persistent since that time. she was started on amiodarone in December. dose was increased this admission and she underwent RIAZ/CV 01/26/24. now back to amiodarone 200mg daily.
in av paced rhythm on review of tele overnight
-echo 01/03 with EF lower at 20%. suspect it was initially felt to be secondary to tachycardia/afib. she will need eventual ischemic evaluation. trop 0.015 on admission however not repeated
-continue toprol. entresto was stopped due to ALANNA earlier this month. not current candidate for aldactone/SGLT2 inhibitor given ALANNA. would consider for hydralazine to promote forward flow if BP tolerates and nitrates
-Cont Eliquis 5 mg BID
-will need repeat echo to reassess EF and MR, likely as OP
-d/w nursing
Progress Note - Tool Programmer
Subjective
Date of Service: January 29, 2024
Denies chest discomfort. Reports good urine output overnight. Reports breathing is okay
Objective
Labs:
01/29/24 04:31
01/29/24 04:31
Labs
Hgb 12.0 g/dL (12.0-16.0) 01/29/24 04:31
Hct 36.7 % (37.0-47.0) L 01/29/24 04:31
Plt Count 236 10^3/uL (130-400) 01/29/24 04:31
Sodium 143 mmol/L (135-145) 01/29/24 04:31
Potassium 2.9 mmol/L (3.5-5.1) L 01/29/24 04:31
BUN 55 mg/dl (7-17) H 01/29/24 04:31
Creatinine 1.7 mg/dL (0.6-1.0) H 01/29/24 04:31
Glucose 82 mg/dl (70-99) 01/29/24 04:31
Vital Signs and I&O:
Vital Signs
Temp Pulse Resp BP Pulse Ox
98.1 F 60 16 117/70 98
01/29/24 08:11 01/29/24 08:14 01/29/24 08:11 01/29/24 08:14 01/29/24 08:11
Vital Signs
Temp Pulse Resp BP Pulse Ox
98.1 F 60 16 117/70 98
01/29/24 08:11 01/29/24 08:14 01/29/24 08:11 01/29/24 08:14 01/29/24 08:11
Intake & Output
01/27/24 01/28/24 01/29/24 01/30/24
07:59 07:59 07:59 07:59
Intake Total 480 / 480 600 / 600 260 / 260
Output Total 750 / 750 2175 / 2175 300 / 300
Balance 480 / 480 -150 / -150 -2175 / -2175 -40 / -40
Physical Exam
Physical Exam
GEN: No distress, awake, lethargic
HEENT: supple, anicteric, mmm, eomi
LUNGS: CTA anterolaterally, no wheezes
CV: Reg, S1/S2, 2/6 murmur
ABD: soft, BS+, NT/ND
EXT: No cyanosis, clubbing. Trace edema of B/L LE
NEURO: Gross non-focal
SKIN: Warm, pink, dry. No rash
--- NOTE | 2024-01-29 10:10 | PTCARENOTE ---
Received patient this morning resting in bed. IV milrinone infusing at 0.2mcg/kg/min right hand. K+ rider infusing LAC. Medicated with IV lasix as ordered. Patient seen by nephrology this AM, will recheck K+ prior to next dose of IV lasix. Commode
at the bedside, patient calling for assistance when getting oob.
--- NOTE | 2024-01-29 10:16 | W.PN.NEPH.PH ---
Today's Communication / Plan
-
see plan
Assessment/Plan
-
Impression:
ALANNA
Acute on chr congestive heart failure with EF of 20% , severe TR
Paroxysmal atrial fibrillation
Coronary artery disease with history of stent
IBS with diarrhea
Anxiety depression
History of ventricular tachycardia with ICD
Plan:
ALANNA-suspect cardiorenal, UA relatively bland
Creatinine better at 1.7
nml renal US, PVR 36cc
Weights stable and non oliguric
noted RHC finidings PCWP of 38 and CI of 1.1. milrinone per cards
replaced k 80meq, and repeat labs later
if k still low likely hold lasix till k repleted
will wait to add ARB once cr is stabilized
BP stable on BB
follow labs
d/w pt and cards
-
-
Date of Service: January 29, 2024
CC / HPI / ROS
-
Chief Complaint:
ALANNA
History of Present Illness:
cr better at 1.7
wt ebtter, BP stable on milrinone
no fever
RIAZ and cardioversion performed on 01/26/2024
Review of Systems:
no cp or sob at rest
feels well
Labs
-
Labs:
WBC 5.9 10^3/uL (4.8-10.8) 01/29/24 04:31
RBC 4.17 10^6/uL (4.20-5.40) L 01/29/24 04:31
Hgb 12.0 g/dL (12.0-16.0) 01/29/24 04:31
Hct 36.7 % (37.0-47.0) L 01/29/24 04:31
Plt Count 236 10^3/uL (130-400) 01/29/24 04:31
Sodium 143 mmol/L (135-145) 01/29/24 04:31
Potassium 2.9 mmol/L (3.5-5.1) L 01/29/24 04:31
Chloride 100 mmol/L (98-107) 01/29/24 04:31
Carbon Dioxide 34 mmol/L (22-30) H 01/29/24 04:31
BUN 55 mg/dl (7-17) H 01/29/24 04:31
Creatinine 1.7 mg/dL (0.6-1.0) H 01/29/24 04:31
eGFR 30.50 01/29/24 04:31
Glucose 82 mg/dl (70-99) 01/29/24 04:31
Calcium 8.9 mg/dl (8.4-10.2) 01/29/24 04:31
Src-Y-Gczbagogoee Pept 25852 pg/ml 01/22/24 23:04
Albumin 3.9 g/dl (3.5-5.0) 01/22/24 23:04
Physical Exam
-
Vital Signs:
Vital Signs
Temp Pulse Resp BP Pulse Ox
98.0 F 60 16 114/67 97
01/29/24 11:49 01/29/24 12:00 01/29/24 11:49 01/29/24 11:49 01/29/24 11:49
Cardiovascular:: Regular rate and rhythm
Respiratory:: Bilateral: CTA
Lung Excursion:: Normal
Abdomen:: Nontender and Soft
Extremity Edema:: None: Bilateral: (trace)
Bueno Catheter: No
--- NOTE | 2024-01-29 14:50 | W.PN.HOSP.TC ---
Today's Communication/Plan
-
iv milrinone and iv diuretics.
cards follwoing
monitor volume status
remains in sinus
Assessment / Plan
Assessment / Plan
Imaging
RIAZ
CONCLUSIONS
Severely reduced left ventricular systolic function. Left ventricular ejection
fraction is 20%.
Moderate/severe central mitral regurgitation.
Enlarged right ventricular size. Reduced right ventricular systolic function.
Severe tricuspid regurgitation.
No thrombus detected in the left atrial appendage
Procedures
RIAZ/DCCV
A single shock of 200 joules was delivered,
which resulted in conversion to an atrial-paced rhythm. She will
continue Eliquis for anticoagulation.
RHC
CONCLUSION:
1. Elevated right and left ventricular filling pressures with severely reduced cardiac output and cardiac index
Physical Exam
NAD, resting comfortably in bed
Scleral anicteric
Moist mucous membranes
JVD +
CTA bilateral
Normal S1-S2 no murmurs
Soft nontender nondistended bowel sounds active
Bilateral lower extremity edema 2+, worse on the left than the right
Moves extremities spontaneously
AAOx3
Assessment and Plan
Acute on chronic HFrEF exacerbation, EF 20%, NYHA classification 3-4 further complicated by with PAP 65-70 this likely demonstrates who group 2
-IV diuretics
-Follow renal function
-Keep K greater than 4
-Keep magnesium greater than 2
-Monitor daily weights,5lbs loss, states still legs are swollen
-Monitor urinary output/I's and O's
-Continue GDMT with BB and Entresto
-Cardiology following
-S/p RHC, still volume overloaded, cards rec IVU upgrade with addition of Milrinone.
Atrial fibrillation
-Eliquis 5 mg twice daily per cards
-Amiodarone increased frequency
-- S/p RIAZ/DCCV 01/26/2024. Back in sinus rhythm.
Hopefully RIAZ/DCCV can covert her to sinus to improve cardiac output, which should further help to alleviate CRS and improve UOP.
If still no improvemtn in renal function or UOP then may need to do a RHC.
I am concerned that she may go into cardiogenic shock and we need to continue to monitor closely
Also, if RIAZ/DCCV fails or sinus short lived may need ablation.
-Outpatient EP follow up
Prlonged QTc, resolved after DCCV
-On amio, discussed this with Cards for which they will repeat EKG post RIAZ/DCCV and will re-assess QTc
-Avoid QTc sparing agents
-Keep K>4
-Keep Mg>2
Monitor on tele
ALANNA likely secondary to CRS
-Non-oligouric
-Avoid nephrotoxins and hypotension
-Renal diet
-Nephrology following
-Does not meet LOUVER DOOR ASSEMBLER needs at this time
Will have PT./OT eval
Nausea
-On going issue, causing decreased PO intake.
-Can start Zofran as QTc on repeat EKG in the 400's
-GI consulted
Anticipated Discharge: 24 - 48 hours
Subjective/Interval History
-
Date of Service: January 29, 2024
seen and examined. no new complaints. no acute overnight eventgs
Objective Data
-
Labs:
Laboratory Results
01/29/24 01/29/24
04:31 15:00
WBC 5.9
Hgb 12.0
Hct 36.7 L
Plt Count 236
Sodium 143 Pending
Potassium 2.9 L Pending
Chloride 100 Pending
Carbon Dioxide 34 H Pending
BUN 55 H Pending
Creatinine 1.7 H Pending
Glucose 82 Pending
Calcium 8.9 Pending
Vital Signs:
Vital Signs
Temp Pulse Resp BP Pulse Ox
98.0 F 60 16 114/67 97
01/29/24 11:49 01/29/24 12:00 01/29/24 11:49 01/29/24 11:49 01/29/24 11:49
I&O
01/28/24 01/29/24 01/30/24
06:59 06:59 06:59
Intake Total 600 / 600 500 / 500
Output Total 750 / 750 2175 / 2175 800 / 800
Balance -150 / -150 -2175 / -2175 -300 / -300
[2024-01-29 15:58] LABS: Blood Urea Nitrogen 49 mg/dl (7-17); Carbon Dioxide 34 mmol/L (22-30); Chloride 101 mmol/L (98-107); Estimated Creatinine Clearance 28 ml/min; Glucose 92 mg/dl (70-99); Potassium 3.7 mmol/L (3.5-5.1); Sodium 143 mmol/L (135-145)
[2024-01-29] MEDS: LIPITOR 40 MG PO (17:41)
--- NOTE | 2024-01-29 22:09 | PTCARENOTE ---
Rec'd pt at change of shift. PT AAO*3 on TELE monitor in AV paced rhythm with HR in the 60's and VSS. Pt with milrinone infusing at 2mcg/kg/minute or 5.2 mL's per hour. Pt denied any pain or discomfort and resting in bed with call gasca in reach.
[2024-01-30] VITALS (8 sets, daily range): BP systolic 99–118; BP diastolic 55–87; BMI 32.5
[2024-01-30 03:14] LABS: Hematocrit 36.1 % (37.0-47.0); Hemoglobin 11.5 g/dL (12.0-16.0); Mean Corp Hgb Conc. 31.9 g/dL (33.0-37.0); Mean Corpuscular Hgb 28.5 pg (27.0-31.0); Mean Corpuscular Volume 89.6 fL (81.0-99.0); Mean Platelet Volume 10.1 fL (7.4-10.4); Platelet Count 237 10^3/uL (130-400); Red Blood Cell Count 4.03 10^6/uL (4.20-5.40); Red Cell Dist. Width 15.9 % (11.5-14.5); White Blood Cell Count 5.9 10^3/uL (4.8-10.8)
--- NOTE | 2024-01-30 03:26 | PTCARENOTE ---
TELE monitor alarmed pt in 'vent rhythm' at 0222. Pt had 21 beat run of Non-sustained Vtach. CT AUTUM[employer] Rodriguez, Larry aware. VSS (see flowchart). Pt asymptomatic resting in bed and 'did not feel anything, but heard alarm.' Pt agreed to report any
discomfort immediately. 2L of oxygen applied for comfort, as requested by AUTUMN Rodriguez. Morning labs collected (including mg add on). Pt in AV paced rhythm on TELE monitor. Pt resting in bed with call gasca in reach.
[2024-01-30 03:42] LABS: Blood Urea Nitrogen 46 mg/dl (7-17); Calcium 8.6 mg/dl (8.4-10.2); Carbon Dioxide 34 mmol/L (22-30); Chloride 100 mmol/L (98-107); Estimated Creatinine Clearance 30 ml/min; Glucose 93 mg/dl (70-99); Magnesium 2.1 mg/dl (1.6-2.3); Potassium 3.3 mmol/L (3.5-5.1); Sodium 144 mmol/L (135-145); eGFR 32.81
[2024-01-30] MEDS: KCL 40 MEQ PO ×2 (04:07→21:49)
[2024-01-30] MEDS: LASIX 40 MG IV ×2 (08:19→16:05)
[2024-01-30] MEDS: TOPROL XL 50 MG PO (08:19)
[2024-01-30] MEDS: ELIQUIS 5 MG PO ×2 (08:20→20:19)
[2024-01-30] MEDS: PROTONIX 40 MG PO (08:20)
[2024-01-30] MEDS: PACERONE 200 MG PO (08:20)
[2024-01-30] MEDS: LEXAPRO 20 MG PO (08:20)
--- NOTE | 2024-01-30 08:59 | W.PN.CARDCBS ---
Today's Communication / Plan
-
Continue milrinone and continue Lasix as she is clinically improving.
Replete potassium. She was given 40 mEq Kdur today. I will give her another 40 mEq today as well
Impression / Plan
-
PCP: BYRON Man
Silvering Department Supervisor: Dr. Figueroa
Plate Keeper: Dr. Robert Ziegler
Impression:
Admitted with acute on chronic HFrEF
CM EF 34% by echo 10/11/23, down to 20% by repeat echo 01/04/24
Recurrent and persistent Afib on Eliquis
s/p successful RIAZ/CV 01/26/24
Acute on chronic renal failure, possible cardiorenal syndrome
LBBB
s/p Medtronic BiV ICD 11/18/22
HTN
Hyperlipidemia
CAD
s/p RAULITO OM 07/2020
Diarrhea predating amiodarone, nausea new since starting amiodarone
Hx Diverticulitis
Lexiscan nuclear stress test 07/19/2020: Moderate reversible defect in the mid inferolateral, mid inferior, and apical inferior segments. Inferior hypokinesis. LVEF 40%. LV normal size.�������
Echo 07/12/2020: LVEF 45-50%. Mild global hypo. Inferior basal akinesis. Moderate LAE. Aortic valve sclerosis.
Echo 03/20/2021: EF 35 to 40%, stage II DD. Mild left atrial enlargement. Mild MR.
Echo 10/11/2023: EF 34%. Moderately reduced LV systolic function. Stage II DD. Mild MR, mild TR. PAP 37 mmHg
Echo 01/04/2024: EF 20%, global hypokinesis with regional variability, normal RV size with low normal RV systolic function, moderate to severe MR, severe TR with PAP 65-70 mmHg
Plan:
She is admitted with acute decompensated congestive heart failure.
Recent echocardiogram has shown continued decline in LVEF down to 20% on January 04, 2024. Also with severe tricuspid regurgitation in the setting of marked pulmonary hypertension and marked volume overload.
Right heart catheterization performed Wednesday, January 28, 2024 consistent with cardiogenic shock with cardiac index of 1.1 and markedly elevated filling pressure, pulmonary capillary wedge pressure of 38.
Initiated on milrinone infusion and started on IV Lasix diuresis, 40 mg IV twice daily
She has been clinically improving, weight is down approximately 9 pounds since admission and fluid balance remains negative while creatinine continues to improve. BUN and creatinine have improved to 46 and 1.1 today
Maintain milrinone infusion
Diuresis has slowed somewhat but clinically still volume overloaded, will maintain Lasix 40 mg IV BID today
Replete potassium, goal potassium between 4 and 5 and magnesium between 2 and 3
Continue metoprolol succinate Entresto was stopped due to ALANNA earlier this month and given ALANNA not current candidate for aldactone/SGLT2 inhibitor.
Can eventually consider Hydralazine + Nitrates over next 24-48 hrs if continues to clinically improve and BP tolerates
Given continued decline in LVEF and known background coronary artery disease she would likely benefit from coronary angiography.
Timing for coronary angiography is complex given that she underwent transesophageal echo and cardioversion of atrial fibrillation on January 26, 2024
Medical management and then plan for coronary angiography at some point for 30 days after cardioversion which was performed January 26, 2024
Maintaining sinus rhythm after cardioversion January 26, 2024
Continue amiodarone
Continue oral anticoagulation
Discussed with patient and all of her questions answered. Total time 55 minutes
Progress Note - Silvering Department Supervisor
Subjective
Date of Service: January 30, 2024
Total Time Spent with Patient (in minutes): She tells me that she continues to feel fatigued but overall feels her dia
Objective
Labs:
01/30/24 02:45
01/30/24 02:45
Labs
Hgb 11.5 g/dL (12.0-16.0) L 01/30/24 02:45
Hct 36.1 % (37.0-47.0) L 01/30/24 02:45
Plt Count 237 10^3/uL (130-400) 01/30/24 02:45
Sodium 144 mmol/L (135-145) 01/30/24 02:45
Potassium 3.3 mmol/L (3.5-5.1) L 01/30/24 02:45
BUN 46 mg/dl (7-17) H 01/30/24 02:45
Creatinine 1.6 mg/dL (0.6-1.0) H 01/30/24 02:45
Glucose 93 mg/dl (70-99) 01/30/24 02:45
Vital Signs and I&O:
Vital Signs
Temp Pulse Resp BP Pulse Ox
97.8 F 63 18 102/87 97
01/30/24 07:26 01/30/24 08:19 01/30/24 07:26 01/30/24 08:19 01/30/24 07:28
Vital Signs
Temp Pulse Resp BP Pulse Ox
97.8 F 63 18 102/87 97
01/30/24 07:26 01/30/24 08:19 01/30/24 07:26 01/30/24 08:19 01/30/24 07:28
Intake & Output
01/28/24 01/29/24 01/30/24 01/31/24
06:59 06:59 06:59 06:59
Intake Total 600 / 600 1400 / 1400 240 / 240
Output Total 750 / 750 2175 / 2175 1700 / 1700 500 / 500
Balance -150 / -150 -2175 / -2175 -300 / -300 -260 / -260
Physical Exam
Physical Exam
She is in no distress
Regular rate and rhythm normal S1 and S2, no S3 no S4 there is a grade 2/6 apical holosystolic murmur and no rub PMI is laterally and inferiorly displaced
Lungs clear bilaterally without wheezes or rhonchi
Abdomen soft nontender nondistended with normoactive bowel sounds
Extremities show trace pretibial edema bilaterally
--- NOTE | 2024-01-30 10:42 | PTCARENOTE ---
Assumed care of pt from night RN. Pt received awake and alert, Ox3. VSs, CM shows A/Vpacing with occ PVC, POX98% on RA. Milrinone drip infusing through RH at 0.2 mcg/kg/min or 5.2 ml's/hr. She offers no c/o pain or discomfort at this time,
assisted to commode.
--- NOTE | 2024-01-30 12:04 | W.PN.NEPH.PH ---
Today's Communication / Plan
-
cont lasix and follow labs
Assessment/Plan
-
Impression:
ALANNA
Acute on chr congestive heart failure with EF of 20% , severe TR
Paroxysmal atrial fibrillation
Coronary artery disease with history of stent
IBS with diarrhea
Anxiety depression
History of ventricular tachycardia with ICD
Plan:
ALANNA-suspect cardiorenal, UA relatively bland
Creatinine better at 1.6
Weights stable and non oliguric
01/27 noted RHC finidings PCWP of 38 and CI of 1.1. milrinone per cards
replaced k
monitor met alkalosis
will wait to add ARB once cr is stabilized
BP stable on BB
follow labs
d/w pt
-
-
Date of Service: January 30, 2024
CC / HPI / ROS
-
Chief Complaint:
ALANNA
History of Present Illness:
cr better at 1.6, k low 3.3
wt no change, BP stable on milrinone
no fever
RIAZ and cardioversion performed on 01/26/2024
Review of Systems:
no cp or sob at rest
Labs
-
Labs:
WBC 5.9 10^3/uL (4.8-10.8) 01/30/24 02:45
RBC 4.03 10^6/uL (4.20-5.40) L 01/30/24 02:45
Hgb 11.5 g/dL (12.0-16.0) L 01/30/24 02:45
Hct 36.1 % (37.0-47.0) L 01/30/24 02:45
Plt Count 237 10^3/uL (130-400) 01/30/24 02:45
Sodium 144 mmol/L (135-145) 01/30/24 02:45
Potassium 3.3 mmol/L (3.5-5.1) L 01/30/24 02:45
Chloride 100 mmol/L (98-107) 01/30/24 02:45
Carbon Dioxide 34 mmol/L (22-30) H 01/30/24 02:45
BUN 46 mg/dl (7-17) H 01/30/24 02:45
Creatinine 1.6 mg/dL (0.6-1.0) H 01/30/24 02:45
eGFR 32.81 01/30/24 02:45
Glucose 93 mg/dl (70-99) 01/30/24 02:45
Calcium 8.6 mg/dl (8.4-10.2) 01/30/24 02:45
Fzp-X-Unzesligutb Pept 32665 pg/ml 01/22/24 23:04
Albumin 3.9 g/dl (3.5-5.0) 01/22/24 23:04
Physical Exam
-
Vital Signs:
Vital Signs
Temp Pulse Resp BP Pulse Ox
98.7 F 63 20 102/87 96
01/30/24 10:53 01/30/24 08:19 01/30/24 10:53 01/30/24 08:19 01/30/24 10:53
Cardiovascular:: Regular rate and rhythm
Respiratory:: Bilateral: CTA
Lung Excursion:: Normal
Abdomen:: Nontender and Soft
Extremity Edema:: None: Bilateral:
Bueno Catheter: No
--- NOTE | 2024-01-30 14:09 | W.PN.HOSP.TC ---
Today's Communication/Plan
-
milrinone infusion
iv lasix
Assessment / Plan
Assessment / Plan
Imaging
RIAZ
CONCLUSIONS
Severely reduced left ventricular systolic function. Left ventricular ejection
fraction is 20%.
Moderate/severe central mitral regurgitation.
Enlarged right ventricular size. Reduced right ventricular systolic function.
Severe tricuspid regurgitation.
No thrombus detected in the left atrial appendage
Procedures
RIAZ/DCCV
A single shock of 200 joules was delivered,
which resulted in conversion to an atrial-paced rhythm. She will
continue Eliquis for anticoagulation.
RHC
CONCLUSION:
1. Elevated right and left ventricular filling pressures with severely reduced cardiac output and cardiac index
Physical Exam
NAD, resting comfortably in bed
Scleral anicteric
Moist mucous membranes
JVD +
CTA bilateral
Normal S1-S2 no murmurs
Soft nontender nondistended bowel sounds active
Bilateral lower extremity edema 2+, worse on the left than the right
Moves extremities spontaneously
AAOx3
Assessment and Plan
Acute on chronic HFrEF exacerbation, EF 20%, NYHA classification 3-4 further complicated by with PAP 65-70 this likely demonstrates who group 2
-IV diuretics
-Follow renal function
-Keep K greater than 4
-Keep magnesium greater than 2
-Monitor daily weights,5lbs loss, states still legs are swollen
-Monitor urinary output/I's and O's
-Continue GDMT with BB and Entresto
-Cardiology following
-S/p RHC, still volume overloaded, cards rec IVU upgrade with addition of Milrinone.
Atrial fibrillation
-Eliquis 5 mg twice daily per cards
-Amiodarone increased frequency
-- S/p RIAZ/DCCV 01/26/2024. Back in sinus rhythm.
Hopefully RIAZ/DCCV can covert her to sinus to improve cardiac output, which should further help to alleviate CRS and improve UOP.
If still no improvemtn in renal function or UOP then may need to do a RHC.
I am concerned that she may go into cardiogenic shock and we need to continue to monitor closely
Also, if RIAZ/DCCV fails or sinus short lived may need ablation.
-Outpatient EP follow up
Prlonged QTc, resolved after DCCV
-On amio, discussed this with Cards for which they will repeat EKG post RIAZ/DCCV and will re-assess QTc
-Avoid QTc sparing agents
-Keep K>4
-Keep Mg>2
Monitor on tele
ALANNA likely secondary to CRS
-Non-oligouric
-Avoid nephrotoxins and hypotension
-Renal diet
-Nephrology following
-Does not meet SKIN GRADER needs at this time
Will have PT./OT eval
Nausea
-On going issue, causing decreased PO intake.
-Can start Zofran as QTc on repeat EKG in the 400's
-GI consulted
Anticipated Discharge: > 48 hours
Subjective/Interval History
-
Date of Service: January 30, 2024
seen and examined. no new complaints. no acute overnight events
Objective Data
-
Labs:
Laboratory Results
01/30/24
02:45
WBC 5.9
Hgb 11.5 L
Hct 36.1 L
Plt Count 237
Sodium 144
Potassium 3.3 L
Chloride 100
Carbon Dioxide 34 H
BUN 46 H
Creatinine 1.6 H
Glucose 93
Calcium 8.6
Vital Signs:
Vital Signs
Temp Pulse Resp BP Pulse Ox
98.7 F 65 20 118/72 96
01/30/24 10:53 01/30/24 12:00 01/30/24 10:53 01/30/24 10:56 01/30/24 10:53
I&O
01/29/24 01/30/24 01/31/24
06:59 06:59 06:59
Intake Total 1400 / 1400 240 / 240
Output Total 2175 / 2175 1700 / 1700 950 / 950
Balance -2175 / -2175 -300 / -300 -710 / -710
[2024-01-30] MEDS: PRIMACOR 20 MG 100 IV (14:41)
[2024-01-30] MEDS: LIPITOR 40 MG PO (17:54)
[2024-01-31] VITALS (10 sets, daily range): BP systolic 95–130; BP diastolic 50–77; PULSE 67; BMI 32.3
--- NOTE | 2024-01-31 02:49 | PTCARENOTE ---
Rec'd pt at change of shift. Pt on TELE monitor in AV-paced rhythm with VSS AAO*3. Pt with milrinone infusing at 5.2 mL's per hour or 0.2 mcg/kg/min. Pt denies any pain or discomfort and resting with call gasca in reach. Plan of care ongoing.
[2024-01-31 04:14] LABS: Hematocrit 36.2 % (37.0-47.0); Hemoglobin 11.7 g/dL (12.0-16.0); Mean Corp Hgb Conc. 32.3 g/dL (33.0-37.0); Mean Corpuscular Hgb 27.7 pg (27.0-31.0); Mean Corpuscular Volume 85.6 fL (81.0-99.0); Mean Platelet Volume 9.6 fL (7.4-10.4); Platelet Count 254 10^3/uL (130-400); Red Blood Cell Count 4.23 10^6/uL (4.20-5.40); Red Cell Dist. Width 15.9 % (11.5-14.5); White Blood Cell Count 5.7 10^3/uL (4.8-10.8)
[2024-01-31 04:36] LABS: Blood Urea Nitrogen 34 mg/dl (7-17); Calcium 8.9 mg/dl (8.4-10.2); Carbon Dioxide 33 mmol/L (22-30); Chloride 100 mmol/L (98-107); Estimated Creatinine Clearance 34 ml/min; Glucose 99 mg/dl (70-99); Potassium 3.9 mmol/L (3.5-5.1); Sodium 142 mmol/L (135-145); eGFR 38.51
[2024-01-31] MEDS: ELIQUIS 5 MG PO ×2 (08:46→19:37)
[2024-01-31] MEDS: PROTONIX 40 MG PO (08:46)
[2024-01-31] MEDS: TOPROL XL 50 MG PO (08:46)
[2024-01-31] MEDS: LASIX 40 MG IV (08:46)
[2024-01-31] MEDS: PACERONE 200 MG PO (08:47)
[2024-01-31] MEDS: LEXAPRO 20 MG PO (08:47)
--- NOTE | 2024-01-31 10:26 | W.PN.CARDCBS ---
Addendum entered and electronically signed by Gerardo Cohen DO 01/31/24 11:36:
I saw and examined the patient.
The Radiology Equipment Servicer's note was reviewed and I agree with the note.
Comment:
Plan:
Wts continue to come down. Cr continues to improve
Nephrology changing to oral diuretics.
Reduce Milrinone dosing and possible d/c Milrionone next 24 hrs
Remains sinus on amiodarone. Nausea has revolved.
Repeat echo as outpt in 6 weeks and if EF remains lower then could consider cath to eval cors.
Would have to wt at least 4 weeks after cardioversion.
Defer to primary charge account clerk.
Original Note:
Today's Communication / Plan
-
Cont milrinone
Hold Toprol XL
Impression / Plan
-
PCP: BYRON Man
Bilingual Kindergarten Teacher: Dr. Figueroa
Security Installation Sales Technician: Dr. Robert Ziegler
Impression:
Admitted with acute on chronic HFrEF
Cardiogenic shock
milrinone started 01/28/24
CM EF 34% by echo 10/11/23, down to 20% by repeat echo 01/04/24
Recurrent and persistent Afib on Eliquis
s/p CV 12/20/23
s/p successful RIAZ/CV 01/26/24
Acute on chronic renal failure, possible cardiorenal syndrome
LBBB
s/p Medtronic BiV ICD 11/18/22
HTN
Hyperlipidemia
CAD
s/p RAULITO OM 07/2020
Diarrhea predating amiodarone, nausea new since starting amiodarone
Hx Diverticulitis
Lexiscan nuclear stress test 07/19/2020: Moderate reversible defect in the mid inferolateral, mid inferior, and apical inferior segments. Inferior hypokinesis. LVEF 40%. LV normal size.�������
Echo 07/12/2020: LVEF 45-50%. Mild global hypo. Inferior basal akinesis. Moderate LAE. Aortic valve sclerosis.
Echo 03/20/2021: EF 35 to 40%, stage II DD. Mild left atrial enlargement. Mild MR.
Echo 10/11/2023: EF 34%. Moderately reduced LV systolic function. Stage II DD. Mild MR, mild TR. PAP 37 mmHg
Echo 01/04/2024: EF 20%, global hypokinesis with regional variability, normal RV size with low normal RV systolic function, moderate to severe MR, severe TR with PAP 65-70 mmHg
Plan:
-Milrinone started 01/28/24 and running at 0.2 mcg/kg/min on 01/31/24. Milrinone renewed by ma 01/31/24
-Cre improved from peak of 2.1 on 01/28/24 down to 1.4 on 01/31/24.
-Cont Lasix 40 mg IV BID. Patient was taking Lasix 40 mg PO daily prior to admission.
-Weight down 7 lbs following initiation of milrinone 01/28/24 and patient reports symptomatic improvement with decreased edema and bloating.
-EF 20% by echo 01/04/24. Patient with h/o CM and previously had ICD implanted in 2022 for CM, but EF worse now. Recurrent and persistent Afib since about 11/2023 could be the cause and patient has been able to maintain SR since most recent RIAZ/CV
01/26/24. Recheck echo in 1 month and if no improvement in EF then would recommend a [facility] to evaluate for CAD.
-Patient has a h/o OM PCI in 2020
-Troponin serially undetectable during admissions at since 12/2023
-Outpatient dose of Toprol XL 50 mg daily has been continued, but will hold while milrinone infusing.
-Outpatient dose of Entresto 49/51 mg was placed on hold during 01/03/24 to 01/06/24 admission due to ALANNA and has not been restarted.
-Consider starting nitrates and hydralazine
-Patient had CV 12/20/23 and then been back in Afib persistently starting 12/22/23. Amiodarone started by Dr. Figueroa in the office in December and then increased to 200 mg BID during 01/10/24 until 01/13/24 admission at . Amiodarone dose was then
decreased to 200 mg daily upon d/c 01/13/24 due to GI symptoms, but longstanding diarrhea predates initiation of amiodarone so amiodarone increased to 200 mg TID this admission. Talked with patient and daughter on 01/27/24 and diarrhea predates
amiodarone, but nausea is new and they think nausea is related to amiodarone. Patient has received a 3.4 gram load of amiodarone this admission. Cont current dose of amiodarone to 200 mg daily, dose was lowered due to nausea.
-Cont Eliquis 5 mg BID (age 78, Cre 1.4, wt 82.6 kg)
-53 minutes face to face, chart prep, care coordination
Progress Note - Bilingual Kindergarten Teacher
Subjective
Date of Service: January 31, 2024
Feels less edematous
Objective
Labs:
01/31/24 03:48
01/31/24 03:48
Labs
Hgb 11.7 g/dL (12.0-16.0) L 01/31/24 03:48
Hct 36.2 % (37.0-47.0) L 01/31/24 03:48
Plt Count 254 10^3/uL (130-400) 01/31/24 03:48
Sodium 142 mmol/L (135-145) 01/31/24 03:48
Potassium 3.9 mmol/L (3.5-5.1) 01/31/24 03:48
BUN 34 mg/dl (7-17) H 01/31/24 03:48
Creatinine 1.4 mg/dL (0.6-1.0) H 01/31/24 03:48
Glucose 99 mg/dl (70-99) 01/31/24 03:48
Vital Signs and I&O:
Vital Signs
Temp Pulse Resp BP Pulse Ox
98.6 F 64 20 130/77 96
01/31/24 08:40 01/31/24 10:00 01/31/24 08:40 01/31/24 08:46 01/31/24 03:37
Vital Signs
Temp Pulse Resp BP Pulse Ox
98.6 F 64 20 130/77 96
01/31/24 08:40 01/31/24 10:00 01/31/24 08:40 01/31/24 08:46 01/31/24 03:37
Intake & Output
01/29/24 01/30/24 01/31/24 02/01/24
06:59 06:59 06:59 06:59
Intake Total 1400 / 1400 782 / 782
Output Total 2175 / 2175 1700 / 1700 1650 / 1650 200 / 200
Balance -2175 / -2175 -300 / -300 -868 / -868 -200 / -200
Physical Exam
Physical Exam
GEN: AAOx3
HEENT: MMM
LUNGS: No audible wheeze
CV: Paced on tele
ABD: ND
EXT: No edema B/L
NEURO: Gross non-focal
SKIN: No rash
[2024-01-31] MEDS: PRIMACOR 20 MG 100 IV (10:46)
--- NOTE | 2024-01-31 11:04 | W.PN.NEPH.PH ---
Today's Communication / Plan
-
po lasix
Assessment/Plan
-
Impression:
ALANNA
Acute on chr congestive heart failure with EF of 20% , severe TR
Paroxysmal atrial fibrillation
Coronary artery disease with history of stent
IBS with diarrhea
Anxiety depression
History of ventricular tachycardia with ICD
Plan:
weights look better, ~180 lbs
convert to po lasix
milrinone per cardiology
follow BMP
-
-
Date of Service: January 31, 2024
CC / HPI / ROS
-
Chief Complaint:
ALANNA
History of Present Illness:
ALANNA/Cr down to 1.4
on milrinone and lasix for decompensated HF
no fever
BP stable
RIAZ and cardioversion performed on 01/26/2024
Review of Systems:
no cp or sob at rest
Labs
-
Labs:
WBC 5.7 10^3/uL (4.8-10.8) 01/31/24 03:48
RBC 4.23 10^6/uL (4.20-5.40) 01/31/24 03:48
Hgb 11.7 g/dL (12.0-16.0) L 01/31/24 03:48
Hct 36.2 % (37.0-47.0) L 01/31/24 03:48
Plt Count 254 10^3/uL (130-400) 01/31/24 03:48
Sodium 142 mmol/L (135-145) 01/31/24 03:48
Potassium 3.9 mmol/L (3.5-5.1) 01/31/24 03:48
Chloride 100 mmol/L (98-107) 01/31/24 03:48
Carbon Dioxide 33 mmol/L (22-30) H 01/31/24 03:48
BUN 34 mg/dl (7-17) H 01/31/24 03:48
Creatinine 1.4 mg/dL (0.6-1.0) H 01/31/24 03:48
eGFR 38.51 01/31/24 03:48
Glucose 99 mg/dl (70-99) 01/31/24 03:48
Calcium 8.9 mg/dl (8.4-10.2) 01/31/24 03:48
Eow-H-Pnzpkhelwch Pept 36642 pg/ml 01/22/24 23:04
Albumin 3.9 g/dl (3.5-5.0) 01/22/24 23:04
Physical Exam
-
Vital Signs:
Vital Signs
Temp Pulse Resp BP Pulse Ox
98.6 F 64 20 130/77 96
01/31/24 08:40 01/31/24 10:00 01/31/24 08:40 01/31/24 08:46 01/31/24 03:37
Cardiovascular:: Regular rate and rhythm
Respiratory:: Bilateral: CTA
Lung Excursion:: Normal
Abdomen:: Nontender and Soft
Bowel Sounds:: Normal
Extremity Edema:: None: Bilateral:
--- NOTE | 2024-01-31 11:31 | PN.CDI ---
CDI
- -
CDI:
Physician Documentation Request
Admit Date: 01/27/24 08:42
Dear Shanelle Amos,
Cardiology progress note states 'Acute on chronic renal failure, possible cardiorenal syndrome'
Follow are some of the eGFR results from this hospitalization and Dec 2023
12/18/23 12/20/23 01/03/24
07:35 03:38 10:08
eGFR 58.02 > 60.00 46.33
01/05/24 01/08/24 01/12/24
07:56 14:09 07:32
eGFR 42.09 38.51 42.09
01/22/24 01/24/24 01/27/24
23:04 03:42 06:54
eGFR 30.50 26.69 25.10
01/29/24 01/31/24
15:31 03:48
eGFR 30.50 38.51
Please clarify which of the following accurately represents the patient's renal status:
____ - CKD, please provide stage - see criteria
____ - CKD ruled out- Acute renal failure only
____ - Other
Stages of Chronic Kidney Disease*
Level Description GFR
G1 Normal or High >90
G2 Mildly decreased 60-89
G3a Mildly to moderately decreased 45-59
G3b Moderately to severely decreased 30-44
G4 Severely decreased 15-29
G5 Kidney failure <15
Use of terms such as suspected, likely, concern for, or probable (associated with a specific diagnosis that is being evaluated, monitored, or treated as if it exists) are acceptable and can be coded in the inpatient setting, when documented at the
time of discharge.
Thank you,
Macarena Harkins RN, BSN
CDI Specialist
tiger text
Please use your independent medical judgment in providing your response.
*Source: Kidney Disease: Improving Global Outcomes (KDIGO) 2012
--- NOTE | 2024-01-31 11:57 | PTCARENOTE ---
Discussed all nursing measures and plan of care w/ pt. Milrinone infusion at 0.2 mcg/kg/min. VSS. Will monitor.
--- NOTE | 2024-01-31 12:23 | W.PN.HOSP.TC ---
Today's Communication/Plan
-
Continue milrinone per cardiology, reduce dose, possible dc in 24hours
Trantioin from IV to PO diuresis
Continue to follow daily weights
Monitor urinary output
Keep K greater than 4
Keep magnesium greater than 2
Daily BMP
Assessment / Plan
Assessment / Plan
Imaging
RIAZ
CONCLUSIONS
Severely reduced left ventricular systolic function. Left ventricular ejection
fraction is 20%.
Moderate/severe central mitral regurgitation.
Enlarged right ventricular size. Reduced right ventricular systolic function.
Severe tricuspid regurgitation.
No thrombus detected in the left atrial appendage
Procedures
RIAZ/DCCV
A single shock of 200 joules was delivered,
which resulted in conversion to an atrial-paced rhythm. She will
continue Eliquis for anticoagulation.
RHC
CONCLUSION:
1. Elevated right and left ventricular filling pressures with severely reduced cardiac output and cardiac index
Physical Exam
NAD, resting comfortably in bed
Scleral anicteric
Moist mucous membranes
JVD +
CTA bilateral
Normal S1-S2 no murmurs
Soft nontender nondistended bowel sounds active
Bilateral lower extremity edema trace, worse on the left than the right
Moves extremities spontaneously
AAOx3
Assessment and Plan
Acute on chronic HFrEF exacerbation, EF 20%, NYHA classification 3-4 further complicated by with PAP 65-70 this likely demonstrates who group 2
-IV diuretics
-Follow renal function
-Keep K greater than 4
-Keep magnesium greater than 2
-Monitor daily weights,5lbs loss, states still legs are swollen
-Monitor urinary output/I's and O's
-Continue GDMT with BB and Entresto
-Cardiology following
-S/p RHC, still volume overloaded, cards rec IVU upgrade with addition of Milrinone.
Atrial fibrillation
-Eliquis 5 mg twice daily per cards
-Amiodarone increased frequency
-- S/p RIAZ/DCCV 01/26/2024. Back in sinus rhythm.
Hopefully RIAZ/DCCV can covert her to sinus to improve cardiac output, which should further help to alleviate CRS and improve UOP.
If still no improvemtn in renal function or UOP then may need to do a RHC.
I am concerned that she may go into cardiogenic shock and we need to continue to monitor closely
Also, if RIZA/DCCV fails or sinus short lived may need ablation.
-Outpatient EP follow up
Prlonged QTc, resolved after DCCV
-On amio, discussed this with Cards for which they will repeat EKG post RIAZ/DCCV and will re-assess QTc
-Avoid QTc sparing agents
-Keep K>4
-Keep Mg>2
Monitor on tele
ALANNA likely secondary to CRS
-Non-oligouric
-Avoid nephrotoxins and hypotension
-Renal diet
-Nephrology following
-Does not meet ACCESS ANALYST needs at this time
Will have PT./OT eval
Nausea
-On going issue, causing decreased PO intake.
-Can start Zofran as QTc on repeat EKG in the 400's
-GI consulted
Anticipated Discharge: 24 - 48 hours
Subjective/Interval History
-
Date of Service: January 31, 2024
Seen and examined. States that she was to go home. No new complaints. No acute overnight events.
Objective Data
-
Labs:
Laboratory Results
01/31/24
03:48
WBC 5.7
Hgb 11.7 L
Hct 36.2 L
Plt Count 254
Sodium 142
Potassium 3.9
Chloride 100
Carbon Dioxide 33 H
BUN 34 H
Creatinine 1.4 H
Glucose 99
Calcium 8.9
Vital Signs:
Vital Signs
Temp Pulse Resp BP Pulse Ox
98.8 F 64 16 130/77 95
01/31/24 12:00 01/31/24 12:00 01/31/24 12:00 01/31/24 08:46 01/31/24 12:00
I&O
01/30/24 01/31/24 02/01/24
06:59 06:59 06:59
Intake Total 1400 / 1400 782 / 782 240 / 240
Output Total 1700 / 1700 1650 / 1650 440 / 440
Balance -300 / -300 -868 / -868 -200 / -200
--- NOTE | 2024-01-31 14:40 | CM ---
CM following for DC planning needs.
Pt. transferred back to IVU.
Met w/ patient at bedside. Pt. feels well. She is anticipating DC later this wk.
We reviewed DC plan for home w/ [facility]. Referral has been made and accepted.
Plan is for home w/ [facility]
Will follow.
[2024-01-31] MEDS: LASIX 40 MG PO (16:29)
[2024-01-31] MEDS: LIPITOR 40 MG PO (16:37)
--- NOTE | 2024-01-31 21:49 | PTCARENOTE ---
received the patient at the change of shift. AAOx3. states feeling much better. Vpaced 60s. bp stable. milrinone gtt infusing per order. IV site patent. patient offers no complaints at this time. educated patient to inform RN with any changes. call
gasca within reach. makes needs known.
patient's sister, Whitney, would like an update from cardiology in the morning. phone- [phone].
[2024-02-01] VITALS (10 sets, daily range): BP systolic 108–138; BP diastolic 65–91; PULSE 67–71; BMI 31.7
[2024-02-01 04:54] LABS: Hemoglobin 12.6 g/dL (12.0-16.0); Mean Corp Hgb Conc. 32.3 g/dL (33.0-37.0); Mean Corpuscular Hgb 28.2 pg (27.0-31.0); Mean Corpuscular Volume 87.2 fL (81.0-99.0); Mean Platelet Volume 9.6 fL (7.4-10.4); Platelet Count 231 10^3/uL (130-400); Red Blood Cell Count 4.47 10^6/uL (4.20-5.40); Red Cell Dist. Width 15.5 % (11.5-14.5); White Blood Cell Count 5.6 10^3/uL (4.8-10.8)
[2024-02-01 05:32] LABS: Blood Urea Nitrogen 25 mg/dl (7-17); Carbon Dioxide 34 mmol/L (22-30); Chloride 99 mmol/L (98-107); Estimated Creatinine Clearance 36 ml/min; Glucose 87 mg/dl (70-99); Potassium 3.9 mmol/L (3.5-5.1); Sodium 140 mmol/L (135-145); eGFR 42.09
--- NOTE | 2024-02-01 07:56 | W.PN.CARDCBS ---
Addendum entered and electronically signed by Shanelle Amos PA-C 02/01/24 10:51:
Called and talked with patient's sister, Whitney, by phone for 24:09 min. Patient's daughter, Sole, had been the point of contact last week, but now that she is back home in [place] the patient asked for her sister to receive a full update because she
lives closer. Full update given to patient's sister. Patient's sister reports patient does not take her meds all of the time at home and they have found pills left behind and pills in the trash. Family is asking for a call from CM team to help with
coordinating care at home.
Addendum entered and electronically signed by Yahir Chaudhry MD 02/01/24 10:26:
78-year-old woman admitted with acute on chronic HFrEF and incipient cardiogenic shock on milrinone.
PMH: Nonischemic cardiomyopathy, EF 34%, down to 20% January 2024, persistent atrial fibrillation, now in sinus rhythm following RIAZ cardioversion January 25, CKD 3B with recent ALANNA, left bundle branch block with BiV ICD 2022, hypertension,
hyperlipidemia, obtuse marginal PCI 2020
Medications: Apixaban 5 mg twice daily, Lexapro 20 mg a day, metoprolol ER 50 mg daily, amiodarone 200 mg daily, atorvastatin 40 mg a day, furosemide 40 mg p.o. twice daily, milrinone discontinued
Allergies, outpatient medications: Reviewed
PSH/FH/SH: Reviewed
ROS: Negative except as above
138/91, pulse 71, weight is a 1.2 kg, down 1.4 kg, weight was 87.15 kg on the , intake and output -0.8 L, no acute distress, head neck exam unremarkable, lungs are clear, regular rate and rhythm, soft systolic murmur, JVD okay, abdomen benign
extremities without clubbing cyanosis or edema distal pulses palpable
Hemoglobin 12.6, BUN and creatinine 25 and 1.3, potassium 3.9
Impression:
Admitted with acute on chronic HFrEF
Cardiogenic shock
milrinone started 01/28/24, stopped 02/01/24CM EF 34% by echo 10/11/23, down to 20% by repeat echo 01/04/24
Recurrent and persistent Afib on Eliquis
s/p CV 12/20/23
s/p successful RIAZ/CV 01/26/24AKI on CKD 3b
LBBB
s/p Medtronic BiV ICD 11/18/22
HTN
Hyperlipidemia
CAD
s/p RAULITO OM 07/2020
Plan:
She seems improved, is now on oral furosemide.
Okay to discontinue milrinone.
Will restart metoprolol ER which had been held. Would restart at 25 mg daily instead of 50 mg.
Add Farxiga presuming this is not cost prohibitive.
Rate histograms look flat at 60. Given marginal cardiac output we will reprogram rate to 70 for theoretic increase in cardiac output by 16.5%.
We could consider hydralazine and nitrates, Entresto is currently on hold, defer to Dr. Figueroa. Unclear whether she would be a candidate for spironolactone.
Given presence of ICD, digoxin could be considered for inotrope he at relatively low arrhythmic risk.
If patient continues to look well, possible discharge in 24 to 48 hours
Original Note:
Today's Communication / Plan
-
Milrinone stopped
Lasix 40 mg PO BID
Consider starting nitrates and hydralazine
Impression / Plan
-
PCP: BYRON Man
Director Of Transportation: Dr. Figueroa
Lathmaker: Dr. Robert Ziegler
Impression:
Admitted with acute on chronic HFrEF
Cardiogenic shock
milrinone started 01/28/24, stopped 02/01/24
CM EF 34% by echo 10/11/23, down to 20% by repeat echo 01/04/24
Recurrent and persistent Afib on Eliquis
s/p CV 12/20/23
s/p successful RIAZ/CV 01/26/24
ALANNA on CKD 3b
LBBB
s/p Medtronic BiV ICD 11/18/22
HTN
Hyperlipidemia
CAD
s/p RAULITO OM 07/2020
Diarrhea predating amiodarone, nausea new since starting amiodarone
Hx Diverticulitis
Lexiscan nuclear stress test 07/19/2020: Moderate reversible defect in the mid inferolateral, mid inferior, and apical inferior segments. Inferior hypokinesis. LVEF 40%. LV normal size.�������
Echo 07/12/2020: LVEF 45-50%. Mild global hypo. Inferior basal akinesis. Moderate LAE. Aortic valve sclerosis.
Echo 03/20/2021: EF 35 to 40%, stage II DD. Mild left atrial enlargement. Mild MR.
Echo 10/11/2023: EF 34%. Moderately reduced LV systolic function. Stage II DD. Mild MR, mild TR. PAP 37 mmHg
Echo 01/04/2024: EF 20%, global hypokinesis with regional variability, normal RV size with low normal RV systolic function, moderate to severe MR, severe TR with PAP 65-70 mmHg
Plan:
-Milrinone started 01/28/24 and stopped on 02/01/24.
-Diuresed 10 lbs while on milrinone gtt. Patient is below previous dry weight. Weight down to 179 lbs on 02/01/24
-Changed to Lasix 40 mg PO BID starting 01/31/24. Patient was taking Lasix 40 mg PO daily prior to admission.
-Cre improved from peak of 2.1 on 01/28/24 down to 1.3 on 02/01/24.
-EF 20% by echo 01/04/24. Patient with h/o CM and previously had ICD implanted in 2022 for CM, but EF worse now. Recheck echo in 1 month and if EF unchanged then likely LHC.
-Patient has been maintaining SR since most RIAZ/CV 01/26/24 after relatively persistent Afib in most of December and January
-Outpatient dose of Toprol XL 50 mg daily restarted now that milrinone is being stopped 02/01/24
-Outpatient dose of Entresto 49/51 mg was placed on hold during 01/03/24 to 01/06/24 admission due to ALANNA and has not been restarted.
-Consider starting nitrates and hydralazine
-Diarrhea symptoms predate amiodarone, but nausea symptoms were new with amiodarone. Nausea improved with lower dose of amiodarone. Amiodarone started by Dr. Figueroa in the office in December
-Cont Eliquis 5 mg BID (age 78, Cre 1.3, wt 81.2 kg)
Progress Note - Director Of Transportation
Subjective
Date of Service: February 01, 2024
Less bloated, more energetic
Objective
Labs:
02/01/24 04:34
02/01/24 04:34
Labs
Hgb 12.6 g/dL (12.0-16.0) 02/01/24 04:34
Hct 39.0 % (37.0-47.0) 02/01/24 04:34
Plt Count 231 10^3/uL (130-400) 02/01/24 04:34
Sodium 140 mmol/L (135-145) 02/01/24 04:34
Potassium 3.9 mmol/L (3.5-5.1) 02/01/24 04:34
BUN 25 mg/dl (7-17) H 02/01/24 04:34
Creatinine 1.3 mg/dL (0.6-1.0) H 02/01/24 04:34
Glucose 87 mg/dl (70-99) 02/01/24 04:34
Vital Signs and I&O:
Vital Signs
Temp Pulse Resp BP Pulse Ox
98.0 F 67 18 128/79 95
02/01/24 07:43 02/01/24 04:33 02/01/24 07:43 02/01/24 04:33 02/01/24 07:43
Vital Signs
Temp Pulse Resp BP Pulse Ox
98.0 F 67 18 128/79 95
02/01/24 07:43 02/01/24 04:33 02/01/24 07:43 02/01/24 04:33 02/01/24 07:43
Intake & Output
01/30/24 01/31/24 02/01/24 02/02/24
06:59 06:59 06:59 06:59
Intake Total 1400 / 1400 782 / 782 471.2 / 471.2
Output Total 1700 / 1700 1650 / 1650 1240 / 1240 50 / 50
Balance -300 / -300 -868 / -868 -768.8 / -768.8 -50 / -50
Physical Exam
Physical Exam
GEN: AAOx3
HEENT: MMM
LUNGS: No audible wheeze
CV: Paced on tele
ABD: ND
EXT: No edema B/L
NEURO: Gross non-focal
SKIN: No rash
[2024-02-01] MEDS: PACERONE 200 MG PO (08:11)
[2024-02-01] MEDS: PROTONIX 40 MG PO (08:11)
[2024-02-01] MEDS: ELIQUIS 5 MG PO ×2 (08:11→19:25)
[2024-02-01] MEDS: LEXAPRO 20 MG PO (08:11)
[2024-02-01] MEDS: LASIX 40 MG PO ×2 (08:12→16:45)
--- NOTE | 2024-02-01 10:15 | W.PN.NEPH.PH ---
Today's Communication / Plan
-
follow BMP
Assessment/Plan
-
Impression:
ALANNA
Acute on chr congestive heart failure with EF of 20% , severe TR
Paroxysmal atrial fibrillation
Coronary artery disease with history of stent
IBS with diarrhea
Anxiety depression
History of ventricular tachycardia with ICD
Plan:
po lasix
follow BMP
She had been on lisinopril previously for many years but does not know why it was discontinued.
She was on Entresto as well recently though this was short-lived and was discontinued during a hospitalization likely for ALANNA
She can easily return to [facility], or even start SGLT2i therapy.
-
-
Date of Service: February 01, 2024
CC / HPI / ROS
-
Chief Complaint:
ALANNA
History of Present Illness:
ALANNA/Cr down to 1.3
off milrinone, on po lasix
no fever
BP stable
RIAZ and cardioversion performed on 01/26/2024
Review of Systems:
no cp or sob at rest
Labs
-
Labs:
WBC 5.6 10^3/uL (4.8-10.8) 02/01/24 04:34
RBC 4.47 10^6/uL (4.20-5.40) 02/01/24 04:34
Hgb 12.6 g/dL (12.0-16.0) 02/01/24 04:34
Hct 39.0 % (37.0-47.0) 02/01/24 04:34
Plt Count 231 10^3/uL (130-400) 02/01/24 04:34
Sodium 140 mmol/L (135-145) 02/01/24 04:34
Potassium 3.9 mmol/L (3.5-5.1) 02/01/24 04:34
Chloride 99 mmol/L (98-107) 02/01/24 04:34
Carbon Dioxide 34 mmol/L (22-30) H 02/01/24 04:34
BUN 25 mg/dl (7-17) H 02/01/24 04:34
Creatinine 1.3 mg/dL (0.6-1.0) H 02/01/24 04:34
eGFR 42.09 02/01/24 04:34
Glucose 87 mg/dl (70-99) 02/01/24 04:34
Calcium 9.0 mg/dl (8.4-10.2) 02/01/24 04:34
Xok-C-Xktofgitrjt Pept 25197 pg/ml 01/22/24 23:04
Albumin 3.9 g/dl (3.5-5.0) 01/22/24 23:04
Physical Exam
-
Vital Signs:
Vital Signs
Temp Pulse Resp BP Pulse Ox
98.0 F 71 18 138/91 94
02/01/24 07:43 02/01/24 08:11 02/01/24 07:43 02/01/24 08:11 02/01/24 07:45
Cardiovascular:: Regular rate and rhythm
Respiratory:: Bilateral: Coarse
Lung Excursion:: Normal
Abdomen:: Nontender and Soft
Bowel Sounds:: Normal
Extremity Edema:: None: Bilateral:
[2024-02-01] MEDS: FARXIGA 10 MG PO (11:51)
--- NOTE | 2024-02-01 12:03 | PTCARENOTE ---
Discussed all nursing measures w/ pt. Discussed Farxiga as a new medication for the pt. Farxiga education paper given, encouraged questions.
--- NOTE | 2024-02-01 13:39 | CM ---
fam thorne with future scripts- his copay is $47/month
--- NOTE | 2024-02-01 15:51 | CM ---
called pts daughter, discussed dc plans. pt has [facility]- RN/PT/OT/AIDE set up to start after dc. let VN know pt sometimes doesnt take meds, and she needs med teaching reinforcement. pt lives with grandson, who is a banquet chef and cooks low sodium meals for
her. discussed with pt, both pt and daughter agreeable to this dc plan. plan is for dc to home when medically stable.
--- NOTE | 2024-02-01 16:46 | W.PN.HOSP.TC ---
Today's Communication/Plan
-
f/u weight/cr with oral lasix
continue tele monitoring
Assessment / Plan
Assessment / Plan
Imaging
RIAZ
CONCLUSIONS
Severely reduced left ventricular systolic function. Left ventricular ejection
fraction is 20%.
Moderate/severe central mitral regurgitation.
Enlarged right ventricular size. Reduced right ventricular systolic function.
Severe tricuspid regurgitation.
No thrombus detected in the left atrial appendage
Procedures
RIAZ/DCCV
A single shock of 200 joules was delivered,
which resulted in conversion to an atrial-paced rhythm. She will
continue Eliquis for anticoagulation.
RHC
CONCLUSION:
1. Elevated right and left ventricular filling pressures with severely reduced cardiac output and cardiac index

Acute on chronic HFrEF exacerbation,
-EF 20%, NYHA classification 3-4 further complicated by with PAP 65-70 this likely demonstrates who group 2
-Follow renal function
-Monitor urinary output/I's and O's
-Cardiology following
-S/p RHC findings above. Patient required milrinone drip support currently off of it.
-Cardiology following and plan to maximize GDMT
-IV Lasix has been changed to oral Lasix, monitor response
Atrial fibrillation
-Eliquis 5 mg twice daily per cards
-Amiodarone increased frequency
-S/p RIAZ/DCCV 01/26/2024. Back in sinus rhythm.
-Outpatient EP follow up for ablation evaluation
Prolonged QTc
-resolved after DCCV
-On amio, discussed this with Cards for which they will repeat EKG post RIAZ/DCCV and will re-assess QTc
-Avoid QTc sparing agents
ALANNA likely secondary to CRS
-Non-oligouric
-Avoid nephrotoxins and hypotension
-Renal function has improved, monitor
Nausea -resolved
-GI evaluated
Full code
Eliquis
Anticipated Discharge: 24 - 48 hours
Subjective/Interval History
-
Date of Service: February 01, 2024
no complains overnight
Objective Data
-
Labs:
Laboratory Results
02/01/24
04:34
WBC 5.6
Hgb 12.6
Hct 39.0
Plt Count 231
Sodium 140
Potassium 3.9
Chloride 99
Carbon Dioxide 34 H
BUN 25 H
Creatinine 1.3 H
Glucose 87
Calcium 9.0
Vital Signs:
Vital Signs
Temp Pulse Resp BP Pulse Ox
98.8 F 71 16 138/91 98
02/01/24 15:28 02/01/24 08:11 02/01/24 15:28 02/01/24 08:11 02/01/24 15:28
I&O
01/31/24 02/01/24 02/02/24
06:59 06:59 06:59
Intake Total 782 / 782 471.2 / 471.2 248 / 248
Output Total 1650 / 1650 1240 / 1240 100 / 100
Balance -868 / -868 -768.8 / -768.8 148 / 148
Review of Systems
-
Respiratory: Reports No Symptoms
Cardiac: Reports No Symptoms
Abdomen/GI: Reports No Symptoms
Physical Exam
-
General: No Apparent Distress and Comfortable
HEENT: Negative Oxygen
Respiratory: Clear to Auscultation
Cardiac: Regular Rhythm and S1/S2; Negative Murmur or Rub
GI: Soft, Nontender, Nondistended and Normal Bowel Sounds
Musculoskeletal: No Edema
Neuro: Awake, Alert, Oriented, No Motor Deficits and Nonfocal/Grossly Intact
Psych: Calm
[2024-02-01] MEDS: LIPITOR 40 MG PO (16:50)
--- NOTE | 2024-02-01 22:54 | PTCARENOTE ---
Pt received start of shift, HR AV paced. Pt ambulating well in room w/ walker w/ standby assist. Reinforced HF education w/ pt. R brachial cath site MYRTLE - ecchymotic, no hematoma. Pt voiding clear yellow urine. Pt denies any SOB or CP.
[2024-02-02 04:50] VITALS: BP 129/86
[2024-02-02 05:26] VITALS: BMI 31.4
[2024-02-02 06:06] LABS: Blood Urea Nitrogen 23 mg/dl (7-17); Calcium 9.2 mg/dl (8.4-10.2); Carbon Dioxide 33 mmol/L (22-30); Estimated Creatinine Clearance 36 ml/min; Glucose 89 mg/dl (70-99); Potassium 3.4 mmol/L (3.5-5.1); Sodium 142 mmol/L (135-145); eGFR 42.09
[2024-02-02 06:11] LABS: Chloride 98 mmol/L (98-107)
[2024-02-02 07:40] VITALS: BP 126/80
[2024-02-02] MEDS: PACERONE 200 MG PO (08:39)
[2024-02-02] MEDS: ELIQUIS 5 MG PO (08:39)
[2024-02-02] MEDS: LASIX 40 MG PO (08:39)
[2024-02-02] MEDS: PROTONIX 40 MG PO (08:39)
[2024-02-02] MEDS: FARXIGA 10 MG PO (08:39)
[2024-02-02] MEDS: LEXAPRO 20 MG PO (08:40)
[2024-02-02] MEDS: TOPROL XL 25 MG PO (08:40)
--- NOTE | 2024-02-02 10:28 | W.PN.HOSP.TC ---
Today's Communication/Plan
-
Kcl 20meq x1
continue oral lasix
PT as tolerated
possible discharge in 24 hrs
Assessment / Plan
Assessment / Plan
Imaging
RIAZ
CONCLUSIONS
Severely reduced left ventricular systolic function. Left ventricular ejection
fraction is 20%.
Moderate/severe central mitral regurgitation.
Enlarged right ventricular size. Reduced right ventricular systolic function.
Severe tricuspid regurgitation.
No thrombus detected in the left atrial appendage
Procedures
RIAZ/DCCV
A single shock of 200 joules was delivered,
which resulted in conversion to an atrial-paced rhythm. She will
continue Eliquis for anticoagulation.
RHC
CONCLUSION:
1. Elevated right and left ventricular filling pressures with severely reduced cardiac output and cardiac index

Acute on chronic HFrEF exacerbation,
-EF 20%, NYHA classification 3-4 further complicated by with PAP 65-70 this likely demonstrates who group 2
-Monitor urinary output/I's and O's
-S/p RHC findings above. Patient required milrinone drip support currently off of it.
-Cardiology following and plan to maximize GDMT
-IV Lasix has been changed to oral Lasix, monitor response
-Cr remains stable at 1.3 and weight down to 80kg (81kg yesterday) with oral lasix
Atrial fibrillation
-Eliquis 5 mg twice daily per cards
-Amiodarone increased frequency
-S/p RIAZ/DCCV 01/26/2024. Back in sinus rhythm.
-Outpatient EP follow up for ablation evaluation
Prolonged QTc
-resolved after DCCV
-On amio, discussed this with Cards for which they will repeat EKG post RIAZ/DCCV and will re-assess QTc
-Avoid QTc sparing agents
ALANNA likely secondary to CRS
-Non-oligouric
-Avoid nephrotoxins and hypotension
-Renal function has improved, monitor
Nausea -resolved
-GI evaluated
Hypokalemia
-replace PRN
Full code
Eliquis
Anticipated Discharge: Within 24 hours
Subjective/Interval History
-
Date of Service: February 02, 2024
no issues overnight
denies dyspnea/chest pain
Objective Data
-
Labs:
Laboratory Results
02/02/24
04:58
Sodium 142
Potassium 3.4 L
Chloride 98
Carbon Dioxide 33 H
BUN 23 H
Creatinine 1.3 H
Glucose 89
Calcium 9.2
Vital Signs:
Vital Signs
Temp Pulse Resp BP Pulse Ox
98.2 F 70 16 126/80 95
02/02/24 04:50 02/02/24 07:40 02/02/24 04:50 02/02/24 07:40 02/02/24 08:51
I&O
02/01/24 02/02/24 02/03/24
06:59 06:59 06:59
Intake Total 471.2 / 471.2 728 / 728
Output Total 1240 / 1240 1000 / 1000 150 / 150
Balance -768.8 / -768.8 -272 / -272 -150 / -150
Review of Systems
-
Respiratory: Reports No Symptoms
Cardiac: Reports No Symptoms
Abdomen/GI: Reports No Symptoms
Physical Exam
-
General: No Apparent Distress and Comfortable
HEENT: Negative Oxygen
Respiratory: Clear to Auscultation
Cardiac: Regular Rhythm and S1/S2; Negative Murmur or Rub
GI: Soft, Nontender, Nondistended and Normal Bowel Sounds
Musculoskeletal: No Edema
Neuro: Awake, Alert, Oriented, No Motor Deficits and Nonfocal/Grossly Intact
Psych: Calm
--- NOTE | 2024-02-02 10:37 | W.PN.CARDCBS ---
Addendum entered and electronically signed by Shanelle Amos PA-C 02/02/24 12:14:
Talked with patient's daughter, Sole, for 13:55 min and updated on today's labs and weight. Daughter in agreement with d/c to home. VN arranged and they were told that patient has a h/o skipping meds and throwing away pills and they will be on the
lookout. Patient wants to keep following with Dr. Figueroa so this note is being cc'd to Marie Figueroa and will call their office to help arrange HF f/u.
Addendum entered and electronically signed by Sommer Torre MD 02/02/24 10:52:
I saw and examined the patient.
The Release Specialist's note was reviewed and I agree with the note.
Comment: Examined patient. Exam is stable. Volume status is stable at rest. No new complaints. Medications noted. Continue guideline directed medical care.
Uptitration of medications as tolerates as an outpatient. Not on BRITTANY inhibitor/ARB/ARNI given acute renal injury during this hospital stay. Reassess as an outpatient or consider hydralazine/nitrates. Currently limited by blood pressure. Spoke at
great length with the patient at the bedside. She is walking to the bathroom without difficulty.
Plan for discharge today with follow-up with usual wage and salary specialist to whom we will facilitate appointment. We will contact patient's daughter. All questions answered.
Original Note:
Today's Communication / Plan
-
Will call daughter with an update
New to [facility] this admission
Toprol XL dose decreased to 25 mg daily
Base pacing rate increased to 70 yesterday
f/u with Dr. Figueroa 52 min face to face, chart prep, updating family
Impression / Plan
-
PCP: BYRON Man
Contract Implementation Analyst: Dr. Figueroa
Commander Internal Affairs: Dr. Robert Ziegler
Impression:
Admitted with acute on chronic HFrEF
Cardiogenic shock
milrinone started 01/28/24, stopped 02/01/24
CM EF 34% by echo 10/11/23, down to 20% by repeat echo 01/04/24
Recurrent and persistent Afib on Eliquis
s/p CV 12/20/23
s/p successful RIAZ/CV 01/26/24
ALANNA on CKD 3b
LBBB
s/p Medtr[employer] BiV ICD 11/18/22
HTN
Hyperlipidemia
CAD
s/p RAULITO OM 07/2020
Diarrhea predating amiodarone, nausea new since starting amiodarone
Hx Diverticulitis
Lexiscan nuclear stress test 07/19/2020: Moderate reversible defect in the mid inferolateral, mid inferior, and apical inferior segments. Inferior hypokinesis. LVEF 40%. LV normal size.�������
Echo 07/12/2020: LVEF 45-50%. Mild global hypo. Inferior basal akinesis. Moderate LAE. Aortic valve sclerosis.
Echo 03/20/2021: EF 35 to 40%, stage II DD. Mild left atrial enlargement. Mild MR.
Echo 10/11/2023: EF 34%. Moderately reduced LV systolic function. Stage II DD. Mild MR, mild TR. PAP 37 mmHg
Echo 01/04/2024: EF 20%, global hypokinesis with regional variability, normal RV size with low normal RV systolic function, moderate to severe MR, severe TR with PAP 65-70 mmHg
Plan:
-Weight is down another 2 lbs overnight. Weight is down 16 lbs this admission.
-Cont Lasix 40 mg PO BID upon d/c to home. Patient was taking Lasix 40 mg PO daily prior to admission.
-Milrinone started 01/28/24 and stopped on 02/01/24.
-Cre stable at 1.3.
-EF 20% by echo 01/04/24. Patient with h/o CM and previously had ICD implanted in 2022 for CM, but EF worse now. Recheck echo in 1 month and if EF unchanged then likely LHC.
-Patient has been maintaining SR since most RIAZ/CV 01/26/24 after relatively persistent Afib in most of December and January
-Outpatient dose of Toprol XL 50 mg daily decreased to 25 mg daily
-Appreciate help of [employer] device rep to increase base rate pacing to 70 on 02/01/24
-Outpatient dose of Entresto 49/51 mg was placed on hold during 01/03/24 to 01/06/24 admission due to ALANNA and has not been restarted.
-Consider starting nitrates and hydralazine
-New to Farxiga 10 mg daily and co-pay is $11/month
-Diarrhea symptoms predate amiodarone, but nausea symptoms were new with amiodarone. Nausea improved with lower dose of amiodarone. Amiodarone started by Dr. Figueroa in the office in December
-Cont Eliquis 5 mg BID (age 78, Cre 1.3, wt 81.2 kg)
-Likely d/c to home 02/02/24. Will call her daughter with an update.
Progress Note - Contract Implementation Analyst
Subjective
Date of Service: February 02, 2024
Feels better and wants to go home
Objective
Labs:
02/01/24 04:34
02/02/24 04:58
Labs
Hgb 12.6 g/dL (12.0-16.0) 02/01/24 04:34
Hct 39.0 % (37.0-47.0) 02/01/24 04:34
Plt Count 231 10^3/uL (130-400) 02/01/24 04:34
Sodium 142 mmol/L (135-145) 02/02/24 04:58
Potassium 3.4 mmol/L (3.5-5.1) L 02/02/24 04:58
BUN 23 mg/dl (7-17) H 02/02/24 04:58
Creatinine 1.3 mg/dL (0.6-1.0) H 02/02/24 04:58
Glucose 89 mg/dl (70-99) 02/02/24 04:58
Vital Signs and I&O:
Vital Signs
Temp Pulse Resp BP Pulse Ox
98.2 F 70 16 126/80 95
02/02/24 04:50 02/02/24 07:40 02/02/24 04:50 02/02/24 07:40 02/02/24 08:51
Vital Signs
Temp Pulse Resp BP Pulse Ox
98.2 F 70 16 126/80 95
02/02/24 04:50 02/02/24 07:40 02/02/24 04:50 02/02/24 07:40 02/02/24 08:51
Intake & Output
01/31/24 02/01/24 02/02/24 02/03/24
06:59 06:59 06:59 06:59
Intake Total 782 / 782 471.2 / 471.2 728 / 728
Output Total 1650 / 1650 1240 / 1240 1000 / 1000 150 / 150
Balance -868 / -868 -768.8 / -768.8 -272 / -272 -150 / -150
Physical Exam
Physical Exam
GEN: AAOx3
HEENT: MMM
LUNGS: No audible wheeze
CV: Paced on tele
ABD: ND
EXT: No edema B/L
NEURO: Gross non-focal
SKIN: No rash
--- NOTE | 2024-02-02 11:00 | CM ---
Addendum entered by JJ Hermsoillo 02/02/24 14:02:
Met w/ patient at bedside this PM. She is hopeful for DC today.
We reviewed DC plan for home w/ [facility]. I updated [facility] on possible DC today.
Plan: [facility]
Original Note:
CM following for DC planning needs.
Attempted to meet w/ patient but patient was asleep. Will re-visit at a later time.
Antic. DC to home w/ [facility] once stable.
Will follow.
[2024-02-02 11:21] VITALS: BP 113/78
[2024-02-02] MEDS: KLOR-CON 20 MEQ PO (11:24)
[2024-02-02 14:56] VITALS: BP 109/69
--- NOTE | 2024-02-02 16:11 | W.PN.NEPH.PH ---
Today's Communication / Plan
-
ok to d/c
f/u PCP and cards
Assessment/Plan
-
Impression:
ALANNA
Acute on chr congestive heart failure with EF of 20% , severe TR
Paroxysmal atrial fibrillation
Coronary artery disease with history of stent
IBS with diarrhea
Anxiety depression
History of ventricular tachycardia with ICD
Plan:
cr stable at 1.3
reaplce k
po lasix per cards and BMP next week, results to PCP
She had been on lisinopril previously for many years but does not know why it was discontinued.
She was on Entresto as well recently though this was short-lived and was discontinued during a hospitalization likely for ALANNA
She can easily return to [facility] as out pt
Farxiga initiated now
-
-
Date of Service: February 02, 2024
CC / HPI / ROS
-
Chief Complaint:
ALANNA
History of Present Illness:
ALANNA/Cr down to 1.3-stable
off milrinone, on po lasix
no fever
BP stable
RIAZ and cardioversion performed on 01/26/2024
Review of Systems:
no cp or sob at rest
Labs
-
Labs:
WBC 5.6 10^3/uL (4.8-10.8) 02/01/24 04:34
RBC 4.47 10^6/uL (4.20-5.40) 02/01/24 04:34
Hgb 12.6 g/dL (12.0-16.0) 02/01/24 04:34
Hct 39.0 % (37.0-47.0) 02/01/24 04:34
Plt Count 231 10^3/uL (130-400) 02/01/24 04:34
Sodium 142 mmol/L (135-145) 10/30/24 04:58
Potassium 3.4 mmol/L (3.5-5.1) L 02/02/24 04:58
Chloride 98 mmol/L (98-107) 02/02/24 04:58
Carbon Dioxide 33 mmol/L (22-30) H 02/02/24 04:58
BUN 23 mg/dl (7-17) H 02/02/24 04:58
Creatinine 1.3 mg/dL (0.6-1.0) H 02/02/24 04:58
eGFR 42.09 02/02/24 04:58
Glucose 89 mg/dl (70-99) 02/02/24 04:58
Calcium 9.2 mg/dl (8.4-10.2) 02/02/24 04:58
Khb-E-Wshibbhsylz Pept 62453 pg/ml 01/22/24 23:04
Albumin 3.9 g/dl (3.5-5.0) 01/22/24 23:04
Physical Exam
-
Vital Signs:
Vital Signs
Temp Pulse Resp BP Pulse Ox
97.8 F 70 18 109/69 94
02/02/24 14:58 02/02/24 14:56 02/02/24 14:58 02/02/24 14:56 02/02/24 14:58
Cardiovascular:: Regular rate and rhythm
Respiratory:: Bilateral: CTA
Lung Excursion:: Normal
Abdomen:: Nontender and Soft
Extremity Edema:: None: Bilateral:
Bueno Catheter: No
--- NOTE | 2024-02-02 16:56 | PTCARENOTE ---
Pt seen by AUTUM[employer] Mcmahon and Drs. Fisher and Ho. Telemetry and IV device removed. Discharge instructions reviewed with pt and her grandson regarding medications and their possible side effects, wound care, activity and CHF guidelines,lab
tests, reporting cares and concerns and follow up appt's. Very good understanding verbalized. Pt escorted out via wheelchair and discharged to home. Pt will have VN/PT/OT
--- NOTE | 2024-02-03 15:57 | W.DCSUMMARY ---
Discharge Summary
Discharge Data
Date of Admission: 01/27/24
Date of Discharge: 02/02/24
-
Pending Results: No
Hospital Course
Discharging Physician : Dr Franck Teague
Disposition : Home
Primary care physician : Dr Suyapa Duval
Principal Discharge diagnosis :
Acute on chronic systolic congestive heart failure
Cardiogenic shock
Acute kidney injury from acute cardiorenal syndrome
Recurrent and persistent atrial fibrillation with rapid ventricular rate
Prolonged QTc
Hypokalemia
Chronic Discharge diagnosis :
History of biventricular implantable defibrillator placement
Essential hypertension
Hyperlipidemia
Coronary artery disease with drug-eluting stent in obtuse marginal
History of diverticulitis
Hospital Course :
Patient is a 78-year-old female with no mentioned past medical history came to ER for having new onset of shortness of breath and lower extremity edema. Patient has been admitted to hospital few times in the last few months for issues related to
A-fib/heart failure/diarrhea.
Remission patient was diagnosed to having heart failure exacerbation. Echocardiogram showing EF of 24 send with elevated pulm artery pressure of 65 to 70 mmHg. Patient was maintained on IV diuretics despite which patient had worsening renal
dysfunction. Patient underwent right heart catheterization which showed increased filling pressures with reduced cardiac index. Patient required to be started on milrinone drip with continuation of diuretic therapy. Milrinone was discontinued
after improvement in renal function, GDMT was attempted to be maximized but was limited due to Hypotension issue.
Patient also had problem with atrial fibrillation and underwent successful cardioversion. Amiodarone dose was increased. Patient is planning to follow-up with outpatient EP cardiology for further evaluation of possible need of ablation.
Patient had acute kidney injury suspected to be acute cardiorenal syndrome, as mentioned above this improved after milrinone drip and Lasix.
Post improvement patient was discharged home with follow-up with cardiology in office.
Important imaging findings :
RIAZ
Severely reduced left ventricular systolic function. Left ventricular ejection fraction is 20%.
Moderate/severe central mitral regurgitation.
Enlarged right ventricular size. Reduced right ventricular systolic function.
Severe tricuspid regurgitation.
No thrombus detected in the left atrial appendage
RHC
1. Elevated right and left ventricular filling pressures with severely reduced cardiac output and cardiac index
Procedure findings :
None
Discharge Plan
-
Patient Disposition: Home with Home Care
Discharge Diagnosis/Procedures: Systolic HF exacerbation, ALANNA on CKDIII
Condition: Fair
Diet: 2 Gram Sodium and Restrict fluids to 48 oz
Activity: With Walker
Driving Restrictions: As prior to admission
Bathing Restrictions: None
Other Services: VN, PT and OT
Specialty Instructions: Weigh Daily- Call MD for wt gain/loss 3 lbs overnight/5 lbs in 1 week
Instructions: *PCP/Other [facility] Heart Failure Instructions
Stand Alone Forms: DC Instructions- Cath/EP Lab
Referrals:
[facility] [Outside] (RN/PT/OT/AIDE )
Suyapa Duval CRNP [Family Provider] -
Jeanette Figueroa MD [Non-Admitting Privileges] - 03/16/24 3:40 pm (You have an appt to see Dr. Figueroa on 03/16/24 at 3:40 PM. The office is going to check with Dr. Figueroa to see if you should be seen sooner.)
Additional Discharge Medication Instructions: -Reduce your dose of Toprol XL (metoprolol succinate) to 25 mg (1/2 of a 50 mg tablet) once a day
-Increase your dose of Lasix (furosemide) to 40 mg twice a day (8 AM and 4 PM)
-Start taking Farxiga 10 mg once a day, this is a medicine to help improve the pumping function of the heart when taken along with your other medications.
Prescriptions:
New
furosemide 40 mg Tablet
40 mg PO BID AT 0800,1600 Qty: 60 11RF
metoprolol succinate 25 mg Tablet Extended Release 24 Hr
25 mg PO DAILY Qty: 30 11RF
dapagliflozin propanediol 10 mg Tablet
10 mg PO DAILY Qty: 30 11RF
Continued
melatonin 5 MG tablet
10 mg PO HS
Eliquis 5 mg Tablet
5 mg PO BID
escitalopram oxalate [Lexapro] 20 mg Tablet
20 mg PO DAILY
amiodarone 200 mg Tablet
200 mg PO DAILY
Dramamine 25 mg Tablet,Chewable
25 mg PO DAILYPRN PRN (Reason: nausea)
bismuth subsalicylate [Pepto-Bismol] 262 mg/15 mL Suspension
524 mg PO DAILYPRN PRN (Reason: gerd)
Tylenol 650 mg tablet
650 mg PO Q8 PRN (Reason: PAIN)
pantoprazole 40 mg Tablet,Delayed Release (Dr/Ec)
40 mg PO DAILY Qty: 30 0RF
colestipol 1 gram tablet
1 g PO BID Qty: 60 0RF
Discontinued
metoprolol succinate 50 mg Tablet Extended Release 24 Hr
50 mg PO DAILY Qty: 30 0RF
furosemide 40 mg Tablet
40 mg PO DAILY 30 Days Qty: 30 0RF
Discharge Orders:
Discharge Patient (As Directed); Ordered 02/02/24
Ordered By: Franck Teague
Care Plan Goals
Care Plan Goals:
Problem: Readiness for enhanced knowledge related to diagnosis and treatment plan
Goal: Understand your diagnosis and treatment plan needs, including medications if applicable.
Instructions: Know your diagnosis, underlying causes and treatment plan options, including medications if applicable. Consult with your health care team to learn about your diagnosis and treatment plan, including medications if applicable.
Discharge Date and Time
Discharge Date/Time: 02/02/24 16:35
Print Language: ROMANIAN
== END 2024-02-02 16:35 | disposition home health service (06) | DRG 286 ==
LOC: IVU 08:42
PROVIDERS: Hospitalist; Internal Medicine; Internal Medicine Interventional Cardiology; Specialist; ADMITTING PHYSICIAN Hospitalist; ATTENDING PHYSICIAN Hospitalist; CONSULT PHYSICIAN Internal Medicine Cardiovascular Disease; CONSULT PHYSICIAN Specialist; EMERGENCY PHYSICIAN Student in an Organized Health Care Education/Training Program; FAMILY PHYSICIAN Nurse Practitioner Adult Health
PROC: 5A2204Z Restoration of Cardiac Rhythm, Single (ICD-10-PCS; 2024-01-26)
PROC: 4A023N6 Measurement of Cardiac Sampling and Pressure, Right Heart, Percutaneous Approach (ICD-10-PCS; 2024-01-28)
DX: I13.0 Hypertensive heart and chronic kidney disease with heart failure and stage 1 through stage 4 chronic kidney disease, or unspecified chronic kidney disease (principal); I50.23 Acute on chronic systolic (congestive) heart failure; R57.0 Cardiogenic shock; I48.19 Other persistent atrial fibrillation; N17.9 Acute kidney failure, unspecified; F32.A Depression, unspecified; N18.32 Chronic kidney disease, stage 3b; I08.1 Rheumatic disorders of both mitral and tricuspid valves; Z66 Do not resuscitate; I95.9 Hypotension, unspecified; Z79.01 Long term (current) use of anticoagulants; I44.7 Left bundle-branch block, unspecified; E78.5 Hyperlipidemia, unspecified; F41.9 Anxiety disorder, unspecified; K58.0 Irritable bowel syndrome with diarrhea; I25.10 Atherosclerotic heart disease of native coronary artery without angina pectoris; I25.5 Ischemic cardiomyopathy; Z95.5 Presence of coronary angioplasty implant and graft; K21.9 Gastro-esophageal reflux disease without esophagitis; T50.2X5A Adverse effect of carbonic-anhydrase inhibitors, benzothiadiazides and other diuretics, initial encounter; Z79.899 Other long term (current) drug therapy; Z95.810 Presence of automatic (implantable) cardiac defibrillator; Z87.19 Personal history of other diseases of the digestive system; Z90.710 Acquired absence of both cervix and uterus; Z86.79 Personal history of other diseases of the circulatory system; Z96.659 Presence of unspecified artificial knee joint
CPT/HCPCS: 71046; 76770; 80048; 80053; 80061; 81003; 81015; 82570; 83735; 83880; 84156; 84484; 85025; 85027; 92960; 93005; 93312; 93320; 93325; 93451; 93971; 96374; 97110; 97116; 97163; 97166; 97530; 97535; 99285; C1769; C1894; J2260

== ENCOUNTER 2024-04-12 07:36 | Emergency (ER) | payer OTHER, SELFPAY ==
[2024-04-12 07:42] VITALS: BP 140/88
[2024-04-12 08:11] VITALS: BP 140/95
--- NOTE | 2024-04-12 08:26 | ED.GENMED ---
History of Present Illness
General
Chief Complaint: Abdominal Symptoms
Source: patient
Exam Limitations: none
Time Seen by Provider: 04/12/24 08:05
Nursing documentation reviewed up to this point in time: agreed with
History of Present Illness
History of Present Illness:
78-year-old female past medical history of CHF CAD hypertension, IBS diverticulitis presenting to the emergency department today with concerns of 4 weeks of nausea and diarrhea. Also blacked out yesterday after vomiting. Did not sustain any trauma
denies additional concerns otherwise. No fevers no chest pain
Past History
Past History
ED Past Medical History: CAD, CHF, HTN and Other (Diverticulitis)
ED Past Surgical History: Other (Hysterectomy,)
Social History
Tobacco: Non-smoker
Alcohol: Occasional
Personal:
Living: other
Employment: Retired
Family History
Family History: Other
Review of Systems
Review of Systems
Allergies reviewed?: Yes
All Other Systems: ROS reviewed and negative except as documented in HPI and ROS
Phy Exam
Physical Exam
Physical Exam:
GENERAL: Alert , in no apparent distress
EYE: pupils equal and reactive
NECK: Supple, no significant adenopathy.
ENT: o/p clr, mmm.
CARDIAC: Regular rate and rhythm .
LUNGS: Clear breath sounds bilaterally, no acute respiratory distress, no wheezes/rales/rhonchi
ABDOMEN: Soft, without focal tenderness, no r/g, no cvat
NEUROLOGICAL: Alert and oriented, no focal neuro deficits
SKIN: Warm and dry, skin intact.
MUSCULOSKELETAL: No edema, well perfused.
PSYCH: Normal and appropriate interaction.
Course
Orders/Labs/Results
Orders:
Orders
04/12/24 07:42
Electrocardiogram (*1) Urgent
Reason for Study: Syncope
EKG- Treatment ONCE
04/12/24 08:22
Ondansetron Injectable [Zofran] 4 mg IV NOW STA
04/12/24 08:23
0.9% Sodium Chloride 500 ml [Nss] 500 ml IV BOLUS
04/12/24 09:09
Complete Blood Count/With Diff Urgent
Comprehensive Metabolic Panel Urgent
Lipase Urgent
Abnormal Lab Results
04/12/24
09:09
RBC 3.69 L 10^6/uL
(4.20-5.40)
Hgb 10.9 L g/dL
(12.0-16.0)
Hct 34.2 L %
(37.0-47.0)
MCHC 31.9 L g/dL
(33.0-37.0)
RDW 21.4 H %
(11.5-14.5)
Absolute Lymphs (auto) 0.7 L 10^3/uL
(1.2-3.4)
Lymphocytes % 12.4 L %
(20.5-51.1)
Monocytes % 10.9 H %
(1.7-9.3)
BUN 38 H mg/dl
(7-17)
Creatinine 1.2 H mg/dL
(0.6-1.0)
Total Bilirubin 3.5 H mg/dl
(0.2-1.3)
04/12/24 09:09
04/12/24 09:09
Vital Signs
Initial and Last Documented VS:
Initial Vital Signs
Temp Pulse Resp BP Pulse Ox
97.6 F 71 18 140/88 97
04/12/24 07:42 04/12/24 07:42 04/12/24 07:42 04/12/24 07:42 04/12/24 07:42
Last Documented Vital Signs
Temp Pulse Resp BP Pulse Ox
97.6 F 70 20 116/86 94
04/12/24 07:42 04/12/24 10:30 04/12/24 10:30 04/12/24 10:00 04/12/24 08:30
MDM/Problems Addressed
MDM/Problems Addressed:
78-year-old female presenting to the emergency department with concerns of nausea intermittent vomiting over the past 4 weeks also felt lightheaded yesterday after vomiting. Has had this in the past does have a history of IBS and GERD. Also has
had some diarrhea. Has had chronic diarrhea in the past as well. Here vital signs are normal patient no distress does not appear to be dehydrated labs showing an elevation of BUN to creatinine was given fluids as well as Zofran here with complete
resolution of symptoms. Abdomen reassessed no pain. Very unlikely be surgical pathology. Advised for close outpatient follow-up otherwise return precautions given.
*Critical Care Note
Total Time (30-74mins, 75-104mins- exclusive of procedures): Not Applicable
ED Attending Note
-
Portions of this chart may have been created with voice recognition software.� Occasional wrong word or��sound alike� substitutions may have occurred due to the inherent limitations of voice recognition software.
Discharge Plan
Departure
Patient Disposition: Home (Routine Discharge)
Date of Disposition: 04/12/24
Time of Disposition: 10:08
Patient with high blood pressure during this ER visit?: No
Condition: Good
Covid-19: Not Applicable
Discharge Problem:
Vomiting and diarrhea
Instructions: Diarrhea in teens and adults, Nausea and Vomiting, Adult (DC)
Prescriptions:
New
dicyclomine 20 mg tablet
20 mg PO QID PRN (Reason: abdominal symptoms) Qty: 10 0RF
ondansetron 4 mg tablet,disintegrating
4 mg PO Q6H PRN (Reason: nausea and vomiting) Qty: 7 0RF
No Action
melatonin 5 MG tablet
10 mg PO HS
Eliquis 5 mg Tablet
5 mg PO BID
escitalopram oxalate [Lexapro] 20 mg Tablet
20 mg PO DAILY
amiodarone 200 mg Tablet
200 mg PO DAILY
Dramamine 25 mg Tablet,Chewable
25 mg PO DAILYPRN PRN (Reason: nausea)
bismuth subsalicylate [Pepto-Bismol] 262 mg/15 mL Suspension
524 mg PO DAILYPRN PRN (Reason: gerd)
Tylenol 650 mg tablet
650 mg PO Q8 PRN (Reason: PAIN)
pantoprazole 40 mg Tablet,Delayed Release (Dr/Ec)
40 mg PO DAILY Qty: 30 0RF
colestipol 1 gram tablet
1 g PO BID Qty: 60 0RF
furosemide 40 mg Tablet
40 mg PO BID AT 0800,1600 Qty: 60 11RF
metoprolol succinate 25 mg Tablet Extended Release 24 Hr
25 mg PO DAILY Qty: 30 11RF
dapagliflozin propanediol 10 mg Tablet
10 mg PO DAILY Qty: 30 11RF
Referrals:
Suyapa Duval CRNP [Family Provider] -
Activity Restrictions/Additional Instructions:
You came to the emergency department today with concerns of multiple weeks of nausea. Here your reassuring assessment. Please feel close with your primary care doctor. Return to the emergency department any worsening, new or concerning symptoms.
Interventions
Interventions:
*Risk Screen - Suicide Last Done: 04/12/24 07:40
*General Assessment Last Done: 04/12/24 07:40
*Neglect/Abuse Screening Last Done: 04/12/24 07:40
*ED COVID-19 Vaccine History Last Done: 04/12/24 08:43
*Nursing Disposition Last Done: 04/12/24 11:01
JL-Wnovnx-Hapimlktsy Assessment Last Done: 04/12/24 09:21
Discharge Date and Time
Discharge Date/Time: 04/12/24 11:01
Print Language: BRAZILIAN
[2024-04-12 08:35] VITALS: BMI 31.4
[2024-04-12 09:00] VITALS: BP 107/89
[2024-04-12] MEDS: NSS 500 IV (09:12)
[2024-04-12] MEDS: ZOFRAN 4 MG IV (09:12)
[2024-04-12 09:17] LABS: % Basophils 0.6 % (0-2); % Eosinophils 2.3 % (0-6); % Immature Granulocytes 0.2 % (0-0.5); % Lymphocytes 12.4 % (20.5-51.1); % Monocytes 10.9 % (1.7-9.3); % Neutrophils 73.6 % (42.2-75.2); Absolute Eosinophils 0.1 10^3/uL (0-0.7); Absolute Lymphocytes 0.7 10^3/uL (1.2-3.4); Absolute Monocytes 0.6 10^3/uL (0.1-0.6); Absolute Neutrophils 3.9 10^3/uL (1.4-6.5); Hematocrit 34.2 % (37.0-47.0); Hemoglobin 10.9 g/dL (12.0-16.0); Mean Corp Hgb Conc. 31.9 g/dL (33.0-37.0); Mean Corpuscular Hgb 29.5 pg (27.0-31.0); Mean Corpuscular Volume 92.7 fL (81.0-99.0); Mean Platelet Volume 10.1 fL (7.4-10.4); Nucleated Red Blood Cells % 1.1 %; Platelet Count 320 10^3/uL (130-400); Red Blood Cell Count 3.69 10^6/uL (4.20-5.40); Red Cell Dist. Width 21.4 % (11.5-14.5); White Blood Cell Count 5.3 10^3/uL (4.8-10.8)
[2024-04-12 09:39] LABS: ALT (SGPT) 16 U/L (0-35); AST (SGOT) 26 U/L (14-36); Albumin 3.7 g/dl (3.5-5.0); Alkaline Phosphatase 91 U/L (38-126); Blood Urea Nitrogen 38 mg/dl (7-17); Calcium 9.5 mg/dl (8.4-10.2); Carbon Dioxide 22 mmol/L (22-30); Chloride 105 mmol/L (98-107); Estimated Creatinine Clearance 39 ml/min; Glucose 95 mg/dl (70-99); Lipase 46 U/L (23-300); Potassium 4.8 mmol/L (3.5-5.1); Sodium 138 mmol/L (135-145); Total Bilirubin 3.5 mg/dl (0.2-1.3); Total Protein 6.4 g/dl (6.3-8.2); eGFR 46.33
[2024-04-12 10:00] VITALS: BP 116/86
== END 2024-04-12 11:01 | disposition home or self-care (01) ==
LOC: EMR 07:36
PROVIDERS: Physician Assistant; EMERGENCY PHYSICIAN Emergency Medicine; FAMILY PHYSICIAN Nurse Practitioner Adult Health
DX: R11.2 Nausea with vomiting, unspecified (principal); R19.7 Diarrhea, unspecified; I11.0 Hypertensive heart disease with heart failure; I50.9 Heart failure, unspecified; I25.10 Atherosclerotic heart disease of native coronary artery without angina pectoris; K21.9 Gastro-esophageal reflux disease without esophagitis; K58.9 Irritable bowel syndrome, unspecified; Z90.710 Acquired absence of both cervix and uterus
CPT/HCPCS: 99283; 96374; 96361; 80053; 83690; 85025; 93005

== ENCOUNTER 2024-04-23 15:13 | Inpatient (IN) | payer OTHER, SELFPAY ==
[2024-04-23] VITALS (9 sets, daily range): BP systolic 129–138; BP diastolic 84–95; BMI 33.2; BMI 30.8; BMI 32.1
--- NOTE | 2024-04-23 12:07 | ED.GENMED ---
History of Present Illness
<Shiela Gimenez PA-C - Last Filed: 04/23/24 14:34>
General
Chief Complaint: Swelling
Source: patient
Exam Limitations: none
Time Seen by Provider: 04/23/24 12:03
Nursing documentation reviewed up to this point in time: agreed with
History of Present Illness
History of Present Illness:
This is a 78-year-old female with past medical history of CHF, coronary artery disease, A-fib on Eliquis presents emergency department today with bilateral lower extremity edema for the past few days. Patient reports that she follows with Dr. Figueroa
from [place] for cardiology and reports that she was told that she should go to the emergency department if she noticed swelling. She notes that this morning, the swelling started to have pitting. She also notes that she has had intermittent
shortness of breath exertionally and weakness for the past few days. She denies any chest pain. She denies any fevers or chills. She denies any abdominal pain, nausea, vomiting. Of note, she was discharged in February for heart failure
exacerbation. Patient states that she was in and out of A-fib and she has not have symptoms when this happens. She also notes that recently, her kidney function has declined she was recently put on Farxiga.
Past History
<Shiela Gimenez PA-C - Last Filed: 04/23/24 14:34>
Past History
ED Past Medical History: CAD, CHF, HTN and Other (Diverticulitis)
ED Past Surgical History: Other (Hysterectomy,)
Social History
Tobacco: Non-smoker
Alcohol: Occasional
Personal:
Living: other
Employment: Retired
Family History
Family History: Other
Review of Systems
<Shiela Gimenez PA-C - Last Filed: 04/23/24 14:34>
Review of Systems
All Other Systems: ROS reviewed and negative except as documented in HPI and ROS
Phy Exam
<Shiela Gimenez PA-C - Last Filed: 04/23/24 14:34>
Physical Exam
Physical Exam:
General: Patient is well appearing and in no acute distress; non-toxic
Skin: Warm and dry, no rashes or lesions
Head: Normocephalic, atraumatic
Eyes: Sclera non-icteric. EOMs intact.
Cardiac: Regular rate and rhythm, diastolic murmur noted
Peripheral Vascular: Bilateral lower extremity pitting edema noted to the tibial tuberosity
Pulm: Normal respiratory effort, crackles heard throughout
Abdomen: No abdominal tenderness to palpation
Musculoskeletal: No tenderness palpation of bilateral lower extremities, 2+ dorsalis pedis pulses bilaterally
Neuro: CN II-XII intact, no focal neurologic deficits.
Psychiatric: Appropriate mood and affect.
Scores
<Shiela Gimenez PA-C - Last Filed: 04/23/24 14:34>
Heart Failure Risk
Heart Failure Risk Score: Yes
History of Stroke or TIA: No
History of intubation for respiratory distress: No
Heart rate on ED arrival >/= 110: No
SaO2 <90% on arrival on room air: No
HR >/=110 during 3min walk test (or too ill to perform test): No
ECG has acute ischemic changes: No
Urea >/=12mmol/L (BUN 33.6mg/dL): Yes
Serum CO2>/=35mmol/L: No
Troponin I or T elevated to IL Level (0.4mg/dL): No
NT-proBNP >/=5,000ng/L (5,000pg/ml): Yes
HF Risk Score: 2
Admission Status: MEDIUM RISK 9.2% Consider observation or discharge to home with homecare & f/u visit to PCP/Material Yard Clerk, or SNF for treatment
Course
<Shiela Gimenez PA-C - Last Filed: 04/23/24 14:34>
Orders/Labs/Results
Orders:
Orders
04/23/24 11:55
BNP [NT-proBNP] Urgent
Complete Blood Count/With Diff Urgent
Comprehensive Metabolic Panel Urgent
Troponin I Urgent
Comment: ADD ON
04/23/24 12:17
Electrocardiogram (*1) Urgent
Reason for Study: Shortness of Breath
EKG- Treatment ONCE
CR Chest - 2 Views Urgent
Comment:
Reason For Exam: shortness of breath
04/23/24 12:19
Add On- LAB Urgent
Tests Added?: troponin
04/23/24 14:06
Furosemide [Lasix] 20 mg IV NOW STA
Abnormal Lab Results
04/23/24
11:55
WBC 4.3 L 10^3/uL
(4.8-10.8)
RBC 3.85 L 10^6/uL
(4.20-5.40)
Hgb 10.9 L g/dL
(12.0-16.0)
Hct 34.9 L %
(37.0-47.0)
MCHC 31.2 L g/dL
(33.0-37.0)
RDW 21.0 H %
(11.5-14.5)
Absolute Lymphs (auto) 0.6 L 10^3/uL
(1.2-3.4)
Immature Gran % 0.7 H %
(0-0.5)
Lymphocytes % 14.7 L %
(20.5-51.1)
Monocytes % 11.3 H %
(1.7-9.3)
BUN 42 H mg/dl
(7-17)
Creatinine 1.9 H mg/dL
(0.6-1.0)
Total Bilirubin 2.5 H mg/dl
(0.2-1.3)
Alkaline Phosphatase 140 H U/L
(38-126)
04/23/24 11:55
04/23/24 11:55
Vital Signs
Initial and Last Documented VS:
Initial Vital Signs
Temp Pulse Resp BP Pulse Ox
97.4 F 71 18 131/86 96
04/23/24 10:56 04/23/24 10:56 04/23/24 10:56 04/23/24 10:56 04/23/24 10:56
Last Documented Vital Signs
Temp Pulse Resp BP Pulse Ox
97.4 F 70 13 130/91 94
04/23/24 10:56 04/23/24 14:15 04/23/24 14:15 04/23/24 14:00 04/23/24 13:45
<Amara Jarrett, DO - Last Filed: 04/23/24 12:55>
Orders/Labs/Results
Orders:
Orders
04/23/24 11:55
BNP [NT-proBNP] Urgent
Complete Blood Count/With Diff Urgent
Comprehensive Metabolic Panel Urgent
Troponin I Urgent
Comment: ADD ON
04/23/24 12:17
Electrocardiogram (*1) Urgent
Reason for Study: Shortness of Breath
EKG- Treatment ONCE
CR Chest - 2 Views Urgent
Comment:
Reason For Exam: shortness of breath
04/23/24 12:19
Add On- LAB Urgent
Tests Added?: troponin
04/23/24 14:06
Furosemide [Lasix] 20 mg IV NOW STA
Abnormal Lab Results
04/23/24
11:55
WBC 4.3 L 10^3/uL
(4.8-10.8)
RBC 3.85 L 10^6/uL
(4.20-5.40)
Hgb 10.9 L g/dL
(12.0-16.0)
Hct 34.9 L %
(37.0-47.0)
MCHC 31.2 L g/dL
(33.0-37.0)
RDW 21.0 H %
(11.5-14.5)
Absolute Lymphs (auto) 0.6 L 10^3/uL
(1.2-3.4)
Immature Gran % 0.7 H %
(0-0.5)
Lymphocytes % 14.7 L %
(20.5-51.1)
Monocytes % 11.3 H %
(1.7-9.3)
BUN 42 H mg/dl
(7-17)
Creatinine 1.9 H mg/dL
(0.6-1.0)
Total Bilirubin 2.5 H mg/dl
(0.2-1.3)
Alkaline Phosphatase 140 H U/L
(38-126)
04/23/24 11:55
04/23/24 11:55
Vital Signs
Initial and Last Documented VS:
Initial Vital Signs
Temp Pulse Resp BP Pulse Ox
97.4 F 71 18 131/86 96
04/23/24 10:56 04/23/24 10:56 04/23/24 10:56 04/23/24 10:56 04/23/24 10:56
Last Documented Vital Signs
Temp Pulse Resp BP Pulse Ox
97.4 F 70 13 130/91 94
04/23/24 10:56 04/23/24 14:15 04/23/24 14:15 04/23/24 14:00 04/23/24 13:45
<Shiela Gimenez PA-C - Last Filed: 04/23/24 14:34>
MDM/Problems Addressed
Differential Diagnosis Includes:
Acute CHF, dependent edema, DVT, PE cardio renal syndrome
MDM/Problems Addressed:
78-year-old female with CHF, A-fib on Eliquis chronic edema. 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 On exam, she is well-appearing in no acute respiratory distress, diastolic murmur noted, occasional crackles. She did lower extremity
pitting edema. Will plan to obtain blood work, troponin, proBNP, as well as chest x-ray. Acute kidney injury noted. CXR noted negative for pleural effusion, pulmonary edema, however in light of the severity of patient's symptoms, acute worsening
of kidney function, will admit for further therapy and care.
Chronic conditions affecting care:
CKD, hypertension, hyperlipidemia, CHF
Acute Exacerbation and/or Progression of Chronic Illness:
CHF
<Shiela Gimenez PA-C - Last Filed: 04/23/24 14:34>
*Pulse Oximetry
Patient hypoxic: no
*Critical Care Note
Total Time (30-74mins, 75-104mins- exclusive of procedures): Not Applicable
Data Reviewed
Review of Other/Old Records Reveals: Records (Reviewed summary from 02/03/2024 for CHF exacerbation, when the hospitalization RIAZ reviewed EF 20%, moderate regurg)
Source: patient and records
ED Attending Note
<ANGELA Casas Last Filed: 04/23/24 14:34>
-
Portions of this chart may have been created with voice recognition software.� Occasional wrong word or��sound alike� substitutions may have occurred due to the inherent limitations of voice recognition software.
<Amara Jarrett DO - Last Filed: 04/23/24 12:55>
ED Attending Note
Patient seen and examined by attending physician: Yes
I performed the substantive portion of visit, reviewed & personally made and approve the management plan that is documented in note by myself or FLAKO.: Yes
I performed a history and physical exam of patient and discussed management with resident, I reviewed resident's note and agree with documented findings and plan of care.: Yes
ED Attending Note:
78-year-old female with history of CHF with an EF of 20% presenting for acute on chronic dyspnea and increasing lower extremity edema. Patient reports for the past few days she has been having worsening lower extremity edema, nonpitting, and
shortness of breath with minimal exertion. She takes Lasix 20 mg twice daily. Denies chest pain. Denies cough or fever. Reports compliance with her medications. Vital signs normal.
On exam, patient is resting comfortably, no acute respiratory distress. Crackles at the bases on pulmonary exam, unremarkable cardiac exam. On examination of the lower extremities, pitting edema 2+ symptoms appear most consistent with acute on
chronic CHF. Plan for laboratory analysis, chest x-ray imaging. Likely will require admission for IV diuresis.
Discharge Plan
Departure
Patient Disposition: Admit
Date of Disposition: 04/23/24
Time of Disposition: 13:56
Admit to: Telemetry
Presentation/result/management discussed w/ accepting MD/DO: Hospitalist
Condition: Fair
Discharge Problem:
Acute exacerbation of chronic heart failure, Acute kidney injury
Prescriptions:
No Action
Eliquis 5 mg Tablet
5 mg PO BID
escitalopram oxalate [Lexapro] 20 mg Tablet
20 mg PO DAILY
amiodarone 200 mg Tablet
200 mg PO DAILY
metoprolol succinate 25 mg Tablet Extended Release 24 Hr
25 mg PO DAILY Qty: 30 11RF
dapagliflozin propanediol 10 mg Tablet
10 mg PO DAILY Qty: 30 11RF
spironolactone 25 mg Tablet
25 mg PO DAILY
ondansetron 4 mg Tablet,Disintegrating
4 mg PO DAILY@0300
furosemide 40 mg tablet
40 mg PO BID@0300,1000
dicyclomine 20 mg tablet
20 mg PO QIDPRN PRN (Reason: abdominal symptoms)
ondansetron 4 mg tablet,disintegrating
4 mg PO TIDPRN PRN (Reason: nausea and vomiting)
Referrals:
uSyapa Duval CRNP [Family Provider] -
Interventions
Interventions:
*Risk Screen - Suicide Last Done: 04/23/24 10:56
*General Assessment Last Done: 04/23/24 10:56
*Neglect/Abuse Screening Last Done: 04/23/24 10:56
ED- Fall Risk Assessment Last Done: 04/23/24 11:59
*ED COVID-19 Vaccine History Last Done: 04/23/24 11:46
ED- Cardiac Assessment Last Done: 04/23/24 11:54
ED- Pulmonary Assessment Last Done: 04/23/24 11:54
ED-Skin Assessment Last Done: 04/23/24 11:54
Discharge Date and Time
Print Language: BURUNDIAN
[2024-04-23 12:12] LABS: % Basophils 0.7 % (0-2); % Eosinophils 1.8 % (0-6); % Immature Granulocytes 0.7 % (0-0.5); % Lymphocytes 14.7 % (20.5-51.1); % Monocytes 11.3 % (1.7-9.3); % Neutrophils 70.8 % (42.2-75.2); Absolute Eosinophils 0.1 10^3/uL (0-0.7); Absolute Lymphocytes 0.6 10^3/uL (1.2-3.4); Absolute Monocytes 0.5 10^3/uL (0.1-0.6); Absolute Neutrophils 3.1 10^3/uL (1.4-6.5); Hematocrit 34.9 % (37.0-47.0); Hemoglobin 10.9 g/dL (12.0-16.0); Mean Corp Hgb Conc. 31.2 g/dL (33.0-37.0); Mean Corpuscular Hgb 28.3 pg (27.0-31.0); Mean Corpuscular Volume 90.6 fL (81.0-99.0); Mean Platelet Volume 9.5 fL (7.4-10.4); Nucleated Red Blood Cells % 1.4 %; Platelet Count 340 10^3/uL (130-400); Red Blood Cell Count 3.85 10^6/uL (4.20-5.40); White Blood Cell Count 4.3 10^3/uL (4.8-10.8)
[2024-04-23 12:17] LABS: ALT (SGPT) 25 U/L (0-35); AST (SGOT) 27 U/L (14-36); Albumin 3.7 g/dl (3.5-5.0); Alkaline Phosphatase 140 U/L (38-126); Blood Urea Nitrogen 42 mg/dl (7-17); Calcium 9.2 mg/dl (8.4-10.2); Carbon Dioxide 27 mmol/L (22-30); Chloride 102 mmol/L (98-107); Estimated Creatinine Clearance 25 ml/min; Glucose 96 mg/dl (70-99); Potassium 4.1 mmol/L (3.5-5.1); Sodium 140 mmol/L (135-145); Total Bilirubin 2.5 mg/dl (0.2-1.3); Total Protein 6.3 g/dl (6.3-8.2); eGFR 26.69
[2024-04-23 12:26] LABS: NT-proBNP 15700 pg/ml
--- NOTE | 2024-04-23 14:01 | HPS.HSE ---
Family Physician
-
Family Physician: Suyapa Duval
Chief Complaint
-
Shortness of Breath and Lower Extremity Edema
History of Present Illness
Patient is a 78 y/o female past medical history of CAD, ICM, CHF, A-fib, and Hypertension who presents with shortness of breath and lower extremity edema. Yesterday she noticed some swelling in the feet, and today the swelling was in her calves
prompting her to come to the emergency department for evaluation. Patient notes increasing weakness and dyspnea on exertion. She notes a slow weight gain over the week, and now appears to be up about 10lbs from her dry weight. She very good about
eating a low salt diet as grandson is a service desk lead and cooks all her food fresh. However, patient started drinking about 6 oz of Pedialyte after she saw her PCP on Wednesday (7 days ago).
Medical History
Past Medical History
Past Medical History: Reports Other
Additional Past Medical History:
Coronary Artery Disease s/p Stent
Ischemic Cardiomyopathy
Chronic HFrEF
Valvular Heart Disease: Moderate/Severe Mitral Regurg. Severe Tricuspid Regurg
NSVT s/p BiV ICD
Paroxysmal Atrial Fibrillation
Essential Hypertension
Hyperlipidemia
CKD IIIB
Irritable Bowel Syndrome
Depression
Past Surgical History: Reports Other
Additional Past Surgical History:
Cardiac Stent
BiV ICD
Knee Replacement
Hysterectomy
Social History
Tobacco: Non-smoker
Living: With Family
Family History
Family History: Not pertinent
Allergies / Home Medications
Allergies reflects when Allergies were last updated in [facility].
Home Medications with original date entered in [facility]
Allergy/Medication List:
Allergies
Allergy/AdvReac Type Severity Reaction Status Date / Time
No Known Allergies Allergy Verified 04/23/24 10:56
Home Medications
apixaban 5 mg tablet (Eliquis) 5 mg PO BID Blood Clot Prevention/Tx 12/06/23
escitalopram oxalate 20 mg tablet (Lexapro) 20 mg PO DAILY Depression 12/18/23
amiodarone 200 mg tablet 200 mg PO DAILY AFIB 01/03/24
dapagliflozin propanediol 10 mg tablet 10 mg PO DAILY Heart Failure #30 tabs 02/02/24
metoprolol succinate 25 mg tablet,extended release 24 hr 25 mg PO DAILY Heart Failure #30 tabs 02/02/24
dicyclomine 20 mg tablet 20 mg PO QIDPRN PRN abdominal symptoms 04/23/24
furosemide 40 mg tablet 40 mg PO BID@0300,1000 Heart Failure 04/23/24
ondansetron 4 mg disintegrating tablet 4 mg PO DAILY@0300 04/23/24
ondansetron 4 mg disintegrating tablet 4 mg PO TIDPRN PRN nausea and vomiting 04/23/24
spironolactone 25 mg tablet 25 mg PO DAILY 04/23/24
Review of Systems
-
A 12 point ROS was completed and negative except as noted: Yes
Constitutional: Denies Fever or Chills
Respiratory: Reports Trouble Breathing
Cardiac: Denies Chest Pain or Palpitations
Physical Exam
Vital Signs
Vital Signs
Temp Pulse Resp BP Pulse Ox
97.4 F 71 15 131/90 95
04/23/24 10:56 04/23/24 12:15 04/23/24 12:15 04/23/24 12:00 04/23/24 12:15
Physical Exam
General: Comfortable and Conversant
HEENT: Anicteric and Moist mucous membranes
Respiratory: Rales (Bilateral Bases)
Cardiac: S1/S2 and Regular Rhythm
GI: Soft and Non Tender
Rectal: Deferred by Provider
Musculoskeletal: No Clubbing, No Cyanosis and Other (+4 pitting edema bilateral lower extremities)
Skin: Warm and Dry
Neuro: Awake, Alert, Oriented and Nonfocal/grossly intact
Psych: Calm
Laboratory Results
-
04/23/24 11:55
04/23/24 11:55
Laboratory Results
Total Bilirubin 2.5 mg/dl (0.2-1.3) H 04/23/24 11:55
AST 27 U/L (14-36) 04/23/24 11:55
ALT 25 U/L (0-35) 04/23/24 11:55
Alkaline Phosphatase 140 U/L (38-126) H 04/23/24 11:55
Troponin I Cancelled 04/23/24 13:14
Data Reviewed
-
Diagnostic Radiology: Report Reviewed by me
Lab Data: Labs Reviewed by me
Impression/Plan
-
Acute on Chronic HFrEF
-Echo January 2024: Severely reduced left ventricular systolic function. Left ventricular ejection fraction is 20%. Moderate/severe central mitral regurgitation.
-Consult Cardiology
-Continue Lasix 40mg IV BID
-Monitor Is&Os and Daily Weights
ALANNA on CKD IIIB, likely related to cardiorenal syndrome
-Monitor Creatinine closely while on diuretics
-Hold spironolactone and Farxiga for now
-Monitor bladder scans
-Consider Nephrology consult if Creatinine is not improvement
Paroxysmal Atrial Fibrillation
-Continue amiodarone and metoprolol for rate/rhythm control
-Continue Eliquis for anticoagulation
Essential Hypertension
-Continue Metoprolol with hold parameters
-Continue spironolactone
Depression
-Continue Lexapro
Other Noted History:
-Coronary Artery Disease s/p Stent
-Ischemic Cardiomyopathy
-Valvular Heart Disease: Moderate/Severe Mitral Regurg. Severe Tricuspid Regurg
-NSVT s/p BiV ICD
DVT proph: Eliquis
Code Status: DNR
[2024-04-23] MEDS: LASIX 40 MG IV (14:49)
[2024-04-23 14:54] LABS: Troponin I < 0.012 ng/ml
--- NOTE | 2024-04-23 18:16 | W.PN.UPDATE ---
Update Note
Progress Note Update
Attending addendum
I saw patient independently
78 y/o woman with a past medical history of:
CAD,
ICM,
CHF,
A-fib,
Hypertension
presented with shortness of breath and lower extremity edema. Yesterday she noticed some swelling in the feet, and today the swelling was in her calves. She has increasing weakness and dyspnea on exertion with a slow weight gain over the week, up
10lbs from her dry weight. She recently started drinking 6 oz of Pedialyte after she saw her PCP on Wednesday (7 days ago).
Past Medical History:
Coronary Artery Disease s/p Stent
Ischemic Cardiomyopathy
Chronic HFrEF
Valvular Heart Disease: Moderate/Severe Mitral Regurg. Severe Tricuspid Regurg
NSVT s/p BiV ICD
Paroxysmal Atrial Fibrillation
Essential Hypertension
Hyperlipidemia
CKD IIIB
Irritable Bowel Syndrome
Depression
Cardiac Stent
BiV ICD
Knee Replacement
Hysterectomy
Physical Exam
General: Comfortable and Conversant
HEENT: Anicteric and Moist mucous membranes
Respiratory: Rales (Bilateral Bases)
Cardiac: S1/S2 and Regular Rhythm
GI: Soft and Non Tender
Psych: Calm
Impression/Plan:
1. Acute on Chronic HFrEF
-Echo January 2024: Severely reduced left ventricular systolic function.
Left ventricular ejection fraction is 20%.
Moderate/severe central mitral regurgitation.
-Consult Cardiology
-Lasix 40mg IV BID
2. ALANNA on CKD IIIB, likely related to cardiorenal syndrome
-Monitor Creatinine closely
-Hold spironolactone and Farxiga
-Nephrology consult if Creatinine is not improvement
Please see PA note for full details on:
Paroxysmal Atrial Fibrillation
Essential Hypertension
Depression
Coronary Artery Disease s/p Stent
Ischemic Cardiomyopathy
Valvular Heart Disease: Moderate/Severe Mitral Regurg. Severe Tricuspid Regurg
DVT proph: Eliquis
Code Status: DNR
[2024-04-23] MEDS: ELIQUIS 5 MG PO (20:14)
[2024-04-24] VITALS (9 sets, daily range): BP systolic 113–143; BP diastolic 74–92; PULSE 70; O2SAT 97; BMI 31.6
--- NOTE | 2024-04-24 07:21 | W.PN.HOSP.TC ---
Today's Communication/Plan
-
see bold
Assessment / Plan
Assessment / Plan
Gen: NAD, AAOx3.
Eyes: EOMI, PERRLA, no scleral icterus.
Neck: supple.
CV: RRR, +S1/S2, no m/r/g.
Resp: CTAB, no rales, wheezes, or rhonchi.
Abd: +BS, soft, NT, ND
Skin: No rashes. 1+ B/L LE edema
Neuro: CN 2-12 intact, non-focal.
Psych: Normal mood and affect.
CXR: Cardiomegaly without associated pulmonary edema
Acute on Chronic HFrEF
-Echo January 2024: Severely reduced left ventricular systolic function. Left ventricular ejection fraction is 20%. Moderate/severe central mitral regurgitation.
-c/s cards
-Continue Lasix 40mg IV BID
-Monitor Is&Os and Daily Weights
ALANNA on CKD3b:
-likely due to cardiorenal syndrome
-Cr 1.9, same as yesterday
-check renal U/S
-Hold spironolactone and Farxiga for now
-Monitor bladder scans
Paroxysmal Atrial Fibrillation
-Continue amiodarone and metoprolol for rate/rhythm control
-Continue Eliquis for anticoagulation
Essential Hypertension
-Continue Metoprolol with hold parameters
-Continue spironolactone
Depression
-Continue Lexapro
Other Noted History:
-Coronary Artery Disease s/p Stent
-Ischemic Cardiomyopathy
-Valvular Heart Disease: Moderate/Severe Mitral Regurg. Severe Tricuspid Regurg
-NSVT s/p BiV ICD
DNR/Eliquis
Anticipated Discharge: > 48 hours
Subjective/Interval History
-
Date of Service: April 24, 2024
Jorge CP/SOB.
Objective Data
-
Labs:
Laboratory Results
04/24/24
06:54
WBC Pending
Hgb Pending
Hct Pending
Plt Count Pending
Sodium Pending
Potassium Pending
Chloride Pending
Carbon Dioxide Pending
BUN Pending
Creatinine Pending
Glucose Pending
Calcium Pending
Vital Signs:
Vital Signs
Temp Pulse Resp BP Pulse Ox
97.4 F 75 18 118/74 95
04/24/24 06:44 04/24/24 06:44 04/24/24 06:44 04/24/24 06:44 04/24/24 06:44
[2024-04-24 07:35] LABS: Hematocrit 32.9 % (37.0-47.0); Hemoglobin 10.4 g/dL (12.0-16.0); Mean Corp Hgb Conc. 31.6 g/dL (33.0-37.0); Mean Corpuscular Hgb 28.5 pg (27.0-31.0); Mean Corpuscular Volume 90.1 fL (81.0-99.0); Mean Platelet Volume 9.6 fL (7.4-10.4); Platelet Count 328 10^3/uL (130-400); Red Blood Cell Count 3.65 10^6/uL (4.20-5.40); Red Cell Dist. Width 21.2 % (11.5-14.5); White Blood Cell Count 4.3 10^3/uL (4.8-10.8)
[2024-04-24 07:57] LABS: Blood Urea Nitrogen 43 mg/dl (7-17); Calcium 9.1 mg/dl (8.4-10.2); Carbon Dioxide 27 mmol/L (22-30); Chloride 101 mmol/L (98-107); Estimated Creatinine Clearance 25 ml/min; Glucose 88 mg/dl (70-99); Magnesium 2.3 mg/dl (1.6-2.3); Sodium 138 mmol/L (135-145); eGFR 26.69
[2024-04-24] MEDS: LASIX 40 MG IV ×2 (08:27→15:21)
[2024-04-24] MEDS: PACERONE 200 MG PO (08:28)
[2024-04-24] MEDS: ELIQUIS 5 MG PO ×2 (08:28→20:26)
[2024-04-24] MEDS: LEXAPRO 20 MG PO (08:28)
[2024-04-24] MEDS: TOPROL XL 25 MG PO (08:28)
--- NOTE | 2024-04-24 09:08 | CON.CAR ---
Addendum entered and electronically signed by Gerardo Cohen DO 04/24/24 13:01:
I saw and examined the patient.
The Manager Switch's note was reviewed and I agree with the note.
Comment:
Plan:
Cont IV diuresis
Last admit she had elevated renal function from cardio renal syndrome and had a right cath that showed retention despite elevated cr. She was also briefly on milrinone
Follow cr closely with diuresis.
Check echo
HF teaching. 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
She knows that her increased intake likely contributed to her HF
AV paced on amiodarone
QTc stable.
Cont Eliquis
Original Note:
Consultation
Consultation Request
Date/Time Consultation Requested: 04/23/2024
Date/Time Consultation Performed: 04/24/2024
Requesting Provider: Violet Blandon PA-C
Performing Provider: Grisel Neri PA-C for Dr. Yahir Chaudhry
Reason for Consultation: Heart failure, shortness of breath
Medical History
-
Chief Complaint: SOB, edema
History of Present Illness:
Patient is a pleasant 78-year-old female with past medical history significant for chronic heart failure with reduced ejection fraction, paroxysmal symptomatic atrial fibrillation status post cardioversion January 2024 on chronic anticoagulation,
left bundle branch block, ischemic CM status post Medtr[employer] BiV ICD 11/2022, hypertension, hyperlipidemia, CAD status post PCI with RAULITO to OM 07/2020, IBS, diverticulitis, TKR who presents due to worsening lower extremity edema, increasing weakness
and dyspnea on exertion. She notes a slow weight gain over the week. She admits to be compliance in her diet but has been drinking Pedialyte for [place] [address]. CXR shows cardiomegaly without associated pulmonary edema.
EKG shows sinus rhythm with AV paced rhythm. ALANNA on CKD with creat 1.9. Patient was provided 40 mg IV Lasix in emergency department. Patient reports good urine output with IV Lasix. Feet still swollen but improved.
PMH:
Paroxysmal Afib
s/p CV 12/20/23
s/p RIAZ/CV 01/26/24
Chronic anti-coagulation on Eliquis
Heart failure with reduced ejection fraction
LBBB
NSVT
Ischemic Cardiomyopathy
s/p Medtronic BiV ICD 11/18/22
CAD
s/p RAULITO OM 07/2020
HTN
Hyperlipidemia
Moderate/Severe Mitral Regurg. Severe Tricuspid Regurg
CKD IIIB
Irritable Bowel Syndrome
Hx Diverticulitis
Past Medical History
Past Medical History: Other (See HPI)
Past Surgical History: Cardiac (multiple CV, ICD 11/2022, OM RAULITO 11/2022), Gynecological (Hysterectomy), Orthopedic (Knee replacement) and Other
Social History
Tobacco: Non-Smoker
Alcohol: None
Drug: None
Living: With Family
Family History
Family History: Reviewed & Not Pertinent
Allergies / Home Medications
Allergy/AdvReac Type Severity Reaction Status Date / Time
No Known Allergies Allergy Verified 04/23/24 10:56
�Medication �Instructions �Recorded �Confirmed �Type
apixaban 5 mg tablet (Eliquis) 5 mg PO BID Blood Clot 03/10/23 04/23/24 History
Prevention/Tx
escitalopram oxalate 20 mg tablet 20 mg PO DAILY Depression 12/18/23 04/23/24 History
(Lexapro)
amiodarone 200 mg tablet 200 mg PO DAILY AFIB 01/03/24 04/23/24 History
dapagliflozin propanediol 10 mg 10 mg PO DAILY Heart Failure #30 02/02/24 04/23/24 Rx
tablet tabs
metoprolol succinate 25 mg 25 mg PO DAILY Heart Failure #30 02/02/24 04/23/24 Rx
tablet,extended release 24 hr tabs
dicyclomine 20 mg tablet 20 mg PO QIDPRN PRN abdominal 04/23/24 04/23/24 History
symptoms
furosemide 40 mg tablet 40 mg PO BID@0300,1000 Heart 04/23/24 04/23/24 History
Failure
ondansetron 4 mg disintegrating 4 mg PO DAILY@0300 04/23/24 04/23/24 History
tablet
ondansetron 4 mg disintegrating 4 mg PO TIDPRN PRN nausea and 04/23/24 04/23/24 History
tablet vomiting
spironolactone 25 mg tablet 25 mg PO DAILY 04/23/24 04/23/24 History
Physical Exam
Vital Signs
Temp Pulse Resp BP Pulse Ox
97.5 F 72 18 132/85 96
04/24/24 07:31 04/24/24 07:31 04/24/24 07:31 04/24/24 08:27 04/24/24 07:31
GEN: No distress, awake, Ox3, sitting in chair on room air
HEENT: supple, anicteric, mmm
LUNGS: Few scattered crackles at bases otherwise CTA, no wheezes/rales
CV: Reg, S1/S2, 1/6 syst LSB, no murmur
ABD: soft, BS+, NT/ND
EXT: +1 bilateral pitting edema, no clubbing or cyanosis
NEURO: Gross non-focal
SKIN: No rash, warm, dry, pink
Lab Results
04/24/24 06:54
04/24/24 06:54
Troponin I Cancelled 04/23/24 14:02
[id number] Pept [id number] pg/ml 04/23/24 11:55
Impression / Plan
-
PCP: BYRON Man
Plasma Cutting Machine Operator: Dr. Figueroa
Smasher Hand: Dr. Robert Ziegler
Impression:
Presented 04/23/2024 with lower extremity edema, increasing weakness and dyspnea on exertion
Acute on chronic heart failure w/ reduced EF, proBNP 88345
ALANNA on CKD
Paroxysmal Afib
s/p CV 12/20/23
s/p RIAZ/CV 01/26/24
Chronic anti-coagulation on Eliquis
Heart failure with reduced ejection fraction
LBBB
NSVT
Ischemic Cardiomyopathy
s/p Medtronic BiV ICD 11/18/22
CAD
s/p RAULITO OM 07/2020
HTN
Hyperlipidemia
Moderate/Severe Mitral Regurg. Severe Tricuspid Regurg
CKD IIIB
Irritable Bowel Syndrome
Hx Diverticulitis
Lexiscan nuclear stress test 07/19/2020: Moderate reversible defect in the mid inferolateral, mid inferior, and apical inferior segments. Inferior hypokinesis. LVEF 40%. LV normal size.�������
Echo 07/12/2020: LVEF 45-50%. Mild global hypo. Inferior basal akinesis. Moderate LAE. Aortic valve sclerosis.
Echo 03/20/2021: EF 35 to 40%, stage II DD. Mild left atrial enlargement. Mild MR.
Echo 10/11/2023: EF 34%. Moderately reduced LV systolic function. Stage II DD. Mild MR, mild TR. PAP 37 mmHg
Echo 01/04/2024: EF 20%, global hypokinesis with regional variability, normal RV size with low normal RV systolic function, moderate to severe MR, severe TR with PAP 65-70 mmHg
Plan:
-Presented 04/23/2024 with lower extremity edema, increasing weakness and dyspnea on exertion
-Acute on chronic heart failure, proBNP 15,700. Chest x-ray no acute cardiopulmonary abnormality
-Patient reports good urine output with IV Lasix. Feet still swollen but improving.
-Agree with ongoing IV diuresis Lasix 40 mg twice daily
-Given elevated creatinine Farxiga and Aldactone currently on hold.
-Monitor renal function and electrolytes closely
-History of PAF with most recent cardioversion January 2024. Patient currently AV paced in sinus rhythm. Continue on Amiodarone and Eliquis, hemoglobin stable at 10.4
HPI:
Patient is a pleasant 78-year-old female with past medical history significant for chronic heart failure with reduced ejection fraction, paroxysmal symptomatic atrial fibrillation status post cardioversion January 2024 on chronic anticoagulation,
left bundle branch block, ischemic CM status post Medtronic BiV ICD 11/2022, hypertension, hyperlipidemia, CAD status post PCI with RAULITO to OM 07/2020, IBS, diverticulitis, TKR who presents due to worsening lower extremity edema, increasing weakness
and dyspnea on exertion. She notes a slow weight gain over the week. She admits to be compliance in her diet but has been drinking Pedialyte [place] [address]. CXR shows cardiomegaly without associated pulmonary edema.
EKG shows sinus rhythm with AV paced rhythm. ALANNA on CKD with creat 1.9. Patient was provided 40 mg IV Lasix in emergency department. Patient reports good urine output with IV Lasix. Feet still swollen but improved.
Data Reviewed
-
EKG: Report Reviewed by me, Discussed with Physician and Discussed with Patient
Radiology: Report Reviewed by me, Discussed with Physician and Discussed with Patient
Labs: Labs Reviewed by me, Discussed with Physician and Discussed with Patient
Old Records: Reviewed
--- NOTE | 2024-04-24 16:47 | CM ---
sales and business development manager reviewed patient's chart and met with patient and patient lives in a one story home with 6 steps to enter, patient is independent with adl's and ambulation, no dme, patient drives. Patient had [facility] in past and plan is to home with [facility]
when stable, [facility] liaison contacted.
PCP: Suyapa Duval
Pharmacy: [facility].
Plan; Home with [facility].
[2024-04-25] VITALS (7 sets, daily range): BP systolic 112–143; BP diastolic 64–94; PULSE 78; BMI 30.9
[2024-04-25] MEDS: LASIX 40 MG IV ×2 (07:33→15:36)
[2024-04-25] MEDS: TOPROL XL 25 MG PO (07:34)
[2024-04-25] MEDS: PACERONE 200 MG PO (07:34)
[2024-04-25] MEDS: ELIQUIS 5 MG PO ×2 (07:34→20:26)
[2024-04-25] MEDS: LEXAPRO 20 MG PO (07:34)
[2024-04-25 09:28] LABS: Blood Urea Nitrogen 40 mg/dl (7-17); Calcium 8.6 mg/dl (8.4-10.2); Carbon Dioxide 30 mmol/L (22-30); Chloride 98 mmol/L (98-107); Estimated Creatinine Clearance 27 ml/min; Glucose 80 mg/dl (70-99); Potassium 3.6 mmol/L (3.5-5.1); Sodium 138 mmol/L (135-145)
--- NOTE | 2024-04-25 09:28 | VNURNOTE ---
Home Health Liaison met with patient at bedside to discuss [facility] nurse/therapy, visits, schedule and homebound status. Patient is agreeable and understands that visits at home will be 2-3 x per week to assess and teach medical management. She is
familiar with [facility] services.
[facility] brochure provided with contact information. Patient is aware that [facility] will contact them for start of care in 1-2 days after discharge from .
[facility] referral completed in [facility].
--- NOTE | 2024-04-25 09:35 | PN.CDI ---
Addendum entered and electronically signed by Lisandro Rey MD 04/25/24 10:26:
Documentation is complete.
Original Note:
CDI
- -
CDI:
Physician Documentation Request
Admit Date: 04/23/24 15:13
Dear Doctor Candido,
Patient admitted for acute heart failure exacerbation.
04/24 Hospitalist PN: 'ALANNA on CKD3b: -likely due to cardiorenal syndrome -Cr 1.9, same as yesterday'
Laboratory Tests- previous admission
04/12/24
09:09
Creatinine 1.2 H
Laboratory Tests- Current admission
04/23/24 04/24/24 04/25/24
11:55 06:54 06:52
Creatinine 1.9 H 1.9 H 1.7 H
Criteria for ALANNA*
1 Increase in serum creatinine by > or = to 0.3 mg/dL (> or = to 26.5 micromol/L) within 48 hours, OR
2 Increase in serum creatinine to > or = to 1.5 times baseline, which is known or presumed to have occurred within 7 days, OR
3 Urine volume < 0.5 nL/kg/hour for six hours
The request is for one of the following:
- Additional documentation to support the condition. Indicate if this is in lieu of what may be considered standard criteria, and/or support why the standard criteria may not be present for this patient.
- A more appropriate diagnosis, reflecting the patient's condition
- ALANNA remains a known or suspected condition for this patient and is further supported by (include additional documentation in the medical record)
- ALANNA has been ruled out and a more appropriate diagnosis for this patient's condition is .
- Other (please specify)
- Unable to determine
Use of terms such as suspected, likely, concern for, or probable (associated with a specific diagnosis that is being evaluated, monitored, or treated as if it exists) are acceptable and can be coded in the inpatient setting, when documented at the
time of discharge.
Thank you,
Katina Martinez RN, BSN
CDI Specialist
Available via [employer] text
Please use your independent medical judgment in providing your response.
--- NOTE | 2024-04-25 10:39 | W.PN.HOSP.TC ---
Today's Communication/Plan
-
see bold
Assessment / Plan
Assessment / Plan
Gen: NAD, AAOx3.
Eyes: EOMI, PERRLA, no scleral icterus.
Neck: supple.
CV: remains RRR, +S1/S2, no m/r/g.
Resp: remains CTAB, no rales, wheezes, or rhonchi.
Abd: +BS, soft, NT, ND
Skin: No rashes. trace B/L LE edema
Neuro: CN 2-12 intact, non-focal.
Psych: Normal mood and affect.
CXR: Cardiomegaly without associated pulmonary edema
Renal U/S: No sonographic evidence for hydronephrosis.
Acute on Chronic HFrEF
-Echo January 2024: Severely reduced left ventricular systolic function. Left ventricular ejection fraction is 20%. Moderate/severe central mitral regurgitation.
-Continue Lasix 40mg IV BID, likely transition to PO Lasix tomorrow
-daily wts, I/Os
-cards following, discussed with cardiology
-cont BB
ALANNA on CKD3b:
-likely due to cardiorenal syndrome
-Cr improving with diuresis
-Holding spironolactone and Farxiga for now
Other problems:
Paroxysmal Atrial Fibrillation: cont Amio/BB/Eliquis
Essential Hypertension: cont BB
Depression: cont Lexapro
Obesity due to excess calories
CAD s/p stent: cont BB
Valvular Heart Disease: Moderate/Severe MR. Severe TR.
NSVT s/p BiV ICD
DNR/Eliquis
Anticipated Discharge: Within 24 hours
Subjective/Interval History
-
Date of Service: April 25, 2024
No new complaints. Denies SOB.
Objective Data
-
Labs:
Laboratory Results
04/25/24
06:52
Sodium 138
Potassium 3.6
Chloride 98
Carbon Dioxide 30
BUN 40 H
Creatinine 1.7 H
Glucose 80
Calcium 8.6
Vital Signs:
Vital Signs
Temp Pulse Resp BP Pulse Ox
97.8 F 73 19 143/94 96
04/25/24 07:00 04/25/24 07:00 04/25/24 07:00 04/25/24 07:00 04/25/24 09:08
I&O
04/24/24 04/25/24 04/26/24
06:59 06:59 06:59
Intake Total 720 / 720
Balance 720 / 720
--- NOTE | 2024-04-25 11:50 | W.PN.CARDCBS ---
Addendum entered and electronically signed by Eron Cruz MD 04/25/24 14:45:
I saw and examined the patient.
The Volunteer Services Supervisor's note was reviewed and I agree with the note.
Comment: Briefly, 78-year-old woman past medical history of heart with severely reduced ejection fraction presenting in acute decompensated heart failure
Weight is down significantly with IV diuresis
Patient's volume status appears reasonable on exam
Currently on room air, not requiring supplemental oxygen
Creatinine seems to be improving with diuresis suggestive of cardiorenal syndrome
If renal function normalizes can resume home Farxiga and Aldactone
Continue IV diuresis today, tentative plan to transition to oral diuretics tomorrow pending her clinical status
Rest per Grisel Neri
Original Note:
Today's Communication / Plan
-
Transition to oral Lasix 04/26/2024
Follow renal function and electrolytes
If renal function stable on labs 04/26/2024 consider resuming Farxiga and Aldactone
Impression / Plan
-
PCP: BYRON Man
Knife Finisher: Dr. Figueroa
Afternoon Nanny: Dr. Robert Ziegler
Impression:
Presented 04/23/2024 with lower extremity edema, increasing weakness and dyspnea on exertion
Acute on chronic heart failure w/ reduced EF, proBNP 44872
ALANNA on CKD
Paroxysmal Afib
s/p CV 12/20/23
s/p RIAZ/CV 01/26/24
Chronic anti-coagulation on Eliquis
Heart failure with reduced ejection fraction
LBBB
NSVT
Ischemic Cardiomyopathy
s/p Medtronic BiV ICD 11/18/22
CAD
s/p RAULITO OM 07/2020
HTN
Hyperlipidemia
Moderate/Severe Mitral Regurg. Severe Tricuspid Regurg
CKD IIIB
Irritable Bowel Syndrome
Hx Diverticulitis
Lexiscan nuclear stress test 07/19/2020: Moderate reversible defect in the mid inferolateral, mid inferior, and apical inferior segments. Inferior hypokinesis. LVEF 40%. LV normal size.�������
Echo 07/12/2020: LVEF 45-50%. Mild global hypo. Inferior basal akinesis. Moderate LAE. Aortic valve sclerosis.
Echo 03/20/2021: EF 35 to 40%, stage II DD. Mild left atrial enlargement. Mild MR.
Echo 10/11/2023: EF 34%. Moderately reduced LV systolic function. Stage II DD. Mild MR, mild TR. PAP 37 mmHg
Echo 01/04/2024: EF 20%, global hypokinesis with regional variability, normal RV size with low normal RV systolic function, moderate to severe MR, severe TR with PAP 65-70 mmHg
Plan:
-Presented 04/23/2024 with lower extremity edema, increasing weakness and dyspnea on exertion
-Acute on chronic heart failure, proBNP 15,700. Chest x-ray no acute cardiopulmonary abnormality
-Good response with IV diuresis. Weight down 7 pounds.
-Would transition to oral Lasix 40 mg twice daily on 04/26/2024
-Peak creatinine of 1.9 this admission. Improving to 1.7.
-Given elevated creatinine Farxiga and Aldactone currently on hold. If creatinine stable within next 24 hours would consider resuming Farxiga and Aldactone
-Monitor renal function and electrolytes closely
-History of PAF with most recent cardioversion January 2024. Patient currently AV paced in sinus rhythm. Continue on Amiodarone and Eliquis, hemoglobin stable at 10.4
-Patient will go home with visiting nurses. Will arrange for outpatient cardiology follow-up with Dr. Figueroa
HPI:
Patient is a pleasant 78-year-old female with past medical history significant for chronic heart failure with reduced ejection fraction, paroxysmal symptomatic atrial fibrillation status post cardioversion January 2024 on chronic anticoagulation,
left bundle branch block, ischemic CM status post Medtronic BiV ICD 11/2022, hypertension, hyperlipidemia, CAD status post PCI with RAULITO to OM 07/2020, IBS, diverticulitis, TKR who presents due to worsening lower extremity edema, increasing weakness
and dyspnea on exertion. She notes a slow weight gain over the week. She admits to be compliance in her diet but has been drinking Pedial[place]te [place] [address]. CXR shows cardiomegaly without associated pulmonary edema.
EKG shows sinus rhythm with AV paced rhythm. ALANNA on CKD with creat 1.9. Patient was provided 40 mg IV Lasix in emergency department. Patient reports good urine output with IV Lasix. Feet still swollen but improved.
Progress Note - Knife Finisher
Subjective
Date of Service: April 25, 2024
Patient seen and examined. Patient reports that symptomatically she is feeling better. She is feeling less short of breath and edema has improved significantly.
Objective
Labs:
04/24/24 06:54
04/25/24 06:52
Labs
Hgb 10.4 g/dL (12.0-16.0) L 04/24/24 06:54
Hct 32.9 % (37.0-47.0) L 04/24/24 06:54
Plt Count 328 10^3/uL (130-400) 04/24/24 06:54
Sodium 138 mmol/L (135-145) 04/25/24 06:52
Potassium 3.6 mmol/L (3.5-5.1) 04/25/24 06:52
BUN 40 mg/dl (7-17) H 04/25/24 06:52
Creatinine 1.7 mg/dL (0.6-1.0) H 04/25/24 06:52
Glucose 80 mg/dl (70-99) 04/25/24 06:52
Troponins
04/23/24 04/23/24 04/23/24
11:55 12:17 13:14
Troponin I < 0.012 Cancelled Cancelled
04/23/24
14:02
Troponin I Cancelled
Vital Signs and I&O:
Vital Signs
Temp Pulse Resp BP Pulse Ox
97.7 F 71 20 112/64 97
04/25/24 11:00 04/25/24 11:00 04/25/24 11:00 04/25/24 11:00 04/25/24 11:00
Vital Signs
Temp Pulse Resp BP Pulse Ox
97.7 F 71 20 112/64 97
04/25/24 11:00 04/25/24 11:00 04/25/24 11:00 04/25/24 11:00 04/25/24 11:00
Intake & Output
04/23/24 04/24/24 04/25/24 04/26/24
06:59 06:59 06:59 06:59
Intake Total 720 / 720
Balance 720 / 720
Physical Exam
Physical Exam
GEN: No distress, awake, Ox3, sitting in chair on room air
HEENT: supple, anicteric, mmm
LUNGS: Few scattered crackles at left base otherwise CTA, no wheezes/rales
CV: Reg, S1/S2, 1/6 syst LSB, no murmur
ABD: soft, BS+, NT/ND
EXT: Trace lower extremity edema on right, trace to +1 lower extremity edema on left, no clubbing or cyanosis
NEURO: Gross non-focal
SKIN: No rash, warm, dry, pink
--- NOTE | 2024-04-25 13:58 | CM ---
Plan home with [facility].
Plan; Home with [facility]
[2024-04-25] MEDS: MIRALAX 17 GRAMS PO (21:00)
[2024-04-25] MEDS: COLACE 100 MG PO (21:00)
--- NOTE | 2024-04-26 02:27 | DOWNTIME ---
There was a [employer] Client Assistant Director Of Residence Life Downtime on 04/26/2024 from 0100 to 04/26/2023 at 0205 . Downtime documentation of patient's care, including medication administrations, has been reconciled in the electronic record per guidelines. Refer to the
patient's paper chart under the miscellaneous tab to see printed paper medication records and downtime forms.
[2024-04-26 03:47] VITALS: BP 129/73
[2024-04-26 05:09] VITALS: BMI 30.2
[2024-04-26 07:20] VITALS: BP 133/73
[2024-04-26 08:24] LABS: Blood Urea Nitrogen 31 mg/dl (7-17); Calcium 8.8 mg/dl (8.4-10.2); Carbon Dioxide 32 mmol/L (22-30); Chloride 97 mmol/L (98-107); Estimated Creatinine Clearance 30 ml/min; Glucose 82 mg/dl (70-99); Potassium 3.2 mmol/L (3.5-5.1); Sodium 138 mmol/L (135-145); eGFR 35.45
[2024-04-26] MEDS: TOPROL XL 25 MG PO (08:41)
[2024-04-26] MEDS: ELIQUIS 5 MG PO (08:41)
[2024-04-26] MEDS: LEXAPRO 20 MG PO (08:41)
[2024-04-26] MEDS: COLACE 100 MG PO (08:41)
[2024-04-26] MEDS: LASIX 40 MG IV (08:42)
[2024-04-26] MEDS: PACERONE 200 MG PO (08:42)
[2024-04-26 11:34] VITALS: BP 140/91
[2024-04-26] MEDS: CITROMA 300 ML PO (12:04)
[2024-04-26] MEDS: KCL 40 MEQ PO (12:04)
--- NOTE | 2024-04-26 12:06 | W.PN.HOSP.TC ---
Today's Communication/Plan
-
ok for d/c
Assessment / Plan
Assessment / Plan
Gen: NAD, AAOx3.
Eyes: EOMI, PERRLA, no scleral icterus.
Neck: supple.
CV: remains RRR, +S1/S2, no m/r/g.
Resp: remains CTAB, no rales, wheezes, or rhonchi.
Abd: +BS, soft, NT, ND
Skin: No rashes. trace B/L LE edema
Neuro: CN 2-12 intact, non-focal.
Psych: Normal mood and affect.
CXR: Cardiomegaly without associated pulmonary edema
Renal U/S: No sonographic evidence for hydronephrosis.
pt is a 78 year old female
Acute on Chronic HFrEF
-Echo January 2024: Severely reduced left ventricular systolic function. Left ventricular ejection fraction is 20%. Moderate/severe central mitral regurgitation.
- PO Lasix--cleared for d/c by cards, apprec input
-daily wts, I/Os
-cont BB
ALANNA on CKD3b:
-likely due to cardiorenal syndrome
-Cr improving with diuresis
-Holding spironolactone and Farxiga for now
Other problems:
Paroxysmal Atrial Fibrillation: cont Amio/BB/Eliquis
Essential Hypertension: cont BB
Depression: cont Lexapro
Obesity due to excess calories
CAD s/p stent: cont BB
Valvular Heart Disease: Moderate/Severe MR. Severe TR.
NSVT s/p BiV ICD
DNR/Eliquis
constipation--Mag Citrate given
Anticipated Discharge: Today
Subjective/Interval History
-
Date of Service: April 26, 2024
pt feels fine--ok for d/c
Objective Data
-
Labs:
Laboratory Results
04/26/24
07:12
Sodium 138
Potassium 3.2 L
Chloride 97 L
Carbon Dioxide 32 H
BUN 31 H
Creatinine 1.5 H
Glucose 82
Calcium 8.8
Vital Signs:
max temp for 24 hours
04/26/24
07:20
Temp 98.7 F
Vital Signs
Temp Pulse Resp BP Pulse Ox
98.3 F 74 20 140/91 96
04/26/24 11:34 04/26/24 11:34 04/26/24 11:34 04/26/24 11:34 04/26/24 11:34
I&O
04/25/24 04/26/24 04/27/24
06:59 06:59 06:59
Intake Total 720 / 720
Balance 720 / 720
Review of Systems
-
All other systems: Reviewed and negative
Abdomen/GI: Reports Constipated
Physical Exam
-
General: Well Developed, Well Nourished and No Apparent Distress
HEENT: Normocephalic and Atraumatic
Respiratory: Clear to Auscultation; Negative Wheezes or Rhonchi
Cardiac: Regular Rhythm and S1/S2; Negative Murmur
GI: Soft, Nontender, Nondistended and Normal Bowel Sounds
Musculoskeletal: No Clubbing, No Cyanosis and No Edema
--- NOTE | 2024-04-26 13:08 | W.PN.CARDCBS ---
Addendum entered and electronically signed by Jovanny Patterson MD 04/26/24 13:26:
Correction: Will hold off on resuming Farxiga. Patient is seeing outpatient certified prosthetist tomorrow
Addendum entered and electronically signed by Jovanny Patterson MD 04/26/24 13:25:
I saw and examined the patient.
The DIRECTOR AGRICULTURAL SERVICES or PA's note was reviewed and I agree with the note.
Comment: General: Well developed, well nourished in NAD.
Neck: Supple, no JVD, HJR, carotids +2 B/L, no bruits bilaterally.
Heart: Non displaced PMI, RRR, no murmurs, No S3, S4, no rubs.
Lungs: Scattered rhonchi
Extremities: No clubbing, cyanosis or edema bilaterally.
Neuro: Grossly nonfocal, awake, alert and oriented x3.
Stable cardiology status for discharge on Lasix 40 mg p.o. twice daily. Farxiga and Aldactone currently on hold with renal insufficiency which is improving. Will restart Farxiga. Hold Aldactone for now. Check renal profile as an outpatient.
Patient has appointment outpatient certified prosthetist tomorrow at [place]. Discussed with primary service
Original Note:
Today's Communication / Plan
-
po lasix 40mg BID
replete K
Cr improving. Farxiga and Aldactone currently on hold. she has appointment with her primary certified prosthetist 04/27 and will discuss resuming
continue amiodarone, eliquis, toprol
ok for DC to home today
Impression / Plan
-
PCP: BYRON Man
Furnace Feeder: Dr. Figueroa
Cork Slabs Sawyer: Dr. Robert Ziegler
Impression:
Presented 04/23/2024 with lower extremity edema, increasing weakness and dyspnea on exertion
Acute on chronic heart failure w/ reduced EF, proBNP 48771
ALANNA on CKD
Paroxysmal Afib
s/p CV 12/20/23
s/p RIAZ/CV 01/26/24
Chronic anti-coagulation on Eliquis
Heart failure with reduced ejection fraction
LBBB
NSVT
Ischemic Cardiomyopathy
s/p Medtronic BiV ICD 11/18/22
CAD
s/p RAULITO OM 07/2020
HTN
Hyperlipidemia
Moderate/Severe Mitral Regurg. Severe Tricuspid Regurg
CKD IIIB
Irritable Bowel Syndrome
Hx Diverticulitis
Lexiscan nuclear stress test 07/19/2020: Moderate reversible defect in the mid inferolateral, mid inferior, and apical inferior segments. Inferior hypokinesis. LVEF 40%. LV normal size.�������
Echo 07/12/2020: LVEF 45-50%. Mild global hypo. Inferior basal akinesis. Moderate LAE. Aortic valve sclerosis.
Echo 03/20/2021: EF 35 to 40%, stage II DD. Mild left atrial enlargement. Mild MR.
Echo 10/11/2023: EF 34%. Moderately reduced LV systolic function. Stage II DD. Mild MR, mild TR. PAP 37 mmHg
Echo 01/04/2024: EF 20%, global hypokinesis with regional variability, normal RV size with low normal RV systolic function, moderate to severe MR, severe TR with PAP 65-70 mmHg
Plan:
-Presented 04/23/2024 with lower extremity edema, increasing weakness and dyspnea on exertion. proBNP 15,700. Chest x-ray no acute cardiopulmonary abnormality
-Good response with IV diuresis. Weight down 11 pounds from admission if accurate.
-back on po Lasix 40 mg twice daily on 04/26/2024
-replete K
-Peak creatinine of 1.9 this admission. Improving to 1.5.
-continue toprol. Given ALANNA, Farxiga and Aldactone currently on hold. she has appointment with her primary certified prosthetist 04/27 and will discuss resuming
-History of PAF with most recent cardioversion January 2024. Patient currently AV paced in sinus rhythm. Continue Amiodarone and Eliquis
-continue compression stockings
-will need continued OP monitoring of known MR by echo
-for DC today.
HPI:
Patient is a pleasant 78-year-old female with past medical history significant for chronic heart failure with reduced ejection fraction, paroxysmal symptomatic atrial fibrillation status post cardioversion January 2024 on chronic anticoagulation,
left bundle branch block, ischemic CM status post Medtronic BiV ICD 11/2022, hypertension, hyperlipidemia, CAD status post PCI with RAULITO to OM 07/2020, IBS, diverticulitis, TKR who presents due to worsening lower extremity edema, increasing weakness
and dyspnea on exertion. She notes a slow weight gain over the week. She admits to be compliance in her diet but has been drinking Pedialyte for [place] [address]. CXR shows cardiomegaly without associated pulmonary edema.
EKG shows sinus rhythm with AV paced rhythm. ALANNA on CKD with creat 1.9. Patient was provided 40 mg IV Lasix in emergency department. Patient reports good urine output with IV Lasix. Feet still swollen but improved.
Progress Note - Furnace Feeder
Subjective
Date of Service: April 26, 2024
reports feeling improved
Objective
Labs:
04/24/24 06:54
04/26/24 07:12
Labs
Hgb 10.4 g/dL (12.0-16.0) L 04/24/24 06:54
Hct 32.9 % (37.0-47.0) L 04/24/24 06:54
Plt Count 328 10^3/uL (130-400) 04/24/24 06:54
Sodium 138 mmol/L (135-145) 04/26/24 07:12
Potassium 3.2 mmol/L (3.5-5.1) L 04/26/24 07:12
BUN 31 mg/dl (7-17) H 04/26/24 07:12
Creatinine 1.5 mg/dL (0.6-1.0) H 04/26/24 07:12
Glucose 82 mg/dl (70-99) 04/26/24 07:12
Troponins
04/23/24 04/23/24 04/23/24
11:55 13:14 14:02
Troponin I < 0.012 Cancelled Cancelled
Vital Signs and I&O:
Vital Signs
Temp Pulse Resp BP Pulse Ox
98.3 F 74 20 140/91 96
04/26/24 11:34 04/26/24 11:34 04/26/24 11:34 04/26/24 11:34 04/26/24 11:34
Vital Signs
Temp Pulse Resp BP Pulse Ox
98.3 F 74 20 140/91 96
04/26/24 11:34 04/26/24 11:34 04/26/24 11:34 04/26/24 11:34 04/26/24 11:34
Intake & Output
04/24/24 04/25/24 04/26/24 04/27/24
07:59 07:59 07:59 07:59
Intake Total 720 / 720
Balance 720 / 720
Physical Exam
Physical Exam
GEN: No distress, awake, alert, oriented x3
HEENT: supple, anicteric, mmm, eomi
LUNGS: CTA B/L, no wheezes/rales
CV: Reg, S1/S2, 1/6 syst LSB, no murmur
ABD: soft, BS+, NT/ND
EXT: No cyanosis, clubbing. Trace edema of B/L LE
NEURO: Gross non-focal
SKIN: Warm, pink, dry. No rash
--- NOTE | 2024-04-26 13:34 | CM ---
Patient for discharge today. patient family to transport home. [facility] to follow. CM will continue to follow for discharge planning needs.
Plan; home with [facility]
[2024-04-26 14:58] VITALS: BP 121/79
--- NOTE | 2024-04-27 11:22 | W.HF.CON ---
Heart Failure
- LV Function
Left ventricular function study result: LV Ejection fraction </= 35% (ECHO 01/04/24)
Ejection Fraction Percentage: 20
- ARNI
Patient already on ARNI: No
Heart Failure ARNI Contraindication: Worsening Renal Function
- ACEI/ARB
Patient already on ACEI/ARB: No
Heart Failure ACEI/ARB Contraindication: Worsening Renal Function
- Beta Bruce
Patient already on Evidence Based Beta Bruce: Yes
- Mineralocorticord Receptor Antagonist
Patient already on MRA: Yes
- SGLT-2 Inhibitor
Patient already on SGLT-2 Inhibitor: Yes
- Afib Anticoagulation
Patient already on Anticoagulation for Afib: Yes
- NYHA CHF Classification
NYHA CHF Classification Level: Class III - Symptoms w/ min exertion, interferes w/ nml daily activity
- ACC/AHA Stage
ACC/AHA Stage: Stage C: Symptomatic Heart Failure
--- NOTE | 2024-04-27 15:40 | W.DCSUMMARY ---
Discharge Summary
Discharge Data
Date of Admission: 04/23/24
Date of Discharge: 04/26/24
-
Pending Results: No
Hospital Course
Primary diagnoses:
Acute on chronic heart failure with reduced ejection fraction
Acute kidney injury on chronic kidney disease stage IIIb
Secondary diagnoses:
Hypokalemia
Paroxysmal Atrial Fibrillation
Essential Hypertension
Depression
Obesity due to excess calories
Coronary artery disease s/p stent
Moderate/Severe mitral regurgitation
Severe tricuspid regurgitation
Nonsustained ventricular tachycardia s/p BiV ICD
Consultants:
Cardiology
Imaging:
CXR: Cardiomegaly without associated pulmonary edema
Renal U/S: No sonographic evidence for hydronephrosis.
78-year-old female who presented with chief complaints of shortness of breath and lower extremity edema as outlined in the H&P done on admission. Hospital course per problem list:
Acute on Chronic HFrEF: Echo January 2024: Severely reduced left ventricular systolic function. Left ventricular ejection fraction is 20%. Moderate/severe central mitral regurgitation. proBNP was 15,700, chest x-ray was without pulmonary edema.
The patient was diuresed with IV Lasix and had symptomatic improvement. She was transitioned to oral Lasix on discharge.
ALANNA on CKD3b: This was likely due to cardiorenal syndrome. Patient's Aldactone and Farxiga were held on admission and not restarted on discharge. Her creatinine improved with diuresis.
Discharge Plan
-
Patient Disposition: Home with Home Care
Discharge Diagnosis/Procedures: Acute on chronic systolic congestive heart failure exacerbation with reduced ejection fraction, acute kidney injury on chronic kidney disease stage IIIb, paroxysmal atrial fibrillation, essential hypertension,
depression, obesity due to excess calories, coronary artery disease status post stent placement in past, valvular heart disease, nonsustained V. tach status post biventricular ICD in the past
Condition: Good
Diet: Low Cholesterol and 2 Gram Sodium
Activity: As tolerated
Driving Restrictions: As prior to admission
Bathing Restrictions: None
Blood Work: BMP in 1 week, to be ordered by primary macroeconomics professor
Other Services: VN
Specialty Instructions: Weigh Daily- Call MD for wt gain/loss 3 lbs overnight/5 lbs in 1 week
Instructions: *[facility] Heart Failure Instructions
Referrals:
Suyapa Duval CRNP [Family Provider] - in less than 1 week
Jeanette Figueroa MD [Non-Admitting Privileges] - 04/27/24 (As scheduled. Please call with questions. )
Prescriptions:
New
docusate sodium 100 mg Capsule
100 mg PO BID Qty: 0 0RF
Continued
Eliquis 5 mg Tablet
5 mg PO BID
escitalopram oxalate [Lexapro] 20 mg Tablet
20 mg PO DAILY
amiodarone 200 mg Tablet
200 mg PO DAILY
metoprolol succinate 25 mg Tablet Extended Release 24 Hr
25 mg PO DAILY Qty: 30 11RF
furosemide 40 mg tablet
40 mg PO BID@0300,1000
dicyclomine 20 mg tablet
20 mg PO QIDPRN PRN (Reason: abdominal symptoms)
ondansetron 4 mg tablet,disintegrating
4 mg PO TIDPRN PRN (Reason: nausea and vomiting)
ondansetron 4 mg Tablet,Disintegrating
4 mg PO DAILY@0300 Qty: 0 0RF
Held
dapagliflozin propanediol 10 mg Tablet
10 mg PO DAILY Qty: 30 11RF
Hold Instructions: discuss restarting with your macroeconomics professor
spironolactone 25 mg Tablet
25 mg PO DAILY
Hold Instructions: discuss restarting with your macroeconomics professor
Discharge Orders:
Discharge Patient (As Directed); Ordered 04/26/24
Ordered By: Dione Javier
Discharge Date and Time
Discharge Date/Time: 04/26/24 15:11
Print Language: BANGLADESHI
== END 2024-04-26 15:11 | disposition home health service (06) | DRG 291 ==
LOC: 4 WEST ACU 15:13
PROVIDERS: Physician Assistant Medical; ADMITTING PHYSICIAN Internal Medicine; ATTENDING PHYSICIAN Internal Medicine; EMERGENCY PHYSICIAN Student in an Organized Health Care Education/Training Program; FAMILY PHYSICIAN Nurse Practitioner Adult Health; OTHER PHYSICIAN Internal Medicine Cardiovascular Disease
DX: I13.0 Hypertensive heart and chronic kidney disease with heart failure and stage 1 through stage 4 chronic kidney disease, or unspecified chronic kidney disease (principal); I50.23 Acute on chronic systolic (congestive) heart failure; N17.9 Acute kidney failure, unspecified; I47.20 Ventricular tachycardia, unspecified; N18.32 Chronic kidney disease, stage 3b; I48.0 Paroxysmal atrial fibrillation; Z95.5 Presence of coronary angioplasty implant and graft; Z79.01 Long term (current) use of anticoagulants; I44.7 Left bundle-branch block, unspecified; I25.5 Ischemic cardiomyopathy; I25.10 Atherosclerotic heart disease of native coronary artery without angina pectoris; E78.5 Hyperlipidemia, unspecified; I08.3 Combined rheumatic disorders of mitral, aortic and tricuspid valves; K58.9 Irritable bowel syndrome, unspecified; K57.90 Diverticulosis of intestine, part unspecified, without perforation or abscess without bleeding; F32.A Depression, unspecified; Z96.659 Presence of unspecified artificial knee joint; Z90.710 Acquired absence of both cervix and uterus; Z79.899 Other long term (current) drug therapy; Z66 Do not resuscitate
CPT/HCPCS: 71046; 76775; 80048; 80053; 83735; 83880; 84484; 85025; 85027; 93005; 96374; 97116; 97163; 97166; 99285

== ENCOUNTER → 2024-06-01 11:15 | Outpatient (REF) | payer OTHER, SELFPAY | LOC: DHSLP 11:15 | PROVIDERS: ATTENDING PHYSICIAN Internal Medicine Cardiovascular Disease; FAMILY PHYSICIAN Nurse Practitioner Adult Health | DX: G47.30 Sleep apnea, unspecified (principal); R06.83 Snoring | CPT/HCPCS: 95800 ==

== ENCOUNTER 2024-07-29 11:03 | Inpatient (IN) | payer OTHER, SELFPAY ==
[2024-07-29] VITALS (11 sets, daily range): BP systolic 126–152; BP diastolic 76–96; BMI 32.9; BMI 31.8
[2024-07-29 06:26] LABS: ALT (SGPT) 19 U/L (0-35); AST (SGOT) 22 U/L (14-36); Albumin 3.5 g/dl (3.5-5.0); Alkaline Phosphatase 94 U/L (38-126); Blood Urea Nitrogen 31 mg/dl (7-17); Calcium 9.4 mg/dl (8.4-10.2); Carbon Dioxide 25 mmol/L (22-30); Chloride 109 mmol/L (98-107); Estimated Creatinine Clearance 40 ml/min; Glucose 99 mg/dl (70-99); Potassium 3.8 mmol/L (3.5-5.1); Sodium 140 mmol/L (135-145); Total Bilirubin 2.3 mg/dl (0.2-1.3); Total Protein 6.4 g/dl (6.3-8.2); eGFR 46.33
[2024-07-29 06:31] LABS: Hemoglobin 10.5 g/dL (12.0-16.0); Mean Corp Hgb Conc. 32.8 g/dL (33.0-37.0); Mean Corpuscular Hgb 29.2 pg (27.0-31.0); Mean Corpuscular Volume 88.9 fL (81.0-99.0); Mean Platelet Volume 9.5 fL (7.4-10.4); Platelet Count 241 10^3/uL (130-400); Red Cell Dist. Width 23.4 % (11.5-14.5); White Blood Cell Count 4.6 10^3/uL (4.8-10.8)
[2024-07-29 06:38] LABS: NT-proBNP 11500 pg/ml; Troponin I < 0.012 ng/ml
--- NOTE | 2024-07-29 06:39 | ED.GENMED ---
History of Present Illness
General
Chief Complaint: Chest Pain
Source: patient
Time Seen by Provider: 07/29/24 06:07
History of Present Illness
History of Present Illness:
78-year-old female with a history of heart failure, paroxysmal A-fib, coronary artery disease, mitral regurgitation, tricuspid regurgitation, history of nonsustained VT who presents with for. The patient states she has been dealing with a total
mild degree over the last 4 to 5 days but since yesterday it is more significant. She woke up with significant tightness in her chest. She states this seemed little worse when she laid flat she felt little short of breath. On my evaluation she
states the pain has resolved. She states she was putting off coming to the hospital but family wanted her to get checked out and last night her symptoms were worse. She denies leg swelling. She does report some associated nausea but no
diaphoresis or radiation of the pain. It is substernal. She states when it comes on it lasts a few hours and go away. States last night she could not get comfortable in any position.
Past History
Past History
ED Past Medical History: Arrthythmia (A-fib), CAD, CHF, HTN, Valvular disease and Other (Diverticulitis)
ED Past Surgical History: Other (Hysterectomy,)
Social History
Tobacco: Non-smoker
Alcohol: Occasional
Personal:
Living: other
Employment: Retired
Family History
Family History: Other
Phy Exam
Physical Exam
Physical Exam:
CONSTITUTIONAL Patient alert and oriented to person, place and time. Well-appearing. Vital signs reviewed.
HEAD atraumatic, normocephalic.
EYES eyelids normal to inspection, Extraocular muscles intact, Conjunctiva normal, Sclera normal.
NECK normal range of motion, Trachea midline, no jugular venous distention.
RESPIRATORY CHEST No respiratory distress noted, Chest expansion equal, Bilateral breath sounds clear.
CARDIOVASCULAR regular rate and rhythm
ABDOMEN abdomen nontender, Bowel sounds normal. No distention.
BACK normal inspection, no obvious deformities
UPPER EXTREMITY range of motion normal, Motor strength normal, no cyanosis, no edema.
LOWER EXTREMITY range of motion normal, Motor strength normal, no cyanosis, no edema.
NEURO Speech normal, No focal motor deficits, Bow coma scale 15, Memory normal, Cranial Nerves intact to screening exam.
SKIN skin warm, dry, and normal in color.
Scores
Heart Score for Chest Pain Patients
STEMI patient?: No
History: Moderately Suspicious
ECG: Nonspecific Repolarization
Age: >/= 65 years
Risk Factors: >/= 3 Risk Factors or History of CAD
Troponin: </= Normal Limit
Heart Score for Chest Pain Patients: 6
Heart Score Risk: 20.3% MACE over next 6 weeks
Course
Orders/Labs/Results
Orders:
Orders
07/29/24 05:30
EKG [Electrocardiogram (*1)] Urgent
Reason for Study: Chest Pain
EKG- Treatment ONCE
07/29/24 06:05
Complete Blood Count/With Diff Urgent
Comprehensive Metabolic Panel Urgent
NT-proBNP Urgent
Troponin I Urgent
07/29/24 06:21
CR Chest - 2 Views Urgent
Comment:
Reason For Exam: cp
07/29/24 08:50
Troponin I Urgent
Abnormal Lab Results
07/29/24
06:05
WBC 4.6 L 10^3/uL
(4.8-10.8)
RBC 3.60 L 10^6/uL
(4.20-5.40)
Hgb 10.5 L g/dL
(12.0-16.0)
Hct 32.0 L %
(37.0-47.0)
MCHC 32.8 L g/dL
(33.0-37.0)
RDW 23.4 H %
(11.5-14.5)
Absolute Lymphs (auto) 0.7 L 10^3/uL
(1.2-3.4)
Lymphocytes % 14.8 L %
(20.5-51.1)
Chloride 109 H mmol/L
(98-107)
BUN 31 H mg/dl
(7-17)
Creatinine 1.2 H mg/dL
(0.6-1.0)
Total Bilirubin 2.3 H mg/dl
(0.2-1.3)
07/29/24 06:05
07/29/24 06:05
Vital Signs
Initial and Last Documented VS:
Initial Vital Signs
Temp Pulse Resp BP Pulse Ox
98.0 F 72 24 131/82 71
07/29/24 05:39 07/29/24 05:39 07/29/24 05:39 07/29/24 05:39 07/29/24 05:39
Last Documented Vital Signs
Temp Pulse Resp BP Pulse Ox
98.0 F 70 15 136/87 99
07/29/24 05:39 07/29/24 07:00 07/29/24 06:54 07/29/24 07:00 07/29/24 07:00
MDM/Problems Addressed
Differential Diagnosis Includes:
CHF, ACS, arrhythmia, electrolyte imbalance
MDM/Problems Addressed:
Chest pain
*Radiology
Radiology exam reviewed: preliminary read by ED provider
*Pulse Oximetry
Patient hypoxic: no
*EKG
Interpreted by ED Provider?: Yes
Interpretation: abnormal
Rate: normal
Rhythm: av sequential
Ischemia: non-specific ST changes
*[facility] Interpretation
Rate: normal
Rhythm: av sequential
*Critical Care Note
Total Time (30-74mins, 75-104mins- exclusive of procedures): Not Applicable
Data Reviewed
Source: patient
Prescriptions/Medications Considered But Not Given:
Consider nitroglycerin but currently chest pain
Patient Management
Discussion with other providers: [facility] (Case discussed with cardiology)
Escalation/DeEscalation of care consider admission/obs:
78-year-old female with significant history including nonsustained VT, coronary disease, CHF who presents with off-and-on chest discomfort. Troponin negative thus far which is reassuring but given her history could benefit from cardiology
consultation. Currently stable and no further symptoms at this point. Continue current meds until seen by cardiology
ED Attending Note
-
Portions of this chart may have been created with voice recognition software.� Occasional wrong word or��sound alike� substitutions may have occurred due to the inherent limitations of voice recognition software.
Discharge Plan
Departure
Patient Disposition: Admit
Date of Disposition: 07/29/24
Time of Disposition: 08:10
Admit to: Med/Surg
Presentation/result/management discussed w/ accepting MD/DO: Hospitalist
Discharge Problem:
Chest pain
Prescriptions:
No Action
Eliquis 5 mg Tablet
5 mg PO BID
escitalopram oxalate [Lexapro] 20 mg Tablet
20 mg PO DAILY
amiodarone 200 mg Tablet
200 mg PO DAILY
metoprolol succinate 25 mg Tablet Extended Release 24 Hr
25 mg PO DAILY Qty: 30 11RF
dapagliflozin propanediol 10 mg Tablet
10 mg PO DAILY Qty: 30 11RF
furosemide 40 mg tablet
40 mg PO .1000
dicyclomine 20 mg tablet
20 mg PO QIDPRN PRN (Reason: abdominal symptoms)
ondansetron 4 mg tablet,disintegrating
4 mg PO TIDPRN PRN (Reason: nausea and vomiting)
docusate sodium 100 mg Capsule
100 mg PO BID Qty: 0 0RF
Referrals:
Suyapa Duval CRNP [Family Provider] -
Interventions
Interventions:
*Risk Screen - Suicide Last Done: 07/29/24 05:39
*General Assessment Last Done: 07/29/24 06:07
*Neglect/Abuse Screening Last Done: 07/29/24 06:07
*ED- Fall Risk Assessment Last Done: 07/29/24 07:25
*ED COVID-19 Vaccine History Last Done: 07/29/24 06:07
ED- Cardiac Assessment Last Done: 07/29/24 07:30
Discharge Date and Time
Print Language: DJIBOUTIAN
[2024-07-29 07:10] LABS: % Basophils 0.4 % (0-2); % Eosinophils 4.3 % (0-6); % Immature Granulocytes 0.2 % (0-0.5); % Lymphocytes 14.8 % (20.5-51.1); % Monocytes 8.7 % (1.7-9.3); % Neutrophils 71.6 % (42.2-75.2); Absolute Eosinophils 0.2 10^3/uL (0-0.7); Absolute Lymphocytes 0.7 10^3/uL (1.2-3.4); Absolute Monocytes 0.4 10^3/uL (0.1-0.6); Absolute Neutrophils 3.3 10^3/uL (1.4-6.5)
--- NOTE | 2024-07-29 08:39 | HPS.HSE ---
Family Physician
-
Family Physician: Suyapa Duval
Chief Complaint
-
Chest pain
History of Present Illness
78-year-old female presented to the hospital with chest pain . Patient stated that she has been having some symptoms for the past few days. Yesterday she had really bad chest pain sometimes last hours midsternal no radiation she also had shortness
of breath. She stated that she has gained some weight but has been eating more because of her depression. No fevers or cough
Medical History
Past Medical History
Past Medical History: Reports Other
Additional Past Medical History:
CHF, coronary disease, hypertension, diverticulosis, IBS, cataracts, depression
Past Surgical History: Reports Other
Additional Past Surgical History:
Hysterectomy, bilateral knee surgeries, BiV ICD with pacer, cataract surgery
Social History
Tobacco: Non-smoker
Alcohol: Other (2 times a week)
Drug: None
Family History
Family History: Not pertinent
Allergies / Home Medications
Allergies reflects when Allergies were last updated in [facility].
Home Medications with original date entered in [facility]
Allergy/Medication List:
Allergies
Allergy/AdvReac Type Severity Reaction Status Date / Time
No Known Allergies Allergy Verified 07/29/24 05:39
Home Medications
apixaban 5 mg tablet (Eliquis) 5 mg PO BID Blood Clot Prevention/Tx 03/10/23
escitalopram oxalate 20 mg tablet (Lexapro) 20 mg PO DAILY Depression 12/18/23
amiodarone 200 mg tablet 200 mg PO DAILY AFIB 01/03/24
metoprolol succinate 25 mg tablet,extended release 24 hr 25 mg PO DAILY Heart Failure #30 tabs 02/02/24
furosemide 40 mg tablet 40 mg PO .1000 Heart Failure 04/23/24
ondansetron 4 mg disintegrating tablet 4 mg PO TIDPRN PRN nausea and vomiting 04/23/24
Review of Systems
-
History Source: Patient
Respiratory: Reports Trouble Breathing; Denies Cough
Cardiac: Reports Chest Pain
Physical Exam
Vital Signs
Vital Signs
Temp Pulse Resp BP Pulse Ox
98.0 F 70 15 136/87 99
07/29/24 05:39 07/29/24 07:00 07/29/24 06:54 07/29/24 07:00 07/29/24 07:00
Physical Exam
General: Comfortable and Conversant
Respiratory: Rales (Right base)
Cardiac: S1/S2, Regular Rhythm and Murmur ([place])
GI: Soft, Non Tender and Normal Bowel Sounds
Musculoskeletal: No Edema
Neuro: AO x 3 and Nonfocal/grossly intact
Laboratory Results
-
07/29/24 06:05
07/29/24 06:05
Laboratory Results
Total Bilirubin 2.3 mg/dl (0.2-1.3) H 07/29/24 06:05
AST 22 U/L (14-36) 07/29/24 06:05
ALT 19 U/L (0-35) 07/29/24 06:05
Alkaline Phosphatase 94 U/L (38-126) 07/29/24 06:05
Troponin I < 0.012 ng/ml 07/29/24 06:05
Data Reviewed
-
Diagnostic Radiology: Image Personally Visualized and interpreted (Chest x-ray-mild pulm edema, ICD/pacemaker leads, cardiomegaly)
Medical Tests (Nuc Med, Echo, EKG etc): Image Personally Visualized and interpreted (EKG paced rhythm)
Impression/Plan
-
IMPRESSION/PLAN:
RIAZ 01/26/2024-severely reduced LV systolic function. EF 20%. Moderate to severe central MR. Enlarged right RV size. Reduced RV systolic function. Severe TR.
# Chest pain
History of coronary artery disease with stent obtuse marginal in the past
Significant risk factors
Troponin negative which is reassuring given the fact that she has had pain for a few hours 2 days now
Continue to follow troponin
She had a right heart cardiac cath 01/28/24-elevated right and left ventricular filling pressures with severely reduced cardiac output and cardiac index
#Acute on Chronic HFrEF
Ischemic cardiomyopathy status post Medtronic BiV ICD placement 2022
proBNP 11,500
EF 20% as per echo in January
Check repeat echo
Lasix 40 mg IV daily with no dose
Continue metoprolol, dapagliflozin
Cardiology evaluation
# Moderate to severe MR
# Paroxysmal atrial fibrillation history of cardioversion 07/24/2023--continue Eliquis, amiodarone and metoprolol
# Chronic LBBB
# Chronic anemia
# CKD stage III
# Obesity per BMI criteria
# Depression-continue Lexapro
# IBS/diverticulosis-on dicyclomine as needed
# DVT prophylaxis-Eliquis
# CODE STATUS-patient wants to be DNR. She stated that her family is aware
[2024-07-29 09:53] LABS: Troponin I < 0.012 ng/ml
--- NOTE | 2024-07-29 10:29 | CON.CAR ---
Addendum entered and electronically signed by Eron Cruz MD 07/29/24 15:08:
I saw and examined the patient.
The Heel Seat Sander's note was reviewed and I agree with the note.
Comment: Briefly, 78-year-old woman past medical history of heart failure with severely reduced ejection fraction, ischemic cardiomyopathy, paroxysmal atrial fibrillation and CKD who presents with approximately 1 week of worsening dyspnea on
exertion and paroxysmal nocturnal dyspnea. proBNP was elevated greater than 11,000. Chest x-ray shows mild pulmonary vascular congestion and bilateral infiltrates suggestive of pulmonary edema (my interpretation). Does not appear overtly volume
overloaded on exam but is requiring supplemental oxygen via nasal cannula.
Initial concern was for ACS but suspect her symptoms are more consistent with heart failure
Troponin has been undetectable here and ECG is not ischemic appearing
No further chest discomfort at the time of my evaluation
Recommend IV Lasix twice daily
Follow daily weights, renal function and electrolytes
Wean O2 as able
Continue beta-benjy at home dose
Outpatient Lasix dose was recently decreased to 40 mg daily; suspect she will need a higher dose on discharge
Previously unable to tolerate Entresto, spironolactone and Farxiga due to worsening renal function
Could consider hydralazine for afterload reduction if blood pressure stays in the current range
Check echo on Wednesday
Rest per Maren Renae
Original Note:
Consultation
Consultation Request
Date/Time Consultation Requested: 07/29/2024, 0900
Date/Time Consultation Performed: 07/29/2024 1030
Requesting Provider: Aleks Hernandez
Performing Provider: BYRON Harley for Dr Cruz
Reason for Consultation: Chest pain
Medical History
-
Chief Complaint: Chest pain
History of Present Illness:
Patient is a pleasant 78-year-old female with past medical history significant for chronic heart failure with reduced ejection fraction, paroxysmal symptomatic atrial fibrillation status post cardioversion January 2024 on chronic anticoagulation,
left bundle branch block, ischemic CM status post Medtronic BiV ICD 11/2022, hypertension, hyperlipidemia, CAD status post PCI with RAULITO to OM 07/2020, IBS, diverticulitis, TKR. She was hospitalized at for 3 days in April 2024 for acute on
chronic heart failure with reduced EF and acute kidney injury on chronic kidney disease. She was seen by Dr. Sommer Torre for heart failure evaluation in May 2024 and again in June 2024. At her last visit Entresto and Farxiga were
stopped due to episode of syncope as well as increase in creatinine to 2.09 after she had increased diuretic dose. Furosemide was lowered to 40 mg daily. Repeat creatinine has ranged from 1.2-1.6 in outpatient setting as she has remained off
Entresto and Farxiga.
She presented to the ED early this morning with chest pressure and shortness of breath over the past few days. Symptoms worse when she woke up this morning with pressure waking her from sleep. Pressure midsternal, no radiation, and associated with
shortness of breath. Presented to ED. Home weight was up half a pound overnight, she believes home weight is 179 pounds. In review of weights from last admission April 2024, current weight is up 15 pounds from discharge weight of 170 pounds on
04/26/2024. Denies edema, positive PND today. In addition, she reports feeling lightheaded when she walks her dog.. She had a syncopal episode earlier this year at which time Entresto and Farxiga were stopped. She has had no further syncope but
does feel lightheaded with ambulation. No palpitations.
This is her 6th admission to in the past 6 months per patient.
right heart cath 01/28/2024: RA 22, PA 68/48, PCWP 38, CO 2.1/CI 1.1
RIAZ 01/26/2024, prior to cardioversion, EF 20%, moderate/severe MR, enlarged RV with reduced RV systolic function, severe TR
ED evaluation: proBNP 11,500 (was 15,700 when admitted in April 2024)
Troponin undetectable x 2
Chest x-ray: Lungs clear, no acute disease
EKG: AV paced.
Labs: BUN/creatinine 31/1.2, NA 140, K3.8, hemoglobin 10.5, platelet 241, WBC 4.6
PMH:
Paroxysmal Afib
s/p CV 12/20/23
s/p RIAZ/CV 01/26/24
Chronic anti-coagulation on Eliquis
Heart failure with reduced ejection fraction
LBBB
NSVT
Ischemic Cardiomyopathy
s/p Medtronic BiV ICD 11/18/22
CAD
s/p RAULITO OM 07/2020
HTN
Hyperlipidemia
Moderate/Severe Mitral Regurg. Severe Tricuspid Regurg
CKD IIIB
Irritable Bowel Syndrome
Hx Diverticulitis
Past Medical History
Past Medical History: Other (See HPI)
Past Surgical History: Cardiac (multiple CV, ICD 11/2022, OM RAULITO 11/2022), Gynecological (Hysterectomy), Orthopedic (Knee replacement) and Other
Social History
Tobacco: Non-Smoker
Alcohol: None
Drug: None
Living: With Family
Family History
Family History: Reviewed & Not Pertinent
Allergies / Home Medications
Allergy/AdvReac Type Severity Reaction Status Date / Time
No Known Allergies Allergy Verified 07/29/24 05:39
�Medication �Instructions �Recorded �Confirmed �Type
apixaban 5 mg tablet (Eliquis) 5 mg PO BID Blood Clot 03/10/23 07/29/24 History
Prevention/Tx
escitalopram oxalate 20 mg tablet 20 mg PO DAILY Depression 12/18/23 07/29/24 History
(Lexapro)
amiodarone 200 mg tablet 200 mg PO DAILY AFIB 01/03/24 07/29/24 History
metoprolol succinate 25 mg 25 mg PO DAILY Heart Failure #30 02/02/24 07/29/24 Rx
tablet,extended release 24 hr tabs
furosemide 40 mg tablet 40 mg PO .1000 Heart Failure 04/23/24 07/29/24 History
ondansetron 4 mg disintegrating 4 mg PO TIDPRN PRN nausea and 04/23/24 07/29/24 History
tablet vomiting
Physical Exam
Vital Signs
Temp Pulse Resp BP Pulse Ox
98.0 F 70 19 152/93 92
07/29/24 05:39 07/29/24 08:47 07/29/24 08:47 07/29/24 08:47 07/29/24 08:47
Lab Results
07/29/24 06:05
07/29/24 06:05
Troponin I < 0.012 ng/ml 07/29/24 09:12
Epx-S-[id number] Pept 08430 pg/ml 07/29/24 06:05
GEN: No distress, awake, Ox3
HEENT: supple, anicteric, mmm
LUNGS: Rales at bases
CV: Reg, S1/S2, 2/6 syst LUSB, 2/6 systolic murmur apex
ABD: soft, BS+, NT/ND
EXT: No edema
NEURO: Gross non-focal
SKIN: No rash, warm, dry
Impression / Plan
-
PCP: BYRON Man
[facility] Caller: Dr. Figueroa
Heart failure legal entity controller: Dr. Sommer Torre, first seen May 2024
Hemodialysis Charge Nurse: Dr. Robert Ziegler
Impression:
Chest pressure
shortness of breath
Heart failure reduced EF
Lightheadedness
h/o admission for acute on chronic heart failure w/ reduced EF, proBNP 23267 04/2024
CKD (creat ranges 1.2-2.0)
Paroxysmal Afib
s/p CV 12/20/23
s/p RIAZ/CV 01/26/24
Chronic anti-coagulation on Eliquis
Heart failure with reduced ejection fraction
LBBB
NSVT
Ischemic Cardiomyopathy
s/p Medtronic BiV ICD 11/18/22
CAD
s/p RAULITO OM 07/2020
HTN
Hyperlipidemia
Moderate/Severe Mitral Regurg. Severe Tricuspid Regurg
CKD IIIB
Irritable Bowel Syndrome
Hx Diverticulitis
Lexiscan nuclear stress test 07/19/2020: Moderate reversible defect in the mid inferolateral, mid inferior, and apical inferior segments. Inferior hypokinesis. LVEF 40%. LV normal size.�������
Echo 07/12/2020: LVEF 45-50%. Mild global hypo. Inferior basal akinesis. Moderate LAE. Aortic valve sclerosis.
Echo 03/20/2021: EF 35 to 40%, stage II DD. Mild left atrial enlargement. Mild MR.
Echo 10/11/2023: EF 34%. Moderately reduced LV systolic function. Stage II DD. Mild MR, mild TR. PAP 37 mmHg
Echo 01/04/2024: EF 20%, global hypokinesis with regional variability, normal RV size with low normal RV systolic function, moderate to severe MR, severe TR with PAP 65-70 mmHg
Plan:
- Presents with shortness of breath and chest pressure, proBNP elevated and weight up 15 pounds since last discharge for acute on chronic heart failure in April 2024.
-Chest x-ray with no acute disease
-Would gently diurese given history of acute on chronic kidney disease
-Patient has not been able to tolerate Entresto or Farxiga due to worsening chronic kidney disease and they were stopped in outpt setting. She remains on spironolactone 25 mg daily and metoprolol succinate 25 mg daily
-Home outpatient Lasix dose has been decreased to 40 mg daily due to orthostatic symptoms and worsening kidney disease. May need to minimal increase in outpatient diuretic to prevent vol overload but avoid ALANNA.
-creat currently 1.2, monitor daily.
-Continue to trend troponin. So far undetectable.
-Check orthostatic blood pressures
-compression stockings to lower extremities during day, off at night
-History of PAF with most recent cardioversion January 2024. Patient currently AV paced in sinus rhythm. Continue Amiodarone and Eliquis
-check updated echocardiogram
-pt is DNR
Data Reviewed
-
EKG: Tracing Personally Visualized and interpreted
Labs: Labs Reviewed by me
[2024-07-29] MEDS: ELIQUIS 5 MG PO ×2 (10:32→19:34)
[2024-07-29] MEDS: LASIX 40 MG IV ×2 (10:33→17:33)
[2024-07-29] MEDS: PACERONE 200 MG PO (13:57)
[2024-07-29] MEDS: TOPROL XL 25 MG PO (13:58)
[2024-07-29 14:21] LABS: Troponin I < 0.012 ng/ml
--- NOTE | 2024-07-29 18:00 | PTCARENOTE ---
Received pt from ED into room 401-2. Pt AAOx3. VSS. Ambulatory to bed with no assistance. Pt reports no chest pain or SOB. 2L pox 98%. Educated pt on plan of care. Oriented to room, no complaints at this time.
[2024-07-30 03:58] VITALS: BP 132/85
[2024-07-30 06:00] VITALS: BMI 31.2
[2024-07-30 06:19] LABS: Hematocrit 32.6 % (37.0-47.0); Hemoglobin 10.8 g/dL (12.0-16.0); Mean Corp Hgb Conc. 33.1 g/dL (33.0-37.0); Mean Corpuscular Hgb 29.3 pg (27.0-31.0); Mean Corpuscular Volume 88.3 fL (81.0-99.0); Mean Platelet Volume 9.7 fL (7.4-10.4); Platelet Count 243 10^3/uL (130-400); Red Blood Cell Count 3.69 10^6/uL (4.20-5.40); Red Cell Dist. Width 23.6 % (11.5-14.5); White Blood Cell Count 4.4 10^3/uL (4.8-10.8)
[2024-07-30 06:40] LABS: Blood Urea Nitrogen 31 mg/dl (7-17); Calcium 9.5 mg/dl (8.4-10.2); Carbon Dioxide 25 mmol/L (22-30); Chloride 103 mmol/L (98-107); Estimated Creatinine Clearance 33 ml/min; Glucose 84 mg/dl (70-99); Potassium 3.7 mmol/L (3.5-5.1); Sodium 139 mmol/L (135-145); eGFR 38.51
[2024-07-30 07:11] LABS: TSH Reflex To Free T4 1.84 uIU/ml (0.47-4.68)
[2024-07-30 07:17] VITALS: BP 134/85
[2024-07-30] MEDS: TOPROL XL 25 MG PO (08:10)
[2024-07-30] MEDS: ELIQUIS 5 MG PO ×2 (08:10→19:41)
[2024-07-30] MEDS: LASIX IV (08:10)
[2024-07-30] MEDS: PACERONE 200 MG PO (08:10)
[2024-07-30] MEDS: LASIX 40 MG IV ×2 (08:57→16:41)
[2024-07-30] MEDS: XANAX 0.25 MG PO (09:17)
[2024-07-30] MEDS: ZOLOFT 75 MG PO (11:42)
[2024-07-30 11:44] VITALS: BP 126/83
--- NOTE | 2024-07-30 12:01 | CM ---
Addendum entered by Baltazar Arce 07/30/24 12:17:
CM consulted for advanced directive. Discussed w/ patient who shared she will decline as her sister and daughter are POA and aware of her end of life plans.
Original Note:
Patient seen bedside w/ sister. Initial assessment completed. Patient is a 78-year-old female presented to the hospital with chest pain.
Patient reports that she lives in a 1st fl[address] apartment- 3 steps to enter. Patient's grandson lives w/ her as well. Patient is independent w/ ambulating, no device required. Independent w/ ADLs. Patient shared she has a shower chair, no other DME.
Patient shared that her grandson cooks, does the laundry, and does the grocery shopping. He is very supportive. No SNF hx reported, OP therapy in the past. Patient shared she had [facility] in the past, currently sees a VN every 3rd week provided through
[facility].
Address, points of contact and insurance verified
PCP: Suyapa Duval
Pharmacy: [facility]
Patient shared that she is interested in palliative care and was told she could do this as OP. CM spoke w/ hospitalist, agreeable to place referral for OP.
Plan: Anticipate home. CM will place palliative care referral
--- NOTE | 2024-07-30 12:50 | W.PN.CARDCBS ---
Today's Communication / Plan
-
IV Lasix with tentative plan to transition to oral in the next 24 hours
Impression / Plan
-
PCP: BYRON Man
Gi Physician: Dr. Figueroa
Heart failure button reclaimer: Dr. Sommer Torre, first seen May 2024
Power Plant Superintendent: Dr. Robert Ziegler
Impression:
Chest pressure
shortness of breath
Heart failure reduced EF
Lightheadedness
h/o admission for acute on chronic heart failure w/ reduced EF, proBNP 85676 04/2024
CKD (creat ranges 1.2-2.0)
Paroxysmal Afib
s/p CV 12/20/23
s/p RIAZ/CV 01/26/24
Chronic anti-coagulation on Eliquis
Heart failure with reduced ejection fraction
LBBB
NSVT
Ischemic Cardiomyopathy
s/p Medtronic BiV ICD 11/18/22
CAD
s/p RAULITO OM 07/2020
HTN
Hyperlipidemia
Moderate/Severe Mitral Regurg. Severe Tricuspid Regurg
CKD IIIB
Irritable Bowel Syndrome
Hx Diverticulitis
Lexiscan nuclear stress test 07/19/2020: Moderate reversible defect in the mid inferolateral, mid inferior, and apical inferior segments. Inferior hypokinesis. LVEF 40%. LV normal size.�������
Echo 07/12/2020: LVEF 45-50%. Mild global hypo. Inferior basal akinesis. Moderate LAE. Aortic valve sclerosis.
Echo 03/20/2021: EF 35 to 40%, stage II DD. Mild left atrial enlargement. Mild MR.
Echo 10/11/2023: EF 34%. Moderately reduced LV systolic function. Stage II DD. Mild MR, mild TR. PAP 37 mmHg
Echo 01/04/2024: EF 20%, global hypokinesis with regional variability, normal RV size with low normal RV systolic function, moderate to severe MR, severe TR with PAP 65-70 mmHg
Plan:
-Presents with shortness of breath and chest pressure, proBNP elevated and weight up 15 pounds since last discharge for acute on chronic heart failure in April 2024.
-Symptomatically improved with IV diuresis
-Can likely transition to oral Lasix within next 24 hours. Would plan for higher dose of Lasix on discharge, tentatively 80 mg daily.
-Patient has not been able to tolerate Entresto, spironolactone or Farxiga due to worsening chronic kidney disease and they were stopped in outpt setting. She remains on metoprolol succinate 25 mg daily
-Check updated echocardiogram, this can be done as an outpatient
-History of PAF with most recent cardioversion January 2024. Patient currently AV paced in sinus rhythm. Continue Amiodarone and Eliquis
-Pt is DNR and from our discussion today seems to be moving towards do not hospitalize. I am okay with her being discharged today given her preference to focus on quality of life.
Progress Note - Gi Physician
Subjective
Date of Service: July 30, 2024
No acute overnight events. Tells me her breathing is improved today. No further chest pressure.
Objective
Labs:
07/30/24 05:37
07/30/24 05:37
Labs
Hgb 10.8 g/dL (12.0-16.0) L 07/30/24 05:37
Hct 32.6 % (37.0-47.0) L 07/30/24 05:37
Plt Count 243 10^3/uL (130-400) 07/30/24 05:37
Sodium 139 mmol/L (135-145) 07/30/24 05:37
Potassium 3.7 mmol/L (3.5-5.1) 07/30/24 05:37
BUN 31 mg/dl (7-17) H 07/30/24 05:37
Creatinine 1.4 mg/dL (0.6-1.0) H 07/30/24 05:37
Glucose 84 mg/dl (70-99) 07/30/24 05:37
Troponins
07/29/24 07/29/24 07/29/24
06:05 09:12 13:48
Troponin I < 0.012 < 0.012 < 0.012
07/29/24
19:40
Troponin I Cancelled
Vital Signs and I&O:
Vital Signs
Temp Pulse Resp BP Pulse Ox
97.7 F 76 18 126/83 99
07/30/24 11:44 07/30/24 11:44 07/30/24 11:44 07/30/24 11:44 07/30/24 11:44
Vital Signs
Temp Pulse Resp BP Pulse Ox
97.7 F 76 18 126/83 99
07/30/24 11:44 07/30/24 11:44 07/30/24 11:44 07/30/24 11:44 07/30/24 11:44
Intake & Output
07/28/24 07/29/24 07/30/24 07/31/24
06:59 06:59 06:59 06:59
Intake Total 120 / 120
Output Total 230 / 230
Balance -110 / -110
Physical Exam
Physical Exam
Gen: NAD, AAOx3
HEENT: NC/AT, sclera anicteric
Neck: No JVD
CV: RRR, NL s1/s2, no M/R/G
Lungs: CTAB
Abd: S/ND
Ext: No LE edema
Skin: Warm, dry
Neuro: Non-focal
--- NOTE | 2024-07-30 14:53 | W.PN.HOSP.TC ---
Today's Communication/Plan
-
ECHO tomorrow and discharge
Assessment / Plan
Assessment / Plan
CVS: S1-S2 normal, sm at apex
Chest: CTA B/L
Abdomen: Soft, NT / Bowel sounds present
Extremities: No edema, normal pulses
BLOOD TESTER: Non focal exam
RIAZ 01/26/2024-severely reduced LV systolic function. EF 20%. Moderate to severe central MR. Enlarged right RV size. Reduced RV systolic function. Severe TR.
# Chest pain
History of coronary artery disease with stent obtuse marginal in the past
Significant risk factors
Troponin negative which is reassuring given the fact that she has had pain for a few hours 2 days now
Continue to follow troponin
She had a right heart cardiac cath 01/28/24-elevated right and left ventricular filling pressures with severely reduced cardiac output and cardiac index
#Acute on Chronic HFrEF
Ischemic cardiomyopathy status post Medtronic BiV ICD placement 2022
proBNP 11,500
EF 20% as per echo in January
Check repeat echo
Lasix 40 mg IV daily
Continue metoprolol, dapagliflozin
Cardiology evaluation
# Moderate to severe MR
# Paroxysmal atrial fibrillation history of cardioversion 07/24/2023--continue Eliquis, amiodarone and metoprolol
# Chronic LBBB
# Chronic anemia
# CKD stage III
# Obesity per BMI criteria
# Depression-continue Lexapro
# IBS/diverticulosis-on dicyclomine as needed
# DVT prophylaxis-Eliquis
# CODE STATUS-patient wants to be DNR.
Discussed with cardiology
Discussed with patient's daughter in detail
Discussion with the patient she will stay and get the echo done tomorrow and leave. She wants to be on palliative care and eventually on hospice of she gets progressively worse. She does not want to get readmitted to the hospital. Family is aware
and there is a palliative care doctor near where she lives in [place] and she will follow-up there.
Anticipated Discharge: Within 24 hours
Subjective/Interval History
-
Date of Service: July 30, 2024
Objective Data
-
Labs:
Laboratory Results
07/30/24
05:37
WBC 4.4 L
Hgb 10.8 L
Hct 32.6 L
Plt Count 243
Sodium 139
Potassium 3.7
Chloride 103
Carbon Dioxide 25
BUN 31 H
Creatinine 1.4 H
Glucose 84
Calcium 9.5
Vital Signs:
Vital Signs
Temp Pulse Resp BP Pulse Ox
97.7 F 76 18 126/83 99
07/30/24 11:44 07/30/24 11:44 07/30/24 11:44 07/30/24 11:44 07/30/24 11:44
I&O
07/29/24 07/30/24 07/31/24
06:59 06:59 06:59
Intake Total 120 / 120
Output Total 230 / 230
Balance -110 / -110
[2024-07-30 15:05] VITALS: BP 122/74
[2024-07-30 19:41] VITALS: BP 116/72
[2024-07-30 23:36] VITALS: BP 129/81
[2024-07-31 03:40] VITALS: BP 132/78
[2024-07-31 04:09] VITALS: BP 132/78
[2024-07-31 05:38] VITALS: BMI 30.3
[2024-07-31 06:50] LABS: Blood Urea Nitrogen 33 mg/dl (7-17); Calcium 9.6 mg/dl (8.4-10.2); Carbon Dioxide 27 mmol/L (22-30); Chloride 102 mmol/L (98-107); Estimated Creatinine Clearance 33 ml/min; Glucose 87 mg/dl (70-99); Potassium 3.5 mmol/L (3.5-5.1); Sodium 140 mmol/L (135-145); eGFR 38.51
[2024-07-31 07:30] VITALS: BP 129/78
[2024-07-31] MEDS: PACERONE 200 MG PO (08:19)
[2024-07-31] MEDS: ELIQUIS 5 MG PO (08:19)
[2024-07-31] MEDS: TOPROL XL 25 MG PO (08:19)
[2024-07-31] MEDS: LASIX 40 MG IV (09:06)
--- NOTE | 2024-07-31 10:07 | W.PN.CARDCBS ---
Addendum entered and electronically signed by Jovanny Patterson MD 07/31/24 12:46:
I saw and examined the patient.
The ETL CONSULTANT or PA's note was reviewed and I agree with the note.
Comment: General: Well developed, well nourished in NAD.
Neck: Supple, no JVD, HJR, carotids +2 B/L, no bruits bilaterally.
Heart: Non displaced PMI, RRR, no murmurs, No S3, S4, no rubs.
Lungs: Scattered rhonchi
Extremities: No clubbing, cyanosis or edema bilaterally.
Neuro: Grossly nonfocal, awake, alert and oriented x3.
Echocardiogram unchanged. Changed to p.o. Lasix. Patient at high risk for readmission. Should consider palliative care and possibly hospice. Discussed with primary service and patient in detail. Check renal profile in 1 week.
Original Note:
Today's Communication / Plan
-
echo results pending
okay for discharge
f/u with cardiology arranged
Impression / Plan
-
PCP: BYRON Man
Viscera Washer: Dr. Figueroa
Heart failure science professor: Dr. Sommer Torre, first seen May 2024
Industrial Technician: Dr. Robert Ziegler
Impression:
Chest pressure
shortness of breath
Heart failure reduced EF
Lightheadedness
h/o admission for acute on chronic heart failure w/ reduced EF, proBNP 49381 04/2024
CKD (creat ranges 1.2-2.0)
Paroxysmal Afib
s/p CV 12/20/23
s/p RIAZ/CV 01/26/24
Chronic anti-coagulation on Eliquis
Heart failure with reduced ejection fraction
LBBB
NSVT
Ischemic Cardiomyopathy
s/p Medtronic BiV ICD 11/18/22
CAD
s/p RAULITO OM 07/2020
HTN
Hyperlipidemia
Moderate/Severe Mitral Regurg. Severe Tricuspid Regurg
CKD IIIB
Irritable Bowel Syndrome
Hx Diverticulitis
Lexiscan nuclear stress test 07/19/2020: Moderate reversible defect in the mid inferolateral, mid inferior, and apical inferior segments. Inferior hypokinesis. LVEF 40%. LV normal size.�������
Echo 07/12/2020: LVEF 45-50%. Mild global hypo. Inferior basal akinesis. Moderate LAE. Aortic valve sclerosis.
Echo 03/20/2021: EF 35 to 40%, stage II DD. Mild left atrial enlargement. Mild MR.
Echo 10/11/2023: EF 34%. Moderately reduced LV systolic function. Stage II DD. Mild MR, mild TR. PAP 37 mmHg
Echo 01/04/2024: EF 20%, global hypokinesis with regional variability, normal RV size with low normal RV systolic function, moderate to severe MR, severe TR with PAP 65-70 mmHg
Plan:
-Presented with shortness of breath and chest pressure, proBNP elevated and weight up 15 pounds since last discharge for acute on chronic heart failure in April 2024.
-Symptomatically improved with IV diuresis and wt down 14 lbs since admit 07/29/2024
-transitioned to oral Lasix 40 mg bid today. Home dose PRISON OFFICER had been 40 mg daily.
-K 3.5, replete with KCl 20 meq daily-I ordered
-Patient has not been able to tolerate Entresto, spironolactone or Farxiga due to worsening chronic kidney disease and they were stopped in outpt setting. She remains on metoprolol succinate 25 mg daily
-echo done this morning, results pending
-History of PAF with most recent cardioversion January 2024. Patient currently AV paced in sinus rhythm. Continue Amiodarone and Eliquis
-Pt is DNR and from discussion 07/30/2024 seems to be moving towards do not hospitalize
-ok for d/c today
-f/u arranged for 08/07/2024 at 2:40 pm with me at [facility]
Progress Note - Viscera Washer
Subjective
Date of Service: July 31, 2024
SOB and chest discomfort resolved
echo done this am
transitioned to oral lasix
Objective
Labs:
07/30/24 05:37
07/31/24 05:43
Labs
Hgb 10.8 g/dL (12.0-16.0) L 07/30/24 05:37
Hct 32.6 % (37.0-47.0) L 07/30/24 05:37
Plt Count 243 10^3/uL (130-400) 07/30/24 05:37
Sodium 140 mmol/L (135-145) 07/31/24 05:43
Potassium 3.5 mmol/L (3.5-5.1) 07/31/24 05:43
BUN 33 mg/dl (7-17) H 07/31/24 05:43
Creatinine 1.4 mg/dL (0.6-1.0) H 07/31/24 05:43
Glucose 87 mg/dl (70-99) 07/31/24 05:43
Troponins
07/29/24 07/29/24 07/29/24
06:05 09:12 13:48
Troponin I < 0.012 < 0.012 < 0.012
07/29/24
19:40
Troponin I Cancelled
Vital Signs and I&O:
Vital Signs
Temp Pulse Resp BP Pulse Ox
98.3 F 71 18 129/78 96
07/31/24 07:30 07/31/24 08:19 07/31/24 07:30 07/31/24 08:19 07/31/24 07:30
Vital Signs
Temp Pulse Resp BP Pulse Ox
98.3 F 71 18 129/78 96
07/31/24 07:30 07/31/24 08:19 07/31/24 07:30 07/31/24 08:19 07/31/24 07:30
Intake & Output
07/29/24 07/30/24 07/31/24 08/01/24
06:59 06:59 06:59 06:59
Intake Total 120 / 120 1060 / 1060
Output Total 230 / 230
Balance -110 / -110 1060 / 1060
Physical Exam
Physical Exam
GEN: No distress, awake, Ox3
HEENT: supple, anicteric, mmm
LUNGS: CTA, no wheezes/rales
CV: Reg, S1/S2, 1/6 syst LUSB, 2/6 systolic murmur apex
ABD: soft, BS+, NT/ND
EXT: No edema
NEURO: Gross non-focal
SKIN: No rash
[2024-07-31] MEDS: KCL 20 MEQ PO (10:19)
[2024-07-31] MEDS: ZOLOFT 75 MG PO (11:08)
[2024-07-31 11:14] VITALS: BP 116/79
--- NOTE | 2024-07-31 11:54 | CM ---
Addendum entered by Meredith Pierce RN 07/31/24 17:20:
Spoke with [facility] [phone] to notify pt does not want hospice at this time.
Sole drove pt home.
Original Note:
Received call from [facility] (formerly [facility]3] [phone] she requested a hospice order.
Clarified with Dr Ching she said that pt wants Palliative care with at this time.
Palliative order is in care port .
Pt for Echo .
PLAN Home with Palliative care
--- NOTE | 2024-07-31 13:25 | W.PN.HOSP.TC ---
Addendum entered and electronically signed by Rajat Ching MD 07/31/24 15:22:
dictation- [id number]
Addendum entered and electronically signed by Rajat Ching MD 07/31/24 13:57:
Repeat EKG with QTc 404 therefore will restart Lexapro 10 mg dose. Repeat EKG as outpatient with cardiology follow-up
Original Note:
Today's Communication/Plan
-
Discharge
Assessment / Plan
Assessment / Plan
CVS: S1-S2 normal, sm at apex
Chest: CTA B/L
Abdomen: Soft, NT / Bowel sounds present
Extremities: No edema, normal pulses
PRECIPITATE WASHER: Non focal exam
Echo 08/22/2024 moderately dilated LV with normal wall thickness. Severely reduced LV systolic function. Global hypokinesis with inferior and basal septal akinesis. EF 25 to 30%. Stage III diastolic dysfunction. Moderate to severe MR. Moderate
to severe TR. Pulmonary artery pressure 50 mmHg. Severely dilated RA.
# Chest pain
History of coronary artery disease with stent obtuse marginal in the past
Troponin negative
Continue to follow troponin
She had a right heart cardiac cath 01/28/24-elevated right and left ventricular filling pressures with severely reduced cardiac output and cardiac index
#Acute on Chronic HFrEF
Ischemic cardiomyopathy status post Medtronic BiV ICD placement 2022
proBNP 11,500
Which has a lot of sodium and also some other things which she should not have done. She is looking to change her diet
EF 20% as per echo in January
Check repeat echo
Lasix 40
Continue metoprolol, dapagliflozin
Changed Lasix to p.o.
Patient is aware that if she does not comply with fluid and salt intake she is at high risk for readmission
Cardiology evaluation appreciated
# Moderate to severe MR
# Paroxysmal atrial fibrillation history of cardioversion 07/24/2023--Continue Eliquis, Amiodarone and Metoprolol
# Chronic LBBB
# Chronic anemia
# CKD stage III
# Obesity per BMI criteria
# Depression-continue Lexapro
# IBS/diverticulosis-on dicyclomine as needed
# DVT prophylaxis-Eliquis
# CODE STATUS-patient wants to be DNR.
Discussed with cardiology
Discussed with patient's daughter in detail yesterday
More than 30 minutes spent in discharge including
Final examination of the patient
Summarizing hospital stay
Instructions for continuing care to all relevant caregivers
Preparation of discharge records, prescriptions, and referral forms
Total time spent (in minutes): 32 min
Anticipated Discharge: Today
Subjective/Interval History
-
Date of Service: July 31, 2024
Objective Data
-
Labs:
Laboratory Results
07/31/24
05:43
Sodium 140
Potassium 3.5
Chloride 102
Carbon Dioxide 27
BUN 33 H
Creatinine 1.4 H
Glucose 87
Calcium 9.6
Vital Signs:
Vital Signs
Temp Pulse Resp BP Pulse Ox
98.2 F 73 18 116/79 97
07/31/24 11:14 07/31/24 11:14 07/31/24 11:14 07/31/24 11:14 07/31/24 11:14
I&O
07/30/24 07/31/24 08/01/24
06:59 06:59 06:59
Intake Total 120 / 120 1060 / 1060
Output Total 230 / 230
Balance -110 / -110 1060 / 1060
[2024-07-31 14:38] VITALS: BP 117/65
[2024-07-31 15:03] VITALS: BP 117/65
--- NOTE | 2024-07-31 15:20 | W.DS.TRANS ---
DC Summary - Psychiatric Registered Nurse
-
Discharge Instructions:
Discharge Diagnosis/Procedures Chest pain
Acute on chronic heart failure
Moderate to severe MR
Moderate to severe TR
Paroxysmal atrial fibrillation
Anemia
Chronic kidney disease
Depression
IBS
Diet 2 Gram Sodium,Restrict fluids to 48 oz
Activity As tolerated
Driving Restrictions As prior to admission
Others Tests EKG with next doctor visit QT
Other Services [facility]
Specialty Instructions Weigh Daily
Instructions: *DCA Heart Failure Instructions
Stand-Alone Forms:
Changes to Home Medications: Yes
Discharge Medications:
DC Medications w/original date entered in [employer]
apixaban 5 mg tablet (Eliquis) 5 mg PO BID Blood Clot Prevention/Tx 03/10/23
amiodarone 200 mg tablet 200 mg PO DAILY AFib 01/03/24
metoprolol succinate 25 mg tablet,extended release 24 hr 25 mg PO DAILY Heart Failure #30 tabs 02/02/24
acetaminophen 325 mg tablet (Tylenol) 650 mg PO DAILYPRN PRN mild pain 07/29/24
sertraline 25 mg tablet 75 mg PO NOON depression/anxiety 07/29/24
escitalopram oxalate 20 mg tablet (Lexapro) 10 mg (1/2 x 20 mg) PO DAILY Depression #0 tabs 07/31/24
furosemide 40 mg tablet 40 mg PO BID Fluid Retention/Swelling #60 tabs 07/31/24
Home Medication Changes
Lasix changed to BID
Lexapro dose reduced
Pending Results: No
--- NOTE | 2024-08-01 10:19 | W.HF.CON ---
Heart Failure
- LV Function
Left ventricular function study result: LV Ejection fraction </= 35%
Ejection Fraction Percentage: 25-30
- ARNI
Patient already on ARNI: No
Heart Failure ARNI Contraindication: Worsening Renal Function
- ACEI/ARB
Patient already on ACEI/ARB: No
Heart Failure ACEI/ARB Contraindication: Worsening Renal Function
- Beta Bruce
Patient already on Evidence Based Beta Bruce: Yes
- Mineralocorticord Receptor Antagonist
Patient already on MRA: No
Heart Failure MRA Contraindication: Acute Renal Insufficiency
- SGLT-2 Inhibitor
Patient already on SGLT-2 Inhibitor: No
Heart Failure SGLT-2 Inhibitor Contraindication: Patient Refusal
- Afib Anticoagulation
Patient already on Anticoagulation for Afib: Yes
- NYHA CHF Classification
NYHA CHF Classification Level: Class III - Symptoms w/ min exertion, interferes w/ nml daily activity
- ACC/AHA Stage
ACC/AHA Stage: Stage D: Advanced Heart Failure (palliative care consult pt not ready for hospice at this time)
== END 2024-07-31 15:51 | disposition home health service (06) | DRG 291 ==
LOC: 4 EAST ACU 11:03
PROVIDERS: Emergency Medicine; ADMITTING PHYSICIAN Hospitalist; CONSULT PHYSICIAN Internal Medicine Cardiovascular Disease; EMERGENCY PHYSICIAN Emergency Medicine; FAMILY PHYSICIAN Nurse Practitioner Adult Health
DX: I13.0 Hypertensive heart and chronic kidney disease with heart failure and stage 1 through stage 4 chronic kidney disease, or unspecified chronic kidney disease (principal); I50.23 Acute on chronic systolic (congestive) heart failure; I47.20 Ventricular tachycardia, unspecified; N18.32 Chronic kidney disease, stage 3b; I25.5 Ischemic cardiomyopathy; Z95.5 Presence of coronary angioplasty implant and graft; I48.0 Paroxysmal atrial fibrillation; I08.3 Combined rheumatic disorders of mitral, aortic and tricuspid valves; I44.7 Left bundle-branch block, unspecified; D63.1 Anemia in chronic kidney disease; E66.9 Obesity, unspecified; Z68.30 Body mass index [BMI] 30.0-30.9, adult; F32.A Depression, unspecified; K58.9 Irritable bowel syndrome, unspecified; Z66 Do not resuscitate; I25.10 Atherosclerotic heart disease of native coronary artery without angina pectoris; Z90.710 Acquired absence of both cervix and uterus; Z95.810 Presence of automatic (implantable) cardiac defibrillator; Z79.01 Long term (current) use of anticoagulants; E78.5 Hyperlipidemia, unspecified; Z79.899 Other long term (current) drug therapy; Z96.659 Presence of unspecified artificial knee joint
CPT/HCPCS: 71046; 80048; 80053; 83880; 84443; 84484; 85025; 85027; 93005; 93306; 99285

== ENCOUNTER 2024-09-18 06:52 | Emergency (ER) | payer OTHER, SELFPAY ==
[2024-09-18 06:54] VITALS: BP 134/85
--- NOTE | 2024-09-18 08:12 | ED.GENMED ---
History of Present Illness
General
Chief Complaint: Back Pain
Source: patient
Time Seen by Provider: 09/18/24 07:54
History of Present Illness
History of Present Illness:
The patient is a 78-year-old female with a history of congestive heart failure, status post-pacemaker, and stent placement. She presents with severe pain in the right posterior chest region, which has been persistent for the past week. Initially,
the pain was intermittent, lasting a few hours, but recently it has not subsided and significantly affects her daily lives by causing sleepless nights despite efforts with hot packs, lidocaine rub, and dpeo-utg-aafdudk medications. The nature of the
pain is described as cyclical, intensifying throughout the day. The patient denies previous occurrences of similar pain.
The patient reports generalized weakness, frequent episodes of nearly fainting, requiring assistance, and shortness of breath. The pain intensifies upon palpation. There is a noted blacking-out tendency when the patient stands, and she requires
frequent resting periods due to fatigue after taking several steps. Additionally, there is a minor cough. The patient�s caregiver is awaiting a response from palliative care as they are primarily managing her heart condition comfort-oriented,
refraining from any more aggressive cardiac interventions.
The family shared that about two years ago, the patient experienced a fall impacting her chest, and recent pain could potentially relate to this prior incident. Despite the thorough available measures, the patient experiences ongoing discomfort.
Past History
Past History
ED Past Medical History: Arrthythmia (A-fib), CAD, CHF, HTN, Valvular disease and Other (Diverticulitis)
ED Past Surgical History: Other (Hysterectomy,)
Social History
Tobacco: Non-smoker
Alcohol: Occasional
Personal:
Living: other
Employment: Retired
Family History
Family History: Other
Phy Exam
Physical Exam
Physical Exam:
see above
Course
Orders/Labs/Results
Orders:
Orders
09/18/24 06:59
EKG [Electrocardiogram (*1)] Urgent
Reason for Study: CAD
EKG- Treatment ONCE
09/18/24 08:06
CR Chest - 2 Views Urgent
Comment:
Reason For Exam: right posterior chest wall pain
CR Shoulder, Trauma - Right Urgent
Comment:
Reason For Exam: posterior shoulder pain
09/18/24 08:30
Complete Blood Count/With Diff Urgent
Comprehensive Metabolic Panel Urgent
NT-proBNP Urgent
Troponin I Urgent
09/18/24 08:53
HYDROmorphone [Dilaudid] 0.5 mg IV NOW STA
09/18/24 10:19
0.9% Sodium Chloride 500 ml [Nss] 500 ml IV BOLUS
09/18/24 11:12
Troponin I Urgent
09/18/24 11:43
Case Management Consult ONCE
Case Management Consult: [facility]N/Home Care
Abnormal Lab Results
09/18/24 09/18/24
08:30 11:12
WBC 4.3 L 10^3/uL
(4.8-10.8)
RBC 3.40 L 10^6/uL
(4.20-5.40)
Hgb 10.1 L g/dL
(12.0-16.0)
Hct 31.4 L %
(37.0-47.0)
MCHC 32.2 L g/dL
(33.0-37.0)
RDW 18.0 H %
(11.5-14.5)
Absolute Lymphs (auto) 0.5 L 10^3/uL
(1.2-3.4)
Lymphocytes % 12.5 L %
(20.5-51.1)
Monocytes % 12.7 H %
(1.7-9.3)
BUN 52 H mg/dl
(7-17)
Creatinine 2.4 H mg/dL
(0.6-1.0)
Total Bilirubin 2.4 H mg/dl
(0.2-1.3)
Troponin I 0.057 H* ng/ml 0.054 H* ng/ml
09/18/24 08:30
09/18/24 08:30
Vital Signs
Initial and Last Documented VS:
Initial Vital Signs
Temp Pulse Resp BP Pulse Ox
98.0 F 71 18 134/85 96
09/18/24 06:54 09/18/24 06:54 09/18/24 06:54 09/18/24 06:54 09/18/24 06:54
Last Documented Vital Signs
Temp Pulse Resp BP Pulse Ox
98.0 F 70 12 129/85 94
09/18/24 06:54 09/18/24 10:15 09/18/24 10:15 09/18/24 10:12 09/18/24 10:15
MDM/Problems Addressed
Differential Diagnosis Includes:
The Differential Diagnosis includes, in no particular order and is not limited to:
1. Musculoskeletal chest pain
2. Rib fracture
3. Pulmonary embolism - less likely as she is anitcoagulation
5. Costochondritis
7. Congestive heart failure exacerbation
MDM/Problems Addressed:
Acute:
- Persistent severe chest pain
Chronic:
- Congestive heart failure
- Type 2 diabetes mellitus
*Pulse Oximetry
Patient hypoxic: no
Comment: 96%
*Critical Care Note
Total Time (30-74mins, 75-104mins- exclusive of procedures): Not Applicable
Update Note
Update Note:
Workup here with initial and repeat troponin stable. I suspect elevation of troponin although slight likely related to acute kidney injury with creatinine of 2.4. Patient not hypoxic upon ambulation here. I suspect pain is muscular in nature
given negative chest x-ray negative shoulder x-ray. Patient has not been sleeping because of the pain. Will prescribe a narcotic pain medicine for her pain as she cannot take anti-inflammatories. Recommend follow-up with treating physicians. No
indication for admission. Stable for discharge. Of note, patient did look dry here with acute kidney injury she was given a 500 mL liter fluid bolus.
ED Attending Note
-
Portions of this chart may have been created with voice recognition software.� Occasional wrong word or��sound alike� substitutions may have occurred due to the inherent limitations of voice recognition software.
Discharge Plan
Departure
Patient Disposition: Home (Routine Discharge)
Date of Disposition: 09/18/24
Time of Disposition: 13:07
Patient with high blood pressure during this ER visit?: No
Discharge Problem:
Chest wall pain
Instructions: Upper Back Pain (DC)
Prescriptions:
New
oxycodone-acetaminophen [Percocet] 5-325 mg tablet
1 tab PO Q6H PRN (Reason: Pain) Qty: 14 0RF
No Action
Eliquis 5 mg Tablet
5 mg PO BID
amiodarone 200 mg Tablet
200 mg PO DAILY
furosemide 40 mg tablet
40 mg PO BID Qty: 60 0RF
ondansetron HCl [Zofran] 4 mg Tablet
4 mg PO Q6HPRN PRN (Reason: nausea)
sertraline 100 mg Tablet
100 mg PO DAILY
spironolactone 25 mg Tablet
12.5 mg PO MOWEFR
acetaminophen [Tylenol Extended Release] 650 mg Tablet Extended Release
1,300 mg PO [id number] PRN (Reason: mild pain)
metoprolol succinate [Toprol XL] 25 mg Tablet Extended Release 24 Hr
25 mg PO DAILY
escitalopram oxalate [Lexapro] 20 mg Tablet
20 mg PO DAILY
melatonin 10 mg Tablet
10 mg PO HS
Referrals:
Suyapa Duval CRNP [Family Provider, General]
Activity Restrictions/Additional Instructions:
Take pain medicine as needed for severe pain. Return for worsening symptoms otherwise follow-up with your doctor
Interventions
Interventions:
*Risk Screen - Suicide Last Done: 09/18/24 06:54
*General Assessment Last Done: 09/18/24 06:54
*Neglect/Abuse Screening Last Done: 09/18/24 10:22
*ED COVID-19 Vaccine History Last Done: 09/18/24 10:22
ED-Musculoskeletal Assessment Last Done: 09/18/24 08:36
Discharge Date and Time
Print Language: BULGARIAN
[2024-09-18 08:37] LABS: % Basophils 0.5 % (0-2); % Eosinophils 0.5 % (0-6); % Immature Granulocytes 0.2 % (0-0.5); % Lymphocytes 12.5 % (20.5-51.1); % Monocytes 12.7 % (1.7-9.3); % Neutrophils 73.6 % (42.2-75.2); Absolute Lymphocytes 0.5 10^3/uL (1.2-3.4); Absolute Monocytes 0.6 10^3/uL (0.1-0.6); Absolute Neutrophils 3.2 10^3/uL (1.4-6.5); Hematocrit 31.4 % (37.0-47.0); Hemoglobin 10.1 g/dL (12.0-16.0); Mean Corp Hgb Conc. 32.2 g/dL (33.0-37.0); Mean Corpuscular Hgb 29.7 pg (27.0-31.0); Mean Corpuscular Volume 92.4 fL (81.0-99.0); Mean Platelet Volume 9.8 fL (7.4-10.4); Nucleated Red Blood Cells % 2.1 %; Platelet Count 324 10^3/uL (130-400); White Blood Cell Count 4.3 10^3/uL (4.8-10.8)
[2024-09-18 09:02] LABS: NT-proBNP 11800 pg/ml; Troponin I 0.057 ng/ml
[2024-09-18 09:12] LABS: ALT (SGPT) 31 U/L (0-35); AST (SGOT) 35 U/L (14-36); Albumin 3.8 g/dl (3.5-5.0); Alkaline Phosphatase 122 U/L (38-126); Blood Urea Nitrogen 52 mg/dl (7-17); Calcium 9.4 mg/dl (8.4-10.2); Carbon Dioxide 25 mmol/L (22-30); Chloride 105 mmol/L (98-107); Glucose 96 mg/dl (70-99); Potassium 4.1 mmol/L (3.5-5.1); Sodium 140 mmol/L (135-145); Total Bilirubin 2.4 mg/dl (0.2-1.3); Total Protein 6.5 g/dl (6.3-8.2); eGFR 20.17
[2024-09-18] MEDS: DILAUDID 0.5 MG IV (09:18)
[2024-09-18 10:12] VITALS: BP 129/85
--- NOTE | 2024-09-18 10:49 | HOSPNOTE ---
Spoke with patient and grandson and patient does not wish for hospice at this time, patient would like a referral sent to [facility] and patient is already current with Palliative Care. CM asked to send referral to [facility]. We will continue to stay in contact
with [facility] and palliative and transition to hospice when needed.
[2024-09-18] MEDS: NSS 500 IV (10:59)
[2024-09-18 11:00] VITALS: BP 127/81
--- NOTE | 2024-09-18 11:15 | CM ---
CM reviewed chart and met with pt and grandson at bedside in ED
Lives with ban in 1st floor apt, [address]. Uses rollator for ambulation, has shower chair.
Independent with ADLs , [place], does laundry and grocery shopping.
Pt followed by Palliative Care, met with Clinical Trial Coordinator and declined at this time.
Denied financial insecurities.
Requesting [facility] referral.
Referral sent to Mis De Dios at [facility].
PCP: Suyapa Duval
Pharmacy: [facility]
DC dispo: Anticipate dc home with [facility], [facility] Palliative Care
[2024-09-18 11:49] LABS: Troponin I 0.054 ng/ml
[2024-09-18 12:00] VITALS: BP 123/88
--- NOTE | 2024-09-18 12:20 | VNURNOTE ---
[employer] Operator spoke with patients dgmichell Whipple to discuss [facility] nurse/therapy, visits, schedule and homebound status. Dgt is agreeable and understands that visits at home will be 2-3 x per week to assess and teach medical management.
[facility] aware [facility] care in 1-2 days after discharge from .
[facility] referral completed in [facility].
[2024-09-18 13:00] VITALS: BP 133/83
== END 2024-09-18 13:58 | disposition home or self-care (01) ==
LOC: EMR 06:52
PROVIDERS: Physician Assistant; EMERGENCY PHYSICIAN Emergency Medicine; FAMILY PHYSICIAN Nurse Practitioner Adult Health
DX: R07.89 Other chest pain (principal); E11.9 Type 2 diabetes mellitus without complications; Z95.0 Presence of cardiac pacemaker; I11.0 Hypertensive heart disease with heart failure; I50.9 Heart failure, unspecified
CPT/HCPCS: 99285; 96374; 71046; 73030; 80053; 83880; 84484; 85025; 93005

== ENCOUNTER 2024-09-22 15:02 | Inpatient (IN) | payer OTHER, SELFPAY ==
[2024-09-22] VITALS (10 sets, daily range): BP systolic 115–145; BP diastolic 80–88; BMI 31.4; BMI 30.4
[2024-09-22 11:55] LABS: % Basophils 0.2 % (0-2); % Eosinophils 0.5 % (0-6); % Immature Granulocytes 0.2 % (0-0.5); % Lymphocytes 11.9 % (20.5-51.1); % Monocytes 13.1 % (1.7-9.3); % Neutrophils 74.1 % (42.2-75.2); Absolute Lymphocytes 0.5 10^3/uL (1.2-3.4); Absolute Monocytes 0.6 10^3/uL (0.1-0.6); Absolute Neutrophils 3.1 10^3/uL (1.4-6.5); Hematocrit 32.1 % (37.0-47.0); Hemoglobin 10.1 g/dL (12.0-16.0); Mean Corp Hgb Conc. 31.5 g/dL (33.0-37.0); Mean Corpuscular Hgb 29.1 pg (27.0-31.0); Mean Corpuscular Volume 92.5 fL (81.0-99.0); Mean Platelet Volume 9.3 fL (7.4-10.4); Nucleated Red Blood Cells % 4.3 %; Platelet Count 324 10^3/uL (130-400); Red Blood Cell Count 3.47 10^6/uL (4.20-5.40); Red Cell Dist. Width 18.4 % (11.5-14.5); White Blood Cell Count 4.2 10^3/uL (4.8-10.8)
[2024-09-22 12:34] LABS: ALT (SGPT) 50 U/L (0-35); AST (SGOT) 56 U/L (14-36); Albumin 3.9 g/dl (3.5-5.0); Alkaline Phosphatase 125 U/L (38-126); Blood Urea Nitrogen 64 mg/dl (7-17); Calcium 9.4 mg/dl (8.4-10.2); Carbon Dioxide 25 mmol/L (22-30); Chloride 106 mmol/L (98-107); Estimated Creatinine Clearance 20 ml/min; Glucose 106 mg/dl (70-99); Sodium 139 mmol/L (135-145); Total Bilirubin 2.5 mg/dl (0.2-1.3); Total Protein 6.7 g/dl (6.3-8.2); eGFR 21.22
--- NOTE | 2024-09-22 13:49 | ED.CVA ---
History of Present Illness
General
Chief Complaint: CVA/TIA Symptoms
Time Seen by Provider: 09/22/24 11:13
Onset of Stroke Symptoms
Onset of symptoms known: No
Time pt last seen normal is known: No
History of Present Illness
History of Present Illness:
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 According to her daughter she is increasingly confused and easily forgetful. Daughter states that it is very
hard to hold a conversation with her as she is speaking nonsensically and cannot complete sentences. Patient denies any of these complaints however does note that she has shoulder pain, she was seen for this earlier in the week. At that time she
was found to have acute kidney injury and given IV fluids
Past History
Past History
ED Past Medical History: Arrthythmia (A-fib), CAD, CHF, HTN, Valvular disease and Other (Diverticulitis)
ED Past Surgical History: Other (Hysterectomy,)
Social History
Tobacco: Non-smoker
Alcohol: Occasional
Personal:
Living: other
Employment: Retired
Family History
Family History: Other
Review of Systems
Review of Systems
Allergies reviewed?: Yes
All Other Systems: ROS reviewed and negative except as documented in HPI and ROS
Phy Exam
Physical Exam
Physical Exam:
GEN: Well appearing, NAD, WDWN
HEENT: Oral mucosa moist, no scleral icterus, no nasal congestion
Cardiac: Regular rate, blowing holosystolic murmur
Lung: No respiratory distress, no tachypnea
MSK: No gross deformity or injuries
Skin: Good color, no pallor or jaundice, no rashes
Neuro: AO x3; CN II-XII grossly intact. BUE strength 5/5 in all askew, sensation intact and symmetric. BLE strength 5/5 in all askew, sensation intact and symmetric. While the patient is oriented on examination she does have quite a substantial
delay in answering questions, no dysarthria or aphasia
Psych: Calm, cooperative
Course
Orders/Labs/Results
Orders:
Orders
09/22/24 11:32
CT Head W/o Iv Contrast Urgent
Comment:
Reason For Exam: AMS
09/22/24 11:39
Complete Blood Count/With Diff Urgent
Comprehensive Metabolic Panel Urgent
09/22/24 13:47
Urinalysis Reflex To Culture Urgent
Date Specimen was Collected: 09/22/24
Time Specimen was Collected: 11:34
Urine Microscopic Reflex Cult Urgent
09/22/24 14:16
0.9% Sodium Chloride 1000 ml [Nss] 1,000 ml IV BOLUS
Abnormal Lab Results
09/22/24 09/22/24
11:39 13:47
WBC 4.2 L 10^3/uL
(4.8-10.8)
RBC 3.47 L 10^6/uL
(4.20-5.40)
Hgb 10.1 L g/dL
(12.0-16.0)
Hct 32.1 L %
(37.0-47.0)
MCHC 31.5 L g/dL
(33.0-37.0)
RDW 18.4 H %
(11.5-14.5)
Absolute Lymphs (auto) 0.5 L 10^3/uL
(1.2-3.4)
Lymphocytes % 11.9 L %
(20.5-51.1)
Monocytes % 13.1 H %
(1.7-9.3)
BUN 64 H mg/dl
(7-17)
Creatinine 2.3 H mg/dL
(0.6-1.0)
Glucose 106 H mg/dl
(70-99)
Total Bilirubin 2.5 H mg/dl
(0.2-1.3)
AST 56 H U/L
(14-36)
ALT 50 H U/L
(0-35)
Urine Albumin (Reflex) 1+ A
(Neg - Trace)
09/22/24 11:39
09/22/24 11:39
Vital Signs
Initial and Last Documented VS:
Initial Vital Signs
Temp Pulse Resp BP Pulse Ox
97.8 F 74 18 121/82 96
09/22/24 10:57 09/22/24 10:57 09/22/24 10:57 09/22/24 10:57 09/22/24 10:57
Last Documented Vital Signs
Temp Pulse Resp BP Pulse Ox
97.6 F 70 20 124/88 97
09/22/24 11:41 09/22/24 12:00 09/22/24 11:41 09/22/24 12:00 09/22/24 13:52
MDM/Problems Addressed
MDM/Problems Addressed:
78-year-old female presents with waxing waning confusion for the past 2 weeks. I suspect this is due to uremia in the setting of acute kidney injury. She was seen to have similar labs earlier a week however did not improve with IV fluids, could be
prerenal azotemia in the setting of diuretic use. Will admit for further management
*Pulse Oximetry
SaO2: 97
Oxygen Mode of Delivery: Room air
*Critical Care Note
Total Time (30-74mins, 75-104mins- exclusive of procedures): Not Applicable
ED Attending Note
-
Portions of this chart may have been created with voice recognition software.� Occasional wrong word or��sound alike� substitutions may have occurred due to the inherent limitations of voice recognition software.
Discharge Plan
Departure
Patient Disposition: Admit
Date of Disposition: 09/22/24
Time of Disposition: 14:18
Admit to: Med/Surg
Presentation/result/management discussed w/ accepting MD/DO: Hospitalist
Discharge Problem:
Acute uremia, Acute metabolic encephalopathy
Prescriptions:
No Action
Eliquis 5 mg Tablet
5 mg PO BID
amiodarone 200 mg Tablet
200 mg PO DAILY
ondansetron HCl [Zofran] 4 mg Tablet
4 mg PO Q6HPRN PRN (Reason: nausea)
spironolactone 25 mg Tablet
12.5 mg PO MOWEFR
acetaminophen [Tylenol Extended Release] 650 mg Tablet Extended Release
1,300 mg PO [id number] PRN (Reason: mild pain)
metoprolol succinate [Toprol XL] 25 mg Tablet Extended Release 24 Hr
25 mg PO DAILY
escitalopram oxalate [Lexapro] 20 mg Tablet
20 mg PO DAILY
melatonin 10 mg Tablet
10 mg PO HS
oxycodone-acetaminophen [Percocet] 5-325 mg tablet
1 tab PO Q6H PRN (Reason: Pain) Qty: 14 0RF
escitalopram oxalate [Lexapro] 20 mg Tablet
20 mg PO DAILY
furosemide 40 mg tablet
60 mg PO BID
Referrals:
Suyapa Duval CRNP [Family Provider, General]
Interventions
Interventions:
*Risk Screen - Suicide Last Done: 09/22/24 10:57
*General Assessment Last Done: 09/22/24 10:57
*Neglect/Abuse Screening Last Done: 09/22/24 10:57
*ED- Fall Risk Assessment Last Done: 09/22/24 11:41
*ED COVID-19 Vaccine History Last Done: 09/22/24 11:41
ED- Pulmonary Assessment Last Done: 09/22/24 11:41
ED- Neurological Assessment Last Done: 09/22/24 11:41
ED- Cardiac Assessment Last Done: 09/22/24 11:41
ED Swallowing Screen Last Done: 09/22/24 11:41
Discharge Date and Time
Print Language: INDONESIAN
[2024-09-22 14:09] LABS: Urine Albumin 1+ (Neg - Trace); Urine Bilirubin Negative (Negative); Urine Character Clear (Clear); Urine Color Yellow; Urine Glucose Negative (Negative); Urine Ketone Negative (Negative); Urine Leukocyte Negative (Negative); Urine Nitrite Negative (Negative); Urine Occult Blood Negative (Negative); Urine Specific Gravity 1.015 (<1.030); Urine Urobilinogen Negative (Neg - 1+)
--- NOTE | 2024-09-22 14:20 | HPS.HSE ---
Family Physician
-
Family Physician: Suyapa Duval
Chief Complaint
-
waxing and waning mental status
History of Present Illness
HPI
78F HX chr HFrEF, ICM, CAD with RAULITO stent , Prx AF, CKD3b, mod severe MR, moderate to severe TR seen at ER:
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
- current AMS is preceded before Percocet for Lt shoulder pain while she she taking OTC Tylenol arthritis
- According to her daughter she is increasingly confused and easily forgetful and very hard to hold a conversation
- she is speaking nonsensically and cannot complete sentences.
- daughter monica she has been forgetful for few months
-
ROS:
Patient denies any of these complaints however does note that she has shoulder pain, she was seen for this earlier in the week.
At that time she was found to have acute kidney injury and given IV fluids
Medical History
Past Medical History
Past Medical History: Reports Other
Past Surgical History: Reports Other
Additional Past Surgical History:
Hysterectomy, bilateral knee surgeries, BiV ICD with pacer, cataract surgery
Social History
Tobacco: Non-smoker
Alcohol: Other (2 times a week)
Drug: None
Family History
Family History: Not pertinent
Allergies / Home Medications
Allergies reflects when Allergies were last updated in [facility] [employer].
Home Medications with original date entered in [facility]
Allergy/Medication List:
Allergies
Allergy/AdvReac Type Severity Reaction Status Date / Time
No Known Allergies Allergy Verified 09/22/24 11:05
Home Medications
apixaban 5 mg tablet (Eliquis) 5 mg PO BID Blood Clot Prevention/Tx 03/10/23
amiodarone 200 mg tablet 200 mg PO DAILY AFib 01/03/24
acetaminophen 650 mg tablet,extended release 1,300 mg PO [id number] PRN mild pain 09/18/24
escitalopram oxalate 20 mg tablet (Lexapro) 20 mg PO DAILY 09/18/24
melatonin 10 mg tablet 10 mg PO HS 09/18/24
metoprolol succinate 25 mg tablet,extended release 24 hr (Toprol XL) 25 mg PO DAILY 09/18/24
ondansetron HCl 4 mg tablet 4 mg PO Q6HPRN PRN nausea 09/18/24
oxycodone-acetaminophen 5 mg-325 mg tablet (Percocet) 1 tab PO Q6H PRN Pain #14 tabs 09/18/24
spironolactone 25 mg tablet 12.5 mg PO MOWEFR 09/18/24
escitalopram oxalate 20 mg tablet (Lexapro) 20 mg PO DAILY 09/22/24
furosemide 40 mg tablet 60 mg PO BID Fluid Retention/Swelling 09/22/24
Review of Systems
-
Constitutional: Reports No Symptoms
EENT: Reports No Symptoms
Respiratory: Reports No Symptoms
Cardiac: Reports No Symptoms
Abdomen/GI: Reports No Symptoms
: Reports No Symptoms
Musculoskeletal: Reports No Symptoms
Skin: Reports No Symptoms
Neurological: Reports See HPI and Other (AMS )
Endocrine: Reports No Symptoms
Hematologic/Lymphatic: Reports No Symptoms
Psych: Reports No Symptoms
Physical Exam
Vital Signs
Vital Signs
Temp Pulse Resp BP Pulse Ox
97.6 F 70 20 124/88 97
09/22/24 11:41 09/22/24 12:00 09/22/24 11:41 09/22/24 12:00 09/22/24 13:52
Physical Exam
General: No Apparent Distress, Comfortable and Conversant
HEENT: NormoCephalic, Moist mucous membranes and Atraumatic
Respiratory: Clear
Cardiac: S1/S2 and Regular Rhythm; No Murmur or Rub
GI: Soft, Non Tender, Non Distended and Normal Bowel Sounds; No Organomegaly
Rectal: Deferred by Provider
Musculoskeletal: No Clubbing, No Cyanosis and No Edema
Skin: No Rash
Neuro: Nonfocal/grossly intact
Psych: Calm and Confused
Laboratory Results
-
09/22/24 11:39
09/22/24 11:39
Laboratory Results
Total Bilirubin 2.5 mg/dl (0.2-1.3) H 09/22/24 11:39
AST 56 U/L (14-36) H 09/22/24 11:39
ALT 50 U/L (0-35) H 09/22/24 11:39
Alkaline Phosphatase 125 U/L (38-126) 09/22/24 11:39
Data Reviewed
-
CT Scan: Report Reviewed by me
Lab Data: Labs Reviewed by me
Old Records: Reviewed
Impression/Plan
-
Selected Entries
01/03/24
10:32 07/31/24
05:38 09/18/24
06:52
Pulse 74
Resp Rate 18
Blood pressure 121/82
SaO2 96
Oxygen Mode of Delivery
Actual Weight 89.8 kg 77.621 kg 79.8 kg---> 80.26 today
09/18/24 09/22/24
08:30 11:39
WBC 4.3 L 4.2 L
Hgb 10.1 L 10.1 L
Plt Count 324 324
BUN 52 H 64 H
Creatinine 2.4 H 2.3 H
eGFR 20.17 21.22
AST 56 H
ALT 50 H
[id number] Pept [id number]
09/18/24 CXR
No radiographic evidence of acute cardiopulmonary abnormality.
09/27/24 pending CXR
HCT: no acute pathology
Last hospitalist admission: 07/29/2024 - 07/31/2024
DISCHARGE DIAGNOSES:
1. Chest pain.
2. Acute on chronic heart failure.
3. Moderate to severe mitral regurgitation.
4. Moderate to severe tricuspid regurgitation.
5. Paroxysmal atrial fibrillation.
6. Anemia.
7. Chronic kidney disease.
8. Depression.
9. Irritable bowel syndrome.
ASSESSMENT & PLAN
Pending Rx reconciliation
apixaban 5 mg tablet (Eliquis) 5 mg PO BID Blood Clot Prevention/Tx 03/10/23
amiodarone 200 mg tablet 200 mg PO DAILY AFib 01/03/24
acetaminophen 650 mg tablet,extended release 1,300 mg PO [id number] PRN mild pain 09/18/24
escitalopram oxalate 20 mg tablet (Lexapro) 20 mg PO DAILY 09/18/24
melatonin 10 mg tablet 10 mg PO HS 09/18/24
metoprolol succinate 25 mg tablet,extended release 24 hr (Toprol XL) 25 mg PO DAILY 09/18/24
ondansetron HCl 4 mg tablet 4 mg PO Q6HPRN PRN nausea 09/18/24
oxycodone-acetaminophen 5 mg-325 mg tablet (Percocet) 1 tab PO Q6H PRN Pain #14 tabs 09/18/24
spironolactone 25 mg tablet 12.5 mg PO MOWEFR 09/18/24
escitalopram oxalate 20 mg tablet (Lexapro) 20 mg PO DAILY 09/22/24
furosemide 40 mg tablet 60 mg PO BID Fluid Retention/Swelling 09/22/24
Waxing and waning confusional state
Presumed TME but unclear origin could be multifactorial
Underlying CKD3b with worsening uremia and Percocet (09/18/24) for shoulder pain
Per daughter account - current AMS is preceded before Percocet for Lt shoulder pain but started while she she taking OTC Tylenol arthritis
- so far NEG UA
- Pending CXR
- pending proBNP
- Hold Percocet
- c/w Melatonin HS
- Fall precaution
- Hold Percocet
Element of ALANNA with Cr low 2s
CKD 3b HX (creat ranges 1.2-2.0)
- noted wt gain about 2.4 kg between July to September
- DDX: Cardiorenal syndrome ??
- Hold Spironolactone
- Hold Lasix
- Hold IVF
- check proBNP
- Renal and Card consult
HX Chronic HFrEF - EF 20% as per echo in January 2024
HX ICM
S/P [employer] BiV ICD placement 2022
proBNP 11,500
- Hold PO Lasix due to ALANNA
- c/w metoprolol, dapagliflozin
Paroxysmal Afib
- s/p CV 12/20/23
- s/p RIAZ/CV 01/26/24
- Chronic anti-coagulation on Eliquis
- on Chr Amiodarone
Known HX Moderate to severe MR
CAD s/p RAULITO OM 07/2020
HX ICM
Lexiscan nuclear stress test 07/19/2020: Moderate reversible defect in the mid inferolateral, mid inferior, and apical inferior segments. Inferior hypokinesis. LVEF 40%. LV normal size.
LBBB
NSVT
s/p Medtronic BiV ICD 11/18/22
Depression-continue Lexapro
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
Hyperlipidemia not on statin
Irritable Bowel Syndrome on dicyclomine as needed
HX Diverticulitis
Obesity per BMI criteria
DVT prophylaxis-Eliquis
DNR per daughter
IP TLM
[2024-09-22 14:21] LABS: Urine Squamous Cell 0-2 /LPF (Few)
[2024-09-22 14:22] LABS: Urine Mucus Few; Urine Red Blood Cell 0-2 /HPF (0-2); Urine White Cell 0-2 /HPF (0-5)
[2024-09-22 15:35] LABS: NT-proBNP 13100 pg/ml
--- NOTE | 2024-09-22 16:37 | EDRN ---
this RN called the receiving unit and notified them that paper report was going to be tubed up
[2024-09-22] MEDS: ELIQUIS 5 MG PO (20:22)
[2024-09-22] MEDS: MELATONIN 10 MG PO (21:42)
[2024-09-23] VITALS (7 sets, daily range): BP systolic 99–134; BP diastolic 66–88; BMI 31.2; BMI 31.0
[2024-09-23 06:28] LABS: Hematocrit 33.3 % (37.0-47.0); Hemoglobin 10.4 g/dL (12.0-16.0); Mean Corp Hgb Conc. 31.2 g/dL (33.0-37.0); Mean Corpuscular Hgb 28.6 pg (27.0-31.0); Mean Corpuscular Volume 91.5 fL (81.0-99.0); Mean Platelet Volume 9.7 fL (7.4-10.4); Platelet Count 302 10^3/uL (130-400); Red Blood Cell Count 3.64 10^6/uL (4.20-5.40); Red Cell Dist. Width 18.4 % (11.5-14.5); White Blood Cell Count 3.7 10^3/uL (4.8-10.8)
[2024-09-23 06:50] LABS: Blood Urea Nitrogen 61 mg/dl (7-17); Calcium 9.4 mg/dl (8.4-10.2); Carbon Dioxide 25 mmol/L (22-30); Chloride 105 mmol/L (98-107); Estimated Creatinine Clearance 20 ml/min; Glucose 79 mg/dl (70-99); HDL Cholesterol 24 mg/dl; LDL Cholesterol, Calculated 108 mg/dl; Potassium 3.7 mmol/L (3.5-5.1); Sodium 140 mmol/L (135-145); Total Cholesterol 152 mg/dl (50-199); Triglyceride 102 mg/dl (10-149); Very Low Density Lipoprotein 20 mg/dl (0-30); eGFR 21.22
--- NOTE | 2024-09-23 09:18 | CM ---
Initial assessment completed. Patient is a 78F HX chr HFrEF, ICM, CAD with RAULITO stent , Prx AF, CKD3b, mod severe MR, moderate to severe TR seen at ER for evaluation of waxing and waning mental status change.
Patient resides w/ grandson in a 1st flr apartment, 3 steps to enter. Patient is independent w/ ambulating, no device required. Independent w/ ADLs. Patient shared she has a shower chair, no other DME. Patient shared that her grandson cooks, does
the laundry, and does the grocery shopping. He is very supportive. No SNF hx reported, OP therapy in the past. Patient shared she had [facility] in the past, currently sees a VN every 3rd week provided through [facility].
Address, points of contact and insurance verified
PCP: Suyapa Duval
Pharmacy: [facility]
Plan: Anticipate home, will watch for d/c needs
[2024-09-23] MEDS: ELIQUIS 5 MG PO ×2 (09:39→20:05)
[2024-09-23] MEDS: TOPROL XL 25 MG PO (09:39)
[2024-09-23] MEDS: LEXAPRO 20 MG PO (09:39)
[2024-09-23] MEDS: PACERONE 200 MG PO (09:39)
--- NOTE | 2024-09-23 11:24 | CON.CAR ---
Addendum entered and electronically signed by Robert Ziegler MD 09/23/24 11:55:
Patient seen and examined
Agree with RECREATIONAL DIRECTOR note assessment
Agree with RECREATIONAL DIRECTOR plan
����Physical Exam
���������������������General:��no apparent distress, not acutely ill
���������������������������Neck:��supple. no meningeal signs. normal psoterior pharynx
������������������������
���������������������������Heart:��s1/s2 regular rate and rhythm, no murmur. equal radial pulses.
��������������������������Lungs: ��no acute respiratory distress. clear bilaterally
����������������������Abdomen:�normal bowel sounds. not tender. no CVAT
��������������������������Neuro:��alert and oriented. no focal neurological deficits
������������������������������Skin: ��no rash
�����������������������Psychiatric:�well kept. interactive and cooperative
�����������������������Extremities:��no edema. no calf tenderness. negative homans. good distal pulses
Medical I D Sales: Dr. Jean Paul Figueroa
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 Robert Ziegler
Impression:
mental status change
Chest pressure
shortness of breath
Heart failure reduced EF
Lightheadedness
h/o admission for acute on chronic heart failure w/ reduced EF, proBNP 47772 04/2024
CKD (creat ranges 1.2-2.0)
Paroxysmal Afib
s/p CV 12/20/23
s/p RIAZ/CV 01/26/24 Chronic anti-coagulation on Eliquis
Heart failure with reduced ejection fraction
LBBB
NSVT
Ischemic Cardiomyopathy
s/p Medtronic BiV ICD 11/18/22 CAD
s/p RAULITO OM 07/2020HTN
Hyperlipidemia
Moderate/Severe Mitral Regurg. Severe Tricuspid Regurg
CKD IIIB
Irritable Bowel Syndrome
Hx Diverticulitis
right heart cath 01/28/2024: RA 22, PA 68/48, PCWP 38, CO 2.1/CI 1.1
RIAZ 01/26/2024, prior to cardioversion, EF 20%, moderate/severe MR, enlarged RV with reduced RV systolic function, severe TR
Lexiscan nuclear stress test 07/19/2020: Moderate reversible defect in the mid inferolateral, mid inferior, and apical inferior segments. Inferior hypokinesis. LVEF 40%. LV normal size.�������
Echo 07/12/2020: LVEF 45-50%. Mild global hypo. Inferior basal akinesis. Moderate LAE. Aortic valve sclerosis.
Echo 03/20/2021: EF 35 to 40%, stage II DD. Mild left atrial enlargement. Mild MR.
Echo 10/11/2023: EF 34%. Moderately reduced LV systolic function. Stage II DD. Mild MR, mild TR. PAP 37 mmHg
Echo 01/04/2024: EF 20%, global hypokinesis with regional variability, normal RV size with low normal RV systolic function, moderate to severe MR, severe TR with PAP 65-70 mmHg
Echo 07/31/2024: no change, LVEF 25 to 30%, moderate to severe MR, moderate to severe TR with PAP 50 mmHg RV size normal RV systolic function reduced
Plan:
-Presented with increasing confusion and forgetfulness, worse in past few days. ED evaluation notable for proBNP 13,100, Mild heart failure on chest x-ray, BUN/creatinine 61/2.3. Baseline creatinine appears to be 1.4. Patient had recent
increase in lower extremity edema with improvement in edema and 6 pound weight loss after with up titration of outpatient diuretic for 3 days.
--Given mild heart failure on chest x-ray and elevated proBNP would continue usual outpatient diuretic diuretics despite bump in creatinine.
-Close monitoring of renal function
-Hold spironolactone for now
- As above, not on Entresto or Farxiga due to worsening chronic kidney disease in outpatient setting.
- Recently restarted on spironolactone but would hold for now given increasing creatinine
-Brain MRI being checked per primary team due to MS changes
-History of PAF with most recent cardioversion January 2024. Patient currently AV paced in sinus rhythm. Continue Amiodarone and Eliquis
-Pt is DNR and is recently started with palliative care in home setting
- Daughter requesting additional certified social workers in health care, case management consult placed.
Original Note:
Consultation
Consultation Request
Date/Time Consultation Requested: 09/22/2024, 2234
Date/Time Consultation Performed: 09/23/2024, 1000
Requesting Provider: BYRON Rodriguez
Performing Provider: BYRON Harley for Dr Ziegler
Reason for Consultation: h/o HF
Medical History
-
Chief Complaint: Chest pain
History of Present Illness:
Patient is a pleasant 78-year-old female with past medical history significant for chronic heart failure with reduced ejection fraction, paroxysmal symptomatic atrial fibrillation status post cardioversion January 2024 on chronic anticoagulation,
left bundle branch block, ischemic CM status post Medtronic BiV ICD 11/2022, hypertension, hyperlipidemia, CAD status post PCI with RAULITO to OM 07/2020, IBS, diverticulitis, TKR.
She has had 6 hospitalizations for heart failure over the past year, most recently in July 2024 when she was admitted for 2 days and diuresed 14 pounds. She has not been able to tolerate Entresto, spironolactone, or Farxiga due to worsening
chronic kidney disease and they were stopped in the outpatient setting with Spironolactone re-added at last cardiology office visit on 08/25/[address] Sommer Torre. She is on metoprolol succinate 25 mg daily. She is on Lasix 40 mg twice
daily.
Earlier this week she experienced increased lower extremity edema and fatigue and Lasix was uptitrated to 40 mg 3 times daily for 3 days with improvement in edema and 6 lb wt loss to 177 lbs.
She has been experiencing increased right shoulder pain over the past few months after having a fall many months ago. She was seen in the ED on 09/18/2024 for worsening shoulder pain and was started on as needed oxycodone.
She presented to the ED yesterday, 09/22/2024 with mental status changes. She has had increasing forgetfulness over the past few months but in the past 2 weeks seems more confused and forgetful, cannot complete sentences. The symptoms were worse
after taking oxycodone but predate the patient taking it.
She denies worsening shortness of breath. She has no chest pain. She is more fatigued. Her lower extremity edema improved with up titration of Lasix earlier this week.
ED workup: proBNP 13,100, chest x-ray with mild heart failure,
BUN/creatinine 61/2.3, K3.7.
EKG: AV paced.
PMH:
Paroxysmal Afib
s/p CV 12/20/23
s/p RIAZ/CV 01/26/24
Chronic anti-coagulation on Eliquis
Heart failure with reduced ejection fraction
LBBB
NSVT
Ischemic Cardiomyopathy
s/p Medtronic BiV ICD 11/18/22
CAD
s/p RAULITO OM 07/2020
HTN
Hyperlipidemia
Moderate/Severe Mitral Regurg. Severe Tricuspid Regurg
CKD IIIB
Irritable Bowel Syndrome
Hx Diverticulitis
Past Medical History
Past Medical History: Other (See HPI)
Past Surgical History: Cardiac (multiple CV, ICD 11/2022, OM RAULITO 11/2022), Gynecological (Hysterectomy), Orthopedic (Knee replacement) and Other
Social History
Tobacco: Non-Smoker
Alcohol: None
Drug: None
Living: With Family
Family History
Family History: Reviewed & Not Pertinent
Allergies / Home Medications
Allergy/AdvReac Type Severity Reaction Status Date / Time
No Known Allergies Allergy Verified 09/22/24 11:05
�Medication �Instructions �Recorded �Confirmed �Type
apixaban 5 mg tablet (Eliquis) 5 mg PO BID Blood Clot 03/10/23 09/22/24 History
Prevention/Tx
amiodarone 200 mg tablet 200 mg PO DAILY AFib 01/03/24 09/22/24 History
acetaminophen 650 mg 1,300 mg PO [id number] PRN mild pain 09/18/24 09/22/24 History
tablet,extended release
escitalopram oxalate 20 mg tablet 20 mg PO DAILY 09/18/24 09/22/24 History
(Lexapro)
melatonin 10 mg tablet 10 mg PO HS 09/18/24 09/22/24 History
metoprolol succinate 25 mg 25 mg PO DAILY 09/18/24 09/22/24 History
tablet,extended release 24 hr
(Toprol XL)
ondansetron HCl 4 mg tablet 4 mg PO Q6HPRN PRN nausea/vomiting 09/18/24 09/22/24 History
spironolactone 25 mg tablet 12.5 mg PO MOWEFR 09/18/24 09/22/24 History
furosemide 40 mg tablet 60 mg PO BID Fluid 09/22/24 09/22/24 History
Retention/Swelling
oxycodone-acetaminophen 5 mg-325 1 tab PO Q6HPRN PRN moderate to 09/22/24 09/22/24 History
mg tablet (Percocet) severe pain
polyethylene glycol 3350 17 gram 17 g PO DAILYPRN PRN constipation 09/22/24 09/22/24 History
oral powder packet (Miralax)
Physical Exam
Vital Signs
Temp Pulse Resp BP Pulse Ox
97.9 F 71 16 129/79 95
09/23/24 11:00 09/23/24 11:00 09/23/24 11:00 09/23/24 11:00 09/23/24 11:00
Lab Results
09/23/24 05:51
09/23/24 05:51
Izo-Q-Jftwgndbpoj Pept 78555 pg/ml 09/22/24 14:53
Impression / Plan
-
PCP: BYRON Man
Medical I D Sales: Dr. Figueroa
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 Robert Ziegler
Impression:
mental status change
Chest pressure
shortness of breath
Heart failure reduced EF
Lightheadedness
h/o admission for acute on chronic heart failure w/ reduced EF, proBNP 13806 04/2024
CKD (creat ranges 1.2-2.0)
Paroxysmal Afib
s/p CV 12/20/23
s/p RIAZ/CV 01/26/24
Chronic anti-coagulation on Eliquis
Heart failure with reduced ejection fraction
LBBB
NSVT
Ischemic Cardiomyopathy
s/p Medtronic BiV ICD 11/18/22
CAD
s/p RAULITO OM 07/2020
HTN
Hyperlipidemia
Moderate/Severe Mitral Regurg. Severe Tricuspid Regurg
CKD IIIB
Irritable Bowel Syndrome
Hx Diverticulitis
right heart cath 01/28/2024: RA 22, PA 68/48, PCWP 38, CO 2.1/CI 1.1
RIAZ 01/26/2024, prior to cardioversion, EF 20%, moderate/severe MR, enlarged RV with reduced RV systolic function, severe TR
Lexiscan nuclear stress test 07/19/2020: Moderate reversible defect in the mid inferolateral, mid inferior, and apical inferior segments. Inferior hypokinesis. LVEF 40%. LV normal size.�������
Echo 07/12/2020: LVEF 45-50%. Mild global hypo. Inferior basal akinesis. Moderate LAE. Aortic valve sclerosis.
Echo 03/20/2021: EF 35 to 40%, stage II DD. Mild left atrial enlargement. Mild MR.
Echo 10/11/2023: EF 34%. Moderately reduced LV systolic function. Stage II DD. Mild MR, mild TR. PAP 37 mmHg
Echo 01/04/2024: EF 20%, global hypokinesis with regional variability, normal RV size with low normal RV systolic function, moderate to severe MR, severe TR with PAP 65-70 mmHg
Echo 07/31/2024: no change, LVEF 25 to 30%, moderate to severe MR, moderate to severe TR with PAP 50 mmHg RV size normal RV systolic function reduced
Plan:
-Presented with increasing confusion and forgetfulness, worse in past few days. ED evaluation notable for proBNP 13,100, Mild heart failure on chest x-ray, BUN/creatinine 61/2.3. Baseline creatinine appears to be 1.4. Patient had recent
increase in lower extremity edema with improvement in edema and 6 pound weight loss after with up titration of outpatient diuretic for 3 days.
--Given mild heart failure on chest x-ray and elevated proBNP would continue usual outpatient diuretic diuretics despite bump in creatinine.
-Close monitoring of renal function
-Hold spironolactone for now
- As above, not on Entresto or Farxiga due to worsening chronic kidney disease in outpatient setting.
- Recently restarted on spironolactone but would hold for now given increasing creatinine
-Brain MRI being checked per primary team due to MS changes
-History of PAF with most recent cardioversion January 2024. Patient currently AV paced in sinus rhythm. Continue Amiodarone and Eliquis
-Pt is DNR and is recently started with palliative care in home setting
- Daughter requesting additional certified social workers in health care, case management consult placed.
Data Reviewed
-
EKG: Tracing Personally Visualized and interpreted
Labs: Labs Reviewed by me
[2024-09-23] MEDS: LASIX 60 MG PO ×2 (12:10→17:26)
--- NOTE | 2024-09-23 12:12 | W.CON.NEPH ---
Consultation
-
Date/Time Consultation Requested: 09/22/24 960
Date/Time Consultation Performed: 09/23/24 1215
Requesting Provider: Rafael Iglesias
Performing Provider: angelique Manning
Reason for Consultation: Alanna with CKD
Medical History
-
Chief Complaint: AMS
History of Present Illness:
The patient is a 78-year-old female with a past medical history of atrial fibrillation maintained on amiodarone and metoprolol and chronically anticoagulated with Eliquis. She has a history of congestive heart failure reduced EF and is maintained
on Lasix 60mg BID, spironolactone MWF. She is maintained on proton pump inhibitor in the setting of her GERD, CKD stage 3b baseline cr mid 1 range from cardiorenal. She presented to the hospital for evaluation of waxing and waning mental status
change management specialist the past 2 weeks. AMS preceded before Percocet for Lt shoulder pain while she she taking OTC Tylenol arthritis.
Patient noted to have multiple hospitalizations for heart failure, most recently in July when she was diuresed with Lasix and a dose increase at the discharge. However an outpatient setting patient started to have feeling dizzy, lightheaded and
was not following FR strictly. She noed to have orthostatic hypotension, LAter diuretics were lowered. Reportedly she did not tolerate Entresto, Farxiga or Spironolactone with elevated creatinine. recent visit in August with a professor of literacy she was
started back on low-dose of spironolactone. In last week she noted to have increased lower extremity edema and fatigue. Lasix was up titrated to 60 mg twice a day with improvement of edema.
reportedly she also has right shoulder pain for a few months and was not controlled with the Tylenol hence she took oxycodone which made her more confused. in the ER her creatinine noted to be 2.3 with a BNP 13,000 higher than before. Chest
x-ray shows mild CHF.
She currently offers no chest pain or shortness of breath. Mild dizziness. No abdominal pain or diarrhea or constipation. No dysuria. No edema. No fever.
She lives with her grandson and in process of relocating to [facility].
Past Medical History
Paroxysmal Afib s/p CV 12/20/23
Chronic anti-coagulation on Eliquis
Heart failure with reduced ejection fraction
LBBB
NSVT
Ischemic Cardiomyopathy s/p Medtronic BiV ICD 11/18/22
HTN
Hyperlipidemia
Moderate/Severe Mitral Regurg. Severe Tricuspid Regurg
CKD IIIB
Irritable Bowel Syndrome
Hx Diverticulitis
Past Medical History: Other (Hysterectomy, bilateral knee surgeries, BiV ICD with pacer, cataract surgery)
Social History
Tobacco: Non-Smoker
Alcohol: None
Drug: None
Living: With Family
Family History
No chronic kidney disease
Family History: Not Pertinent
Allergies / Home Medications
Allergy/AdvReac Type Severity Reaction Status Date / Time
No Known Allergies Allergy Verified 09/22/24 11:05
�Medication �Instructions �Recorded �Confirmed �Type
apixaban 5 mg tablet (Eliquis) 5 mg PO BID Blood Clot 03/10/23 09/22/24 History
Prevention/Tx
amiodarone 200 mg tablet 200 mg PO DAILY AFib 01/03/24 09/22/24 History
acetaminophen 650 mg 1,300 mg PO [id number] PRN mild pain 09/18/24 09/22/24 History
tablet,extended release
escitalopram oxalate 20 mg tablet 20 mg PO DAILY 09/18/24 09/22/24 History
(Lexapro)
melatonin 10 mg tablet 10 mg PO HS 09/18/24 09/22/24 History
metoprolol succinate 25 mg 25 mg PO DAILY 09/18/24 09/22/24 History
tablet,extended release 24 hr
(Toprol XL)
ondansetron HCl 4 mg tablet 4 mg PO Q6HPRN PRN nausea/vomiting 09/18/24 09/22/24 History
spironolactone 25 mg tablet 12.5 mg PO MOWEFR 09/18/24 09/22/24 History
furosemide 40 mg tablet 60 mg PO BID Fluid 09/22/24 09/22/24 History
Retention/Swelling
oxycodone-acetaminophen 5 mg-325 1 tab PO Q6HPRN PRN moderate to 09/22/24 09/22/24 History
mg tablet (Percocet) severe pain
polyethylene glycol 3350 17 gram 17 g PO DAILYPRN PRN constipation 09/22/24 09/22/24 History
oral powder packet (Miralax)
Review of Systems
-
All other systems: Negative unless noted
Physical Exam
Vital Signs
Vital Signs
Temp Pulse Resp BP Pulse Ox
97.9 F 71 16 129/79 95
09/23/24 11:00 09/23/24 11:00 09/23/24 11:00 09/23/24 11:00 09/23/24 11:00
Lab Results
WBC 3.7 10^3/uL (4.8-10.8) L 09/23/24 05:51
RBC 3.64 10^6/uL (4.20-5.40) L 09/23/24 05:51
Hgb 10.4 g/dL (12.0-16.0) L 09/23/24 05:51
Hct 33.3 % (37.0-47.0) L 09/23/24 05:51
Plt Count 302 10^3/uL (130-400) 09/23/24 05:51
Sodium 140 mmol/L (135-145) 09/23/24 05:51
Potassium 3.7 mmol/L (3.5-5.1) 09/23/24 05:51
Chloride 105 mmol/L (98-107) 09/23/24 05:51
Carbon Dioxide 25 mmol/L (22-30) 09/23/24 05:51
BUN 61 mg/dl (7-17) H 09/23/24 05:51
Creatinine 2.3 mg/dL (0.6-1.0) H 09/23/24 05:51
eGFR 21.22 09/23/24 05:51
Glucose 79 mg/dl (70-99) 09/23/24 05:51
Calcium 9.4 mg/dl (8.4-10.2) 09/23/24 05:51
Uag-M-Brwawqacmff Pept 86992 pg/ml 09/22/24 14:53
Albumin 3.9 g/dl (3.5-5.0) 09/22/24 11:39
Physical Exam
General: Awake, Alert, Oriented, AOx3, No Distress and Nontoxic
HEENT: EOMI, Conjunctivae Clear, Neck Supple and No JVD
Respiratory: Clear, Normal Excursion and Nonlabored Respirations
Cardiac: S1/S2 and Regular Rate/Rhythm
Breast: Deferred by me
Musculoskeletal: No Cyanosis and No Edema
Skin: No Rash
Neuro: Nonfocal/Grossly Intact
Psych: Mood/afflect pleasant, Insight/judgement good and Appropriate
Assessment/Plan
-
Impression:
Acute V Chronic Metabolic Encepholoapthy
Alanna with CKD 3b-baseline cr 1.4
HX Chronic HFrEF - EF 25-30% , stageIII DD
HX ICM
S/P Medtronic BiV ICD placement 2022
Paroxysmal Afib
Hyperbilirubinemia
Transaminitis
severe MR
CAD s/p RAULITO OM 07/2020
LBBB
NSVT
s/p Medtronic BiV ICD 11/18/22
Depression
Essential HTN
Hyperlipidemia not on statin
Irritable Bowel Syndrome on dicyclomine as needed
HX Diverticulitis
Obesity per BMI criteria
IBS with diarrhea
Anxiety depression
orthostatic hypotension
Plan:
A/w AMS preceding narcs use , ?dementia cr stable at 1.3
ALANNA-bland UA suspect cardiorenal , noted CXR and high BNP
clinically she is flat on bed with no resp symp
hard to assess vol status
may have to compromise higher cr to achieve euvolemia
if cr cont to increase with diuresis likely need RHC
BP stable
avoid nephrotoxins
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
--- NOTE | 2024-09-23 12:38 | W.PN.HOSP.TC ---
Today's Communication/Plan
-
resume lasix
can hold aldactone for now
MR Brain
Utox
Assessment / Plan
Assessment / Plan
Physical Exam
General: No Apparent Distress, Comfortable and Conversant
HEENT: NormoCephalic, Moist mucous membranes and Atraumatic
Respiratory: Clear
Cardiac: S1/S2 and Regular Rhythm; No Murmur or Rub
GI: Soft, Non Tender, Non Distended and Normal Bowel Sounds; No Organomegaly
Rectal: Deferred by Provider
Musculoskeletal: No Clubbing, No Cyanosis and No Edema
Skin: No Rash
Neuro: Nonfocal/grossly intact
Psych: Calm and Confused
#Acute V Chronic Metabolic Encepholoapthy
-More than likely dementia as appears acute on chronic
-UA negative, no evidence of infection
- F/u MRI
-if MRI negative, f/u neuropsych for dementia eval
-Utox
-Stop opiates
- Fall precaution
CKD 3b HX
-slightly higher range on diuretics
-Continue
-Hold Spironolactone
-cont Lasix
HX Chronic HFrEF - EF 20% as per echo in January 2024
HX ICM
S/P Medtronic BiV ICD placement 2022
-Cont Lasix
-Hold Aldatone
- c/w metoprolol, dapagliflozin
Paroxysmal Afib
- s/p CV 12/20/23
- s/p RIAZ/CV 01/26/24
- Chronic anti-coagulation on Eliquis
- on Chr Amiodarone
#Hyperbilirubinemia
Chronic
#Transaminitis
- Chronic
Known HX Moderate to severe MR
CAD s/p RAULITO OM 07/2020
HX ICM
Lexiscan nuclear stress test 07/19/2020: Moderate reversible defect in the mid inferolateral, mid inferior, and apical inferior segments. Inferior hypokinesis. LVEF 40%. LV normal size.
LBBB
NSVT
s/p Medtronic BiV ICD 11/18/22
Depression-continue Lexapro
Essential HTN HX on [employer] ASSOCIATE Metoprolol
Hyperlipidemia not on statin -f/u outpt
Irritable Bowel Syndrome on dicyclomine as needed
HX Diverticulitis
Obesity per BMI criteria
DVT prophylaxis-Eliquis
DNR per daughter
Total time spent on today's encounter was 51 minutes which included time spent in counseling the patient/family regarding diagnosis and treatment plan as listed above, goals of care, and symptom management. Case was discussed with nursing staff,
specialists, and care coordinators/case management. All labs and imaging personally reviewed by me. Remainder the time spent in detailed review of previous records, lab data, imaging, and other medical provider documentation.
Anticipated Discharge: 24 - 48 hours
Subjective/Interval History
-
Date of Service: September 23, 2024
No acute events overnight
Objective Data
-
Labs:
Laboratory Results
09/23/24
05:51
WBC 3.7 L
Hgb 10.4 L
Hct 33.3 L
Plt Count 302
Sodium 140
Potassium 3.7
Chloride 105
Carbon Dioxide 25
BUN 61 H
Creatinine 2.3 H
Glucose 79
Calcium 9.4
Vital Signs:
Vital Signs
Temp Pulse Resp BP Pulse Ox
97.9 F 71 16 129/79 95
09/23/24 11:00 09/23/24 11:00 09/23/24 11:00 09/23/24 11:00 09/23/24 11:00
I&O
09/22/24 09/23/24 09/24/24
06:59 06:59 06:59
Intake Total 240 / 240 480 / 480
Balance 240 / 240 480 / 480
Review of Systems
-
History Source: Patient
All other systems: Not reviewed unless documented
Physical Exam
-
General: Well Developed, Well Nourished and No Apparent Distress
HEENT: Normocephalic and Atraumatic
Respiratory: Clear to Auscultation; Negative Wheezes or Rhonchi
Cardiac: Regular Rhythm and S1/S2; Negative Murmur
GI: Soft, Nontender, Nondistended and Normal Bowel Sounds
Musculoskeletal: No Clubbing, No Cyanosis and No Edema
Data Reviewed
-
Diagnostic Radiology: Report Reviewed by me
CT Scan: Report Reviewed by me
Labs: Labs Reviewed by me and Discussed with Patient
[2024-09-23 13:35] LABS: Amphetamines Negative (Negative); Barbiturates Negative (Negative); Benzodiazepines Negative (Negative); Buprenorphine Negative (Negative); Cocaine Negative (Negative); Marijuana Negative (Negative); Methadone Negative (Negative); Methamphetamines Negative (Negative); Opiates Negative (Negative); Phencyclidine Negative (Negative); Tricyclic Antidepressants Negative (Negative)
[2024-09-23 13:51] LABS: Fentanyl, Urine Negative (Negative)
[2024-09-23] MEDS: LIDOCAINE 4% PATCH TOPICAL (15:00)
[2024-09-23] MEDS: MELATONIN 10 MG PO (21:31)
[2024-09-24 03:21] VITALS: BP 132/83
[2024-09-24 05:50] LABS: Hemoglobin 10.3 g/dL (12.0-16.0); Mean Corp Hgb Conc. 30.3 g/dL (33.0-37.0); Mean Corpuscular Hgb 28.1 pg (27.0-31.0); Mean Corpuscular Volume 92.9 fL (81.0-99.0); Mean Platelet Volume 9.7 fL (7.4-10.4); Platelet Count 320 10^3/uL (130-400); Red Blood Cell Count 3.66 10^6/uL (4.20-5.40); White Blood Cell Count 4.4 10^3/uL (4.8-10.8)
[2024-09-24 06:00] VITALS: BMI 31.1
[2024-09-24 06:10] LABS: ALT (SGPT) 56 U/L (0-35); AST (SGOT) 61 U/L (14-36); Albumin 3.9 g/dl (3.5-5.0); Alkaline Phosphatase 139 U/L (38-126); Blood Urea Nitrogen 54 mg/dl (7-17); Calcium 9.1 mg/dl (8.4-10.2); Carbon Dioxide 26 mmol/L (22-30); Chloride 104 mmol/L (98-107); Estimated Creatinine Clearance 23 ml/min; Glucose 95 mg/dl (70-99); Potassium 3.5 mmol/L (3.5-5.1); Sodium 139 mmol/L (135-145); Total Bilirubin 2.7 mg/dl (0.2-1.3); Total Protein 6.7 g/dl (6.3-8.2)
[2024-09-24 07:39] VITALS: BP 135/73
[2024-09-24] MEDS: PACERONE 200 MG PO (08:37)
[2024-09-24] MEDS: LASIX 60 MG PO ×2 (08:38→17:05)
[2024-09-24] MEDS: LEXAPRO 20 MG PO (08:38)
[2024-09-24] MEDS: ELIQUIS 5 MG PO ×2 (08:38→20:23)
[2024-09-24] MEDS: TOPROL XL 25 MG PO (08:39)
[2024-09-24] MEDS: LIDOCAINE 4% PATCH 1 PATCH TOPICAL (08:39)
--- NOTE | 2024-09-24 09:27 | W.PN.HOSP.TC ---
Today's Communication/Plan
-
MR Brain
cont diuretics, can hold aldactone for now
Assessment / Plan
Assessment / Plan
Physical Exam
General: No Apparent Distress, Comfortable and Conversant
HEENT: NormoCephalic, Moist mucous membranes and Atraumatic
Respiratory: Clear
Cardiac: S1/S2 and Regular Rhythm; No Murmur or Rub
GI: Soft, Non Tender, Non Distended and Normal Bowel Sounds; No Organomegaly
Rectal: Deferred by Provider
Musculoskeletal: No Clubbing, No Cyanosis and No Edema
Skin: No Rash
Neuro: Nonfocal/grossly intact
Psych: Calm and Confused
#Acute V Chronic Metabolic Encephalopathy
-More than likely dementia as appears acute on chronic
-UA negative, no evidence of infection
- F/u MRI
-if MRI negative, f/u neuropsych for dementia eval
-Utox - pos opiates
-Stop opiates
- Fall precaution
CKD 3b HX
-slightly higher range on diuretics
-Continue
-Hold Spironolactone
-cont Lasix
HX Chronic HFrEF - EF 20% as per echo in January 2024
HX ICM
S/P Medtronic BiV ICD placement 2022
-Cont Lasix
-Hold Aldactone
- c/w metoprolol, dapagliflozin
Paroxysmal Afib
- s/p CV 12/20/23
- s/p RIAZ/CV 01/26/24
- Chronic anti-coagulation on Eliquis
- on Chr Amiodarone
#Hyperbilirubinemia
Chronic
#Transaminitis
- Chronic, although slightly higher
-f/u RUQ sono - unremarkable
Known HX Moderate to severe MR
CAD s/p RAULITO OM 07/2020
HX ICM
Lexiscan nuclear stress test 07/19/2020: Moderate reversible defect in the mid inferolateral, mid inferior, and apical inferior segments. Inferior hypokinesis. LVEF 40%. LV normal size.
LBBB
NSVT
s/p Medtronic BiV ICD 11/18/22
Depression-continue Lexapro
Essential HTN HX on ASSISTANT COACH Metoprolol
Hyperlipidemia not on statin -f/u outpt
Irritable Bowel Syndrome on dicyclomine as needed
HX Diverticulitis
Obesity per BMI criteria
DVT prophylaxis-Eliquis
DNR per daughter
Anticipated Discharge: 24 - 48 hours
Subjective/Interval History
-
Date of Service: September 24, 2024
no acute events, altered overnight
Objective Data
-
Labs:
Laboratory Results
09/24/24
05:00
WBC 4.4 L
Hgb 10.3 L
Hct 34.0 L
Plt Count 320
Sodium 139
Potassium 3.5
Chloride 104
Carbon Dioxide 26
BUN 54 H
Creatinine 2.0 H
Glucose 95
Calcium 9.1
Total Bilirubin 2.7 H
AST 61 H
ALT 56 H
Alkaline Phosphatase 139 H
Vital Signs:
Vital Signs
Temp Pulse Resp BP Pulse Ox
98 F 73 18 135/73 99
09/24/24 07:39 09/24/24 07:39 09/24/24 07:39 09/24/24 07:39 09/24/24 07:39
I&O
09/23/24 09/24/24 09/25/24
06:59 06:59 06:59
Intake Total 240 / 240 480 / 480
Balance 240 / 240 480 / 480
Review of Systems
-
History Source: Patient
All other systems: Not reviewed unless documented
Physical Exam
-
General: Well Developed, Well Nourished and No Apparent Distress
HEENT: Normocephalic and Atraumatic
Respiratory: Clear to Auscultation; Negative Wheezes or Rhonchi
Cardiac: Regular Rhythm and S1/S2; Negative Murmur
GI: Soft, Nontender, Nondistended and Normal Bowel Sounds
Musculoskeletal: No Clubbing, No Cyanosis and No Edema
Data Reviewed
-
Diagnostic Radiology: Report Reviewed by me
CT Scan: Report Reviewed by me
Labs: Labs Reviewed by me and Discussed with Patient
--- NOTE | 2024-09-24 09:54 | CM ---
neurology manager reviewed patient's chart and met with patient and daughter at bedside, patient is current with [facility] and has Palliative Care, patient is also followed by Krysten, patient is asking for additional services in home and case repairer proved
information on [facility] and suggested that family reach out to [facility] for services, patient is moving so patient needs to contact [facility] in [facility] and they will come out to patent's home to evaluation for Antonino or
[facility] programs.
Plan; Home with grandson, FROYLANN and Palliative care, patient's daughter to follow up with the [facility] when patient settles in.
--- NOTE | 2024-09-24 10:23 | W.PN.CARDCBS ---
Today's Communication / Plan
-
Stable cardiovascularly
client services analyst consult
Cardiovascular relatively stable
Awaiting brain MRI
We will follow with you
Impression / Plan
-
PCP: BYRON Man
Maintenance Apprentice: Dr. Figueroa
Heart failure bartender helper: Dr. Sommer Torre, first seen May 2024
Audio Installer: Dr. Robert Ziegler
Impression:
mental status change
Chest pressure
shortness of breath
Heart failure reduced EF
Lightheadedness
h/o admission for acute on chronic heart failure w/ reduced EF, proBNP 88229 04/2024
CKD (creat ranges 1.2-2.0)
Paroxysmal Afib
s/p CV 12/20/23
s/p RIAZ/CV 01/26/24
Chronic anti-coagulation on Eliquis
Heart failure with reduced ejection fraction
LBBB
NSVT
Ischemic Cardiomyopathy
s/p Medtronic BiV ICD 11/18/22
CAD
s/p RAULITO OM 07/2020
HTN
Hyperlipidemia
Moderate/Severe Mitral Regurg. Severe Tricuspid Regurg
CKD IIIB
Irritable Bowel Syndrome
Hx Diverticulitis
right heart cath 01/28/2024: RA 22, PA 68/48, PCWP 38, CO 2.1/CI 1.1
RIAZ 01/26/2024, prior to cardioversion, EF 20%, moderate/severe MR, enlarged RV with reduced RV systolic function, severe TR
Lexiscan nuclear stress test 07/19/2020: Moderate reversible defect in the mid inferolateral, mid inferior, and apical inferior segments. Inferior hypokinesis. LVEF 40%. LV normal size.�������
Echo 07/12/2020: LVEF 45-50%. Mild global hypo. Inferior basal akinesis. Moderate LAE. Aortic valve sclerosis.
Echo 03/20/2021: EF 35 to 40%, stage II DD. Mild left atrial enlargement. Mild MR.
Echo 10/11/2023: EF 34%. Moderately reduced LV systolic function. Stage II DD. Mild MR, mild TR. PAP 37 mmHg
Echo 01/04/2024: EF 20%, global hypokinesis with regional variability, normal RV size with low normal RV systolic function, moderate to severe MR, severe TR with PAP 65-70 mmHg
Echo 07/31/2024: no change, LVEF 25 to 30%, moderate to severe MR, moderate to severe TR with PAP 50 mmHg RV size normal RV systolic function reduced
Plan:
- Awaiting MRI. CT scan with no acute intracranial abnormality
-Hold spironolactone for now
- As above, not on Entresto or Farxiga due to worsening chronic kidney disease in outpatient setting.
- Recently restarted on spironolactone but would hold for now given increasing creatinine
-Brain MRI being checked per primary team due to MS changes
-History of PAF with most recent cardioversion January 2024. Patient currently AV paced in sinus rhythm. Continue Amiodarone and Eliquis
-Pt is DNR and is recently started with palliative care in home setting
- Daughter requesting additional oncology social worker, case management consult placed.
Progress Note - Maintenance Apprentice
Subjective
Date of Service: September 24, 2024
No symptoms from a cardiovascular perspective
Objective
Labs:
09/24/24 05:00
09/24/24 05:00
Labs
Hgb 10.3 g/dL (12.0-16.0) L 09/24/24 05:00
Hct 34.0 % (37.0-47.0) L 09/24/24 05:00
Plt Count 320 10^3/uL (130-400) 09/24/24 05:00
Sodium 139 mmol/L (135-145) 09/24/24 05:00
Potassium 3.5 mmol/L (3.5-5.1) 09/24/24 05:00
BUN 54 mg/dl (7-17) H 09/24/24 05:00
Creatinine 2.0 mg/dL (0.6-1.0) H 09/24/24 05:00
Glucose 95 mg/dl (70-99) 09/24/24 05:00
Vital Signs and I&O:
Vital Signs
Temp Pulse Resp BP Pulse Ox
98 F 73 18 135/73 99
09/24/24 07:39 09/24/24 07:39 09/24/24 07:39 09/24/24 07:39 09/24/24 07:39
Vital Signs
Temp Pulse Resp BP Pulse Ox
98 F 73 18 135/73 99
09/24/24 07:39 09/24/24 07:39 09/24/24 07:39 09/24/24 07:39 09/24/24 07:39
Intake & Output
09/22/24 09/23/24 09/24/24 09/25/24
06:59 06:59 06:59 06:59
Intake Total 240 / 240 480 / 480
Balance 240 / 240 480 / 480
Physical Exam
Physical Exam
����Physical Exam
���������������������General:��no apparent distress, not acutely ill
���������������������������Neck:��supple. no meningeal signs. normal psoterior pharynx
������������������������
���������������������������Heart:��s1/s2 regular rate and rhythm, no murmur. equal radial pulses.
��������������������������Lungs: ��no acute respiratory distress. clear bilaterally
����������������������Abdomen:�normal bowel sounds. not tender. no CVAT
��������������������������Neuro:��alert and oriented. no focal neurological deficits
������������������������������Skin: ��no rash
�����������������������Psychiatric:�well kept. interactive and cooperative
�����������������������Extremities:��no edema. no calf tenderness. negative homans. good distal pulses
��
�
[2024-09-24 11:25] VITALS: BP 125/86
--- NOTE | 2024-09-24 11:30 | W.PN.NEPH.PH ---
Today's Communication / Plan
-
cotn lasix and follow labs
Assessment/Plan
-
Impression:
Acute V Chronic Metabolic Encepholoapthy
Alanna with CKD 3b-baseline cr 1.4
HX Chronic HFrEF - EF 25-30% , stageIII DD
HX ICM
S/P Medtronic BiV ICD placement 2022
Paroxysmal Afib
Hyperbilirubinemia
Transaminitis
severe MR
CAD s/p RAULITO OM 07/2020
LBBB
NSVT
s/p Medtronic BiV ICD 11/18/22
Depression
Essential HTN
Hyperlipidemia not on statin
Irritable Bowel Syndrome on dicyclomine as needed
HX Diverticulitis
Obesity per BMI criteria
IBS with diarrhea
Anxiety depression
orthostatic hypotension
Plan:
A/w AMS preceding narcs use , ?dementia cr slightly better at 2
ALANNA-bland UA suspect cardiorenal , noted CXR and high BNP
may have to compromise higher cr to achieve euvolemia , cont lasix
if cr cont to increase with diuresis likely need RHC
BP stable
LFTs high-US seem ok
per family pt is hallucinating and not sleeping
avoid nephrotoxins
group home poor prognosis
-
-
Date of Service: September 24, 2024
CC / HPI / ROS
-
Chief Complaint:
Alanna with CKD
History of Present Illness:
cr better at 2, Bp stable
no fever
LFTs still high
hb stable at 10.3
Review of Systems:
no cp or sob
per daughter hallucinating
Labs
-
Labs:
WBC 4.4 10^3/uL (4.8-10.8) L 09/24/24 05:00
RBC 3.66 10^6/uL (4.20-5.40) L 09/24/24 05:00
Hgb 10.3 g/dL (12.0-16.0) L 09/24/24 05:00
Hct 34.0 % (37.0-47.0) L 09/24/24 05:00
Plt Count 320 10^3/uL (130-400) 09/24/24 05:00
Sodium 139 mmol/L (135-145) 09/24/24 05:00
Potassium 3.5 mmol/L (3.5-5.1) 09/24/24 05:00
Chloride 104 mmol/L (98-107) 09/24/24 05:00
Carbon Dioxide 26 mmol/L (22-30) 09/24/24 05:00
BUN 54 mg/dl (7-17) H 09/24/24 05:00
Creatinine 2.0 mg/dL (0.6-1.0) H 09/24/24 05:00
eGFR 25.10 09/24/24 05:00
Glucose 95 mg/dl (70-99) 09/24/24 05:00
Calcium 9.1 mg/dl (8.4-10.2) 09/24/24 05:00
Aib-S-Hwfikcvxemr Pept 71397 pg/ml 09/22/24 14:53
Albumin 3.9 g/dl (3.5-5.0) 09/24/24 05:00
Physical Exam
-
Vital Signs:
Vital Signs
Temp Pulse Resp BP Pulse Ox
97.6 F 77 20 125/86 96
09/24/24 11:25 09/24/24 11:25 09/24/24 11:25 09/24/24 11:25 09/24/24 11:25
Cardiovascular:: Regular rate and rhythm
Respiratory:: Bilateral: CTA
Lung Excursion:: Normal
Abdomen:: Nontender and Soft
Extremity Edema:: None: Bilateral:
Bueno Catheter: No
[2024-09-24 15:26] VITALS: BP 120/78
[2024-09-24] MEDS: ATIVAN 0.5 MG PO (17:37)
--- NOTE | 2024-09-24 17:39 | PTCARENOTE ---
pt found sitting in a chair in the hallway. became very agitated when attempts were made to have her go back to her room , pushing staff out of the way. RN was able to get pt back in to a chair. Pt called her sister who had pt's daughter come in.
Pt's daughter brought in a prescription bottle of Lorazepam 0.5mg. Dr Castro made aware of situation and put in one time order for the Lorazepam. Daughter updated on order.
[2024-09-24 19:55] VITALS: BP 101/73
[2024-09-24] MEDS: RISPERDAL M-TAB (ORALLY DISINTEGRATING) 0.5 MG PO (22:24)
[2024-09-24] MEDS: MELATONIN 10 MG PO (22:24)
--- NOTE | 2024-09-24 23:00 | PTCARENOTE ---
Patient's daughter called nurses station around 2144 to inform RN that her mom is 'hallucinating' and is requesting that she have Seroquel ordered for her current symptoms and to help her sleep. She said that her mom was on the phone talking about
her brother and horses, which they don't own.
During the shift, the patient has been restless, pulling off tele stickers, setting off the bed alarm by getting up repeatedly and almost pulled out her IV. She also pushed away another nurse while trying to have her sit back in bed.
Contacted PRESS TOOL MAKER via TT regarding Seroquel. PRESS TOOL MAKER ordered Risperdal d/t med interactions with Seroquel. Patient's daughter informed and was fine with her getting Risperdal. Medication administered at 2223.
Patient slept well most of the night, only getting up a few times to use the bathroom.
[2024-09-24 23:33] VITALS: BP 128/84
[2024-09-25 03:50] VITALS: BP 126/76
[2024-09-25 06:00] VITALS: BMI 31.3
[2024-09-25 07:15] LABS: Hematocrit 30.6 % (37.0-47.0); Hemoglobin 9.6 g/dL (12.0-16.0); Mean Corp Hgb Conc. 31.4 g/dL (33.0-37.0); Mean Corpuscular Hgb 28.7 pg (27.0-31.0); Mean Corpuscular Volume 91.3 fL (81.0-99.0); Mean Platelet Volume 9.3 fL (7.4-10.4); Platelet Count 246 10^3/uL (130-400); Red Blood Cell Count 3.35 10^6/uL (4.20-5.40); White Blood Cell Count 3.1 10^3/uL (4.8-10.8)
[2024-09-25 07:27] VITALS: BP 125/78
[2024-09-25 07:49] LABS: ALT (SGPT) 48 U/L (0-35); AST (SGOT) 45 U/L (14-36); Albumin 3.3 g/dl (3.5-5.0); Alkaline Phosphatase 119 U/L (38-126); Blood Urea Nitrogen 43 mg/dl (7-17); Calcium 8.6 mg/dl (8.4-10.2); Carbon Dioxide 28 mmol/L (22-30); Chloride 105 mmol/L (98-107); Estimated Creatinine Clearance 26 ml/min; Glucose 77 mg/dl (70-99); Potassium 3.2 mmol/L (3.5-5.1); Sodium 141 mmol/L (135-145); Total Bilirubin 2.3 mg/dl (0.2-1.3); Total Protein 5.9 g/dl (6.3-8.2); eGFR 28.48
--- NOTE | 2024-09-25 08:40 | VNURNOTE ---
Chart reviewed. Patient is current with [facility] nursing. Will continue to follow hospital course and DC plans.
[2024-09-25] MEDS: PACERONE 200 MG PO (08:46)
[2024-09-25] MEDS: TOPROL XL 25 MG PO (08:46)
[2024-09-25] MEDS: LIDOCAINE 4% PATCH TOPICAL ×2 (08:47)
[2024-09-25] MEDS: ELIQUIS 5 MG PO ×2 (08:47→21:30)
[2024-09-25] MEDS: LASIX 60 MG PO ×2 (08:47→16:16)
[2024-09-25] MEDS: LEXAPRO 20 MG PO (08:47)
--- NOTE | 2024-09-25 10:16 | VNURNOTE ---
Addendum entered by Flakita Chambers RN 09/26/24 12:44:
rec'ed update that pt will go home with son. [facility] Intake updated. Resumption w/[facility].
Original Note:
Chart reviewed. Patient is current with [facility]. Spoke with pt's daughter Sole. Inquired where pt is moving to. Per Sole, pt might move to [facility] M 2-5. However, Sole is also looking into LTC facilities. She is concerned
that pt has been agitated and uncooperative at night. Daughter understands that pt would not receive VN if she goes to LTC. CM updated. [facility] referral accepted, [facility] remains available pending final DC dispo.
--- NOTE | 2024-09-25 10:49 | CM ---
CM received message from patient's palliative SW who informed CM that patient's daughter has concerns about patient not being able to return home and needing placement at d/c.
CM spoke w/ patient's daughter, Sole, who informed CM that she is wanting LTC for patient. Sole stated that she resides in [place] and that her son, who lives w/ patient, has high functioning autism and unable to care for patient in the home due to
her agitation and combativeness recently. CM discussed LTC and financial applications that may be requested, Sole stated patient does not have a lot of funds and only gets social security. CM stated LTC facilities that accepts Medicaid can be
explored and family can be assisted w/ applying. Sole shared she does not have any preferences for facilities but would like referrals in [facility].
PT jasiel ordered, will see if patient has any skilled needs
CM sent referrals to LTC facilities in [facility] for review
Plan: LTC placement
[2024-09-25 11:00] VITALS: BP 123/75
--- NOTE | 2024-09-25 11:38 | W.PN.CARDCBS ---
Addendum entered and electronically signed by Yahir Chaudhry MD 09/25/24 13:16:
78-year-old woman admitted with change in mental status and evidence of acute on chronic HFrEF on admission
PMH/PSH: PAF, status post cardioversion December 2023 and January 2024, on amiodarone, HFrEF, left bundle branch block, nonsustained VT, BiV ICD in 2022, CAD with drug-eluting stent to OM 2020, hypertension, hyperlipidemia, moderate-severe mitral
regurgitation with severe TR, CKD 3B, knee replacement
Current meds: Amiodarone 200 mg a day, apixaban 5 mg twice daily, escitalopram 20 mg a day, metoprolol ER 25 mg daily, melatonin, furosemide 60 mg p.o. twice daily, lidocaine patch
125/78, pulse 71, respirate 16, afebrile,, head neck exam unremarkable, lungs are clear, systolic murmur at apex, JVD okay, not much edema
ECG AV paced
Chest x-ray: Obese, cardiomegaly, ICD, possible mild vascular congestion
BUN/creatinine are 43 and 1.8, in July creatinine was 1.4, was 2.4 on admission, potassium is 3.2
Impression:
mental status change
Chest pressure
shortness of breath
Heart failure reduced EF
Lightheadedness
h/o admission for acute on chronic heart failure w/ reduced EF, proBNP 42459 04/2024
CKD (creat ranges 1.2-2.0)
Paroxysmal Afib
s/p CV 12/20/23
s/p RIAZ/CV 01/26/24 Chronic anti-coagulation on Eliquis
Heart failure with reduced ejection fraction
LBBB
NSVT
Ischemic Cardiomyopathy
s/p Medtronic BiV ICD 11/18/22 CAD
s/p RAULITO OM 07/2020HTN
Hyperlipidemia
Moderate/Severe Mitral Regurg. Severe Tricuspid Regurg
CKD IIIB
Irritable Bowel Syndrome
Hx Diverticulitis
Plan:
Overall, she seems stable from a cardiac standpoint.
No evidence of volume overload at this time. Currently on furosemide 60 mg twice daily by mouth, which is her baseline dose, or as per renal
Creatinine is still above baseline but improving, she had been on spironolactone 3 days a week at admission and this has been held, can consider rechallenge as outpatient but may be best to hold given recent ALANNA.
With a history of HFpEF, SGLT2 antagonist could be considered, but given that patient is stable and in palliative care, probably optional to administer at this time. Similarly for long-acting beta-benjy. BRITTANY/ARB Entresto, relatively
contraindicated given ALANNA. Will need to discuss with her daughter.
From cardiac standpoint, okay to proceed with discharge planning.
Original Note:
Today's Communication / Plan
-
replete K
awaiting brain MRI
Impression / Plan
-
PCP: BYRON Man
Spray Blender: Dr. Figueroa
Heart failure real estate broker: Dr. Sommer Torre, first seen May 2024
Poultry Processor: Dr. Robert Ziegler
Impression:
mental status change
Chest pressure
shortness of breath
Heart failure reduced EF
Lightheadedness
h/o admission for acute on chronic heart failure w/ reduced EF, proBNP 28171 04/2024
CKD (creat ranges 1.2-2.0)
Paroxysmal Afib
s/p CV 12/20/23
s/p RIAZ/CV 01/26/24
Chronic anti-coagulation on Eliquis
Heart failure with reduced ejection fraction
LBBB
NSVT
Ischemic Cardiomyopathy
s/p Medtronic BiV ICD 11/18/22
CAD
s/p RAULITO OM 07/2020
HTN
Hyperlipidemia
Moderate/Severe Mitral Regurg. Severe Tricuspid Regurg
CKD IIIB
Irritable Bowel Syndrome
Hx Diverticulitis
right heart cath 01/28/2024: RA 22, PA 68/48, PCWP 38, CO 2.1/CI 1.1
RIAZ 01/26/2024, prior to cardioversion, EF 20%, moderate/severe MR, enlarged RV with reduced RV systolic function, severe TR
Lexiscan nuclear stress test 07/19/2020: Moderate reversible defect in the mid inferolateral, mid inferior, and apical inferior segments. Inferior hypokinesis. LVEF 40%. LV normal size.�������
Echo 07/12/2020: LVEF 45-50%. Mild global hypo. Inferior basal akinesis. Moderate LAE. Aortic valve sclerosis.
Echo 03/20/2021: EF 35 to 40%, stage II DD. Mild left atrial enlargement. Mild MR.
Echo 10/11/2023: EF 34%. Moderately reduced LV systolic function. Stage II DD. Mild MR, mild TR. PAP 37 mmHg
Echo 01/04/2024: EF 20%, global hypokinesis with regional variability, normal RV size with low normal RV systolic function, moderate to severe MR, severe TR with PAP 65-70 mmHg
Echo 07/31/2024: no change, LVEF 25 to 30%, moderate to severe MR, moderate to severe TR with PAP 50 mmHg RV size normal RV systolic function reduced
Plan:
-Holding spironolactone for now due to ALANNA, creati 2.4 on admit 09/18, trending down, now 1.8 09/25
-baseline creat ~1.4
-continues outpt diuretic, Lasix 60 mg BID . wt has been in stable range, 175-176 lbs. Not requiring O2.
- As above, not on Entresto or Farxiga due to worsening chronic kidney disease in outpatient setting.
- Recently restarted on spironolactone but currently on hold due to ALANNA. Creat improving, would consider restarting given hypokalemia.
-K repletion ordered
-History of PAF with most recent cardioversion January 2024. Patient currently AV paced in sinus rhythm. Continue Amiodarone and Eliquis
-on telemetry she is AV paced, personally reviewed
-still with confusion/ per sister Whitney, pt with hallucinations overnight. Awaiting brain MRI. CT scan with no acute intracranial abnormality.
-Pt is DNR and is recently started with palliative care in home setting
- Daughter requesting additional social service liaison, case management consult placed.
Progress Note - Spray Blender
Subjective
Date of Service: September 25, 2024
-hallucinations overnight
-creat improving
Objective
Labs:
09/25/24 05:55
09/25/24 05:55
Labs
Hgb 9.6 g/dL (12.0-16.0) L 09/25/24 05:55
Hct 30.6 % (37.0-47.0) L 09/25/24 05:55
Plt Count 246 10^3/uL (130-400) D 09/25/24 05:55
Sodium 141 mmol/L (135-145) 09/25/24 05:55
Potassium 3.2 mmol/L (3.5-5.1) L 09/25/24 05:55
BUN 43 mg/dl (7-17) H 09/25/24 05:55
Creatinine 1.8 mg/dL (0.6-1.0) H 09/25/24 05:55
Glucose 77 mg/dl (70-99) 09/25/24 05:55
Vital Signs and I&O:
Vital Signs
Temp Pulse Resp BP Pulse Ox
98.6 F 71 17 123/75 97
09/25/24 11:00 09/25/24 11:00 09/25/24 11:00 09/25/24 11:00 09/25/24 11:00
Vital Signs
Temp Pulse Resp BP Pulse Ox
98.6 F 71 17 123/75 97
09/25/24 11:00 09/25/24 11:00 09/25/24 11:00 09/25/24 11:00 09/25/24 11:00
Intake & Output
09/23/24 09/24/24 09/25/24 09/26/24
06:59 06:59 06:59 06:59
Intake Total 240 / 240 480 / 480 480 / 480 480 / 480
Balance 240 / 240 480 / 480 480 / 480 480 / 480
Physical Exam
Physical Exam
GEN: No distress, awake, Ox3
HEENT: supple, anicteric, mmm
LUNGS: CTA, no wheezes/rales
CV: Reg, S1/S2, 1/6 syst LSB
ABD: soft, BS+, NT/ND
EXT: tr LE edema
NEURO: Gross non-focal
SKIN: No rash
[2024-09-25] MEDS: KCL 40 MEQ PO (11:41)
--- NOTE | 2024-09-25 13:02 | W.PN.NEPH.PH ---
Today's Communication / Plan
-
Continue diuretics
Assessment/Plan
-
Impression:
Acute V Chronic Metabolic Encepholoapthy
Alanna with CKD 3b-baseline cr 1.4
HX Chronic HFrEF - EF 25-30% , stageIII DD
HX ICM
S/P Medtronic BiV ICD placement 2022
Paroxysmal Afib
Hyperbilirubinemia
Transaminitis
severe MR
CAD s/p RAULITO OM 07/2020
LBBB
NSVT
s/p Medtronic BiV ICD 11/18/22
Depression
Essential HTN
Hyperlipidemia not on statin
Irritable Bowel Syndrome on dicyclomine as needed
HX Diverticulitis
Obesity per BMI criteria
IBS with diarrhea
Anxiety depression
orthostatic hypotension
Plan:
A/w AMS preceding narcs use , ?dementia cr slightly better at 2> 1.8
ALANNA-bland UA suspect cardiorenal , noted CXR and high BNP
Abdominal ultrasound no renal pathology
avoid nephrotoxins
Continue diuretics
-
-
Date of Service: September 25, 2024
CC / HPI / ROS
-
Chief Complaint:
Alanna with CKD
History of Present Illness:
cr better at 2, Bp stable
no fever
LFTs still high
hb stable at 10.3
Review of Systems:
no cp or sob
per daughter hallucinating
Labs
-
Labs:
WBC 3.1 10^3/uL (4.8-10.8) L 09/25/24 05:55
RBC 3.35 10^6/uL (4.20-5.40) L 09/25/24 05:55
Hgb 9.6 g/dL (12.0-16.0) L 09/25/24 05:55
Hct 30.6 % (37.0-47.0) L 09/25/24 05:55
Plt Count 246 10^3/uL (130-400) D 09/25/24 05:55
Sodium 141 mmol/L (135-145) 09/25/24 05:55
Potassium 3.2 mmol/L (3.5-5.1) L 09/25/24 05:55
Chloride 105 mmol/L (98-107) 09/25/24 05:55
Carbon Dioxide 28 mmol/L (22-30) 09/25/24 05:55
BUN 43 mg/dl (7-17) H 09/25/24 05:55
Creatinine 1.8 mg/dL (0.6-1.0) H 09/25/24 05:55
eGFR 28.48 09/25/24 05:55
Glucose 77 mg/dl (70-99) 09/25/24 05:55
Calcium 8.6 mg/dl (8.4-10.2) 09/25/24 05:55
Eye-Q-Tzmcxagitnu Pept 62685 pg/ml 09/22/24 14:53
Albumin 3.3 g/dl (3.5-5.0) L 09/25/24 05:55
Physical Exam
-
Vital Signs:
Vital Signs
Temp Pulse Resp BP Pulse Ox
98.6 F 71 17 123/75 97
09/25/24 11:00 09/25/24 11:00 09/25/24 11:00 09/25/24 11:00 09/25/24 11:00
Cardiovascular:: Regular rate and rhythm
Respiratory:: Bilateral: CTA
Lung Excursion:: Normal
Abdomen:: Nontender and Soft
Extremity Edema:: None: Bilateral:
Bueno Catheter: No
--- NOTE | 2024-09-25 13:23 | W.PN.HOSP.TC ---
Today's Communication/Plan
-
f/u mr brain report
continue supportive measures
f/u renal function
eventual snf placement
Assessment / Plan
Assessment / Plan
#Acute V Chronic Metabolic Encephalopathy
Possible mild cognitive impairment
-Although cannot be confirmed possibility of mild cognitive impairment is there
-UA negative, no evidence of infection
-MRI brain pending
-Utox - pos for prescribed opiates.
-TSH wnl, check b12/folate
-Continue supportive measures
- Patient was provided risperidone half milligram for some agitation/sundowning, patient somewhat somnolent from it, will decrease the dose to quarter milligram for tonight.
#ALANNA on CKD 3b HX
-cr 2.4, trending down and 1.8 today, baseline close to 1.4
-Hold Spironolactone
-on PO lasix 60mg/bid, continue monitoring.
#HX Chronic HFrEF - EF 20% as per echo in January 2024
HX ICM
S/P Medtronic BiV ICD placement 2022
-Cont Lasix
-Hold Aldactone
-c/w metoprolol, dapagliflozin
#Paroxysmal Afib
- s/p CV 12/20/23
- s/p RIAZ/CV 01/26/24
- Chronic anti-coagulation on Eliquis
- on Chr Amiodarone
#Hyperbilirubinemia
#Transaminitis
-Chronic, although slightly higher
-RUQ abd ultrasound- unremarkable
Known HX Moderate to severe MR
CAD s/p RAULITO OM 07/2020
HX ICM
Lexiscan nuclear stress test 07/19/2020: Moderate reversible defect in the mid inferolateral, mid inferior, and apical inferior segments. Inferior hypokinesis. LVEF 40%. LV normal size.
LBBB
NSVT
s/p Medtronic BiV ICD 11/18/22
Depression
Essential HTN
Hyperlipidemia- not on statin
Irritable Bowel Syndrome
HX Diverticulitis
Obesity per BMI criteria
DVT prophylaxis-Eliquis
DNR per daughter
Anticipated Discharge: 24 - 48 hours
Subjective/Interval History
-
Date of Service: September 25, 2024
Patient remains somewhat somnolent although coherent with question answering
Patient continues to show lapses in long-term memory and forgetting perez information
Reported some sundowning/agitation and required to be given risperidone at night
Objective Data
-
Labs:
Laboratory Results
09/25/24
05:55
WBC 3.1 L
Hgb 9.6 L
Hct 30.6 L
Plt Count 246 D
Sodium 141
Potassium 3.2 L
Chloride 105
Carbon Dioxide 28
BUN 43 H
Creatinine 1.8 H
Glucose 77
Calcium 8.6
Total Bilirubin 2.3 H
AST 45 H
ALT 48 H
Alkaline Phosphatase 119
Vital Signs:
Vital Signs
Temp Pulse Resp BP Pulse Ox
98.6 F 71 17 123/75 97
09/25/24 11:00 09/25/24 11:00 09/25/24 11:00 09/25/24 11:00 09/25/24 11:00
I&O
09/24/24 09/25/24 09/26/24
06:59 06:59 06:59
Intake Total 480 / 480 480 / 480 480 / 480
Balance 480 / 480 480 / 480 480 / 480
Review of Systems
-
Respiratory: Reports No Symptoms
Cardiac: Reports No Symptoms
Abdomen/GI: Reports No Symptoms
Physical Exam
-
General: No Apparent Distress and Comfortable
HEENT: Negative Oxygen
Respiratory: Clear to Auscultation
GI: Soft and Nontender
Musculoskeletal: No Edema
Neuro: Awake, Alert and No Motor Deficits
Psych: Calm
[2024-09-25 14:46] LABS: Folate 9.1 ng/ml (2.76-20); Vitamin B12 > 1000 pg/ml (239-931)
[2024-09-25 15:15] VITALS: BP 101/63; PULSE 74; O2SAT 99
[2024-09-25 15:18] VITALS: BP 101/63; PULSE 72; O2SAT 98
[2024-09-25] MEDS: MELATONIN 10 MG PO (21:31)
[2024-09-25 23:00] VITALS: BP 104/70
[2024-09-26 05:39] VITALS: BMI 30.2
[2024-09-26 07:25] LABS: Hematocrit 33.1 % (37.0-47.0); Hemoglobin 10.2 g/dL (12.0-16.0); Mean Corp Hgb Conc. 30.8 g/dL (33.0-37.0); Mean Corpuscular Hgb 28.3 pg (27.0-31.0); Mean Corpuscular Volume 91.9 fL (81.0-99.0); Mean Platelet Volume 9.8 fL (7.4-10.4); Platelet Count 275 10^3/uL (130-400); Red Cell Dist. Width 17.9 % (11.5-14.5); White Blood Cell Count 3.7 10^3/uL (4.8-10.8)
[2024-09-26 08:11] LABS: ALT (SGPT) 46 U/L (0-35); AST (SGOT) 42 U/L (14-36); Albumin 3.5 g/dl (3.5-5.0); Alkaline Phosphatase 123 U/L (38-126); Blood Urea Nitrogen 38 mg/dl (7-17); Calcium 8.8 mg/dl (8.4-10.2); Carbon Dioxide 27 mmol/L (22-30); Chloride 105 mmol/L (98-107); Estimated Creatinine Clearance 27 ml/min; Glucose 90 mg/dl (70-99); Potassium 3.5 mmol/L (3.5-5.1); Sodium 141 mmol/L (135-145); Total Bilirubin 2.2 mg/dl (0.2-1.3); Total Protein 6.2 g/dl (6.3-8.2)
[2024-09-26 08:33] VITALS: BP 118/79
[2024-09-26] MEDS: LASIX 60 MG PO ×2 (09:21→15:32)
[2024-09-26] MEDS: ELIQUIS 5 MG PO (09:23)
[2024-09-26 09:24] VITALS: BP 119/81; PULSE 73; O2SAT 98
[2024-09-26] MEDS: PACERONE 200 MG PO (09:24)
[2024-09-26] MEDS: TOPROL XL 25 MG PO (09:25)
[2024-09-26] MEDS: LEXAPRO 20 MG PO (09:25)
[2024-09-26] MEDS: LIDOCAINE 4% PATCH TOPICAL (09:26)
--- NOTE | 2024-09-26 12:20 | CM ---
Per hospitalist, patient is more alert and oriented now. Patient is stable for d/c.
Spoke w/patient's daughter, Sole, who shared since patient is more lucid now, she no longer is exploring LTC placement for her and feels comfortable w/ her returning home w/ her son. Hospitalist agreeable to d/c today
Patient is current w/ [facility], updated liaison on plan for home today
IMM verbally reviewed, copy on chart
Plan: Home, FORTUNATO w/ [facility]
--- NOTE | 2024-09-26 12:34 | W.PN.NEPH.PH ---
Today's Communication / Plan
-
Diuretics
Assessment/Plan
-
Impression:
Acute V Chronic Metabolic Encepholoapthy
Alanna with CKD 3b-baseline cr 1.4
HX Chronic HFrEF - EF 25-30% , stageIII DD
HX ICM
S/P Medtronic BiV ICD placement 2022
Paroxysmal Afib
Hyperbilirubinemia
Transaminitis
severe MR
CAD s/p RAULITO OM 07/2020
LBBB
NSVT
s/p Medtronic BiV ICD 11/18/22
Depression
Essential HTN
Hyperlipidemia not on statin
Irritable Bowel Syndrome on dicyclomine as needed
HX Diverticulitis
Obesity per BMI criteria
IBS with diarrhea
Anxiety depression
orthostatic hypotension
Plan:
A/w AMS preceding narcs use /better at 2> 1.8> 1.7
ALANNA-bland UA suspect cardiorenal , noted CXR and high BNP
Abdominal ultrasound no renal pathology
avoid nephrotoxins
Continue diuretics
Creatinine stable at baseline though labile with review of records between 1.4 and 1.9
-
-
Date of Service: September 26, 2024
CC / HPI / ROS
-
Chief Complaint:
Alanna with CKD
History of Present Illness:
cr better at 2, Bp stable
no fever
LFTs still high
hb stable at 10.3
Review of Systems:
no cp or sob
Labs
-
Labs:
WBC 3.7 10^3/uL (4.8-10.8) L 09/26/24 06:34
RBC 3.60 10^6/uL (4.20-5.40) L 09/26/24 06:34
Hgb 10.2 g/dL (12.0-16.0) L 09/26/24 06:34
Hct 33.1 % (37.0-47.0) L 09/26/24 06:34
Plt Count 275 10^3/uL (130-400) 09/26/24 06:34
Sodium 141 mmol/L (135-145) 09/26/24 06:34
Potassium 3.5 mmol/L (3.5-5.1) 09/26/24 06:34
Chloride 105 mmol/L (98-107) 09/26/24 06:34
Carbon Dioxide 27 mmol/L (22-30) 09/26/24 06:34
BUN 38 mg/dl (7-17) H 09/26/24 06:34
Creatinine 1.7 mg/dL (0.6-1.0) H 09/26/24 06:34
eGFR 30.50 09/26/24 06:34
Glucose 90 mg/dl (70-99) 09/26/24 06:34
Calcium 8.8 mg/dl (8.4-10.2) 09/26/24 06:34
Dri-L-Nlhalplysmi Pept 49013 pg/ml 09/22/24 14:53
Albumin 3.5 g/dl (3.5-5.0) 09/26/24 06:34
Physical Exam
-
Vital Signs:
Vital Signs
Temp Pulse Resp BP Pulse Ox
97.5 F 71 16 118/79 93
09/26/24 08:33 09/26/24 09:21 09/26/24 08:33 09/26/24 09:21 09/26/24 08:33
Cardiovascular:: Regular rate and rhythm
Respiratory:: Bilateral: CTA
Lung Excursion:: Normal
Abdomen:: Nontender and Soft
Extremity Edema:: None: Bilateral:
Bueno Catheter: No
--- NOTE | 2024-09-26 13:13 | W.PN.HOSP.TC ---
Today's Communication/Plan
-
d/c home with VN
Assessment / Plan
Assessment / Plan
#Acute Metabolic Encephalopathy - improved
Possible mild cognitive impairment
-Although cannot be confirmed possibility of mild cognitive impairment is there
-UA negative, no evidence of infection
-MRI brain not doable as pacemaker is not compatible
-Utox - pos for prescribed opiates.
-TSH wnl, B12/folate wnl
-Continue supportive measures
-Providing prescription for nighttime Risperdal as needed use for any agitation/sundowning
-Providing contact number of neurologist to follow-up if continues to have problems with memory
#ALANNA on CKD 3b HX
-cr 2.4, trending down and 1.8 today, baseline close to 1.4
-resume aldactone post f/u with cards or pCP
-on PO lasix 60mg/bid, continue monitoring.
#HX Chronic HFrEF - EF 20% as per echo in January 2024
HX ICM
S/P Medtronic BiV ICD placement 2022
-Cont Lasix
-Hold Aldactone
-c/w metoprolol, dapagliflozin
#Paroxysmal Afib
- s/p CV 12/20/23
- s/p RIAZ/CV 01/26/24
- Chronic anti-coagulation on Eliquis
- on Chr Amiodarone
#Hyperbilirubinemia
#Transaminitis
-Chronic, although slightly higher
-RUQ abd ultrasound- unremarkable
Known HX Moderate to severe MR
CAD s/p RAULITO OM 07/2020
HX ICM
Lexiscan nuclear stress test 07/19/2020: Moderate reversible defect in the mid inferolateral, mid inferior, and apical inferior segments. Inferior hypokinesis. LVEF 40%. LV normal size.
LBBB
NSVT
s/p Medtronic BiV ICD 11/18/22
Depression
Essential HTN
Hyperlipidemia- not on statin
Irritable Bowel Syndrome
HX Diverticulitis
Obesity per BMI criteria
DVT prophylaxis-Eliquis
DNR per daughter
More than 30 minutes spent in discharge including
Final examination of the patient
Summarizing hospital stay
Instructions for continuing care to all relevant caregivers
Preparation of discharge records, prescriptions, and referral forms
Total time spent (in minutes): 43 mins
Anticipated Discharge: Today
Subjective/Interval History
-
Date of Service: September 26, 2024
no new issues.
mentation better
Objective Data
-
Labs:
Laboratory Results
09/26/24
06:34
WBC 3.7 L
Hgb 10.2 L
Hct 33.1 L
Plt Count 275
Sodium 141
Potassium 3.5
Chloride 105
Carbon Dioxide 27
BUN 38 H
Creatinine 1.7 H
Glucose 90
Calcium 8.8
Total Bilirubin 2.2 H
AST 42 H
ALT 46 H
Alkaline Phosphatase 123
Vital Signs:
Vital Signs
Temp Pulse Resp BP Pulse Ox
97.5 F 71 16 118/79 93
09/26/24 08:33 09/26/24 09:21 09/26/24 08:33 09/26/24 09:21 09/26/24 08:33
I&O
09/25/24 09/26/24 09/27/24
06:59 06:59 06:59
Intake Total 480 / 480 720 / 720
Balance 480 / 480 720 / 720
Review of Systems
-
Respiratory: Reports No Symptoms
Cardiac: Reports No Symptoms
Abdomen/GI: Reports No Symptoms
Physical Exam
-
General: No Apparent Distress and Comfortable
HEENT: Negative Oxygen
Respiratory: Clear to Auscultation
GI: Soft, Nontender and Nondistended
Musculoskeletal: No Edema
Neuro: Awake, Alert and No Motor Deficits
Psych: Calm
--- NOTE | 2024-09-26 13:19 | W.DCSUMMARY ---
Discharge Summary
Discharge Data
Date of Admission: 09/22/24
Date of Discharge: 09/26/24
-
Pending Results: No
Hospital Course
Discharging Physician : Dr Franck Teague
Disposition : To home
Primary care physician : Dr Suyapa Duval
Principal Discharge diagnosis :
Acute metabolic encephalopathy
Suspected mild cognitive impairment
Acute kidney injury chronic kidney disease stage IIIb
Chronic Discharge diagnosis :
Chronic systolic congestive heart failure
History of ischemic cardiomyopathy
History of biventricular defibrillator placement in 23
Paroxysmal atrial fibrillation
History of cardioversions
Moderate to severe mitral regurgitation
History of coronary disease post obtuse marginal drug eluting stent placement
History of nonsustained ventricular tachycardia
Essential hypertension
Irritable bowel syndrome
History of diverticulitis
Hospital Course :
Patient is a 78-year-old female with admission past medical history was brought in by daughter after patient was noted to having waxing and waning mental status status for 2 weeks. Family patient was having some issues with left shoulder pain and
was using Percocet and the symptoms for felt to be pronounced after using Percocets. In ER patient had quick evaluation with no clear signs of any active infection playing a role. Patient UA was negative. Urine drug screen was positive for
prescription opiates. Patient was initiated on supportive measures. TSH/B12/folate were checked and within normal limit. No other clear reason identified explaining patient's symptoms. Patient suspected to having possible mild cognitive
impairment although cannot be confirmed. MRI brain was planned although patient has a pacemaker which is not compatible to MRI and thus was canceled. With nighttime antipsychotic, patient did not have any major daytime issues. Patient has been
provided contact number of neurology to follow-up in the office for further neuro cognitive assessment.
Patient also noted to found having some renal failure on top of underlying chronic kidney disease stage IIIb. Nephrology was involved in care and patient was maintained on home dose of diuretics. ARB/Aldactone was held with which patient renal
function improved slowly but not completely normalized. Patient is being discharged off of Aldactone will need to follow-up with primary care physician/cardiology for reinitiation if renal function allows.
Patient was discharged home with home care post medical stabilization.
Important imaging findings :
None
Procedure findings :
None
Discharge Plan
-
Patient Disposition: Home with Home Care
Discharge Diagnosis/Procedures: Encephalopathy episode, ALANNA on CKDIIIA
Condition: Fair
Diet: 2 Gram Sodium
Activity: As tolerated
Driving Restrictions: As prior to admission
Bathing Restrictions: OK to Shower
Blood Work: BMP in 1 week
Specialty Instructions: Weigh Daily- Call MD for wt gain/loss 3 lbs overnight/5 lbs in 1 week
Referrals:
Suyapa Duval CRNP [Family Provider, General] - in one week
Dmitry Huang MD [Active, Neurology] - in two to four weeks
Referral Note: Please call for a new patient appointment if continues to have problem with memory/confusion
Maren Renae CRNP [Specified Professional Personl, Cardiology] - 10/09/24 2:40 pm
Referral Note: You have a cardiology follow-up appointment at the [place] office with Dr. Sommer Torre's nurse practitioner, Maren. Please call with questions
Stacey Fisher MD [Active, Nephrology] - in two to four weeks
Additional Discharge Medication Instructions: STOP aldactone/Percocet
Prescriptions:
New
risperidone 0.25 mg Tablet
0.25 mg PO HSPRN PRN (Reason: Agitation) Qty: 30 0RF
Continued
Eliquis 5 mg Tablet
5 mg PO BID
amiodarone 200 mg Tablet
200 mg PO DAILY
acetaminophen 650 mg Tablet Extended Release
1,300 mg PO [id number] PRN (Reason: mild pain)
metoprolol succinate [Toprol XL] 25 mg Tablet Extended Release 24 Hr
25 mg PO DAILY
escitalopram oxalate [Lexapro] 20 mg Tablet
20 mg PO DAILY
melatonin 10 mg Tablet
10 mg PO HS
furosemide 40 mg tablet
60 mg PO BID
polyethylene glycol 3350 [Miralax] 17 gram Powder In Packet
17 g PO DAILYPRN PRN (Reason: constipation)
Discontinued
ondansetron HCl [Zofran] 4 mg Tablet
4 mg PO Q6HPRN PRN (Reason: nausea/vomiting)
spironolactone 25 mg Tablet
12.5 mg PO MOWEFR
oxycodone-acetaminophen [Percocet] 5-325 mg tablet
1 tab PO Q6HPRN PRN (Reason: moderate to severe pain)
Discharge Orders:
Discharge Patient (As Directed); Ordered 09/26/24
Ordered By: Franck Teague
Discharge Date and Time
Discharge Date/Time: 09/26/24 16:30
Print Language: IRISH
--- NOTE | 2024-09-26 14:14 | W.PN.CARDCBS ---
Addendum entered and electronically signed by Yahir Chaudhry MD 09/26/24 19:25:
Patient interviewed and examined, offers no complaints.
78-year-old woman admitted with change in mental status and evidence of acute on chronic HFrEF on admission
PMH/PSH: PAF, status post cardioversion December 2023 and January 2024, on amiodarone, HFrEF, left bundle branch block, nonsustained VT, BiV ICD in 2022, CAD with drug-eluting stent to 2020, hypertension, hyperlipidemia, moderate-severe mitral
regurgitation with severe TR, CKD 3B, knee replacement
Current meds: Amiodarone 200 mg a day, apixaban 5 mg twice daily, escitalopram 20 mg a day, metoprolol ER 25 mg daily, melatonin, furosemide 60 mg p.o. twice daily, lidocaine patch
Vital signs reviewed, afebrile, head neck exam unremarkable, lungs are clear, systolic murmur at apex, JVD okay, not much edema
Hemoglobin 10.2, BUN/creatinine, 38 and 1.7, creatinine was 1.8 and peaked at 2.4
Impression:
As below per Olinda back. Reviewed in detail and agree, unless otherwise specified.
Plan:
She is stable. Stop spironolactone.
Follow-up BMP with follow-up cardiac visit.
Furosemide should be 60 mg twice daily.
Okay for discharge.
Original Note:
Today's Communication / Plan
-
po lasix 60mg BID
no spironolactone
replete K and start daily KCl supplementation
BMP in 1 week
will arrange OP cardiac follow up
for DC today
Impression / Plan
-
PCP: BYRON Man
Computer Systems Hardware Analyst: Dr. Figueroa
Heart failure acid regenerator: Dr. Sommer Torre, first seen May 2024
[employer] Executive Producer: Dr. Robert Ziegler
Impression:
mental status change
Chest pressure
shortness of breath
Heart failure reduced EF
Lightheadedness
h/o admission for acute on chronic heart failure w/ reduced EF, proBNP 89353 04/2024
CKD (creat ranges 1.2-2.0)
Paroxysmal Afib
s/p CV 12/20/23
s/p RIAZ/CV 01/26/24
Chronic anti-coagulation on Eliquis
Heart failure with reduced ejection fraction
LBBB
NSVT
Ischemic Cardiomyopathy
s/p Medtronic BiV ICD 11/18/22
CAD
s/p RAULITO OM 07/2020
HTN
Hyperlipidemia
Moderate/Severe Mitral Regurg. Severe Tricuspid Regurg
CKD IIIB
Irritable Bowel Syndrome
Hx Diverticulitis
right heart cath 01/28/2024: RA 22, PA 68/48, PCWP 38, CO 2.1/CI 1.1
RIAZ 01/26/2024, prior to cardioversion, EF 20%, moderate/severe MR, enlarged RV with reduced RV systolic function, severe TR
Lexiscan nuclear stress test 07/19/2020: Moderate reversible defect in the mid inferolateral, mid inferior, and apical inferior segments. Inferior hypokinesis. LVEF 40%. LV normal size.�������
Echo 07/12/2020: LVEF 45-50%. Mild global hypo. Inferior basal akinesis. Moderate LAE. Aortic valve sclerosis.
Echo 03/20/2021: EF 35 to 40%, stage II DD. Mild left atrial enlargement. Mild MR.
Echo 10/11/2023: EF 34%. Moderately reduced LV systolic function. Stage II DD. Mild MR, mild TR. PAP 37 mmHg
Echo 01/04/2024: EF 20%, global hypokinesis with regional variability, normal RV size with low normal RV systolic function, moderate to severe MR, severe TR with PAP 65-70 mmHg
Echo 07/31/2024: no change, LVEF 25 to 30%, moderate to severe MR, moderate to severe TR with PAP 50 mmHg RV size normal RV systolic function reduced
Plan:
- Outpatient spironolactone has been stopped due to ALANNA. Creatinine improved to 1.7. baseline Cr ~1.4
- Potassium 3.5 on 09/26. Will replete. May need addition of daily KCl for discharge as now off spironolactone
- continues outpt diuretic, Lasix 60 mg BID. weight if accurate down to 170 pounds.
- not on Entresto or Farxiga due to worsening chronic kidney disease in outpatient setting.
- Will need BMP in 1 week, prescription written and placed in chart
- History of PAF with most recent cardioversion January 2024. not presently on tele. Continue Amiodarone and Eliquis
- she reported some chest discomfort on arrival which improved with oxycodone and diuresis. will reassess as OP and determine if additional testing required. EKG AV paced
- Pt is DNR and is recently started with palliative care in home setting
- plan for DC today
- will arrange OP cardiac follow up
Progress Note - Computer Systems Hardware Analyst
Subjective
Date of Service: September 26, 2024
feeling well. no CP, SOB
Objective
Labs:
09/26/24 06:34
09/26/24 06:34
Labs
Hgb 10.2 g/dL (12.0-16.0) L 09/26/24 06:34
Hct 33.1 % (37.0-47.0) L 09/26/24 06:34
Plt Count 275 10^3/uL (130-400) 09/26/24 06:34
Sodium 141 mmol/L (135-145) 09/26/24 06:34
Potassium 3.5 mmol/L (3.5-5.1) 09/26/24 06:34
BUN 38 mg/dl (7-17) H 09/26/24 06:34
Creatinine 1.7 mg/dL (0.6-1.0) H 09/26/24 06:34
Glucose 90 mg/dl (70-99) 09/26/24 06:34
Vital Signs and I&O:
Vital Signs
Temp Pulse Resp BP Pulse Ox
97.5 F 71 16 118/79 93
09/26/24 08:33 09/26/24 09:21 09/26/24 08:33 09/26/24 09:21 09/26/24 08:33
Vital Signs
Temp Pulse Resp BP Pulse Ox
97.5 F 71 16 118/79 93
09/26/24 08:33 09/26/24 09:21 09/26/24 08:33 09/26/24 09:21 09/26/24 08:33
Intake & Output
09/24/24 09/25/24 09/26/24 09/27/24
07:59 07:59 07:59 07:59
Intake Total 480 / 480 480 / 480 720 / 720
Balance 480 / 480 480 / 480 720 / 720
Physical Exam
Physical Exam
GEN: No distress, awake, alert, oriented x3
HEENT: supple, anicteric, mmm, eomi
LUNGS: CTA B/L, no wheezes/rales
CV: Reg, S1/S2, no murmur
ABD: soft, BS+, NT/ND
EXT: No cyanosis, clubbing, edema
NEURO: Gross non-focal
SKIN: Warm, pink, dry. No rash
[2024-09-26] MEDS: KCL 20 MEQ PO (14:25)
[2024-09-26 15:05] VITALS: BP 111/73
== END 2024-09-26 16:30 | disposition home health service (06) | DRG 682 ==
LOC: 4 WEST ACU 15:02
PROVIDERS: Internal Medicine; Physician Assistant; Registered Nurse; ADMITTING PHYSICIAN Internal Medicine; ATTENDING PHYSICIAN Hospitalist; CONSULT PHYSICIAN Internal Medicine; EMERGENCY PHYSICIAN Emergency Medicine; FAMILY PHYSICIAN Nurse Practitioner Adult Health; OTHER PHYSICIAN Internal Medicine Cardiovascular Disease
DX: N17.9 Acute kidney failure, unspecified (principal); G93.41 Metabolic encephalopathy; F05 Delirium due to known physiological condition; I13.0 Hypertensive heart and chronic kidney disease with heart failure and stage 1 through stage 4 chronic kidney disease, or unspecified chronic kidney disease; I50.22 Chronic systolic (congestive) heart failure; I47.20 Ventricular tachycardia, unspecified; R17 Unspecified jaundice; N18.32 Chronic kidney disease, stage 3b; M25.512 Pain in left shoulder; I08.1 Rheumatic disorders of both mitral and tricuspid valves; D64.9 Anemia, unspecified; F32.A Depression, unspecified; K58.0 Irritable bowel syndrome with diarrhea; I25.10 Atherosclerotic heart disease of native coronary artery without angina pectoris; I48.0 Paroxysmal atrial fibrillation; I44.7 Left bundle-branch block, unspecified; G31.84 Mild cognitive impairment of uncertain or unknown etiology; I25.5 Ischemic cardiomyopathy; R74.01 Elevation of levels of liver transaminase levels; K21.9 Gastro-esophageal reflux disease without esophagitis; I95.1 Orthostatic hypotension; E78.5 Hyperlipidemia, unspecified; E66.9 Obesity, unspecified; Z66 Do not resuscitate; Z90.710 Acquired absence of both cervix and uterus; Z87.19 Personal history of other diseases of the digestive system; Z79.01 Long term (current) use of anticoagulants; Z95.5 Presence of coronary angioplasty implant and graft; Z95.810 Presence of automatic (implantable) cardiac defibrillator; Z68.30 Body mass index [BMI] 30.0-30.9, adult
CPT/HCPCS: 70450; 71046; 76700; 80048; 80053; 80061; 80306; 80307; 81003; 81015; 82607; 82746; 83880; 85025; 85027; 93005; 97116; 97163; 97166; 97530; 99285